=== PATIENT | male | born 1955 | race Caucasian/White ===

== ENCOUNTER 2017-04-20 15:23 | Emergency (ER) | payer MEDICARE, OTHER ==
[2017-04-20] MEDS ORDERED: methylPREDNISolone 125 MG* 2 ML VIAL IM ONE (15:48)
[2017-04-20] MEDS ORDERED: Albuterol 2.5 MG/3 ML NEB.SOL* (0.083%) INH ONE (15:49)
[2017-04-20] MEDS ORDERED: Ipratropium 0.5MG/2.5ML NEB* 0.5 MG/2.5 ML NEB.SOLN INH ONE (15:50)
[2017-04-20] MEDS ORDERED: Azithromycin TAB* 250 MG PO ONE (15:51)
--- NOTE | 2017-04-20 16:29 | RAD ---
INDICATION: Dyspnea. COMPARISON: Comparison is made with prior chest x-ray studies from September 03, 2013 and August 25, 2016. TECHNIQUE: Dual-energy PA and lateral views of the chest were obtained. FINDINGS: The heart is within normal limits in size. The lungs are hyperinflated with flattening of the diaphragms consistent with chronic obstructive pulmonary disease. There is a faint nodular density which projects above the left lung base measuring 5 mm in size which appears to be new from older studies. The lungs are otherwise clear. No pleural effusion is seen. IMPRESSION: 1. POSSIBLE LEFT LUNG PULMONARY NODULE. RECOMMEND A FOLLOW-UP CT OF THE CHEST FOR FURTHER EVALUATION. 2. FINDINGS CONSISTENT WITH COPD, NO EVIDENCE FOR ACUTE FINDING.
[2017-04-20] MEDS ORDERED: Levofloxacin TAB* 500 MG PO ONE (16:31)
--- NOTE | 2017-04-20 16:55 | UC ---
Respiratory Complaint HPI - HPI Summary HPI Summary: Patient presents with a past medical history of copd, and he states he has had increased sob, and sputum production x 2 days. He also noted increased O2 needs from 2-3 liters per nasal cannula. He denies fever,chills, chest pain, associated with his symtpoms. He states that when this happens he gets levaquin , and prednisone and he is o.k. - History of Current Complaint Chief Complaint: UCRespiratory Stated Complaint: SOB Time Seen by Provider: 04/20/17 15:43 Hx Obtained From: Patient Onset/Duration: Gradual Onset, Lasting Days Severity Initially: Mild Severity Currently: Moderate Character: Cough: Productive Aggravating Factors: Exertion Alleviating Factors: Bronchodilator, Upright Position - Risk Factors Pulmonary Embolism Risk Factors: Negative Tuberculosis Risk Factors: Corticosteriod Use - Allergies/Home Medications Allergies/Adverse Reactions: Allergies Allergy/AdvReac Type Severity Reaction Status Date / Time No Known Allergies Allergy Verified 04/20/17 15:37 PMH/Surg Hx/FS Hx/Imm Hx Previously Healthy: No Respiratory History: COPD, Bronchitis Other History Of: Negative For: HIV, Hepatitis B, Hepatitis C, Anticoagulant Therapy - Surgical History Surgical History: Yes Surgery Procedure, Year, and Place: tear ducts 2007. 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 Smoking Status (MU): Former Smoker Type: Cigarettes Amount Used/How Often: very little, a cigarette a day at most, usually less- uses nicotine inhaler Length of Time of Smoking/Using Tobacco: has quit Have You Smoked in the Last Year: Yes Household Exposure Type: Cigarettes - Immunization History Most Recent Influenza Vaccination: unsure Most Recent Tetanus Shot: 2009 Most Recent Pneumonia Vaccination: 2013 Review of Systems Constitutional: Negative Skin: Negative Eyes: Negative ENT: Negative Respiratory: Shortness Of Breath, Cough Cardiovascular: Negative Gastrointestinal: Negative Genitourinary: Negative Motor: Negative Neurovascular: Negative Musculoskeletal: Negative Neurological: Negative All Other Systems Reviewed And Are Negative: Yes Physical Exam Triage Information Reviewed: Yes Appearance: Ill-Appearing Vital Signs: Initial Vital Signs Temp 98 F 04/20/17 15:28 Pulse 114 06/05/17 15:28 Resp 22 04/20/17 15:28 BP 120/68 04/20/17 15:28 Pulse Ox 72 04/20/17 15:28 Vital Signs Reviewed: Yes Eye Exam: Normal ENT Exam: Normal Neck exam: Normal Respiratory: Positive: Decreased breath sounds Cardiovascular Exam: Normal Cardiovascular: Positive: Tachycardia Abdominal Exam: Normal Musculoskeletal Exam: Normal Skin Exam: Normal UC Diagnostic Evaluation - Laboratory O2 Sat by Pulse Oximetry: 79 Respiratory Course/Dx - Course Course Of Treatment: Patient has history of copd, and is o2 dependent continuous at home. He presents today with increased cough, and sputum production x 2 days. Denies chest pain, palpitation, n/v/d or abeominal pain. Chest xray reveals a pulmonary nodule recommended repeat ct in 3 months to ensure stabilty vs resolution. the patient was given a copy and told to follow up in three months as this could be cancer. He was given solu-mderol 125 mg im, and a loading dose of levaquin 500 mg in the department. I recommended that he go to the ER but he declined and I told him I have concerns he is in acute respiratory failure and he could , but he states he knows his own body and wear a pulse oximety at all times at home. He had capacity to makes his own decisions, and understood the cosequences of his decision, his was present. - Differential Dx/Diagnosis Differential Diagnosis/HQI/PQRI: Exacerbation Of COPD Provider Diagnoses: copd Discharge - Discharge Plan Condition: Stable Disposition: HOME Prescriptions: Levofloxacin TAB* [Levaquin TAB*] 500 mg PO DAILY #10 tab predniSONE TAB* [Deltasone TAB*] 20 mg PO BID #10 tab Patient Education Materials: COPD (Chronic Obstructive Pulmonary Disease) (ED) , Pulmonary Nodules (ED) Referrals: Tigre Torres MD [Primary Care Provider] -
[2017-04-20 17:21] VITALS: BP 145/91
== END 2017-04-20 17:12 | disposition home or self-care (01) ==
LOC: UCEAST 15:23
DX: J44.1 Chronic obstructive pulmonary disease with (acute) exacerbation (principal); Z87.891 Personal history of nicotine dependence; Z99.81 Dependence on supplemental oxygen
CPT/HCPCS: 71020; 96372; 99212; A9270-GY; G0463; J2930; J7644

== ENCOUNTER 2017-08-26 11:37 | Inpatient (IN) | payer MEDICARE, OTHER ==
[2017-08-26] MEDS: Albuterol/Ipratropium NEB.SOL* Albuterol 2.5 MG/Ipratropium 0.5 MG 3 ML INH ONE (12:08)
[2017-08-26] MEDS ORDERED: Furosemide IV* 10 MG/ML 10 ML VIAL (100 MG) IV ONE (12:13)
--- NOTE | 2017-08-26 12:27 | RAD ---
Indication: Shortness of breath. Single frontal view of the chest performed at 1200 hours was reviewed. Comparison is made with previous exam dated April 20, 2017. No mediastinal shift is noted. Hyperinflated lung talley are noted. Overall appearance does not appear to be significantly changed since April 20, 2017. IMPRESSION: HYPERINFLATED LUNG TALLEY WITH NO DEFINITE PNEUMONIA.
[2017-08-26 12:45] LABS: Hematocrit 43 % (42-52); Hemoglobin 13.8 g/dl (14.0-18.0); Mean Corpuscular HGB Conc 32 g/dl (31-36); Mean Corpuscular Hemoglobin 28 pg (27-31); Mean Corpuscular Volume 89 fL (80-94); Mean Platelet Volume 7 um3 (7.4-10.4); Red Blood Count 4.89 10^6/ul (4.0-5.4); Red Cell Distribution Width 13 % (10.5-15); White Blood Count 7.1 10^3/ul (3.5-10.8)
[2017-08-26 12:55] LABS: Albumin 3.8 g/dL (3.2-5.2); BUN/Creatinine Ratio 19.6 (8-20); C Reactive Protein 32.22 mg/L (< 5.00); Calcium 8.6 mg/dL (8.6-10.3); EGFR African American 211.1 (>60); EGFR Non-African American 164.1 (>60); Potassium 4.5 mmol/L (3.5-5.0); Total Bilirubin 0.6 mg/dL (0.2-1.0); Total Protein 6.8 g/dL (6.4-8.9)
[2017-08-26 12:57] LABS: Troponin I 0.03 ng/mL (<0.04)
[2017-08-26] MEDS ORDERED: methylPREDNISolone 125 MG* 2 ML VIAL IV ONE (13:30)
[2017-08-26 14:42] LABS: EPAP 6; FIO2 40; IPAP 16; Resp Rate 16
[2017-08-26 14:50] LABS: PCO2 Arterial 116 mmHg (35-45)
[2017-08-26] MEDS ORDERED: Cyclobenzaprine TAB* 10 MG PO PRN (15:00)
[2017-08-26] MEDS ORDERED: LORazepam TAB(*) 0.5 MG PO PRN (15:00)
--- NOTE | 2017-08-26 15:32 | HP ---
H&P (Free Text) History and Physical: H&P - Critical Care Reason for admission: copd exaccerbation Limitations in history/physical: delirium Date of admission: 08/26/2017 History limitation: delirium HPI: 62y M with chronic hypercapnea and chronic hypoxia 2/2 to COPD, on 2L NC, DM; comes to ER for shortness of breath, significant other at bedside. History limited due to mental status, lethargic. Significant other states he has been short of breath for days, unable to sleep for 3 nights, no cough/fever/sputum/cp /n/v/diarrhea/sick contacts. Today more short of breath. Had rash last week, on topical steroid but not much improvement. In ER, given steroids, Lasix, nebs. Placed on NIV. CXR without infiltrate but possible congestion? Currently in bed, opens eyes to stimuli but doesnt answer much and sleeps again. On NIV 29/04 40%, sat 93%, rr 16, BP 120s, HR 80-90s. ROS: limited due to delirium PMHx: COPD, home O2 2L; DM PSHx: biliary duct stent 2013 Family History: HTn, Cardiac disease Social History: Alcohol past, but stopped, Smoking - quit Allergies: NKDA Home Medications: LORazepam TAB(*) [Ativan 0.5 MG TAB (*)] 0.5 mg PO BID PRN MDD 1mg 12/23/14 [ History Confirmed 08/26/17] Albuterol/Ipratropium NEB.JAZZMINE* [Duoneb (Albuterol 2.5 MG/Ipratropium 0.5 MG)] 1 neb INH Q4HR PRN #0 08/26/16 [Rx Confirmed 08/26/17] glipiZIDE TAB.XL* [Glucotrol Xl*] 5 mg PO DAILY #30 tab.xl 08/26/16 [Rx Confirmed 08/26/17] Albuterol HFA INHALER* [Ventolin HFA Inhaler*] 2 puff INH QID PRN 08/26/17 [ History Confirmed 08/26/17] Cyclobenzaprine TAB* [Flexeril 10 MG TAB*] 10 mg PO TID PRN 08/26/17 [History Confirmed 08/26/17] Empagliflozin-Metformin HCl [Synjardy Xr 5-1000 mg] 1 tab PO BID 08/26/17 [ History Confirmed 08/26/17] Fluticasone-Salmeterol 500-50* [Advair Diskus 500-50*] 2 puff INH BID 08/26/17 [ History Confirmed 08/26/17] Pregabalin CAP(*) [Lyrica CAP(*)] 75 mg PO BID 08/26/17 [History Confirmed 08/26] Sertraline* [Zoloft*] 100 mg PO DAILY 08/26/17 [History Confirmed 08/26/17] Triamcinolone 0.1% CREAM (NF) [Kenalog 0.1% Cream (NF)] 1 applic TOPICAL TID PRN 08/26/17 [History Confirmed 08/26/17] Tele: NSR Vitals: Vital Signs Temp 99 F 08/26/17 11:50 Pulse 101 08/26/17 15:00 Resp 16 08/26/17 15:00 BP 135/74 08/26/17 15:00 Pulse Ox 93 08/26/17 15:00 Intake & Output 08/25/17 08/26/17 08/26/17 18:59 06:59 18:59 Weight 217 lb O2/Vent: NIV 14/6, 40%; rr 16, mv 5; sat 93% Infusions: heplock Current Medications: Albuterol/Ipratropium (Duoneb (Albuterol 2.5 Mg/Ipratropium 0.5 Mg)) 1 neb INH Q2H PRN PRN Reason: SOB/WHEEZING Cyclobenzaprine HCl (Flexeril Tab*) 10 mg PO TID PRN PRN Reason: PAIN Glipizide (Glucotrol Xl*) 5 mg PO DAILY ANAT Lorazepam (Ativan Tab(*)) 0.5 mg PO BID PRN PRN Reason: ANXIETY Methylprednisolone Sodium Succinate (Solu-Medrol 125mg *) 60 mg IV Q8H ANAT Pregabalin (Lyrica Cap(*)) 75 mg PO BID ANAT Sertraline HCl (Zoloft*) 100 mg PO DAILY ANAT Physical Exam: General: lethargic, arousable but minimally, doesnt talk back but opens eyes for a short while. not diaphoretic Head: normocephalic, atraumatic HEENT: no pallor, no icterus, moist mucous membranes Neck: soft, supple, no jvd, no stridor CVS: normal rate, normal rhythm, no murmur Resp: dec bs bilaterally, no rhales, no acc muscle use Abdomen: soft, nontender, nondistended, bowel sounds present Ext: pulses+, warm, trace edema Skin: intact, no breakdown; areas of scattered rash flush with skin, areas of excoriation/scabs Neuro: lethargic, opens eyes transiently with stimuli, no distress, moves spontaneously, pupils reactive bilaterally Labs: Laboratory Results - last 24 hr 08/26/17 08/26/17 08/26/17 12:25 12:25 12:25 WBC 7.1 RBC 4.89 Hgb 13.8 L Hct 43 MCV 89 MCH 28 MCHC 32 RDW 13 Plt Count 234 MPV 7 L Neut % (Auto) 77.5 Lymph % (Auto) 11.0 L Luce % (Auto) 9.6 H Eos % (Auto) 1.0 Baso % (Auto) 0.9 Absolute Neuts (auto) 5.5 Absolute Lymphs (auto) 0.8 L Absolute Monos (auto) 0.7 Absolute Eos (auto) 0.1 Absolute Basos (auto) 0.1 Absolute Nucleated RBC 0 Nucleated RBC % 0 Patient Temperature ABG pH ABG pH (Temp Correct) ABG pCO2 ABG pCO2 (Temp Corrct ABG pO2 ABG pO2 (Temp Correct ABG HCO3 ABG O2 Saturation ABG Base Excess Respiration Rate Ventilator Type Vent Mode FiO2 Inspiratory Time PEEP Pressure Support Pressure Control EPAP IPAP BiPAP Sodium 127 L Potassium 4.5 Chloride 84 L Carbon Dioxide 37 H Anion Gap 6 BUN 10 Creatinine 0.51 L Est GFR ( Amer) 211.1 Est GFR (Non-Af Amer) 164.1 BUN/Creatinine Ratio 19.6 Glucose 77 Lactic Acid Calcium 8.6 Total Bilirubin 0.60 AST 20 ALT 13 Alkaline Phosphatase 43 Troponin I 0.03 C-Reactive Protein 32.22 H B-Natriuretic Peptide 428 H Total Protein 6.8 Albumin 3.8 Globulin 3.0 Albumin/Globulin Ratio 1.3 08/26/17 08/26/17 12:25 14:35 WBC RBC Hgb Hct MCV MCH MCHC RDW Plt Count MPV Neut % (Auto) Lymph % (Auto) Luce % (Auto) Eos % (Auto) Baso % (Auto) Absolute Neuts (auto) Absolute Lymphs (auto) Absolute Monos (auto) Absolute Eos (auto) Absolute Basos (auto) Absolute Nucleated RBC Nucleated RBC % Patient Temperature Not Reportable ABG pH 7.20 L ABG pH (Temp Correct) Not Reportable ABG pCO2 116 H* ABG pCO2 (Temp Corrct Not Reportable ABG pO2 56 L* ABG pO2 (Temp Correct Not Reportable ABG HCO3 33.6 H ABG O2 Saturation 91.6 L ABG Base Excess 11.5 H Respiration Rate 16 Ventilator Type Not Reportable Vent Mode Not Reportable FiO2 40 Inspiratory Time Not Reportable PEEP Not Reportable Pressure Support Not Reportable Pressure Control Not Reportable EPAP 6 IPAP 16 BiPAP Not Reportable Sodium Potassium Chloride Carbon Dioxide Anion Gap BUN Creatinine Est GFR ( Amer) Est GFR (Non-Af Amer) BUN/Creatinine Ratio Glucose Lactic Acid 0.3 L Calcium Total Bilirubin AST ALT Alkaline Phosphatase Troponin I C-Reactive Protein B-Natriuretic Peptide Total Protein Albumin Globulin Albumin/Globulin Ratio Imaging: cxr 08/26 - hyperinflated lung davis, no infiltrate; no sig congestion seen, no effusions Assessment: 62y M with chronic hypercapnea and chronic hypoxia 2/2 to COPD, on 2L NC, DM; comes to ER for 3 days of shortness of breath, more lethargic in ED, placed on NIV, found to be hypercapneic/hypoxic. -Acute on chronic hypercapneic and hypoxic respiratory failure -Suspecte Acute COPD exaccerbation -Encephelopathy, metabolic/toxic -hyponatremia Plan: Neuro- encephelopathy, likely from hypercapnea, neurochecks. delirium prec. hold any sedation/sedating agents. CVS- hemodyn stable. BP okay, not tachy. given lasix x1. minimal edema. hold further lasix, cxr not much congestion. noted BNP elevated. Obtain TTE to eval LV function. Resp- acute hypercap and hypoxia on chronic; cont NIV, follow neuro checks. last Mv now 7s, slightly more arousable. keep upright. adjust fio2 to keep sat 92%. repeat abg in 3-4 hours to see trend. any further change in mental status or worsening or shall breathing, and will likley need intubation, discussed with significant other at bedside. cont nebs q2h prn. cont steroids 60mg iv q8h. cxr in am. no abx indicated at thsi time, afebrile/wbc okay/no incr sputum prod. ID- afebrile. wbc okay, no sputum. cxr clear of infiltrate. hold abx for now. GI-NPO while on NIV/encephelopathy. Renal- Cr okay. K okay, chronic alkalosis 2/2 to hypercapnea. s/p lasix. hold further for now. Heme- hg stable, plt okay. Endo- hold PO antidiabetic meds. subq insulin coverage. Musculsk- pressure ulcer proph Wounds- none, skin rash noted. cover with systemic steroids for copd exacc. monitor for now. DVT prophylaxis: lovenox sq GI prophylaxis: pepcid Central Line: no Arterial Line: no Granda Cathetor: no Disposition: ICU for respiratory failure and suspected copd exacc Code Status: full code Total Critical Care time is 50 minutes, excluding procedures/teaching Preet Hampton MD Content Management Consultant (Electronically Signed)
[2017-08-26] MEDS ORDERED: Dextrose 50% Syringe 50 ML* 25 GM/50 ML SYRINGE IV PUSH PRN (15:36)
[2017-08-26] MEDS: Albuterol/Ipratropium NEB.SOL* Albuterol 2.5 MG/Ipratropium 0.5 MG 3 ML INH PRN (15:42)
[2017-08-26] MEDS ORDERED: Perflutren Lipid Microsphere* 3 ML VIAL ONE (16:35)
--- NOTE | 2017-08-26 17:32 | ECHO ---
Patient: JAN GASTELUM [facility] Rec#: [id number] : 1955 Date: 08/26/2017 Age: 62y Height: 177.8 cm / 70.0 in Weight: 95.25 kg / 209.9 lbs Sex: M BSA: 2.13 Room#: [facility] Admit Date#: 08/26/2017 Type: Inpatient Referring: Preet Hampton Reading: Julien West MD Plant Hr Manager: Rena Bee RDCS CC: Tigre Torres MD Transthoracic Echocardiogram Indication: Shortness of breath BP: 119/71 HR: 108 Rhythm: Tachycardia Findings History: COPD, previous ETOH, liver cirrhosis, pancreatitis, DM, former smoker. Technical Comments: The study is technically difficult. The study is technically limited due to the patient's history of COPD. The study is technically limited due to patient being on BIPAP during study. Completed at 1720. Left Ventricle: The left ventricular chamber size is decreased. There is no left ventricular hypertrophy. Global left ventricular wall motion and contractility are within normal limits. There is normal left ventricular systolic function. The estimated ejection fraction is 55-60%. There is septal flattening of the interventricular septum consistent with right ventricular volume or pressure overload. Abnormal left ventricular diastolic function is observed. There is an E to A reversal in the mitral valve flow pattern suggestive of diastolic dysfunction. Left Atrium: The left atrial chamber size is normal. Right Ventricle: Moderator Band present. The right ventricle is moderately dilated. The right ventricular global systolic function is moderately reduced. Right Atrium: The right atrium is mildly dilated. Aortic Valve: The aortic valve is trileaflet. There is no evidence of aortic regurgitation. There is no evidence of aortic stenosis. Mitral Valve: The mitral valve leaflets appear normal. There is a trace of mitral regurgitation. There is no evidence of mitral stenosis. Tricuspid Valve: The tricuspid valve leaflets are mildly thickened. There is trace to mild tricuspid regurgitation. The right ventricular systolic pressure is estimated at 54 mmHg. There is evidence of moderate pulmonary hypertension. There is no tricuspid stenosis. Pulmonic Valve: The pulmonic valve appears normal. There is a trace pulmonic regurgitation. There is no pulmonic stenosis. Pericardium: There is no significant pericardial effusion. Aorta: The ascending aorta is not well visualized. The aortic arch is not well visualized. The aortic root is normal in size. Pulmonary Artery: The main pulmonary artery is not well visualized. Venous: The inferior vena cava appears normal in size. There is less than 50% respiratory change in the inferior vena cava dimension. Contrast: Definity was used to optimize study. Intravenous contrast was used to enhance endocardial border definition. 3 mL of diluted Definity was utilized. Summary: There are changes noted when compared to the previous study done on 12/26/2014, RV was not well visualized then and mildly dilated and no comment on systolic function . Now RV is at least moderately dilated and moderate RV systolic function reduction.PHTN still moderate. Conclusions The study is technically limited due to the patient's history of COPD. The left ventricular chamber size is decreased. The estimated ejection fraction is 55-60%. There is septal flattening of the interventricular septum consistent with right ventricular volume or pressure overload. Abnormal left ventricular diastolic function is observed. The right ventricle is moderately dilated. The right atrium is mildly dilated. There is a trace of mitral regurgitation. There is trace to mild tricuspid regurgitation. There is evidence of moderate pulmonary hypertension. There is a trace pulmonic regurgitation. The right ventricular global systolic function is moderately reduced. There are changes noted when compared to the previous study done on 12/26/2014, RV was not well visualized then and mildly dilated and no comment on systolic function . Now RV is at least moderately dilated and moderate RV systolic function reduction.PHTN still moderate. Measurements Name Value Normal Range RVIDd (AP) 2D 4.6 cm (0.9 - 2.6) RVDdMajor (2D) 5.6 cm (2.2 - 4.4) RAd ISD 4CH 5.1 cm (3.4 - 4.9) RA (A4C)W 4.7 cm (2.9 - 4.6) IVSd (2D) 1 cm (0.6 - 1) LVPWd (2D) 1 cm (0.6 - 1) LVIDd (2D) 3.4 cm (3.6 - 5.4) LVIDs (2D) 2.2 cm - LV FS (2D) 34 % (25 - 45) Aortic Annulus 2 cm (1.4 - 2.6) Ao root diameter (2D) 3 cm (2.1 - 3.5) LA dimension (AP) 2D 3.6 cm (2.3 - 3.8) LAd ISD 4CH 4.5 cm (2.9 - 5.3) LA ISD 4CH W 4 cm (2.5 - 4.5) Name Value Normal Range LA ESV SP 4CH (A/L) 49 ml - LA ESV SP 2CH (A/L) 54 ml - LA ESV BP (A/L) 60 ml - LA ESV BP (A/L) index 28.22 ml/m2 - LA ESV SP 4CH (MOD) 43 ml - LA ESV SP 2CH (MOD) 52 ml - Name Value Normal Range MV E-wave Vmax 0.64 m/sec - MV deceleration time 164 msec - MV A-wave Vmax 0.78 m/sec - MV E:A ratio 0.82 ratio - LV septal e' Vmax 0.07 m/sec - LV lateral e' Vmax 0.15 m/sec - LV E:e' septal ratio 9.14 ratio - LV E:e' lateral ratio 4.27 ratio - Name Value Normal Range AV Vmax 1.5 m/sec - AV VTI 20.21 cm - AV peak gradient 9.37 mmHg - AV mean gradient 3.89 mmHg - LVOT Vmax 1.16 m/sec - LVOT VTI 18.69 cm - LVOT peak gradient 5.39 mmHg - LVOT mean gradient 2.81 mmHg - Name Value Normal Range TR Vmax 3.4 m/sec - TR peak gradient 46 mmHg - RAP 8 mmHg - RVSP 54 mmHg - IVC diameter 1.7 cm - Name Value Normal Range PV Vmax 1.16 m/sec - PV peak gradient 5.35 mmHg -
[2017-08-26] MEDS: Insulin LISPRO* 1 UNITS UNIT SUBCUT SCH ×2 (17:52→23:48)
[2017-08-26] MEDS: Albuterol (2.5 MG) 0.5 % CONC 2.5 MG/0.5 ML NEB.SOLN (ICU and ED only) INH SCH ×2 (20:20→22:05)
[2017-08-26] MEDS: methylPREDNISolone 125 MG* 2 ML VIAL IV SCH (20:20)
[2017-08-26] MEDS: Pregabalin CAP(*) 25 MG PO SCH (20:24)
[2017-08-26 20:28] LABS: PCO2 Arterial 88 mmHg (35-45)
--- NOTE | 2017-08-26 21:25 | ED ---
Jaciel Maynard Thomas, scribed for Curt Sierra MD on 08/26/17 at 1158 . Shortness of Breath - HPI Summary HPI Summary: The pt is a 62 y/o M BIBA c/o SOB at rest that began yesterday. The SOB is constant and is aggravated and alleviated by nothing. The patient had one breathing treatment given prior to arrival by EMS and maybe three at home. He is on 2L of oxygen at home. He takes prednisone. PMHx: COPD, PNA. - History of Current Complaint Chief Complaint: EDRespiratoryDistress Hx Obtained From: Patient Onset/Duration: Lasting Days - onset yesterday, Still Present Timing: Constant Dyspnea At: Rest Aggrevating Factors: Nothing Alleviating Factors: Nothing Associated Signs & Symptoms: Negative - Allergy/Home Medications Allergies/Adverse Reactions: Allergies Allergy/AdvReac Type Severity Reaction Status Date / Time No Known Allergies Allergy Verified 04/20/17 15:37 Home Medications: Home Medications Albuterol HFA INHALER* [Ventolin HFA Inhaler*] 2 puff INH QID PRN 08/26/17 [ History Confirmed 08/26/17] Cyclobenzaprine TAB* [Flexeril 10 MG TAB*] 10 mg PO TID PRN 08/26/17 [History Confirmed 08/26/17] Empagliflozin-Metformin HCl [Synjardy Xr 5-1000 mg] 1 tab PO BID 08/26/17 [ History Confirmed 08/26/17] Fluticasone-Salmeterol 500-50* [Advair Diskus 500-50*] 2 puff INH BID 08/26/17 [ History Confirmed 08/26/17] Pregabalin CAP(*) [Lyrica CAP(*)] 75 mg PO BID 08/26/17 [History Confirmed 08/26] Sertraline* [Zoloft*] 100 mg PO DAILY 08/26/17 [History Confirmed 08/26/17] Triamcinolone 0.1% CREAM (NF) [Kenalog 0.1% Cream (NF)] 1 applic TOPICAL TID PRN 08/26/17 [History Confirmed 08/26/17] PMH/Surg Hx/FS Hx/Imm Hx Previously Healthy: No Endocrine/Hematology History: Reports: Hx Diabetes Denies: Hx Anticoagulant Therapy, Hx Thyroid Disease Cardiovascular History: Denies: Hx Congestive Heart Failure, Hx Deep Vein Thrombosis, Hx Hypertension , Hx Myocardial Infarction, Hx Pacemaker/ICD Respiratory History: Reports: Hx Chronic Obstructive Pulmonary Disease (COPD), Other Respiratory Problems/Disorders - RECENT HX OF PNEUMONIA Denies: Hx Asthma, Hx Lung Cancer, Hx Pneumonia, Hx Pulmonary Embolism GI History: Reports: Hx Gall Bladder Disease - COMMON BILE DUCT STENTED. LATER CHOLANGITIS, Other GI Disorders - COMMON BILE DUCT STENT Denies: Hx Gastroesophageal Reflux Disease, Hx Gastrointestinal Bleed, Hx Hiatal Hernia, Hx Irritable Bowel, Hx Jaundice, Hx Ulcer, Hx Urosepsis History: Denies: Hx Dialysis, Hx Kidney Infection, Hx Kidney Stones, Hx Renal Disease , Other Problems/Disorders Sensory History: Reports: Hx Contacts or Glasses - WITH PT Denies: Hx Cataracts, Hx Hearing Aid, Other Sensory Impairments Opthamlomology History: Reports: Hx Contacts or Glasses - WITH PT Denies: Hx Cataracts, Other Sensory Impairments Neurological History: Denies: Hx Dementia, Hx Migraine, Hx Seizures, Hx Transient Ischemic Attacks (TIA) Psychiatric History: Reports: Hx Anxiety Denies: Hx Depression, Hx Schizophrenia, Hx Bipolar Disorder, Hx Substance Abuse, Other Psychiatric Issues/Disorders - pt denies ETOH abuse at this time - Surgical History Surgery Procedure, Year, and Place: tear ducts 2007. STENT IN BILE DUCT 2014 Hx Anesthesia Reactions: No - Immunization History Date of Tetanus Vaccine: 2010 Date of Influenza Vaccine: 2011 Infectious Disease History: No Infectious Disease History: Denies: Hx Hepatitis, Hx Human Immunodeficiency Virus (HIV), History Other Infectious Disease, Traveled Outside the [place] in Last 30 Days - Family History Known Family History: Positive: Cardiac Disease, Hypertension - Social History Alcohol Use: None Alcohol Amount: HX ETOH BUT DOES NOT DRINK ANYMORE Hx Substance Use: No Substance Use Type: Reports: None Substance Use Comment - Amount & Last Used: hx of etoh, 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 Hx Tobacco Use: Yes Smoking Status (MU): Former Smoker Type: Cigarettes Amount Used/How Often: very little, a cigarette a day at most, usually less- uses nicotine inhaler Length of Time of Smoking/Using Tobacco: has quit Have You Smoked in the Last Year: Yes Review of Systems Negative: Fever Positive: Shortness Of Breath All Other Systems Reviewed And Are Negative: Yes Physical Exam Triage Information Reviewed: Yes Vital Signs On Initial Exam: Initial Vitals Temp Pulse Resp BP Pulse Ox 99 F 114 26 144/73 94 08/26/17 11:50 08/26/17 11:50 08/26/17 11:50 08/26/17 11:50 08/26/17 11:50 Vital Signs Reviewed: Yes Appearance: Positive: Well-Appearing, No Pain Distress, Obese Skin: Positive: Warm, Skin Color Reflects Adequate Perfusion, Dry Head/Face: Positive: Normal Head/Face Inspection Eyes: Positive: Normal ENT: Positive: Normal ENT inspection Neck: Positive: Supple, Nontender Respiratory/Lung Sounds: Positive: Other - There are decreased breath sounds. There is increased AP diameter. There is prolonged expiratory time. He speaks in one- or two-word sentences. Cardiovascular: Positive: RRR Abdomen Description: Positive: Nontender, Soft Bowel Sounds: Positive: Present Musculoskeletal: Positive: Normal Neurological: Positive: Normal Psychiatric: Positive: Normal, Affect/Mood Appropriate Diagnostics - Vital Signs Vital Signs Temp Pulse Resp BP Pulse Ox 08/26/17 11:50 99 F 114 26 144/73 94 - Laboratory Lab Results: Lab Results 08/26/17 08/26/17 08/26/17 Range/Units 12:25 12:25 12:25 WBC 7.1 (3.5-10.8) 10^3/ul RBC 4.89 (4.0-5.4) 10^6/ul Hgb 13.8 L (14.0-18.0) g/dl Hct 43 (42-52) % MCV 89 (80-94) fL MCH 28 (27-31) pg MCHC 32 (31-36) g/dl RDW 13 (10.5-15) % Plt Count 234 (150-450) 10^3/ul MPV 7 L (7.4-10.4) um3 Neut % (Auto) 77.5 (38-83) % Lymph % (Auto) 11.0 L (25-47) % [place] % (Auto) 9.6 H (1-9) % Eos % (Auto) 1.0 (0-6) % Baso % (Auto) 0.9 (0-2) % Absolute Neuts (auto) 5.5 (1.5-7.7) 10^3/ul Absolute Lymphs (auto) 0.8 L (1.0-4.8) 10^3/ul Absolute Monos (auto) 0.7 (0-0.8) 10^3/ul Absolute Eos (auto) 0.1 (0-0.6) 10^3/ul Absolute Basos (auto) 0.1 (0-0.2) 10^3/ul Absolute Nucleated RBC 0 10^3/ul Nucleated RBC % 0 Patient Temperature ABG pH (7.35-7.45) ABG pH (Temp Correct) ABG pCO2 (35-45) mmHg ABG pCO2 (Temp Corrct ABG pO2 (80-100) mmHg ABG pO2 (Temp Correct ABG HCO3 (19-31) mmol/L ABG O2 Saturation (95-98) % ABG Base Excess (-2.0-2.0) Respiration Rate Ventilator Type Vent Mode FiO2 Inspiratory Time PEEP Pressure Support Pressure Control EPAP IPAP BiPAP Sodium 127 L (133-145) mmol/L Potassium 4.5 (3.5-5.0) mmol/L Chloride 84 L (101-111) mmol/L Carbon Dioxide 37 H (22-32) mmol/L Anion Gap 6 (2-11) mmol/L BUN 10 (6-24) mg/dL Creatinine 0.51 L (0.67-1.17) mg/dL Est GFR ( Amer) 211.1 (>60) Est GFR (Non-Af Amer) 164.1 (>60) BUN/Creatinine Ratio 19.6 (8-20) Glucose 77 (70-100) mg/dL Lactic Acid (0.5-2.0) mmol/L Calcium 8.6 (8.6-10.3) mg/dL Total Bilirubin 0.60 (0.2-1.0) mg/dL AST 20 (13-39) U/L ALT 13 (7-52) U/L Alkaline Phosphatase 43 (34-104) U/L Troponin I 0.03 (<0.04) ng/mL C-Reactive Protein 32.22 H (< 5.00) mg/L B-Natriuretic Peptide 428 H ( - 100) pg/mL Total Protein 6.8 (6.4-8.9) g/dL Albumin 3.8 (3.2-5.2) g/dL Globulin 3.0 (2-4) g/dL Albumin/Globulin Ratio 1.3 (1-3) 08/26/17 08/26/17 Range/Units 12:25 14:35 WBC (3.5-10.8) 10^3/ul RBC (4.0-5.4) 10^6/ul Hgb (14.0-18.0) g/dl Hct (42-52) % MCV (80-94) fL MCH (27-31) pg MCHC (31-36) g/dl RDW (10.5-15) % Plt Count (150-450) 10^3/ul MPV (7.4-10.4) um3 Neut % (Auto) (38-83) % Lymph % (Auto) (25-47) % [place] % (Auto) (1-9) % Eos % (Auto) (0-6) % Baso % (Auto) (0-2) % Absolute Neuts (auto) (1.5-7.7) 10^3/ul Absolute Lymphs (auto) (1.0-4.8) 10^3/ul Absolute Monos (auto) (0-0.8) 10^3/ul Absolute Eos (auto) (0-0.6) 10^3/ul Absolute Basos (auto) (0-0.2) 10^3/ul Absolute Nucleated RBC 10^3/ul Nucleated RBC % Patient Temperature Not Reportable ABG pH 7.20 L (7.35-7.45) ABG pH (Temp Correct) Not Reportable ABG pCO2 116 H* (35-45) mmHg ABG pCO2 (Temp Corrct Not Reportable ABG pO2 56 L* (80-100) mmHg ABG pO2 (Temp Correct Not Reportable ABG HCO3 33.6 H (19-31) mmol/L ABG O2 Saturation 91.6 L (95-98) % ABG Base Excess 11.5 H (-2.0-2.0) Respiration Rate 16 Ventilator Type Not Reportable Vent Mode Not Reportable FiO2 40 Inspiratory Time Not Reportable PEEP Not Reportable Pressure Support Not Reportable Pressure Control Not Reportable EPAP 6 IPAP 16 BiPAP Not Reportable Sodium (133-145) mmol/L Potassium (3.5-5.0) mmol/L Chloride (101-111) mmol/L Carbon Dioxide (22-32) mmol/L Anion Gap (2-11) mmol/L BUN (6-24) mg/dL Creatinine (0.67-1.17) mg/dL Est GFR ( Amer) (>60) Est GFR (Non-Af Amer) (>60) BUN/Creatinine Ratio (8-20) Glucose (70-100) mg/dL Lactic Acid 0.3 L (0.5-2.0) mmol/L Calcium (8.6-10.3) mg/dL Total Bilirubin (0.2-1.0) mg/dL AST (13-39) U/L ALT (7-52) U/L Alkaline Phosphatase (34-104) U/L Troponin I (<0.04) ng/mL C-Reactive Protein (< 5.00) mg/L B-Natriuretic Peptide ( - 100) pg/mL Total Protein (6.4-8.9) g/dL Albumin (3.2-5.2) g/dL Globulin (2-4) g/dL Albumin/Globulin Ratio (1-3) Result Diagrams: 08/26/17 12:25 08/26/17 12:25 Lab Statement: Any lab studies that have been ordered have been reviewed, and results considered in the medical decision making process. - Radiology CXR Xray Interpretation: No Acute Changes - Hyperinflated lung davis with no definite PNA. ED physician has reviewed this report and agrees. Radiology Interpretation Completed By: Radiologist - EKG 12:08 Cardiac Rate: Tachycardia - 104 BPM EKG Rhythm: Sinus Tachycardia EKG Interpretation: Nonspecific septal changes. Course/Dx - Course Course Of Treatment: Mr. Cerna presented in obvious respiratory distress. He was immediatley placed on BiPap, given Nebs and given IV solumedrol. He got some rest on BiPap. He had peripheral edema and some signs of increased fluid on his CXR so I gave him some lasix also. He was admitted to the ICU. - Diagnoses Provider Diagnoses: COPD exacerbation, CHF (congestive heart failure), Respiratory insufficiency - Physician Notifications Discussed Care of Patient With: Preet Hampton Time Discussed With Above Provider: 13:36 Instructed by Provider To: Other - I consulted with Dr. Hampton, teachers' aide, regarding patient care. He admits the patient to [facility] [place]. - Critical Care Time Critical Care Time: 30-74 min Discharge - Discharge Plan Condition: Fair Disposition: ADMITTED TO [facility] documentation as recorded by the Jaciel giron Thomas accurately reflects the service I personally performed and the decisions made by me, Curt Sierra MD.
[2017-08-26] MEDS: Enoxaparin(*) 40 MG/0.4 ML SYR SUBCUT SCH (22:04)
[2017-08-27] MEDS: methylPREDNISolone 125 MG* 2 ML VIAL IV SCH ×3 (03:49→21:13)
[2017-08-27] MEDS: Insulin LISPRO* 1 UNITS UNIT SUBCUT SCH ×4 (06:13→21:14)
[2017-08-27 07:06] LABS: Hematocrit 46 % (42-52); Hemoglobin 14.6 g/dl (14.0-18.0); Mean Corpuscular HGB Conc 32 g/dl (31-36); Mean Corpuscular Hemoglobin 28 pg (27-31); Mean Corpuscular Volume 87 fL (80-94); Mean Platelet Volume 8 um3 (7.4-10.4); Red Cell Distribution Width 13 % (10.5-15); White Blood Count 3.1 10^3/ul (3.5-10.8)
[2017-08-27 07:08] LABS: Add Diff/Slide Review? Slide Review Added; Comments Flag Yes
[2017-08-27 07:24] LABS: BUN/Creatinine Ratio 26.8 (8-20); Calcium 8.4 mg/dL (8.6-10.3); EGFR African American 189.5 (>60); EGFR Non-African American 147.4 (>60); Potassium 4.8 mmol/L (3.5-5.0)
--- NOTE | 2017-08-27 08:04 | RAD ---
INDICATION: COPD exacerbation. COMPARISON: Comparison is made with a prior chest x-ray study from August 26, 2017. TECHNIQUE: A portable view of the chest was obtained. FINDINGS: The heart appears to be within normal limits in size. The lungs are hyperinflated and clear. No pleural effusion is seen. IMPRESSION: FINDINGS SUGGESTIVE OF COPD, NO EVIDENCE FOR ACUTE FINDING.
[2017-08-27] MEDS ORDERED: Famotidine IV* 10 MG/ML 2 ML (20 mg) IV SLOW PU SCH (09:00)
[2017-08-27] MEDS ORDERED: Dextrose 50% Syringe 50 ML* 25 GM/50 ML SYRINGE IV PUSH PRN (09:11)
--- NOTE | 2017-08-27 09:18 | PN ---
Progress Note - Progress Note Date of Service: 08/27/17 Note: Progress Note - Critical Care 24 hour events: -on NIV, more awake/alert, follows all commands -feels better, no sob now, hungry, thirsty Tele: NSR Vitals: Vital Signs Temp 99.3 F 08/27/17 07:50 Pulse 110 08/27/17 09:09 Resp 21 08/27/17 09:09 BP 117/68 08/27/17 08:00 Pulse Ox 92 08/27/17 09:09 Intake & Output 08/26/17 08/27/17 08/27/17 18:59 06:59 18:59 Intake Total 100 Output Total 1700 350 Balance -1600 -350 Weight 172 lb 6.424 oz 172 lb 6.424 oz Intake: Oral 100 Output: Urine 900 350 Granda 800 Other: # Voids 3 O2/Vent: NIV 14/6, 40%; rr 20, tv 500+. mv 12-14 Infusions: heplock Current Medications: Albuterol/Ipratropium (Duoneb (Albuterol 2.5 Mg/Ipratropium 0.5 Mg)) 1 neb INH Q2H PRN PRN Reason: SOB/WHEEZING Last Admin: 08/26/17 15:42 Dose: 1 neb Cyclobenzaprine HCl (Flexeril Tab*) 10 mg PO TID PRN PRN Reason: PAIN Dextrose (D50w Syringe 50 Ml*) 12.5 gm IV PUSH .FOR FS < 60 - SS PRN PRN Reason: FS < 60 Dextrose (D50w Syringe 50 Ml*) 12.5 gm IV PUSH .FOR FS < 60 - SS PRN PRN Reason: FS < 60 Enoxaparin Sodium (Lovenox(*)) 40 mg SUBCUT Q24H ANAT Last Admin: 08/26/17 22:04 Dose: 40 mg Famotidine (Pepcid Iv*) 20 mg IV SLOW PU 0900 ANAT Glipizide (Glucotrol Xl*) 5 mg PO DAILY ANAT Insulin Human Lispro (Humalog*) 0 units SUBCUT Q6HR ANAT PRN Reason: Protocol Last Admin: 08/27/17 06:13 Dose: Not Given Insulin Human Lispro (Humalog*) 0 units SUBCUT ACHS ANAT PRN Reason: Protocol Lorazepam (Ativan Tab(*)) 0.5 mg PO BID PRN PRN Reason: ANXIETY Methylprednisolone Sodium Succinate (Solu-Medrol 125mg *) 60 mg IV Q8H [facility], [facility] Last Admin: 08/27/17 03:49 Dose: 60 mg Pregabalin (Lyrica Cap(*)) 75 mg PO BID [facility] Last Admin: 08/26/17 20:24 Dose: 75 mg Sertraline HCl (Zoloft*) 100 mg PO DAILY [facility] Physical Exam: General: awake, alert, oriented, no distress, on NIV Head: normocephalic, atraumatic HEENT: no pallor, no icterus, moist mucous membranes Neck: soft, supple, no jvd, no stridor CVS: normal rate, normal rhythm, no murmur Resp: dec bs bilaterally, no rhales, no acc muscle use Abdomen: soft, nontender, nondistended, bowel sounds present Ext: pulses+, warm, trace edema Skin: intact, no breakdown; areas of scattered rash flush with skin, areas of excoriation/scabs Neuro: awake, alert, moves all ext, no focal deficit Labs: Laboratory Results - last 24 hr 08/26/17 08/26/17 08/26/17 12:25 12:25 12:25 WBC 7.1 RBC 4.89 Hgb 13.8 L Hct 43 MCV 89 MCH 28 MCHC 32 RDW 13 Plt Count 234 MPV 7 L Neut % (Auto) 77.5 Lymph % (Auto) 11.0 L [place] % (Auto) 9.6 H Eos % (Auto) 1.0 Baso % (Auto) 0.9 Absolute Neuts (auto) 5.5 Absolute Lymphs (auto) 0.8 L Absolute Monos (auto) 0.7 Absolute Eos (auto) 0.1 Absolute Basos (auto) 0.1 Absolute Nucleated RBC 0 Nucleated RBC % 0 Patient Temperature ABG pH ABG pH (Temp Correct) ABG pCO2 ABG pCO2 (Temp Corrct ABG pO2 ABG pO2 (Temp Correct ABG HCO3 ABG O2 Saturation ABG Base Excess Respiration Rate Ventilator Type Vent Mode FiO2 Inspiratory Time PEEP Pressure Support Pressure Control EPAP IPAP BiPAP Sodium 127 L Potassium 4.5 Chloride 84 L Carbon Dioxide 37 H Anion Gap 6 BUN 10 Creatinine 0.51 L Est GFR ( Amer) 211.1 Est GFR (Non-Af Amer) 164.1 BUN/Creatinine Ratio 19.6 Glucose 77 POC Glucose (mg/dL) Lactic Acid Calcium 8.6 Total Bilirubin 0.60 AST 20 ALT 13 Alkaline Phosphatase 43 Troponin I 0.03 C-Reactive Protein 32.22 H B-Natriuretic Peptide 428 H Total Protein 6.8 Albumin 3.8 Globulin 3.0 Albumin/Globulin Ratio 1.3 08/26/17 08/26/17 08/26/17 12:25 14:35 17:36 WBC RBC Hgb Hct MCV MCH MCHC RDW Plt Count MPV Neut % (Auto) Lymph % (Auto) [place] % (Auto) Eos % (Auto) Baso % (Auto) Absolute Neuts (auto) Absolute Lymphs (auto) Absolute Monos (auto) Absolute Eos (auto) Absolute Basos (auto) Absolute Nucleated RBC Nucleated RBC % Patient Temperature Not Reportable ABG pH 7.20 L ABG pH (Temp Correct) Not Reportable ABG pCO2 116 H* ABG pCO2 (Temp Corrct Not Reportable ABG pO2 56 L* ABG pO2 (Temp Correct Not Reportable ABG HCO3 33.6 H ABG O2 Saturation 91.6 L ABG Base Excess 11.5 H Respiration Rate 16 Ventilator Type Not Reportable Vent Mode Not Reportable FiO2 40 Inspiratory Time Not Reportable PEEP Not Reportable Pressure Support Not Reportable Pressure Control Not Reportable EPAP 6 IPAP 16 BiPAP Not Reportable Sodium Potassium Chloride Carbon Dioxide Anion Gap BUN Creatinine Est GFR ( Amer) Est GFR (Non-Af Amer) BUN/Creatinine Ratio Glucose POC Glucose (mg/dL) 91 Lactic Acid 0.3 L Calcium Total Bilirubin AST ALT Alkaline Phosphatase Troponin I C-Reactive Protein B-Natriuretic Peptide Total Protein Albumin Globulin Albumin/Globulin Ratio 08/26/17 08/26/17 08/27/17 20:10 23:45 06:08 WBC RBC Hgb Hct MCV MCH MCHC RDW Plt Count MPV Neut % (Auto) Lymph % (Auto) [place] % (Auto) Eos % (Auto) Baso % (Auto) Absolute Neuts (auto) Absolute Lymphs (auto) Absolute Monos (auto) Absolute Eos (auto) Absolute Basos (auto) Absolute Nucleated RBC Nucleated RBC % Patient Temperature ABG pH 7.30 L ABG pH (Temp Correct) ABG pCO2 88 H* ABG pCO2 (Temp Corrct ABG pO2 57 L* ABG pO2 (Temp Correct ABG HCO3 34.4 H ABG O2 Saturation 92.4 L ABG Base Excess 12.5 H Respiration Rate Ventilator Type Vent Mode FiO2 Inspiratory Time PEEP Pressure Support Pressure Control EPAP IPAP BiPAP Sodium Potassium Chloride Carbon Dioxide Anion Gap BUN Creatinine Est GFR ( Amer) Est GFR (Non-Af Amer) BUN/Creatinine Ratio Glucose POC Glucose (mg/dL) 108 H 108 H Lactic Acid Calcium Total Bilirubin AST ALT Alkaline Phosphatase Troponin I C-Reactive Protein B-Natriuretic Peptide Total Protein Albumin Globulin Albumin/Globulin Ratio 08/27/17 08/27/17 06:10 06:10 WBC 3.1 L RBC 5.20 Hgb 14.6 Hct 46 MCV 87 MCH 28 MCHC 32 RDW 13 Plt Count 246 MPV 8 Neut % (Auto) 81.7 Lymph % (Auto) 14.8 L [place] % (Auto) 3.1 Eos % (Auto) 0.2 Baso % (Auto) 0.2 Absolute Neuts (auto) 2.5 Absolute Lymphs (auto) 0.5 L Absolute Monos (auto) 0.1 Absolute Eos (auto) 0 Absolute Basos (auto) 0 Absolute Nucleated RBC 0.01 Nucleated RBC % 0.2 Patient Temperature ABG pH ABG pH (Temp Correct) ABG pCO2 ABG pCO2 (Temp Corrct ABG pO2 ABG pO2 (Temp Correct ABG HCO3 ABG O2 Saturation ABG Base Excess Respiration Rate Ventilator Type Vent Mode FiO2 Inspiratory Time PEEP Pressure Support Pressure Control EPAP IPAP BiPAP Sodium 127 L Potassium 4.8 Chloride 84 L Carbon Dioxide 27 Anion Gap 16 H BUN 15 Creatinine 0.56 L Est GFR ( Amer) 189.5 Est GFR (Non-Af Amer) 147.4 BUN/Creatinine Ratio 26.8 H Glucose 94 POC Glucose (mg/dL) Lactic Acid Calcium 8.4 L Total Bilirubin AST ALT Alkaline Phosphatase Troponin I C-Reactive Protein B-Natriuretic Peptide Total Protein Albumin Globulin Albumin/Globulin Ratio Imaging: cxr 08/26 - hyperinflated lung davis, no infiltrate; no sig congestion seen, no effusions cxr 08/27 - hyperinflated, no focal infitlrate/effusion/congestion Assessment: 62y M with chronic hypercapnea and chronic hypoxia 2/2 to COPD, on 2L NC, DM; comes to ER for 3 days of shortness of breath, more lethargic in ED, placed on NIV, found to be hypercapneic/hypoxic. -Acute on chronic hypercapneic and hypoxic respiratory failure -Suspecte Acute COPD exaccerbation -Encephelopathy, metabolic/toxic -hyponatremia -Cor Pulmonale from pulm htn/copd Plan: Neuro- encephelopathy improved, hold sedatives. delirium prec. CVS- hemodyn stable. BP okay, not tachy. no further lasix given. no edema. cont steroids. ECHO with LV diastolic dysfunction but RV dilated, likely cor pulmonale from pulm hypertension/COPD Resp- resp status improved. last abg with ph 7.3. now more awake, alert, breathing easier. will trial off NIV, as needed during the day. abg as needed. cxr no change. cont steroids and nebs q4h. NIV at night and PRN in daytime. ID- afebrile. wbc 3, no sputum. cxr clear of infiltrate. hold abx GI-start diabetic diet. PPI prophylaxis Renal- Cr okay. K okay, chronic alkalosis 2/2 to hypercapnea. Heme- hg stable, plt okay. Endo- PO antidiabetic meds. subq insulin coverage. Musculsk- pressure ulcer proph Wounds- none, skin rash noted. cover with systemic steroids for copd exacc. monitor for now. DVT prophylaxis: lovenox sq GI prophylaxis: pepcid Central Line: no Arterial Line: no Granda Cathetor: no Disposition: ICU for respiratory failure and suspected copd exacc; improved now. monitor off NIV or as needed today. Code Status: full code Total Critical Care time is 30 minutes, excluding procedures/teaching Prete Hampton MD Full Time Paramedic (Electronically Signed)
[2017-08-27] MEDS: glipiZIDE TAB.XL* 5 MG PO SCH (09:42)
[2017-08-27] MEDS: Sertraline* 100 MG TAB PO SCH (09:42)
[2017-08-27] MEDS: Pregabalin CAP(*) 25 MG PO SCH ×2 (09:42→21:15)
[2017-08-27] MEDS: Enoxaparin(*) 40 MG/0.4 ML SYR SUBCUT SCH (21:13)
[2017-08-27] MEDS: Albuterol/Ipratropium NEB.SOL* Albuterol 2.5 MG/Ipratropium 0.5 MG 3 ML INH PRN (22:12)
[2017-08-28] MEDS: methylPREDNISolone 125 MG* 2 ML VIAL IV SCH ×3 (05:50→22:16)
[2017-08-28 06:14] LABS: Hematocrit 42 % (42-52); Hemoglobin 13.7 g/dl (14.0-18.0); Mean Corpuscular HGB Conc 33 g/dl (31-36); Mean Corpuscular Hemoglobin 28 pg (27-31); Mean Corpuscular Volume 87 fL (80-94); Mean Platelet Volume 8 um3 (7.4-10.4); Red Blood Count 4.87 10^6/ul (4.0-5.4); Red Cell Distribution Width 13 % (10.5-15); White Blood Count 8.1 10^3/ul (3.5-10.8)
[2017-08-28 06:31] LABS: BUN/Creatinine Ratio 38.8 (8-20); Calcium 8.6 mg/dL (8.6-10.3); EGFR African American 221.1 (>60); EGFR Non-African American 171.9 (>60); Potassium 4.4 mmol/L (3.5-5.0)
[2017-08-28] MEDS: Sertraline* 100 MG TAB PO SCH (07:57)
[2017-08-28] MEDS: Famotidine TAB* 20 MG PO SCH (07:58)
[2017-08-28] MEDS: Pregabalin CAP(*) 25 MG PO SCH ×2 (07:58→22:18)
[2017-08-28] MEDS: glipiZIDE TAB.XL* 5 MG PO SCH (07:58)
[2017-08-28] MEDS: Insulin LISPRO* 1 UNITS UNIT SUBCUT SCH ×4 (09:23→22:17)
--- NOTE | 2017-08-28 09:34 | PN ---
Progress Note - Progress Note Date of Service: 08/28/17 Note: Progress Note - Critical Care 24 hour events: -off NIV all day, NIV at night as normal -no resp distress/cp/n/v/headache. no fever/chills/cough/sputum -feels much better, speaks fast and clear -wants to go home soon Tele: NSR Vitals: Vital Signs Temp 99.7 F 08/28/17 07:34 Pulse 93 08/28/17 08:00 Resp 19 08/28/17 08:00 BP 126/77 08/27/17 20:00 Pulse Ox 89 08/28/17 08:00 Intake & Output 08/27/17 08/28/17 08/28/17 18:59 06:59 18:59 Intake Total 900 620 Output Total 350 Balance 550 620 Weight 166 lb 3.2 oz Intake: Oral 900 620 Output: Urine 350 Other: Estimated Void Medium Medium # Voids 1 2 O2/Vent: NC 3L now; night time bipap Infusions: heplock Current Medications: Albuterol/Ipratropium (Duoneb (Albuterol 2.5 Mg/Ipratropium 0.5 Mg)) 1 neb INH Q2H PRN PRN Reason: SOB/WHEEZING Last Admin: 08/27/17 22:12 Dose: 1 neb Cyclobenzaprine HCl (Flexeril Tab*) 10 mg PO TID PRN PRN Reason: PAIN Dextrose (D50w Syringe 50 Ml*) 12.5 gm IV PUSH .FOR FS < 60 - SS PRN PRN Reason: FS < 60 Enoxaparin Sodium (Lovenox(*)) 40 mg SUBCUT Q24H ANAT Last Admin: 08/27/17 21:13 Dose: 40 mg Famotidine (Pepcid Tab*) 20 mg PO DAILY ANAT Last Admin: 08/28/17 07:58 Dose: 20 mg Glipizide (Glucotrol Xl*) 5 mg PO DAILY ANAT Last Admin: 08/28/17 07:58 Dose: 5 mg Insulin Human Lispro (Humalog*) 0 units SUBCUT ACHS ANAT PRN Reason: Protocol Last Admin: 08/28/17 09:23 Dose: 1 units Lorazepam (Ativan Tab(*)) 0.5 mg PO BID PRN PRN Reason: ANXIETY Last Admin: 08/28/17 07:57 Dose: 0.5 mg Methylprednisolone Sodium Succinate (Solu-Medrol 125mg *) 40 mg IV Q12H [facility] Last Admin: 08/28/17 09:24 Dose: 40 mg Pregabalin (Lyrica Cap(*)) 75 mg PO BID [facility] Last Admin: 08/28/17 07:58 Dose: 75 mg Sertraline HCl (Zoloft*) 100 mg PO DAILY [facility] Last Admin: 08/28/17 07:57 Dose: 100 mg Physical Exam: General: awake, alert, oriented, no distress, on NC Head: normocephalic, atraumatic HEENT: no pallor, no icterus, moist mucous membranes Neck: soft, supple, no jvd, no stridor CVS: normal rate, normal rhythm, no murmur Resp: dec bs bilaterally, no rhales, no acc muscle use Abdomen: soft, nontender, nondistended, bowel sounds present Ext: pulses+, warm, trace edema Skin: intact, no breakdown; areas of scattered rash flush with skin, areas of excoriation/scabs Neuro: awake, alert, moves all ext, no focal deficit Labs: Laboratory Results - last 24 hr 08/27/17 08/27/17 08/27/17 12:18 17:12 19:58 WBC RBC Hgb Hct MCV MCH MCHC RDW Plt Count MPV Neut % (Auto) Lymph % (Auto) [place] % (Auto) Eos % (Auto) Baso % (Auto) Absolute Neuts (auto) Absolute Lymphs (auto) Absolute Monos (auto) Absolute Eos (auto) Absolute Basos (auto) Absolute Nucleated RBC Nucleated RBC % Sodium Potassium Chloride Carbon Dioxide Anion Gap BUN Creatinine Est GFR ( Amer) Est GFR (Non-Af Amer) BUN/Creatinine Ratio Glucose POC Glucose (mg/dL) 192 H 148 H 235 H Calcium 08/28/17 08/28/17 08/28/17 05:55 05:55 07:35 WBC 8.1 RBC 4.87 Hgb 13.7 L Hct 42 MCV 87 MCH 28 MCHC 33 RDW 13 Plt Count 253 MPV 8 Neut % (Auto) 86.1 H Lymph % (Auto) 6.9 L [place] % (Auto) 6.7 Eos % (Auto) 0 Baso % (Auto) 0.3 Absolute Neuts (auto) 6.9 Absolute Lymphs (auto) 0.6 L Absolute Monos (auto) 0.5 Absolute Eos (auto) 0 Absolute Basos (auto) 0 Absolute Nucleated RBC 0.01 Nucleated RBC % 0.1 Sodium 131 L Potassium 4.4 Chloride 89 L Carbon Dioxide 39 H Anion Gap 3 BUN 19 Creatinine 0.49 L Est GFR ( Amer) 221.1 Est GFR (Non-Af Amer) 171.9 BUN/Creatinine Ratio 38.8 H Glucose 126 H POC Glucose (mg/dL) 135 H Calcium 8.6 Imaging: cxr 08/26 - hyperinflated lung davis, no infiltrate; no sig congestion seen, no effusions cxr 08/27 - hyperinflated, no focal infitlrate/effusion/congestion Assessment: 62y M with chronic hypercapnea and chronic hypoxia 2/2 to COPD, on 2L NC, DM; comes to ER for 3 days of shortness of breath, more lethargic in ED, placed on NIV, found to be hypercapneic/hypoxic. -Acute on chronic hypercapneic and hypoxic respiratory failure, improved -Suspecte Acute COPD exaccerbation, improved -Encephelopathy, metabolic/toxic, resolved -hyponatremia, improving -Cor Pulmonale from pulm htn/copd Plan: Neuro- encephelopathy resolved. CVS- hemodyn stable. BP okay, not tachy. start low dose lasix q48h po 20mg for right sided heart failure. improved LE edema from admission after initial lasix. cont steroids. ECHO with LV diastolic dysfunction but RV dilated, likely cor pulmonale from pulm hypertension/COPD Resp- resp status improved. NC 3L now, cont to wean to baseline 2L. ambulate today. steroid taper to 40mg bid, plan for home taper. cont nebs prn q4h. awake , alert, breathing comfortably. Bipap at night and PRN daytime, home regimine. ID- afebrile. wbc 8, increased due to steroids likely, no sputum. cxr clear of infiltrate. no abx GI- diabetic diet. pepcid prophylaxis Renal- Cr okay. K okay, chronic alkalosis 2/2 to hypercapnea. Heme- hg stable, plt okay. Endo- PO antidiabetic meds. subq insulin coverage. BS higher 2/2 to steroids. Musculsk- pressure ulcer proph Wounds- none, skin rash noted. cover with systemic steroids for copd exacc. monitor for now. DVT prophylaxis: lovenox sq GI prophylaxis: pepcid Central Line: no Arterial Line: no Granda Cathetor: no Disposition: ICU for respiratory failure and suspected copd exacc; improved now. patietn would like to stay one more to make sure he feels 100% before leaving. agree. can be downgraded to medical floor. steroid taper. likely discharge tomorrow if stable. Code Status: full code Preet Hampton MD Central Station Operator (Electronically Signed)
[2017-08-28] MEDS ORDERED: Mouth Piece, Nicotine* 1 EACH CARTRIDGE ONE (10:37)
[2017-08-28] MEDS: Nicotine Inhaler* 10 MG AMP INH PRN (10:43)
[2017-08-28] MEDS: Enoxaparin(*) 40 MG/0.4 ML SYR SUBCUT SCH (22:18)
[2017-08-29 06:21] LABS: Hematocrit 44 % (42-52); Hemoglobin 14.1 g/dl (14.0-18.0); Mean Corpuscular HGB Conc 32 g/dl (31-36); Mean Corpuscular Hemoglobin 28 pg (27-31); Mean Corpuscular Volume 87 fL (80-94); Mean Platelet Volume 8 um3 (7.4-10.4); Red Blood Count 5.09 10^6/ul (4.0-5.4); Red Cell Distribution Width 13 % (10.5-15); White Blood Count 10.4 10^3/ul (3.5-10.8)
[2017-08-29 06:37] LABS: BUN/Creatinine Ratio 39.6 (8-20); Calcium 8.5 mg/dL (8.6-10.3); EGFR African American 226.4 (>60); Potassium 4.4 mmol/L (3.5-5.0)
[2017-08-29] MEDS: Insulin LISPRO* 1 UNITS UNIT SUBCUT SCH ×2 (07:18→11:12)
[2017-08-29] MEDS: methylPREDNISolone 125 MG* 2 ML VIAL IV SCH (08:38)
[2017-08-29] MEDS: Famotidine TAB* 20 MG PO SCH (08:39)
[2017-08-29] MEDS: Pregabalin CAP(*) 25 MG PO SCH (08:39)
[2017-08-29] MEDS: glipiZIDE TAB.XL* 5 MG PO SCH (08:39)
[2017-08-29] MEDS: Sertraline* 100 MG TAB PO SCH (08:39)
[2017-08-29 09:18] VITALS: BP 112/88
[2017-08-29] MEDS: Nicotine Inhaler* 10 MG AMP INH PRN (09:38)
--- NOTE | 2017-08-29 09:49 | DS ---
Discharge Summary Patient Name: Rubén Cerna Date of Admission: 08/26/2017 Date of Discharge: 08/29/2017 Attending: Dr Preet Hampton (folder machine operator) Consultants: - Admitting Diagnoses: 1) Acute on Chronic Hypercapneic and Hypoxic Respiratory Failure 2) Acute COPD Exaccerbation 3) Metabolic Encephalopathy Discharge Diagnoses: 1) Acute on Chronic Hypercapneic and Hypoxic Respiratory Failure, resolved 2) Acute COPD Exaccerbation, resolved 3) Cor Pulmonale HPI/Hospital Course: 62y M with chronic hypercapnea and chronic hypoxia 2/2 to COPD, on 2L NC with nighttime BiPAP and as needed during the daytime, DM; comes to ER for shortness of breath, significant other at bedside. History limited due to mental status, lethargic. Significant other states he has been short of breath for days, unable to sleep for 3 nights, no cough/fever/sputum/cp/n/v/ diarrhea/sick contacts. He was more short of breath and brought to the ER. Had rash last week, on topical steroid but not much improvement. In ER, given steroids, Lasix, nebs. Placed on Non-invasive ventilation. Chest xray demonstrated no new infiltrate, but some mild congestion. His Arterial blood gas demonstrated acute on chronic hypercapnea and respiratory acidosis. Initially he was lethargic and was at risk of being intubated but with due time improved with mental status and ventilation with acidosis improving. Intravenous steroids and bronchodilators were continued. No antibiotics were indicated. He came off NIV by the next morning and had no complaints. An Echocardiogram was obtained which demonstrated RV dilatation and RV systolic dysfunction with normal LV function. This is suspected to be cause by his severe pulmonary disease and likely Cor Pulmonarl from pulmonary hypertension and COPD. He was started on low dose PO Lasix to help in diuresis at home for his complaints of intermittent lower extremity swellings. He was weaned down on oxygen to baseline 2 L NC, able to ambulate with Physical therapy, did not demonstrate desaturations with ambulation. Hemodynamically he has been stable. Patient feels good to go home, decision to discharge home. No new home PT/ assistance needs required. Procedures/Imaging: Chest Xray, Transthoracic echocardiogram Discharge Medications: Cont home medications as prior; would add prednisone Po taper for 7 days. Continue 2L NC home O2 and NIV as per home settings at night and PRN at daytime. Will add lasix 20mg PO q48 hours for edema. Diet: diabetic diet Activity: as tolerated Condition upon discharge: stable, improved Disposition: home Code Status: full code Follow-up: advised followup with primary care and mechanical maintenance foreman (Dr Joe) as outpatient Total Discharge time >30minutes Preet Hampton MD Theatrical Variety Agent (Electronically Signed)
== END 2017-08-29 11:45 | disposition home or self-care (01) | DRG 189 ==
LOC: ED 11:37 → ICU 14:52 → MED 08-28 10:30
PROVIDERS: ADMIT Internal Medicine Critical Care Medicine; ATTEND Internal Medicine Critical Care Medicine
DX: J96.22 Acute and chronic respiratory failure with hypercapnia (principal); G92 Toxic encephalopathy; E87.3 Alkalosis; E87.2 Acidosis; I27.29 Other secondary pulmonary hypertension; E87.1 Hypo-osmolality and hyponatremia; J44.1 Chronic obstructive pulmonary disease with (acute) exacerbation; F41.9 Anxiety disorder, unspecified; E66.9 Obesity, unspecified; J96.21 Acute and chronic respiratory failure with hypoxia; E11.9 Type 2 diabetes mellitus without complications; Z82.49 Family history of ischemic heart disease and other diseases of the circulatory system; Z99.81 Dependence on supplemental oxygen; Z87.891 Personal history of nicotine dependence; Z68.25 Body mass index [BMI] 25.0-25.9, adult; Z79.84 Long term (current) use of oral hypoglycemic drugs
CPT/HCPCS: 36415; 36600; 71010; 80048; 80053; 82803; 83605; 83880; 84484; 85025; 86140; 87040; 87641; 93005; 93306; 94640; 94660; 94760; A9270-GY; C8929; J1650; J1940; J2930

== ENCOUNTER 2018-01-12 11:28 | Day surgery (SDC) | payer MEDICARE, OTHER ==
[~2018-01-12 11:28] MED LIST: Buffered Lidocaine 0.9% SYRIN* 5 ML/SYR SYRINGE INTRADERM ONE
[2018-01-12] MEDS ORDERED: Cyclopentolate 1% OPTH.SOL* 2 ML BTL ONE (12:54)
[2018-01-12] MEDS ORDERED: Tetracaine 0.5% OPTH.SOL 4 ML* 1 DROP BTL ONE (12:54)
[2018-01-12] MEDS ORDERED: Tropicamide 1% OPTH.SOL* BTL ONE (12:54)
[2018-01-12] MEDS ORDERED: Phenylephrine 2.5% OPTH.SOL* 2 ML BTL ONE (12:54)
[2018-01-12] MEDS ORDERED: Lidocaine 1% MPF* 2 ML VIAL ONE (12:54)
[2018-01-12] MEDS ORDERED: Ketorolac 0.5% OPHTH (NF) 0.5 % 5 ML BTL ONE (12:54)
[2018-01-12] MEDS ORDERED: Neomycin/Polymy/Dex OPHTH.OIN* 3.5 GM ONE (12:54)
[2018-01-12] MEDS ORDERED: Midazolam* 1 MG/ML 2 ML VIAL (2 MG) ONE (13:51)
[2018-01-12] MEDS ORDERED: Propofol* 10 MG/ML 20 ML BTL IV PUSH ONE (13:56)
[2018-01-12] MEDS ORDERED: Lidocaine 2% PF * 5 ML VIAL ONE (13:56)
[2018-01-12] MEDS ORDERED: fentaNYL* 50 MCG/ML 2 ML VIAL (100 MCG VIAL) ONE (13:58)
[2018-01-12] MEDS ORDERED: Phenylephr/Ketorolac 1%/0.3% OPH DROP BTL ONE (14:26)
[2018-01-12 14:36] VITALS: BP 117/75
--- NOTE | 2018-01-12 15:48 | OP ---
DATE OF OPERATION/DATE OF DICTATION: 01/12/2018 - [facility] DATE OF : 1955. SURGEON: Dr. John Rivera. LISW: None. ANESTHESIA: Topical with intravenous sedation. PRE-OP DIAGNOSIS: Cataract, right eye. POST-OP DIAGNOSIS: Cataract, right eye. OPERATIVE PROCEDURE: Phacoemulsification and cataract extraction with posterior chamber intraocular lens implant, right eye. COMPLICATIONS: None. BLOOD LOSS: None. DESCRIPTION OF PROCEDURE: The patient was brought to the operating room and received a small amount of intravenous sedation. A drop of Tetracaine was placed in his right eye. He was prepped and draped in the usual sterile fashion for ophthalmic surgery and attention was directed to the right eye where a speculum was placed. A paracentesis was created at the 11 o'clock position and 0.1 cc of 1 percent preservative-free Lidocaine was injected into the anterior chamber followed by DisCoVisc. The eye was digitally stabilized while a 2.75 mm keratome was used to create a triplanar clear corneal incision at the 9 o'clock position. A continuous curvilinear capsulorrhexis was created with a cystotome and Utrata forceps. BSS on a cannula was used to hydrodissect the lens from the capsule. Phacoemulsification was performed in a divide-and- conquer technique to create four fragments which were removed. Residual cortical material was removed with irrigation and aspiration. DisCoVisc was used to inflate the capsular bag and an AUOOTO 15.5 diopter lens was folded and inserted into the capsular bag. DisCoVisc was removed using irrigation and aspiration. BSS on a cannula was used to hydrate the corneal stroma and seal the wound. At the end of the case the pupil was round and the lens was centered. The eye was of normal pressure and the wound was water tight. The speculum was removed and topical Maxitrol ointment was placed on the surface of the eye. The eye was closed, patched and shielded and the patient was sent to the recovery room in stable condition with post operative instructions and follow-up appointment given. [id number] #: [id number] MTDD
== END 2018-01-12 14:48 | disposition home or self-care (01) ==
LOC: OREAST 11:28
PROVIDERS: ATTEND Ophthalmology
DX: H25.041 Posterior subcapsular polar age-related cataract, right eye (principal); Z79.84 Long term (current) use of oral hypoglycemic drugs; J43.9 Emphysema, unspecified; Z99.81 Dependence on supplemental oxygen; E78.5 Hyperlipidemia, unspecified; K21.9 Gastro-esophageal reflux disease without esophagitis; Z72.0 Tobacco use; E11.21 Type 2 diabetes mellitus with diabetic nephropathy
CPT/HCPCS: A9270-GY; C9447; J2250; J2704; J3010; V2632

== ENCOUNTER 2018-01-19 07:22 | Day surgery (SDC) | payer MEDICARE, OTHER ==
[~2018-01-19 07:22] MED LIST changes: +Acetaminophen TAB* 325 MG PO PRN
[2018-01-19] MEDS ORDERED: Buffered Lidocaine 0.9% SYRIN* 5 ML/SYR SYRINGE ONE (08:08)
[2018-01-19] MEDS ORDERED: Midazolam* 1 MG/ML 2 ML VIAL (2 MG) ONE ×2 (08:09→08:38)
[2018-01-19] MEDS ORDERED: fentaNYL* 50 MCG/ML 2 ML VIAL (100 MCG VIAL) ONE (08:30)
[2018-01-19] MEDS ORDERED: Phenylephr/Ketorolac 1%/0.3% OPH DROP BTL ONE (09:17)
[2018-01-19 09:20] VITALS: BP 121/91
[2018-01-19] MEDS ORDERED: Lidocaine 1% MPF* 2 ML VIAL ONE (10:03)
[2018-01-19] MEDS ORDERED: Phenylephrine 2.5% OPTH.SOL* 2 ML BTL ONE (10:03)
[2018-01-19] MEDS ORDERED: Tetracaine 0.5% OPTH.SOL 4 ML* 1 DROP BTL ONE (10:03)
[2018-01-19] MEDS ORDERED: Ketorolac 0.5% OPHTH (NF) 0.5 % 5 ML BTL ONE (10:03)
[2018-01-19] MEDS ORDERED: Neomycin/Polymy/Dex OPHTH.OIN* 3.5 GM ONE (10:03)
[2018-01-19] MEDS ORDERED: Cyclopentolate 1% OPTH.SOL* 2 ML BTL ONE (10:03)
[2018-01-19] MEDS ORDERED: Tropicamide 1% OPTH.SOL* BTL ONE (10:03)
--- NOTE | 2018-01-19 16:25 | OP ---
DATE OF OPERATION/DATE OF DICTATION: 01/19/2018 - [facility] DATE OF : 1955. SURGEON: Dr. John Rivera. GROCERY DELIVERER: None. ANESTHESIA: Topical with intravenous sedation. PRE-OP DIAGNOSIS: Cataract, left eye. POST-OP DIAGNOSIS: Cataract, left eye. OPERATIVE PROCEDURE: Phacoemulsification and cataract extraction with posterior chamber intraocular lens implant, left eye. COMPLICATIONS: None. BLOOD LOSS: None. DESCRIPTION OF PROCEDURE: The patient was brought to the operating room and received a small amount of intravenous sedation. A drop of Tetracaine was placed in his left eye. He was prepped and draped in the usual sterile fashion for ophthalmic surgery and attention was directed to the left eye where a speculum was placed. A paracentesis was created at the 5 o'clock position and 0.1 cc of 1 percent preservative-free Lidocaine was injected into the anterior chamber followed by DisCoVisc. The eye was digitally stabilized while a 2.75 mm keratome was used to create a triplanar clear corneal incision at the 3 o'clock position. A continuous curvilinear capsulorrhexis was created with a cystotome and Utrata forceps. BSS on a cannula was used to hydrodissect the lens from the capsule. Phacoemulsification was performed in a [id number] technique to create four fragments which were removed. Residual cortical material was removed with irrigation and aspiration. DisCoVisc was used to inflate the capsular bag and an AUOOTO 15.5 diopter lens was folded and inserted into the capsular bag. DisCoVisc was removed using irrigation and aspiration. BSS on a cannula was used to hydrate the corneal stroma and seal the wound. At the end of the case the pupil was round and the lens was centered. The eye was of normal pressure and the wound was water tight. The speculum was removed and topical Maxitrol ointment was placed on the surface of the eye. The eye was closed, patched and shielded and the patient was sent to the recovery room in stable condition with post operative instructions and follow-up appointment given. [id number]/CPS #: [id number] MTDD
== END 2018-01-19 09:23 | disposition home or self-care (01) ==
LOC: OREAST 07:22
PROVIDERS: ATTEND Ophthalmology
DX: H25.12 Age-related nuclear cataract, left eye (principal); E11.40 Type 2 diabetes mellitus with diabetic neuropathy, unspecified; Z79.84 Long term (current) use of oral hypoglycemic drugs; E11.21 Type 2 diabetes mellitus with diabetic nephropathy; Z87.891 Personal history of nicotine dependence; J44.9 Chronic obstructive pulmonary disease, unspecified; F41.8 Other specified anxiety disorders
CPT/HCPCS: A9270-GY; C9447; J2250; J3010; V2632

== ENCOUNTER 2018-08-20 14:29 | Emergency (ER) | payer MEDICARE, OTHER ==
[2018-08-20] MEDS ORDERED: methylPREDNISolone 125 MG* 2 ML VIAL IM ONE (14:59)
[2018-08-20] MEDS ORDERED: Albuterol/Ipratropium NEB.SOL* Albuterol 2.5 MG/Ipratropium 0.5 MG 3 ML INH ONE ×2 (14:59→15:44)
--- NOTE | 2018-08-20 15:16 | UC ---
Respiratory Complaint HPI - HPI Summary HPI Summary: Pt present to reporting 3 days of progressive SOB. Pt states has developed a cough productive of green to brown sputum. No blood. pt states has oxygen and CPAP that he uses when feels he needs it. pt has been on 2 L NC x 2 d days. Patient states last time he was on antibiotics or prednisone was at least 6 months ago. Patient has been hospice and then later in the past that he's here today to try to avoid this. Patient states no other concerns. No fevers no chills no sinus congestion no chest pain no nausea no vomiting. Patient states he just notices auctions little bit low wanted to get checked. Last DuoNeb was approximately one hour prior to arrival was short-term improvement. Patient is a former smoker does not currently use tobacco. Patient's medications reviewed this visit - History of Current Complaint Chief Complaint: UCRespiratory Stated Complaint: SOB Time Seen by Provider: 08/20/18 14:48 Hx Obtained From: Patient, Family/Hydraulic Lift Driver Onset/Duration: Gradual Onset Severity Initially: Moderate Severity Currently: Moderate Pain Intensity: 8 Pain Scale Used: 0-10 Numeric Character: Cough: Productive - Allergies/Home Medications Allergies/Adverse Reactions: Allergies Allergy/AdvReac Type Severity Reaction Status Date / Time No Known Allergies Allergy Verified 08/20/18 14:40 PMH/Surg Hx/FS Hx/Imm Hx Previously Healthy: No Endocrine History: Diabetes Respiratory History: COPD Other History Of: Negative For: HIV, Hepatitis B, Hepatitis C, Anticoagulant Therapy - Surgical History Surgical History: Yes Surgery Procedure, Year, and Place: tear ducts 2007. STENT IN BILE DUCT 2013. 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 Smoking Status (MU): Light Every Day Tobacco Smoker Type: Cigarettes Amount Used/How Often: very little, a cigarette a day at most, usually less- uses nicotine inhaler Length of Time of Smoking/Using Tobacco: has quit Have You Smoked in the Last Year: Yes When Did the Patient Quit Smoking/Using Tobacco: approx 2 years ago Household Exposure Type: Cigarettes - Immunization History Most Recent Influenza Vaccination: Fall 2016 Most Recent Tetanus Shot: 2009 Most Recent Pneumonia Vaccination: 2013 Review of Systems Constitutional: Negative Respiratory: Shortness Of Breath, Cough All Other Systems Reviewed And Are Negative: Yes Physical Exam - Summary Physical Exam Summary: Vital Signs Reviewed: Yes A+Ox3, no distress Eyes: Conjunctiva Clear, STACY. EOM intact and full ENT: Hearing grossly normal TM x 2 clear, mmoist, uvula midline, no exudate, no erythema Neck: Positive: Supple Respiratory: Positive: + increase RR, + tight BS throughout with scattered wheeze, decreased BS bases no accessory muscle use Cardiovascular: RRR - mild tachycardia nl s1, s2 no m/r CBT <2 sec abd soft + BS nt/nd no guarding, no distension Musculoskeletal Exam: JIMÉNEZ x 4 without difficulty Strength Intact, ROM Intact Neurological: Positive: Alert, + sensation throughout Psychological: Positive: Normal Response To Family Skin: Positive: no rash, no ecchymosis Triage Information Reviewed: Yes Vital Signs: Initial Vital Signs Temp 98.7 F 08/20/18 14:34 Pulse 127 08/20/18 14:34 Resp 26 08/20/18 14:34 BP 110/63 08/20/18 14:34 Pulse Ox 85 08/20/18 14:34 UC Diagnostic Evaluation - Laboratory O2 Sat by Pulse Oximetry: 85 - Radiology Radiology Interpretation Completed By: Radiologist - Attending Doctor: Leslie Castro ([id number]) Re-Evaluation - Re-Evaluation First Eval Re-Evaluation Time: 15:45 Change: Improved Comment: Pt states feels better after neb. Pt with improved aeration + wheezingn throughout. Will give second duoneb - await CXR. pt in agreement with plan Second Eval Re-Evaluation Time: 16:35 Change: Improved - Pt lung with very few, scattered wheeze no increased WOB reports feeling markedly improved sats 96% 2L NC Comment: Pt has nebulizer machine at home, has duoneb. abx. pred taper. strict return precautions. secretion precaution. pt comfortable and in agreement with plan Respiratory Course/Dx - Course Course Of Treatment: Patient presents to urgent care with progressive shortness of breath productive cough and wheeze. Patient with a history of COPD. Patient is on 2 L nasal cannula uses when he gets sick. Patient states he came today so he "went end up in the hospital." Patient has used DuoNeb sporadically with mild improvement. Patient without fevers or chills. No sick contacts prepay patient states he did get his flu shot this year. Patient with noted decreased oxygen saturations. Patient with decreased breath sounds throughout. We'll start with Solu-Medrol IM, DuoNeb, chest x-ray. Anticipate will repeat DuoNeb. The patient is not markedly improved with the emergency provider. Patient comfortable in agreement with plan. - Differential Dx/Diagnosis Provider Diagnoses: COPD exacerbation Discharge - Sign-Out/Discharge Documenting (check all that apply): Patient Departure All imaging exams completed and their final reports reviewed: Yes - Discharge Plan Condition: Improved Disposition: HOME Prescriptions: DOXYcycline CAP(*) [DOXYcycline 100MG CAP(*)] 100 mg PO BID #20 cap predniSONE TAB* [Deltasone 20 MG TAB*] 20 mg PO DAILY #17 tab Patient Education Materials: COPD (Chronic Obstructive Pulmonary Disease) (ED) Referrals: Tigre Torres MD [Primary Care Provider] - Additional Instructions: - Take your antibiotics as prescribed until gone -tale prednisone as prescribed until gone starting tomorrow - Use your nebulizer every 4 hours today and tomorrow, then as needed - use your oxygen as previously instructed by your primary -- These infections are spread by secretions - do NOT share eating or drinking utensils - clean items you share with other people such as cell phones, computer mouse, TV remote, computer tablets,etc. After you have been on antibiotics for 2 days, change your toothbrush and your pillowcase. - contact your primary to schedule a follow-up appointment next week - if you have increased shortness of breath, chest pain, lightheadedness or any other concerns it is recommended you go directly to the emergency department for further evaluation - Billing Disposition and Condition Condition: IMPROVED Disposition: Home
--- NOTE | 2018-08-20 15:47 | RAD ---
INDICATION: Cough, brown sputum COPD. COMPARISON: Comparison is made with prior studies from April 20, 2017 and August 27, 2017. TECHNIQUE: Dual-energy PA and lateral views of the chest were obtained. FINDINGS: The heart is within normal limits in size. Mediastinal and hilar contours appear within normal limits. The lungs are underinflated and clear. There is flattening of the diaphragms suggestive of chronic obstructive pulmonary disease. There is blunting of the left costophrenic angle which is unchanged. No pleural effusion is seen. IMPRESSION: FINDINGS SUGGESTIVE OF COPD, NO EVIDENCE FOR ACUTE FINDING.
[2018-08-20 16:28] VITALS: BP 116/65
== END 2018-08-20 16:45 | disposition home or self-care (01) ==
LOC: UCEAST 14:29
DX: J44.1 Chronic obstructive pulmonary disease with (acute) exacerbation (principal); F17.210 Nicotine dependence, cigarettes, uncomplicated
CPT/HCPCS: 71046; 99213; A9270-GY; G0463; J2930

== ENCOUNTER 2018-09-07 12:59 | Emergency (ER) | payer MEDICARE, OTHER ==
[2018-09-07] MEDS ORDERED: methylPREDNISolone 125 MG* 2 ML VIAL IV ONE (13:08)
[2018-09-07] MEDS ORDERED: Albuterol/Ipratropium NEB.SOL* Albuterol 2.5 MG/Ipratropium 0.5 MG 3 ML INH ONE ×2 (13:08→16:30)
[2018-09-07 13:27] LABS: ABS Basophils 0 10^3/ul (0-0.2); ABS Eosinophils 0.1 10^3/ul (0-0.6); ABS Lymphocytes 0.8 10^3/ul (1.0-4.8); ABS Monocytes 0.4 10^3/ul (0-0.8); ABS Nucleated RBC 0 10^3/ul; Eosinophil % 0.5 % (0-6); Hematocrit 47 % (42-52); Hemoglobin 15.2 g/dl (14.0-18.0); Lymphocyte % 7.4 % (25-47); Mean Corpuscular HGB Conc 32 g/dl (31-36); Mean Corpuscular Hemoglobin 28 pg (27-31); Mean Corpuscular Volume 88 fL (80-94); Mean Platelet Volume 7.6 um3 (7.4-10.4); Nucleated Red Blood Cells % 0; Platelet Count 190 10^3/ul (150-450); Red Blood Count 5.38 10^6/ul (4.00-5.40); Red Cell Distribution Width 15 % (10.5-15); White Blood Count 10.2 10^3/ul (3.5-10.8)
[2018-09-07 13:53] LABS: EGFR Non-African American 123.7 (>60)
--- NOTE | 2018-09-07 14:24 | RAD ---
HISTORY: shortness of breath COMPARISONS: August 20, 2018 VIEWS: 4: Frontal dual-energy and lateral views of the chest. FINDINGS: CARDIOMEDIASTINAL SILHOUETTE: The cardiomediastinal silhouette is normal. CHAPO: The chapo are normal. PLEURA: The costophrenic angles are sharp. No pleural abnormalities are noted. LUNG PARENCHYMA: There is hyperinflation with flattening of the diaphragm and expansion of the AP diameter of the chest. ABDOMEN: The upper abdomen is clear. There is no subphrenic gas. BONES AND SOFT TISSUES: Degenerative changes are noted along the spine. OTHER: None. IMPRESSION: HYPERINFLATION, CONSISTENT WITH COPD. NO ACTIVE CARDIOPULMONARY DISEASE.
--- NOTE | 2018-09-07 14:38 | ED ---
Shortness of Breath - HPI Summary HPI Summary: Patient is a 63 y/o M w/ c/o SOB and productive cough. He states that he began to experience these Sx a couple of weeks ago. Patient went to [facility] care and was prescribed antibiotics which he finished five days ago. Patient reports that Sx have persisted, which brought him to ED. PMHx of COPD and emphysema is noted, patient is on 2L NC at home. 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 In triage, o2 sat on 2L NC was 86%. On triage, pain is denied, nothing is noted to aggravate/alleviate Sx. Home medications and allergies are reviewed. - History of Current Complaint Chief Complaint: EDShortnessOfBreath Time Seen by Provider: 09/07/18 13:08 Hx Obtained From: Patient Onset/Duration: Lasting Weeks - onset a couple of weeks ago, Still Present Timing: Constant Current Severity: None - pain is denied Aggrevating Factors: Nothing Alleviating Factors: Nothing Associated Signs & Symptoms: Cough (Productive) - brown phlegm - Allergy/Home Medications Allergies/Adverse Reactions: Allergies Allergy/AdvReac Type Severity Reaction Status Date / Time No Known Allergies Allergy Verified 08/20/18 14:40 PMH/Surg Hx/FS Hx/Imm Hx Endocrine/Hematology History: Reports: Hx Diabetes Denies: Hx Anticoagulant Therapy, Hx Thyroid Disease Cardiovascular History: Denies: Hx Congestive Heart Failure, Hx Deep Vein Thrombosis, Hx Hypertension , Hx Myocardial Infarction, Hx Pacemaker/ICD Respiratory History: Reports: Hx Chronic Obstructive Pulmonary Disease (COPD), Other Respiratory Problems/Disorders - RECENT HX OF PNEUMONIA Denies: Hx Asthma, Hx Lung Cancer, Hx Pneumonia, Hx Pulmonary Embolism GI History: Reports: Hx Gall Bladder Disease - COMMON BILE DUCT STENTED. LATER CHOLANGITIS, Other GI Disorders - COMMON BILE DUCT STENT Denies: Hx Gastroesophageal Reflux Disease, Hx Gastrointestinal Bleed, Hx Hiatal Hernia, Hx Irritable Bowel, Hx Jaundice, Hx Ulcer, Hx Urosepsis History: Denies: Hx Dialysis, Hx Kidney Infection, Hx Kidney Stones, Hx Renal Disease , Other Problems/Disorders Sensory History: Reports: Hx Contacts or Glasses - WITH PT Denies: Hx Cataracts, Hx Hearing Aid, Other Sensory Impairments Opthamlomology History: Reports: Hx Contacts or Glasses - WITH PT Denies: Hx Cataracts, Other Sensory Impairments Neurological History: Denies: Hx Dementia, Hx Migraine, Hx Seizures, Hx Transient Ischemic Attacks (TIA) Psychiatric History: Reports: Hx Anxiety Denies: Hx Depression, Hx Schizophrenia, Hx Bipolar Disorder, Hx Substance Abuse, Other Psychiatric Issues/Disorders - pt denies ETOH abuse at this time - Surgical History Surgery Procedure, Year, and Place: tear ducts 2007. STENT IN BILE DUCT 2014. eye surgery cataracts Hx Anesthesia Reactions: No - Immunization History Date of Tetanus Vaccine: 2010 Date of Influenza Vaccine: 2011 Infectious Disease History: No Infectious Disease History: Denies: Hx Hepatitis, Hx Human Immunodeficiency Virus (HIV), History Other Infectious Disease, Traveled Outside the [place] in Last 30 Days - Family History Known Family History: Positive: Cardiac Disease, Hypertension - Social History Alcohol Use: None Alcohol Amount: HX ETOH BUT DOES NOT DRINK ANYMORE Hx Substance Use: No Substance Use Type: Reports: Prescribed Substance Use Comment - Amount & Last Used: hx of etoh, 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 Hx Tobacco Use: Yes Smoking Status (MU): Current Some Day Smoker Type: Cigarettes Amount Used/How Often: very little, a cigarette a day at most, usually less- uses nicotine inhaler Length of Time of Smoking/Using Tobacco: has quit Have You Smoked in the Last Year: Yes Review of Systems Negative: Fever, Chills Negative: Erythema Negative: Sore Throat Negative: Chest Pain Positive: Shortness Of Breath, Cough - productive Negative: Abdominal Pain, Vomiting, Nausea Negative: dysuria, hematuria Negative: Myalgia, Edema Negative: Rash Neurological: Other - NEGATIVE: dizziness All Other Systems Reviewed And Are Negative: Yes Physical Exam - Summary Physical Exam Summary: Constitutional: Well-developed, Well-nourished, Alert. (-) Distressed Skin: Warm, Dry HENT: Normocephalic; Atraumatic Eyes: Conjunctiva normal Neck: Musculoskeletal ROM normal neck. (-) JVD, (-) Stridor, (-) Tracheal deviation Cardio: Rhythm regular, rate normal, Heart sounds normal; Intact distal pulses; The pedal pulses are 2+ and symmetric. Radial pulses are 2+ and symmetric. (-) Murmur Pulmonary/Chest wall: Effort normal. Tight breath sounds, expiratory wheezes (- ) Rales Abd: Soft, (-) epigastric tenderness, (-) Distension, (-) Guarding, (-) Rebound Musculoskeletal: (-) Edema Lymph: (-) Cervical adenopathy Neuro: Alert, Oriented x3 Psych: Mood and affect Normal Triage Information Reviewed: Yes Vital Signs On Initial Exam: Initial Vitals Temp Pulse Resp BP Pulse Ox 97.7 F 121 22 114/91 86 09/07/18 13:00 09/07/18 13:00 09/07/18 13:00 09/07/18 13:00 09/07/18 13:00 Vital Signs Reviewed: Yes Diagnostics - Vital Signs Vital Signs Temp Pulse Resp BP Pulse Ox 09/07/18 13:19 112 20 100 09/07/18 13:15 112 17 119/90 97 09/07/18 13:13 113 99 09/07/18 13:00 97.7 F 121 22 114/91 86 - Laboratory Lab Results: Lab Results 09/07/18 09/07/18 09/07/18 Range/Units 13:21 13:21 13:21 WBC 10.2 (3.5-10.8) 10^3/ul RBC 5.38 (4.00-5.40) 10^6/ul Hgb 15.2 (14.0-18.0) g/dl Hct 47 (42-52) % MCV 88 (80-94) fL MCH 28 (27-31) pg MCHC 32 (31-36) g/dl RDW 15 (10.5-15) % Plt Count 190 (150-450) 10^3/ul MPV 7.6 (7.4-10.4) um3 Neut % (Auto) 88.2 H (38-83) % Lymph % (Auto) 7.4 L (25-47) % [place]berry % (Auto) 3.7 (0-7) % Eos % (Auto) 0.5 (0-6) % Baso % (Auto) 0.2 (0-2) % Absolute Neuts (auto) 9.0 H (1.5-7.7) 10^3/ul Absolute Lymphs (auto) 0.8 L (1.0-4.8) 10^3/ul Absolute Monos (auto) 0.4 (0-0.8) 10^3/ul Absolute Eos (auto) 0.1 (0-0.6) 10^3/ul Absolute Basos (auto) 0 (0-0.2) 10^3/ul Absolute Nucleated RBC 0 10^3/ul Nucleated RBC % 0 Sodium 133 L (135-145) mmol/L Potassium 4.5 (3.5-5.0) mmol/L Chloride 94 L (101-111) mmol/L Carbon Dioxide 33 H (22-32) mmol/L Anion Gap 6 (2-11) mmol/L BUN 12 (6-24) mg/dL Creatinine 0.65 L (0.67-1.17) mg/dL Est GFR ( Amer) 149.6 (>60) Est GFR (Non-Af Amer) 123.7 (>60) BUN/Creatinine Ratio 18.5 (8-20) Glucose 154 H (70-100) mg/dL Lactic Acid 1.0 (0.5-2.0) mmol/L Calcium 9.4 (8.6-10.3) mg/dL Total Bilirubin 0.40 (0.2-1.0) mg/dL AST 20 (13-39) U/L ALT 21 (7-52) U/L Alkaline Phosphatase 44 (34-104) U/L Troponin I 0.00 (<0.04) ng/mL Total Protein 7.5 (6.4-8.9) g/dL Albumin 4.4 (3.2-5.2) g/dL Globulin 3.1 (2-4) g/dL Albumin/Globulin Ratio 1.4 (1-3) Result Diagrams: 09/07/18 13:21 09/07/18 13:21 Lab Statement: Any lab studies that have been ordered have been reviewed, and results considered in the medical decision making process. - Radiology CXR Radiology Interpretation Completed By: Radiologist Summary of Radiographic Findings: Hyperinflation, consistent with COPD, no active cardiopulmonary disease. This report was reviewed by ED physician. - EKG 1325 Cardiac Rate: Tachycardia - rate of 109 BPM EKG Rhythm: Sinus Tachycardia Summary of EKG Findings: no STEMI Re-Evaluation - Re-Evaluation First Eval Re-Evaluation Time: 16:42 Change: Improved Comment: Patient reports feeling better and is agreeable with discharge. Course/Dx - Course Course Of Treatment: Patient is a 63 y/o M w/ c/o SOB and productive cough. He states that he began to experience these Sx a couple of weeks ago. Patient went to [facility] and was prescribed antibiotics which he finished five days ago. Patient reports that Sx have persisted, which brought him to ED. PMHx of COPD and emphysema is noted, patient is on 2L NC at home. 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 In triage, o2 sat on 2L NC was 86%. Physical exam showed tight breath sounds, expiratory wheezes. During ED course, patient received duoned x 2, solu-medrol 125 mg IV ONCE. CXR showed Hyperinflation, consistent with COPD, no active cardiopulmonary disease. EKG showed sinus tachycardia w/ 109 BPM, no STEMI. Labs showed sodium 133, chloride 94, carbon dioxide 33, WBC 10.2, glucose 154, lactic acid 1.0, creatinine 0.65, trop 0. 1642 - Patient reports feeling better and is agreeable with discharge. Dx of COPD exacerbation. - Diagnoses Provider Diagnoses: COPD exacerbation Discharge - Sign-Out/Discharge Documenting (check all that apply): Patient Departure - discharge - Discharge Plan Condition: Stable Disposition: HOME Prescriptions: Albuterol 2.5MG/3ML (0.083%)* [Ventolin 2.5 MG/3 ML NEB.JAZZMINE*] 2.5 mg INH Q4H # 30 neb.jazzmine methylPREDNISolone [Medrol Dosepak 4 MG*] 4 mg PO .SEE KEO INSTRUCTION #1 packet Moxifloxacin HCl [Avelox] 400 mg PO BID #7 tablet Patient Education Materials: COPD (Chronic Obstructive Pulmonary Disease) (ED) Referrals: Tigre Torres MD [Primary Care Provider] - 3 Days Additional Instructions: FOLLOW UP WITH PRIMARY CARE PHYSICIAN IN 1-3 DAYS. RETURN TO ED FOR ANY CHANGING OR WORSENING SYMPTOMS. - Attestation Statements Document Initiated by Scribe: Yes Documenting Scribe: Oscar Beckwith Provider For Whom Scribe is Documenting (Include Credential): Bertin Luciano MD Scribe Attestation: Oscar Maynard , scribed for Bertin Luciano MD on 09/07/18 at 1957.
[2018-09-07 17:14] VITALS: BP 144/71
== END 2018-09-07 17:13 | disposition home or self-care (01) ==
LOC: ED 12:59
DX: J44.1 Chronic obstructive pulmonary disease with (acute) exacerbation (principal); F17.210 Nicotine dependence, cigarettes, uncomplicated; E11.9 Type 2 diabetes mellitus without complications; Z79.84 Long term (current) use of oral hypoglycemic drugs; R00.0 Tachycardia, unspecified
CPT/HCPCS: 36415; 71046; 80053; 83605; 84484; 85025; 87040; 93005; 96374; 99283; A9270-GY; J2930

== ENCOUNTER 2018-09-24 14:43 | Inpatient (IN) | payer MEDICARE, OTHER ==
[2018-09-24] MEDS ORDERED: Albuterol/Ipratropium NEB.SOL* Albuterol 2.5 MG/Ipratropium 0.5 MG 3 ML ONE ×2 (14:46→16:30)
[2018-09-24] MEDS ORDERED: Albuterol/Ipratropium NEB.SOL* Albuterol 2.5 MG/Ipratropium 0.5 MG 3 ML INH ONE ×2 (14:48→16:31)
[2018-09-24] MEDS ORDERED: Dexamethasone IV* 4 MG/ML 5 ML VIAL (20 MG) IVPB ONE (14:49)
--- NOTE | 2018-09-24 15:20 | ED ---
Shortness of Breath - HPI Summary HPI Summary: Patient is a 63 y/o M arriving via ambulance w/ c/o SOB. Patient's friend who is present provides part of HPI as patient is in respiratory distress. SOB is reported to have onset three days ago. Friend reports an exacerbation today and was found on floor of his home by friend. EMS was subsequently called. EMS reports that patient was 100 o2 sat after being placed on 3 liters o2 and neb. PMHx of COPD, no CHF. In room, patient received 3 duonebs and Bipap. In room, patient reports relief in Sx. Patient notes that he has been intubated for a similar episode years ago. On triage, pain is denied, nothing is noted to aggravate/alleviate Sx. Home medications and allergies are reviewed. - History of Current Complaint Time Seen by Provider: 09/24/18 14:50 Hx Obtained From: Patient, EMS, Other: - friend Hx From Patient Unobtainable Due To: Other - unable to talk, in respiratory distress Onset/Duration: Lasting Hours - SOB exacerbation, Lasting Days - SOB onset three days ago, Still Present Timing: Constant Current Severity: None - pain denied Aggrevating Factors: Nothing Alleviating Factors: Nothing Associated Signs & Symptoms: Negative - Allergy/Home Medications Allergies/Adverse Reactions: Allergies Allergy/AdvReac Type Severity Reaction Status Date / Time No Known Allergies Allergy Verified 08/20/18 14:40 Home Medications: Home Medications LORazepam TAB(*) [Ativan 1 MG TAB (*)] 0.5 mg PO BID PRN 09/24/18 [History Confirmed 09/24/18] PMH/Surg Hx/FS Hx/Imm Hx Endocrine/Hematology History: Reports: Hx Diabetes Denies: Hx Anticoagulant Therapy, Hx Thyroid Disease Cardiovascular History: Denies: Hx Congestive Heart Failure, Hx Deep Vein Thrombosis, Hx Hypertension , Hx Myocardial Infarction, Hx Pacemaker/ICD Respiratory History: Reports: Hx Chronic Obstructive Pulmonary Disease (COPD), Other Respiratory Problems/Disorders - RECENT HX OF PNEUMONIA Denies: Hx Asthma, Hx Lung Cancer, Hx Pneumonia, Hx Pulmonary Embolism GI History: Reports: Hx Gall Bladder Disease - COMMON BILE DUCT STENTED. LATER CHOLANGITIS, Other GI Disorders - COMMON BILE DUCT STENT Denies: Hx Gastroesophageal Reflux Disease, Hx Gastrointestinal Bleed, Hx Hiatal Hernia, Hx Irritable Bowel, Hx Jaundice, Hx Ulcer, Hx Urosepsis History: Denies: Hx Dialysis, Hx Kidney Infection, Hx Kidney Stones, Hx Renal Disease , Other Problems/Disorders Sensory History: Reports: Hx Contacts or Glasses - WITH PT Denies: Hx Cataracts, Hx Hearing Aid, Other Sensory Impairments Opthamlomology History: Reports: Hx Contacts or Glasses - WITH PT Denies: Hx Cataracts, Other Sensory Impairments Neurological History: Denies: Hx Dementia, Hx Migraine, Hx Seizures, Hx Transient Ischemic Attacks (TIA) Psychiatric History: Reports: Hx Anxiety Denies: Hx Depression, Hx Schizophrenia, Hx Bipolar Disorder, Hx Substance Abuse, Other Psychiatric Issues/Disorders - pt denies ETOH abuse at this time - Surgical History Surgery Procedure, Year, and Place: tear ducts 2007. STENT IN BILE DUCT 2013. 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 Patient has Bipap on. HEAD AND FACE: Normocephalic EYES: PERRLA, EOMI x 2. EARS: Hearing grossly intact. MOUTH: Oropharynx within normal limits. NECK: Supple, trachea is midline, no adenopathy, no JVD, no carotid bruit. CHEST: Symmetric, no tenderness at palpation LUNGS: Diminished breath sounds, faint expiratory wheezing, poor air entry CVS: Regular rate and rhythm, S1 and S2 present, no murmurs or gallops appreciated. ABDOMEN: Soft, non-tender. Bowel sounds are normal. No abdominal abnormal pulsations. EXTREMITIES: Full ROM in all major joints, no edema, no cyanosis or clubbing. NEURO: Alert and oriented x 3. No acute neurological deficits. Speech is normal and follows commands. SKIN: Dry and warm Triage Information Reviewed: Yes Vital Signs On Initial Exam: Initial Vitals Pulse Resp Pulse Ox 102 14 99 09/24/18 14:57 09/24/18 14:57 09/24/18 14:57 Vital Signs Reviewed: Yes Diagnostics - Vital Signs Vital Signs Pulse Resp Pulse Ox 09/24/18 14:57 103 18 99 - Laboratory Result Diagrams: 09/24/18 15:13 09/24/18 15:13 Lab Statement: Any lab studies that have been ordered have been reviewed, and results considered in the medical decision making process. - Radiology CXR Radiology Interpretation Completed By: Radiologist Summary of Radiographic Findings: IMPRESSION: NO ACTIVE CARDIOPULMONARY DISEASE IS NOTED. THIS REPORT WAS REVIEWED BY ED PHYSICIAN. - EKG 1459 Cardiac Rate: Tachycardia - rate of 102 bpm EKG Rhythm: Sinus Tachycardia Summary of EKG Findings: right axis deviation, no ischemic changes Re-Evaluation - Re-Evaluation First Eval Re-Evaluation Time: 15:44 Comment: Patient opens his eyes to voice. Patient nodded yes when asked if he felt better. Plaster Whittler will be paged. Second Eval Re-Evaluation Time: 16:01 Comment: informed of admission, patient is agreeable. Course/Dx - Course Course Of Treatment: Patient is a 63 y/o M arriving via ambulance w/ c/o SOB. Patient's friend who is present provides part of HPI as patient is in respiratory distress. SOB is reported to have onset three days ago. Friend reports an exacerbation today and was found on floor of his home by friend. EMS was subsequently called. EMS reports that patient was 100 o2 sat after being placed on 3 liters o2 and neb. PMHx of COPD, no CHF. In room, patient received 3 duonebs and Bipap. In room, patient reports relief in Sx. Patient notes that he has been intubated for a similar episode years ago. On physical exam, patient is noted to have Diminished breath sounds, faint expiratory wheezing, poor air entry. During ED course, patient received Decadron 10 mg IV, duoneb x 3 , fluids, and azithromycin. Blood gas showed ABG pH 7.16, pCO2 136, pO2 146, HCO3 35.4, O2 sat 98.5, base excess 13.6. WBC 8.1, RBC 4.79, Hgb 13.8, sodium 132, chloride 90, carbon dioxide 40, creatinine 0.56, lactic acid 0.3, CRP 4.71 , BNP 75. Flu was negative. EKG showed sinus tachy with rate of 102 BPM, right axis deviation, no ischemic changes. CXR IMPRESSION: NO ACTIVE CARDIOPULMONARY DISEASE IS NOTED. Patient's case was discussed with Dr. Rodrigez, Dr. Rodrigez accepts for admission at [phone] - Dr. Hampton was consulted on patient's case. He came to ED to evaluate patient, accepts for admission to ICU. Dx of COPD and hypercapnic respiratory failure. - Diagnoses Provider Diagnoses: COPD (chronic obstructive pulmonary disease), Hypercapnic respiratory failure - Physician Notifications Discussed Care of Patient With: Rachna Rodrigez Time Discussed With Above Provider: 14:59 Instructed by Provider To: Other - Patient's case was discussed with Dr. Elia Thompson accepts for admission at [phone] - Dr. Hampton was consulted on patient's case. He came to ED to evaluate patient, accepts for admission to ICU. - Critical Care Time Critical Care Time: 30-74 min - 30 minutes CC Discharge - Sign-Out/Discharge Documenting (check all that apply): Patient Departure - admit All imaging exams completed and their final reports reviewed: Yes - Discharge Plan Condition: Good Disposition: ADMITTED TO [facility] - Billing Disposition and Condition Condition: GOOD Disposition: Admitted to [facility] - Attestation Statements Document Initiated by Scribe: Yes Documenting Scribe: Oscar Beckwith Provider For Whom Veena is Documenting (Include Credential): Mio Roman MD Scribe Attestation: Oscar Maynard , scribed for Mio Roman MD on 09/24/18 at 1824. Scribe Documentation Reviewed: Yes Provider Attestation: The documentation as recorded by the nishantibOscar ivy accurately reflects the service I personally performed and the decisions made by me, Mio Roman MD
[2018-09-24] MEDS ORDERED: Azithromycin IV(*) 500 MG in NS 0.9% 250 ML* 250 ML IVPB ONE (15:26)
[2018-09-24 15:29] LABS: ABS Basophils 0 10^3/ul (0-0.2); ABS Eosinophils 0.1 10^3/ul (0-0.6); ABS Lymphocytes 1.1 10^3/ul (1.0-4.8); ABS Monocytes 0.6 10^3/ul (0-0.8); ABS Neutrophils 6.3 10^3/ul (1.5-7.7); ABS Nucleated RBC 0 10^3/ul; Eosinophil % 1.5 % (0-6); Hematocrit 42 % (42-52); Hemoglobin 13.8 g/dl (14.0-18.0); Lymphocyte % 13.1 % (25-47); Mean Corpuscular HGB Conc 33 g/dl (31-36); Mean Corpuscular Hemoglobin 29 pg (27-31); Mean Corpuscular Volume 88 fL (80-94); Mean Platelet Volume 7.2 fL (7.4-10.4); Nucleated Red Blood Cells % 0; Platelet Count 199 10^3/ul (150-450); Red Blood Count 4.79 10^6/ul (4.00-5.40); Red Cell Distribution Width 15 % (10.5-15); White Blood Count 8.1 10^3/ul (3.5-10.8)
[2018-09-24] MEDS ORDERED: NS 0.9% 1000 ML* 1,000 ML IV ONE (15:36)
[2018-09-24 15:45] LABS: EGFR Non-African American 146.9 (>60)
[2018-09-24 15:51] LABS: INR 0.85 (0.77-1.02)
[2018-09-24] MEDS ORDERED: Albuterol/Ipratropium NEB.SOL* Albuterol 2.5 MG/Ipratropium 0.5 MG 3 ML INH SCH ×2 (17:00→19:00)
[2018-09-24] MEDS: Albuterol/Ipratropium NEB.SOL* Albuterol 2.5 MG/Ipratropium 0.5 MG 3 ML INH SCH ×4 (17:18→23:22)
--- NOTE | 2018-09-24 17:57 | HP ---
H&P (Free Text) History and Physical: History and Physical -- Critical Care Limitations in history/physical: respiratory distress; history from chart and significant other at bedside. HPI: 63y M w/pmhx of COPD on 2L home O2, nighttime Bipap, Chronic hypoxia and hypercapnea, DM; comes to ER from home, found by significant other at home in severe resp distress, poor responsiveness. EMS called. In ER, afebrile 98F, tachycardic, RR 14-15, hypertensive 140s. CXR without infiltrate. ABG demonstrated acute on chronic hypercapnea with respiratoyr acidosis, started on NIV immediately. On my arrival, he was more awake, very dyspneic on NIV or off and unable to speak a work without being short of breath. Given steroids/ nebulizers in ER. ROS: limited ROS, unable to obtain secondary to severe resp distress PMHx: COPD on 2L home O2, nighttime Bipap, Chronic hypoxia and hypercapnea, DM PSHx: biliary duct stent 2013, left eye cataract surgery 2017 Family History: HTN, Cardiac disease Social History: Alcohol-stopped in past, Smoking-past use/quit, Drug use Allergies: NKDA Home Medications: Albuterol/Ipratropium NEB.JAZZMINE* [Duoneb (Albuterol 2.5 MG/Ipratropium 0.5 MG)] 1 neb INH Q4HR PRN #0 08/26/16 [Rx Confirmed 09/24/18] Albuterol HFA INHALER* [Ventolin HFA Inhaler*] 2 puff INH QID PRN 08/26/17 [ History Confirmed 09/24/18] Empagliflozin/Metformin HCl [Synjardy Xr 5-1,000 mg Tablet] 1 tab PO QAM [History Confirmed 09/24/18] Fluticasone-Salmeterol 500-50* [Advair Diskus 500-50*] 2 puff INH BID 08/26/17 [ History Confirmed 09/24/18] Pregabalin CAP(*) [Lyrica CAP(*)] 75 mg PO BID PRN 08/26/17 [History Confirmed 09/24/18] Sertraline* [Zoloft*] 100 mg PO QAM 08/26/17 [History Confirmed 09/24/18] glipiZIDE TAB.XL* [Glucotrol Xl*] 5 mg PO QAM 01/06/18 [History Confirmed ] LORazepam TAB(*) [Ativan 1 MG TAB (*)] 0.5 mg PO BID PRN 09/24/18 [History Confirmed 09/24/18] Tele: sinus tachycardia Vitals: Vital Signs Temp 98.3 F 09/24/18 17:08 Pulse 103 09/24/18 17:15 Resp 20 09/24/18 17:15 BP 139/92 09/24/18 17:08 Pulse Ox 100 09/24/18 17:15 Intake & Output 09/23/18 09/24/18 09/24/18 18:59 06:59 18:59 Intake Total 1000 Balance 1000 Weight 77.1 kg Intake: IV Fluids 1000 O2/Vent: NIV 05/07, 40% Infusions: heplock Current Medications: Albuterol/Ipratropium (Duoneb (Albuterol 2.5 Mg/Ipratropium 0.5 Mg)) 1 neb INH Q2H ANAT Last Admin: 09/24/18 17:18 Dose: 1 neb Enoxaparin Sodium (Lovenox(*)) 40 mg SUBCUT Q24H ANAT Famotidine (Pepcid Iv*) 20 mg IV SLOW PU DAILY ANAT Insulin Human Lispro (Humalog*) 0 units SUBCUT Q6H ANAT; Protocol Methylprednisolone Sodium Succinate (Solu-Medrol 40 Mg) 40 mg IV Q12H ANAT Physical Exam: General: awake, more alert, tachypnea++, no acc muscle use Head: normocephalic, atraumatic HEENT: no pallor, no icterus, moist mucous membranes Neck: soft, supple, no jvd, no stridor CVS: tachycardic, regular, no murmur Resp: poor expiratory sounds, long exp phase with minimal wheeze heard, no rhales. Almost absent breath sounds. No acc muscle use on NIV. Abdomen: soft, nontender, nondistended, bowel sounds present Ext: pulses+, warm, no edema Skin: intact Neuro: awake, alert, orientedx3, but limited verbalization due to resp distress , moving all extremities, no gross focal deficit Labs: Laboratory Results - last 24 hr 09/24/18 09/24/18 09/24/18 14:50 15:12 15:13 WBC 8.1 RBC 4.79 Hgb 13.8 L Hct 42 MCV 88 MCH 29 MCHC 33 RDW 15 Plt Count 199 MPV 7.2 L Neut % (Auto) 77.2 Lymph % (Auto) 13.1 L [place] % (Auto) 7.9 H Eos % (Auto) 1.5 Baso % (Auto) 0.3 Absolute Neuts (auto) 6.3 Absolute Lymphs (auto) 1.1 Absolute Monos (auto) 0.6 Absolute Eos (auto) 0.1 Absolute Basos (auto) 0 Absolute Nucleated RBC 0 Nucleated RBC % 0 INR (Anticoag Therapy) APTT Patient Temperature ABG pH 7.16 L* ABG pH (Temp Correct) ABG pCO2 136 H* ABG pCO2 (Temp Corrct ABG pO2 146 H ABG pO2 (Temp Correct ABG HCO3 35.4 H ABG O2 Saturation 98.5 H ABG Base Excess 13.6 H Respiration Rate O2 Delivery Device Ventilator Type Vent Mode FiO2 Inspiratory Time PEEP Pressure Support Pressure Control EPAP IPAP BiPAP Sodium Potassium Chloride Carbon Dioxide Anion Gap BUN Creatinine Est GFR ( Amer) Est GFR (Non-Af Amer) BUN/Creatinine Ratio Glucose Lactic Acid 0.3 L Calcium Total Bilirubin AST ALT Alkaline Phosphatase Troponin I C-Reactive Protein B-Natriuretic Peptide Total Protein Albumin Globulin Albumin/Globulin Ratio Influenza A (Rapid) Influenza B (Rapid) 09/24/18 09/24/18 09/24/18 15:13 15:13 15:13 WBC RBC Hgb Hct MCV MCH MCHC RDW Plt Count MPV Neut % (Auto) Lymph % (Auto) [place] % (Auto) Eos % (Auto) Baso % (Auto) Absolute Neuts (auto) Absolute Lymphs (auto) Absolute Monos (auto) Absolute Eos (auto) Absolute Basos (auto) Absolute Nucleated RBC Nucleated RBC % INR (Anticoag Therapy) 0.85 APTT 34.3 Patient Temperature ABG pH ABG pH (Temp Correct) ABG pCO2 ABG pCO2 (Temp Corrct ABG pO2 ABG pO2 (Temp Correct ABG HCO3 ABG O2 Saturation ABG Base Excess Respiration Rate O2 Delivery Device Ventilator Type Vent Mode FiO2 Inspiratory Time PEEP Pressure Support Pressure Control EPAP IPAP BiPAP Sodium 132 L Potassium 4.6 Chloride 90 L Carbon Dioxide 40 H Anion Gap 2 BUN 9 Creatinine 0.56 L Est GFR ( Amer) 177.7 Est GFR (Non-Af Amer) 146.9 BUN/Creatinine Ratio 16.1 Glucose 95 Lactic Acid Calcium 9.0 Total Bilirubin 0.40 AST 19 ALT 20 Alkaline Phosphatase 46 Troponin I 0.01 C-Reactive Protein 4.71 B-Natriuretic Peptide 75 Total Protein 7.1 Albumin 4.2 Globulin 2.9 Albumin/Globulin Ratio 1.4 Influenza A (Rapid) Influenza B (Rapid) 09/24/18 09/24/18 15:32 16:20 WBC RBC Hgb Hct MCV MCH MCHC RDW Plt Count MPV Neut % (Auto) Lymph % (Auto) [place] % (Auto) Eos % (Auto) Baso % (Auto) Absolute Neuts (auto) Absolute Lymphs (auto) Absolute Monos (auto) Absolute Eos (auto) Absolute Basos (auto) Absolute Nucleated RBC Nucleated RBC % INR (Anticoag Therapy) APTT Patient Temperature Not Reportable ABG pH 7.19 L* ABG pH (Temp Correct) Not Reportable ABG pCO2 115 H* ABG pCO2 (Temp Corrct Not Reportable ABG pO2 89 ABG pO2 (Temp Correct Not Reportable ABG HCO3 33.4 H ABG O2 Saturation 97.5 ABG Base Excess 11.0 H Respiration Rate Not Reportable O2 Delivery Device bipap Ventilator Type Not Reportable Vent Mode Not Reportable FiO2 40 Inspiratory Time Not Reportable PEEP Not Reportable Pressure Support Not Reportable Pressure Control Not Reportable EPAP Not Reportable IPAP Not Reportable BiPAP Not Reportable Sodium Potassium Chloride Carbon Dioxide Anion Gap BUN Creatinine Est GFR ( Amer) Est GFR (Non-Af Amer) BUN/Creatinine Ratio Glucose Lactic Acid Calcium Total Bilirubin AST ALT Alkaline Phosphatase Troponin I C-Reactive Protein B-Natriuretic Peptide Total Protein Albumin Globulin Albumin/Globulin Ratio Influenza A (Rapid) Negative Influenza B (Rapid) Negative Imaging: cxr 09/24 no focal infiltrate, hyperinflated lung davis Assessment: 63y M w/pmhx of COPD on 2L home O2, nighttime Bipap, Chronic hypoxia and hypercapnea, DM; comes to ER from home, found by significant other at home in severe resp distress, poor responsiveness. EMS called. In ER, afebrile 98F, tachycardic, RR 14-15, hypertensive 140s. CXR without infiltrate. ABG demonstrated acute on chronic hypercapnea with respiratoyr acidosis, started on NIV immediately. On my arrival, he was more awake, very dyspneic on NIV or off and unable to speak a work without being short of breath. -Acute COPD exacerbation -Acute on chronic hypercapneic respiratory failure -metabolic encephalopathy 2/2 to CO2 narcosis, improving DM Plan: Neuro- metabolic encephalopathy, seems to be improving. following commands. delirium prec. asp prec on NIV. CVS- BP stable, tachycardia+. no clear infectious source. hold antihypertensive. hg stable, no bleeding. IVF NS 50cc/hr. Resp- acute on chronic hypercap, poor airmovement. Duoneb q2h, IV solumedrol q8h. terbutaline 0.25mg sq x1. Maintain NIV, sats okay. Repeat ABG with minimal improvement but mental status intact without further worsening resp distress. at risk of intubation but seems to be stable. will repeat ABG at 8pm, follow mental status. No stridor. CXR without new infiltrate/ptx/effusion. ID- afebrile. wbc normal. no clear infectious source. s/p azithromycin x1. hold abx. GI- NPO on NIV. asp prec. h2b IV daily for prophylaxis on steroids. Renal- Cr okay. follow urine output. no signs of volume overload. no segura. Heme- hg stable. plt stable. DVT proph with SCD/enoxaparin sq. Endo- fingerstick q6h for now. insulin aspart sq q6h. Musculsk- pressure ulcer prophylaxis. Bedrest. Wounds- none Nutrition- NPO DVT prophylaxis: SCDs, enoxaparin sq GI prophylaxis: h2b Central Line: no Arterial Line: no Segura Cathetor: no Disposition: admit to ICU, expected LOS>2 midnights Code Status: full code Total Critical Care time is 55 minutes, excluding procedures/teaching Preet Hampton MD Product Inspection Supervisor (Electronically Signed)
[2018-09-24] MEDS ORDERED: Terbutaline INJ* 1 MG/ML VIAL SUBCUT ONE (17:59)
[2018-09-24] MEDS: Insulin LISPRO* 1 UNITS UNIT SUBCUT SCH ×2 (17:59→23:38)
[2018-09-24 19:14] LABS: Urine Appearance Cloudy; Urine Blood 1+ (Negative); Urine Color Yellow; Urine Ketones Negative (Negative); Urine Protein Negative (Negative); Urine Red Blood Cell Trace(0-2/hpf) (Absent); Urine Urobilinogen Negative (Negative); Urine White Blood Cell Absent (Absent)
[2018-09-24] MEDS: Enoxaparin(*) 40 MG/0.4 ML SYR SUBCUT SCH (19:22)
[2018-09-24] MEDS ORDERED: methylPREDNISolone SOD 40 MG* 1 ML VIAL IV SCH (20:00)
[2018-09-24] MEDS: methylPREDNISolone SOD 40 MG* 1 ML VIAL IV SCH (23:41)
[2018-09-25] MEDS: Albuterol/Ipratropium NEB.SOL* Albuterol 2.5 MG/Ipratropium 0.5 MG 3 ML INH SCH ×8 (01:11→23:13)
[2018-09-25 06:03] LABS: Hematocrit 40 % (42-52); Mean Corpuscular HGB Conc 33 g/dl (31-36); Mean Corpuscular Hemoglobin 28 pg (27-31); Mean Corpuscular Volume 86 fL (80-94); Mean Platelet Volume 7.4 fL (7.4-10.4); Platelet Count 200 10^3/ul (150-450); Red Blood Count 4.58 10^6/ul (4.00-5.40); Red Cell Distribution Width 14 % (10.5-15); White Blood Count 5.7 10^3/ul (3.5-10.8)
[2018-09-25 06:18] LABS: EGFR Non-African American 143.9 (>60)
[2018-09-25] MEDS: Insulin LISPRO* 1 UNITS UNIT SUBCUT SCH ×3 (06:22→18:27)
[2018-09-25] MEDS ORDERED: Albuterol/Ipratropium NEB.SOL* Albuterol 2.5 MG/Ipratropium 0.5 MG 3 ML INH PRN (07:28)
[2018-09-25] MEDS: methylPREDNISolone SOD 40 MG* 1 ML VIAL IV SCH ×2 (09:06→16:19)
[2018-09-25] MEDS: Famotidine IV* 10 MG/ML 2 ML (20 mg) IV SLOW PU SCH (09:08)
--- NOTE | 2018-09-25 10:30 | PN ---
Progress Note - Progress Note Date of Service: 09/25/18 - Pulmonary note Note: Pt seen and examined at bedside. Pt reports feeling better. Getting SOB with minimal movement. Denies significant cough. Has not been compliant with BiPAP at home, has been smoking intermittently. Was on BiPAP last night, is on nasal cannula this am. ROS: Denies chest pain, dizziness, hemoptysis, headaches, N, V, dysuria. Reports anxiety Active Medications Generic Name Dose Route Start Last Admin Trade Name Freq PRN Reason Stop Dose Admin Albuterol/Ipratropium 1 neb 09/25/18 11:00 Duoneb (Albuterol 2.5 Mg/Ipratropium 0.5 Mg) INH [id number] AWAKE ANAT Albuterol/Ipratropium 1 neb 09/25/18 07:28 Duoneb (Albuterol 2.5 Mg/Ipratropium 0.5 Mg) INH Q2H PRN SOB/WHEEZING Enoxaparin Sodium 40 mg 09/24/18 20:00 09/24/18 19:22 Lovenox(*) SUBCUT 40 mg Q24H ANAT Administration Famotidine 20 mg 09/25/18 09:00 09/25/18 09:08 Pepcid Iv* IV SLOW PU 20 mg DAILY ANAT Administration Azithromycin 500 mg/ Sodium 250 mls @ 250 mls/hr 09/25/18 16:00 Chloride IVPB 09/27/18 15:59 Q24H ANAT Insulin Human Lispro 0 units 09/24/18 18:00 09/25/18 06:22 Humalog* SUBCUT 2 units Q6H ANAT Administration Protocol Lorazepam 1 mg 09/25/18 09:41 Ativan Tab(*) PO Q6H PRN ANXIETY Methylprednisolone Sodium Succinate 40 mg 09/25/18 00:00 09/25/18 09:06 Solu-Medrol 40 Mg IV 40 mg Q8H ANAT Administration Vital Signs Temp Pulse Resp BP Pulse Ox 98.9 F 113 18 112/73 92 09/25/18 07:39 09/25/18 10:00 09/25/18 10:00 09/25/18 09:10 09/25/18 10:00 O/E: Pt in NAD HEENT: PERRLA, No JVD Lungs: Diminished air entry b/l, wheeze on auscultation CVS: S1, S2+, regular Abd: Soft, BS+ Ext: Normal ROM Neuro: Alert, awake, no focal defecits Skin: No rash Laboratory Results - last 24 hr 09/24/18 09/24/18 09/24/18 14:50 15:12 15:13 WBC 8.1 RBC 4.79 Hgb 13.8 L Hct 42 MCV 88 MCH 29 MCHC 33 RDW 15 Plt Count 199 MPV 7.2 L Neut % (Auto) 77.2 Lymph % (Auto) 13.1 L [place] % (Auto) 7.9 H Eos % (Auto) 1.5 Baso % (Auto) 0.3 Absolute Neuts (auto) 6.3 Absolute Lymphs (auto) 1.1 Absolute Monos (auto) 0.6 Absolute Eos (auto) 0.1 Absolute Basos (auto) 0 Absolute Nucleated RBC 0 Nucleated RBC % 0 INR (Anticoag Therapy) APTT Patient Temperature ABG pH 7.16 L* ABG pH (Temp Correct) ABG pCO2 136 H* ABG pCO2 (Temp Corrct ABG pO2 146 H ABG pO2 (Temp Correct ABG HCO3 35.4 H ABG O2 Saturation 98.5 H ABG Base Excess 13.6 H Respiration Rate O2 Delivery Device Ventilator Type Vent Mode FiO2 Inspiratory Time PEEP Pressure Support Pressure Control EPAP IPAP BiPAP Sodium Potassium Chloride Carbon Dioxide Anion Gap BUN Creatinine Est GFR ( Amer) Est GFR (Non-Af Amer) BUN/Creatinine Ratio Glucose POC Glucose (mg/dL) Lactic Acid 0.3 L Calcium Total Bilirubin AST ALT Alkaline Phosphatase Troponin I C-Reactive Protein B-Natriuretic Peptide Total Protein Albumin Globulin Albumin/Globulin Ratio Urine Color Urine Appearance Urine pH Ur Specific [place] Urine Protein Urine Ketones Urine Blood Urine Nitrate Urine Bilirubin Urine Urobilinogen Ur Leukocyte Esterase Urine WBC (Auto) Urine RBC (Auto) Urine Bacteria Hyaline Casts Urine Glucose Influenza A (Rapid) Influenza B (Rapid) 09/24/18 09/24/18 09/24/18 15:13 15:13 15:13 WBC RBC Hgb Hct MCV MCH MCHC RDW Plt Count MPV Neut % (Auto) Lymph % (Auto) [place] % (Auto) Eos % (Auto) Baso % (Auto) Absolute Neuts (auto) Absolute Lymphs (auto) Absolute Monos (auto) Absolute Eos (auto) Absolute Basos (auto) Absolute Nucleated RBC Nucleated RBC % INR (Anticoag Therapy) 0.85 APTT 34.3 Patient Temperature ABG pH ABG pH (Temp Correct) ABG pCO2 ABG pCO2 (Temp Corrct ABG pO2 ABG pO2 (Temp Correct ABG HCO3 ABG O2 Saturation ABG Base Excess Respiration Rate O2 Delivery Device Ventilator Type Vent Mode FiO2 Inspiratory Time PEEP Pressure Support Pressure Control EPAP IPAP BiPAP Sodium 132 L Potassium 4.6 Chloride 90 L Carbon Dioxide 40 H Anion Gap 2 BUN 9 Creatinine 0.56 L Est GFR ( Amer) 177.7 Est GFR (Non-Af Amer) 146.9 BUN/Creatinine Ratio 16.1 Glucose 95 POC Glucose (mg/dL) Lactic Acid Calcium 9.0 Total Bilirubin 0.40 AST 19 ALT 20 Alkaline Phosphatase 46 Troponin I 0.01 C-Reactive Protein 4.71 B-Natriuretic Peptide 75 Total Protein 7.1 Albumin 4.2 Globulin 2.9 Albumin/Globulin Ratio 1.4 Urine Color Urine Appearance Urine pH Ur Specific [place] Urine Protein Urine Ketones Urine Blood Urine Nitrate Urine Bilirubin Urine Urobilinogen Ur Leukocyte Esterase Urine WBC (Auto) Urine RBC (Auto) Urine Bacteria Hyaline Casts Urine Glucose Influenza A (Rapid) Influenza B (Rapid) 09/24/18 09/24/18 09/24/18 15:32 16:20 18:10 WBC RBC Hgb Hct MCV MCH MCHC RDW Plt Count MPV Neut % (Auto) Lymph % (Auto) [place] % (Auto) Eos % (Auto) Baso % (Auto) Absolute Neuts (auto) Absolute Lymphs (auto) Absolute Monos (auto) Absolute Eos (auto) Absolute Basos (auto) Absolute Nucleated RBC Nucleated RBC % INR (Anticoag Therapy) APTT Patient Temperature Not Reportable ABG pH 7.19 L* ABG pH (Temp Correct) Not Reportable ABG pCO2 115 H* ABG pCO2 (Temp Corrct Not Reportable ABG pO2 89 ABG pO2 (Temp Correct Not Reportable ABG HCO3 33.4 H ABG O2 Saturation 97.5 ABG Base Excess 11.0 H Respiration Rate Not Reportable O2 Delivery Device bipap Ventilator Type Not Reportable Vent Mode Not Reportable FiO2 40 Inspiratory Time Not Reportable PEEP Not Reportable Pressure Support Not Reportable Pressure Control Not Reportable EPAP Not Reportable IPAP Not Reportable BiPAP Not Reportable Sodium Potassium Chloride Carbon Dioxide Anion Gap BUN Creatinine Est GFR ( Amer) Est GFR (Non-Af Amer) BUN/Creatinine Ratio Glucose POC Glucose (mg/dL) 70 Lactic Acid Calcium Total Bilirubin AST ALT Alkaline Phosphatase Troponin I C-Reactive Protein B-Natriuretic Peptide Total Protein Albumin Globulin Albumin/Globulin Ratio Urine Color Urine Appearance Urine pH Ur Specific [place] Urine Protein Urine Ketones Urine Blood Urine Nitrate Urine Bilirubin Urine Urobilinogen Ur Leukocyte Esterase Urine WBC (Auto) Urine RBC (Auto) Urine Bacteria Hyaline Casts Urine Glucose Influenza A (Rapid) Negative Influenza B (Rapid) Negative 09/24/18 09/24/18 09/24/18 18:55 21:59 23:35 WBC RBC Hgb Hct MCV MCH MCHC RDW Plt Count MPV Neut % (Auto) Lymph % (Auto) [place] % (Auto) Eos % (Auto) Baso % (Auto) Absolute Neuts (auto) Absolute Lymphs (auto) Absolute Monos (auto) Absolute Eos (auto) Absolute Basos (auto) Absolute Nucleated RBC Nucleated RBC % INR (Anticoag Therapy) APTT Patient Temperature Not Reportable ABG pH 7.34 L ABG pH (Temp Correct) Not Reportable ABG pCO2 82 H* ABG pCO2 (Temp Corrct Not Reportable ABG pO2 70 L ABG pO2 (Temp Correct Not Reportable ABG HCO3 36.1 H ABG O2 Saturation 96.4 ABG Base Excess 14.5 H Respiration Rate Not Reportable O2 Delivery Device Bipap Ventilator Type Not Reportable Vent Mode Pcv FiO2 45 Inspiratory Time Not Reportable PEEP Not Reportable Pressure Support Not Reportable Pressure Control Not Reportable EPAP 8 IPAP 20 BiPAP Not Reportable Sodium Potassium Chloride Carbon Dioxide Anion Gap BUN Creatinine Est GFR ( Amer) Est GFR (Non-Af Amer) BUN/Creatinine Ratio Glucose POC Glucose (mg/dL) 131 H Lactic Acid Calcium Total Bilirubin AST ALT Alkaline Phosphatase Troponin I C-Reactive Protein B-Natriuretic Peptide Total Protein Albumin Globulin Albumin/Globulin Ratio Urine Color Yellow Urine Appearance Cloudy Urine pH 6.0 Ur Specific [place] 1.010 Urine Protein Negative Urine Ketones Negative Urine Blood 1+ A Urine Nitrate Negative Urine Bilirubin Negative Urine Urobilinogen Negative Ur Leukocyte Esterase Negative Urine WBC (Auto) Absent Urine RBC (Auto) Trace(0-2/hpf) Urine Bacteria Absent Hyaline Casts Present A Urine Glucose Negative Influenza A (Rapid) Influenza B (Rapid) 09/25/18 09/25/18 09/25/18 05:45 05:45 05:59 WBC 5.7 RBC 4.58 Hgb 13.0 L Hct 40 L MCV 86 MCH 28 MCHC 33 RDW 14 Plt Count 200 MPV 7.4 Neut % (Auto) Lymph % (Auto) [place] % (Auto) Eos % (Auto) Baso % (Auto) Absolute Neuts (auto) Absolute Lymphs (auto) Absolute Monos (auto) Absolute Eos (auto) Absolute Basos (auto) Absolute Nucleated RBC Nucleated RBC % INR (Anticoag Therapy) APTT Patient Temperature ABG pH 7.42 ABG pH (Temp Correct) ABG pCO2 61 H ABG pCO2 (Temp Corrct ABG pO2 94 ABG pO2 (Temp Correct ABG HCO3 34.6 H ABG O2 Saturation 98.2 H ABG Base Excess 12.5 H Respiration Rate O2 Delivery Device Ventilator Type Vent Mode FiO2 Inspiratory Time PEEP Pressure Support Pressure Control EPAP IPAP BiPAP Sodium 133 L Potassium 4.4 Chloride 91 L Carbon Dioxide 35 H Anion Gap 7 BUN 12 Creatinine 0.57 L Est GFR ( Amer) 174.1 Est GFR (Non-Af Amer) 143.9 BUN/Creatinine Ratio 21.1 H Glucose 177 H POC Glucose (mg/dL) Lactic Acid Calcium 8.7 Total Bilirubin AST ALT Alkaline Phosphatase Troponin I C-Reactive Protein B-Natriuretic Peptide Total Protein Albumin Globulin Albumin/Globulin Ratio Urine Color Urine Appearance Urine pH Ur Specific [place] Urine Protein Urine Ketones Urine Blood Urine Nitrate Urine Bilirubin Urine Urobilinogen Ur Leukocyte Esterase Urine WBC (Auto) Urine RBC (Auto) Urine Bacteria Hyaline Casts Urine Glucose Influenza A (Rapid) Influenza B (Rapid) CXR: Was personally reviewed by me- Chronic interstitial prominence, no acute airspace opacities noted I/R: 63 y o m, with significant smoking history, still smokes intermittently with h/o COPD, chronic resp failure on BiPAP, anxiety, multiple hospitalizations in the past for acute COPD exacerbation a/w worsening SOB and found to be in acute COPD exacerbation Pt was on NIPPV last night, resp status improved this am He is moving air better even though still tight Resp acidosis resolved Requiring higher FiO2, will be able to titrate today C/w solumedrol at current dose of 40 q 8 hrs Will c/w nebs q 4hrs while awake Monitor BS while on steroids c/w BiPAP at night OOB to chair Smoking cessation counseling was reenforced c/w abx for 7 day course Will qualify for low dose CT chest Pt has cancelled appointments for CT chest that was ordered as out pt Pt stable to be transferred to [facility] medical floor Plan d/w RN and RT at bedside D/w Dr Rodrigez
[2018-09-25] MEDS: LORazepam TAB(*) 1 MG PO PRN (10:48)
[2018-09-25] MEDS ORDERED: Nicotine Inhaler* 10 MG AMP INH PRN (15:48)
[2018-09-25] MEDS: Azithromycin IV(*) 500 MG in NS 0.9% 250 ML* 250 ML IVPB SCH (16:19)
[2018-09-25] MEDS: Sertraline* 100 MG TAB PO SCH (16:19)
[2018-09-25] MEDS: Enoxaparin(*) 40 MG/0.4 ML SYR SUBCUT SCH (21:12)
[2018-09-26] MEDS: Insulin LISPRO* 1 UNITS UNIT SUBCUT SCH ×5 (01:09→21:36)
[2018-09-26] MEDS: methylPREDNISolone SOD 40 MG* 1 ML VIAL IV SCH ×3 (01:09→16:01)
[2018-09-26] MEDS: Albuterol/Ipratropium NEB.SOL* Albuterol 2.5 MG/Ipratropium 0.5 MG 3 ML INH SCH ×5 (03:11→19:20)
[2018-09-26 05:41] LABS: Hematocrit 40 % (42-52); Hemoglobin 13.1 g/dl (14.0-18.0); Mean Corpuscular HGB Conc 33 g/dl (31-36); Mean Corpuscular Hemoglobin 28 pg (27-31); Mean Corpuscular Volume 86 fL (80-94); Mean Platelet Volume 7.2 fL (7.4-10.4); Platelet Count 216 10^3/ul (150-450); Red Blood Count 4.61 10^6/ul (4.00-5.40); Red Cell Distribution Width 14 % (10.5-15); White Blood Count 9.8 10^3/ul (3.5-10.8)
[2018-09-26 06:02] LABS: EGFR Non-African American 133.1 (>60)
[2018-09-26] MEDS: Sertraline* 100 MG TAB PO SCH (08:36)
[2018-09-26] MEDS: Famotidine IV* 10 MG/ML 2 ML (20 mg) IV SLOW PU SCH (08:39)
[2018-09-26] MEDS ORDERED: Sertraline* 100 MG TAB PO SCH (09:00)
--- NOTE | 2018-09-26 12:16 | PN ---
Subjective Date of Service: 09/26/18 Interval History: HOSPITALIST PROGRESS NOTE Patient seen and examined at bedside. Care reviewed and d/w Willa Castro RN. He is in good spirits today. Feels much improved, happy he's down to 2 liters of O2 from 15. He tells me he was doing much better using his Trilogy overnight, but as he started to feel better, he used the vent less and less. He states his body was giving him signs "something was wrong": napping in the afternoon, headaches. Family History: Unchanged from Admission Social History: Unchanged from Admission Past Medical History: Unchanged from Admission Objective Active Medications: Albuterol/Ipratropium (Duoneb (Albuterol 2.5 Mg/Ipratropium 0.5 Mg)) 1 neb INH [id number] AWAKE [facility] Last Admin: 09/26/18 11:21 Dose: 1 neb Albuterol/Ipratropium (Duoneb (Albuterol 2.5 Mg/Ipratropium 0.5 Mg)) 1 neb INH Q2H PRN PRN Reason: SOB/WHEEZING Enoxaparin Sodium (Lovenox(*)) 40 mg SUBCUT Q24H [facility] Last Admin: 09/25/18 21:12 Dose: 40 mg Famotidine (Pepcid Iv*) 20 mg IV SLOW PU DAILY [facility] Last Admin: 09/26/18 08:39 Dose: Not Given Azithromycin 500 mg/ Sodium (Chloride) 250 mls @ 250 mls/hr IVPB Q24H ANAT Stop: 09/27/18 15:59 Last Admin: 09/25/18 16:19 Dose: 250 mls/hr Insulin Human Lispro (Humalog*) 0 units SUBCUT ACHS [facility]; Protocol Lorazepam (Ativan Tab(*)) 1 mg PO Q6H PRN PRN Reason: ANXIETY Last Admin: 09/25/18 10:48 Dose: 1 mg Methylprednisolone Sodium Succinate (Solu-Medrol 40 Mg) 40 mg IV Q8H [facility] Last Admin: 09/26/18 08:38 Dose: 40 mg Nicotine (Nicotine Inhaler*) 10 mg INH Q2H PRN PRN Reason: CRAVING Sertraline HCl (Zoloft*) 100 mg PO DAILY [facility] Last Admin: 09/26/18 08:36 Dose: 100 mg Vital Signs - 8 hr 09/26/18 09/26/18 09/26/18 04:30 07:18 07:38 Temperature 97.6 F 97.5 F Pulse Rate 88 89 117 Respiratory 16 17 18 Rate Blood Pressure 136/86 138/90 (mmHg) O2 Sat by Pulse 100 99 100 Oximetry 09/26/18 09/26/18 09/26/18 08:00 10:24 11:11 Temperature 98.2 F Pulse Rate 110 Respiratory 18 18 22 Rate Blood Pressure 140/88 (mmHg) O2 Sat by Pulse 98 100 95 Oximetry 09/26/18 11:19 Temperature Pulse Rate 112 Respiratory 18 Rate Blood Pressure (mmHg) O2 Sat by Pulse 96 Oximetry Oxygen Devices in Use Now: Nasal Cannula - 2 liters Appearance: Plesant gentleman sitting up in chair in NAD Eyes: No Scleral Icterus Ears/Nose/Mouth/Throat: Mucous Membranes Moist Neck: Trachea Midline Respiratory: Symmetrical Chest Expansion and Respiratory Effort, - - BS+ bilaterally with faint wheezes on the right Cardiovascular: RRR - Normal S1 and S2 Neurological: Alert and Oriented x 3, NL Muscle Strength and Tone Result Diagrams: 09/26/18 05:31 09/26/18 05:31 Assess/Plan/Problems-Billing Assessment: Mr Cerna is a 63yo M with PMH of COPD on home O2/Trilogy at night, type 2 DM, CBD stricture s/p stent, liver cirrhosis, who presented to ED with altered MS found to have acute on chronic hypercapnic respiratory failure. - Patient Problems (1) Acute hypercapnic respiratory failure Comment: - Acute on chronic. - Secondary to bronchitis and non compliance with Trilogy. - Patient educated about importance of compliance. (2) COPD (chronic obstructive pulmonary disease) with acute bronchitis Comment: - Improving. - Continue Zithromax, steroids, bronchodilators. (3) Metabolic encephalopathy Comment: - Mental status back to baseline. - Secondary to CO2 retention in the setting of Trilogy non compliance. (4) Type 2 diabetes mellitus Comment: - Continue Lispro SS while in the hospital and resume PO meds on discharge. (5) DVT prophylaxis Comment: - Lovenox. (6) Full code status Status and Disposition: Inpatient for management of COPD.
[2018-09-26] MEDS ORDERED: Mouth Piece, Nicotine* 1 EACH CARTRIDGE ONE (13:56)
[2018-09-26] MEDS: Azithromycin IV(*) 500 MG in NS 0.9% 250 ML* 250 ML IVPB SCH (16:01)
[2018-09-26] MEDS: LORazepam TAB(*) 1 MG PO PRN (16:57)
[2018-09-26] MEDS ORDERED: Cyclobenzaprine TAB* 10 MG PO PRN (17:12)
--- NOTE | 2018-09-26 17:31 | PN ---
Progress Note - Progress Note Date of Service: 09/26/18 - Pulm f/u note Note: Pt seen and examined at bedside. Pt reports doing much better today. BiPAP is helping. Able to ambulate without much dyspnea. Denies signficant cough or sputum production, currently on 3L O2 Active Medications Generic Name Dose Route Start Last Admin Trade Name Freq PRN Reason Stop Dose Admin Albuterol/Ipratropium 1 neb 09/25/18 11:00 09/26/18 15:10 Duoneb (Albuterol 2.5 Mg/Ipratropium 0.5 Mg) INH 1 neb [id number] AWAKE ANAT Administration Albuterol/Ipratropium 1 neb 09/25/18 07:28 Duoneb (Albuterol 2.5 Mg/Ipratropium 0.5 Mg) INH Q2H PRN SOB/WHEEZING Cyclobenzaprine HCl 10 mg 09/26/18 17:12 Flexeril Tab* PO TID PRN Muscle spasms Enoxaparin Sodium 40 mg 09/24/18 20:00 09/25/18 21:12 Lovenox(*) SUBCUT 40 mg Q24H ANAT Administration Famotidine 20 mg 09/25/18 09:00 09/26/18 08:39 Pepcid Iv* IV SLOW PU Not Given DAILY ANAT Azithromycin 500 mg/ Sodium 250 mls @ 250 mls/hr 09/25/18 16:00 09/26/18 16: 01 Chloride IVPB 09/27/18 15:59 250 mls/hr Q24H ANAT Administration Insulin Human Lispro 0 units 09/26/18 16:30 09/26/18 16:57 Humalog* SUBCUT 4 units ACHS ANAT Administration Protocol Lorazepam 1 mg 09/25/18 09:41 09/26/18 16:57 Ativan Tab(*) PO 1 mg Q6H PRN Administration ANXIETY Methylprednisolone Sodium Succinate 40 mg 09/25/18 00:00 09/26/18 16:01 Solu-Medrol 40 Mg IV 40 mg Q8H ANAT Administration Nicotine 10 mg 09/25/18 15:48 09/26/18 14:01 Nicotine Inhaler* INH 10 mg Q2H PRN Administration CRAVING Sertraline HCl 100 mg 09/25/18 16:07 09/26/18 08:36 Zoloft* PO 100 mg DAILY ANAT Administration Vital Signs Temp Pulse Resp BP Pulse Ox 98.1 F 121 18 123/75 99 09/26/18 15:34 09/26/18 15:34 09/26/18 16:57 09/26/18 15:34 09/26/18 15:34 O/E: Pt in NAD HEENT: PERRLA, no JVD Lungs: Scaterred wheeze +, prolonged exp phase CVS: S1, S2+, tachycardic Abd: Soft, BS+ Ext: No edema Skin: No rash Neuro: No focal defecits Laboratory Results - last 24 hr 09/25/18 09/26/18 09/26/18 18:10 00:44 05:31 WBC RBC Hgb Hct MCV MCH MCHC RDW Plt Count MPV Sodium 135 Potassium 4.0 Chloride 97 L Carbon Dioxide 34 H Anion Gap 4 BUN 21 Creatinine 0.61 L Est GFR ( Amer) 161.0 Est GFR (Non-Af Amer) 133.1 BUN/Creatinine Ratio 34.4 H Glucose 153 H POC Glucose (mg/dL) 233 H 282 H Calcium 8.7 09/26/18 09/26/18 09/26/18 05:31 06:09 12:31 WBC 9.8 RBC 4.61 Hgb 13.1 L Hct 40 L MCV 86 MCH 28 MCHC 33 RDW 14 Plt Count 216 MPV 7.2 L Sodium Potassium Chloride Carbon Dioxide Anion Gap BUN Creatinine Est GFR ( Amer) Est GFR (Non-Af Amer) BUN/Creatinine Ratio Glucose POC Glucose (mg/dL) 148 H 153 H Calcium 09/26/18 16:06 WBC RBC Hgb Hct MCV MCH MCHC RDW Plt Count MPV Sodium Potassium Chloride Carbon Dioxide Anion Gap BUN Creatinine Est GFR ( Amer) Est GFR (Non-Af Amer) BUN/Creatinine Ratio Glucose POC Glucose (mg/dL) 238 H Calcium I/R: 63 y o m, with significant smoking history, still smokes intermittently with h/o COPD, chronic resp failure on BiPAP, anxiety, multiple hospitalizations in the past for acute COPD exacerbation a/w worsening SOB and found to be in acute COPD exacerbation Pt improved with NIPPV, didnot require intubation O2 requirements improved On solumedrol 40 q 8 hrs, can taper to 60mg daily in am Will c/w nebs q 4hrs while awake Monitor BS while on steroids c/w BiPAP at night OOB to chair, ambulate as tolerated Smoking cessation counseling was reenforced Will qualify for low dose CT chest, pt was counseled regarding low dose CT Pt has cancelled appointments for CT chest that was ordered as out pt with concern of finding cancer and needing chemo Pt agreeable to doing low dose CT For d/c home in am if stable
[2018-09-26] MEDS: Enoxaparin(*) 40 MG/0.4 ML SYR SUBCUT SCH (21:36)
[2018-09-27] MEDS: Albuterol/Ipratropium NEB.SOL* Albuterol 2.5 MG/Ipratropium 0.5 MG 3 ML INH SCH ×3 (00:15→14:16)
[2018-09-27] MEDS: Famotidine IV* 10 MG/ML 2 ML (20 mg) IV SLOW PU SCH (08:10)
[2018-09-27] MEDS: Sertraline* 100 MG TAB PO SCH (08:10)
[2018-09-27] MEDS: Insulin LISPRO* 1 UNITS UNIT SUBCUT SCH ×2 (08:10→12:21)
[2018-09-27 08:15] LABS: Hematocrit 41 % (42-52); Mean Corpuscular HGB Conc 32 g/dl (31-36); Mean Corpuscular Hemoglobin 28 pg (27-31); Mean Corpuscular Volume 87 fL (80-94); Mean Platelet Volume 7.7 fL (7.4-10.4); Platelet Count 209 10^3/ul (150-450); Red Blood Count 4.67 10^6/ul (4.00-5.40); Red Cell Distribution Width 14 % (10.5-15); White Blood Count 11.3 10^3/ul (3.5-10.8)
[2018-09-27] MEDS ORDERED: Azithromycin TAB* 250 MG PO ONE (08:46)
[2018-09-27] MEDS ORDERED: Pregabalin CAP(*) 25 MG PO PRN (09:56)
[2018-09-27] MEDS: methylPREDNISolone SOD 40 MG* 1 ML VIAL IV SCH ×2 (10:24)
--- NOTE | 2018-09-27 11:00 | PN ---
Progress Note - Progress Note Date of Service: 09/27/18 - Pulm f/u note Note: Pt seen and examined at bedside. Pt reports feeling better. No acute events o/ n. He slept well and used BiPAP. Denies signficant cough Active Medications Generic Name Dose Route Start Last Admin Trade Name Freq PRN Reason Stop Dose Admin Albuterol/Ipratropium 1 neb 09/25/18 07:28 Duoneb (Albuterol 2.5 Mg/Ipratropium 0.5 Mg) INH Q2H PRN SOB/WHEEZING Albuterol/Ipratropium 1 neb 09/27/18 07:00 09/27/18 07:17 Duoneb (Albuterol 2.5 Mg/Ipratropium 0.5 Mg) INH 1 neb [id number] AWAKE ANAT Administration Cyclobenzaprine HCl 10 mg 09/26/18 17:12 09/26/18 17:50 Flexeril Tab* PO 10 mg TID PRN Administration Muscle spasms Enoxaparin Sodium 40 mg 09/24/18 20:00 09/26/18 21:36 Lovenox(*) SUBCUT 40 mg Q24H ANAT Administration Insulin Human Lispro 0 units 09/26/18 16:30 09/27/18 08:10 Humalog* SUBCUT 2 units ACHS ANAT Administration Protocol Lorazepam 1 mg 09/25/18 09:41 09/26/18 16:57 Ativan Tab(*) PO 1 mg Q6H PRN Administration ANXIETY Methylprednisolone Sodium Succinate 40 mg 09/25/18 00:00 09/27/18 10:24 Solu-Medrol 40 Mg IV 40 mg Q8H ANAT Administration Nicotine 10 mg 09/25/18 15:48 09/26/18 14:01 Nicotine Inhaler* INH 10 mg Q2H PRN Administration CRAVING Pregabalin 75 mg 09/27/18 09:56 09/27/18 10:24 Lyrica Cap(*) PO 75 mg BID PRN Administration PAIN Sertraline HCl 100 mg 09/25/18 16:07 09/27/18 08:10 Zoloft* PO 100 mg DAILY ANAT Administration Vital Signs Temp Pulse Resp BP Pulse Ox 96.6 F 102 19 120/78 96 09/27/18 05:58 09/27/18 07:20 09/27/18 10:24 09/27/18 05:58 09/27/18 08:00 O/E: Pt in NAD, sitting up in chair HEENT: PERRLA, no JVD Lungs: Scaterred wheeze +, prolonged exp phase, no significant change CVS: S1, S2+ Abd: Soft, BS+, NT Ext: No edema Skin: No rash Neuro: No focal deficits Laboratory Results - last 24 hr 09/25/18 09/26/18 09/26/18 18:10 00:44 05:31 WBC RBC Hgb Hct MCV MCH MCHC RDW Plt Count MPV Sodium 135 Potassium 4.0 Chloride 97 L Carbon Dioxide 34 H Anion Gap 4 BUN 21 Creatinine 0.61 L Est GFR ( Amer) 161.0 Est GFR (Non-Af Amer) 133.1 BUN/Creatinine Ratio 34.4 H Glucose 153 H POC Glucose (mg/dL) 233 H 282 H Calcium 8.7 09/26/18 09/26/18 09/26/18 05:31 06:09 12:31 WBC 9.8 RBC 4.61 Hgb 13.1 L Hct 40 L MCV 86 MCH 28 MCHC 33 RDW 14 Plt Count 216 MPV 7.2 L Sodium Potassium Chloride Carbon Dioxide Anion Gap BUN Creatinine Est GFR ( Amer) Est GFR (Non-Af Amer) BUN/Creatinine Ratio Glucose POC Glucose (mg/dL) 148 H 153 H Calcium 09/26/18 16:06 WBC RBC Hgb Hct MCV MCH MCHC RDW Plt Count MPV Sodium Potassium Chloride Carbon Dioxide Anion Gap BUN Creatinine Est GFR ( Amer) Est GFR (Non-Af Amer) BUN/Creatinine Ratio Glucose POC Glucose (mg/dL) 238 H Calcium I/R: 63 y o m, with significant smoking history, still smokes intermittently with h/o COPD, chronic resp failure on BiPAP, anxiety, multiple hospitalizations in the past for acute COPD exacerbation a/w worsening SOB and found to be in acute COPD exacerbation Pt doing well with NIPPV O2 requirements improved Still has wheeze on auscultation some of which is chronic for him On solumedrol 40 q 8 hrs, can taper to 60mg daily and plan for taper on d/c Will c/w nebs q 6hrs while awake Monitor BS while on steroids c/w Trilogy at home, pt understands importance and agreed to be more compliant Will qualify for low dose CT chest, pt was counseled regarding low dose CT Pt has cancelled appointments for CT chest that was ordered as out pt with concern of finding cancer and needing chemo Pt agreeable to doing low dose CT Will arrange as out pt For d/c home today, will f/u in pulm clinic in 2-3 weeks
[2018-09-27 13:25] VITALS: BP 128/68
--- NOTE | 2018-09-29 15:24 | DS ---
CC: Dr. Tigre Torres; Dr. Joe. DISCHARGE SUMMARY: DATE OF ADMISSION: 09/24/18 DATE OF TRANSFER: 09/27/18 PRIMARY CARE PROVIDER: Dr. Tigre Torres. COMPENSATION BUSINESS PARTNER: Dr. Joe. DISCHARGE DIAGNOSES: 1. Acute on chronic hypercapnic respiratory failure, secondary to chronic obstructive pulmonary disease exacerbation and noncompliance with trilogy equipment. 2. Chronic obstructive pulmonary disease exacerbation secondary to bronchitis. 3. Metabolic encephalopathy secondary to CO2 retention. SECONDARY DIAGNOSES: Chronic obstructive pulmonary disease, on home O2, 2 to 3 L during the day and nighttime trilogy. PAST MEDICAL HISTORY: 1. COPD. 2. Type 2 diabetes. 3. 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 4. History of alcohol abuse with cirrhosis and recurrent pancreatitis. MEDICATION LIST: 1. Albuterol HFA 2 puffs inhaled q.i.d. p.r.n. shortness of breath. 2. Albuterol/ipratropium nebulized q.4 hours p.r.n. shortness of breath. 3. Flexeril 10 mg p.o. t.i.d. p.r.n. muscle spasms. 4. Synjardy XR 03/1000 mg 1 tablet p.o. daily. 5. Advair 500/50 2 puffs inhaled b.i.d. 6. Glipizide 5 mg p.o. daily. 7. Lorazepam 0.5 mg p.o. b.i.d. as needed for anxiety. 8. Nicotine inhaler 10 mg inhaled q. 2 hours p.r.n. cravings. 9. Lyrica 75 mg p.o. b.i.d. as needed for pain. 10. Sertraline 100 mg p.o. q.a.m. New Medications: 1. Zithromax 250 mg p.o. daily for 2 more days. 2. Prednisone taper as follows; 60 mg p.o. daily for 5 days, 50 mg for 5 days, 40 mg for 5 days, 30 mg 5 days, 20 mg 5 days, 10 mg 5 days, then stop. HOSPITAL COURSE: Mr. Cerna is a 63-year-old male with past medical history as stated above that presented to the emergency room on 09/24/18 with altered mental status in respiratory distress. His workup included an initial ABG that showed a pH of 7.16 with a pCO2 of 136. For more details about his presentation , I refer you to his history and physical. The patient admitted to the intensive care unit, started on BiPAP and he had progressive improvement of his symptoms and was able to be transferred to the medical floor on 09/25/18. As the patient's mental status returned to normal, he was able to provide more information. He states that he was initially on BiPAP with no significant improvement, but then he has tried to use the trilogy and he states that he felt much improved. He states that if he slept the whole night with his trilogy, sometimes he would not even need his oxygen during the day. He states that he started to "slack" and use the trilogy less and less and prior to admission, he states that he had not used it for at least 2 days. He states that he missed the signs of respiratory failure including heavy headaches during the day and nappy in the afternoon, things that he was not doing anymore since starting the trilogy. He was found unresponsive by his friend with hypercapnic respiratory failure. The patient received education regarding importance of compliance with his treatment and he seems to be very close to his baseline at this time. He was also seen in followup by Dr. Joe and she is in agreement with the current management and recommended a low dose CT of the chest as outpatient for screening for lung cancer. The patient is medically stable for discharge at this time to follow up as outpatient. PHYSICAL EXAMINATION: Vital Signs: Temperature 97.4, heart rate 88, oxygen saturation 97% on 2 L, blood pressure 128/68. General: Patient is a pleasant gentleman, sitting up in bed in no acute distress. CVS: Normal S1, S2. Regular rate and rhythm. Chest: Breaths sounds bilaterally with scattered wheezes on the right. Neuro: He is alert and oriented x3, able to move all 4 extremities. DIET: Consistent carb diet. ACTIVITY: As tolerated. DISPOSITION: To home. STATUS WHILE IN THE HOSPITAL: Inpatient. The patient was advised to follow up with Dr. Torres on 10/12/18 and to continue to follow up with Dr. Joe as scheduled. Please note that at the time of discharge the patient's oxygen requirements are as follows; 2 L at rest, 4 L with ambulation and we reinforced the importance of using his trilogy at night. Please keep in mind this is a summarized version of this patient's hospital stay. If you need more information, please feel free to call me at [phone] or please obtain the full medical records. TIME SPENT: Approximately 45 minutes was spent to complete this discharge. [id number]/CPS #: [id number] [place]
== END 2018-09-27 14:55 | disposition home or self-care (01) | DRG 70 ==
LOC: ED 14:43 → ICU 16:19 → MED 09-25 12:59
PROVIDERS: ADMIT Internal Medicine Critical Care Medicine; ATTEND Internal Medicine
PROC: 5A09457 Assistance with Respiratory Ventilation, 24-96 Consecutive Hours, Continuous Positive Airway Pressure (ICD-10-PCS; principal; 2018-09-24)
DX: G93.41 Metabolic encephalopathy (principal); J96.22 Acute and chronic respiratory failure with hypercapnia; J44.1 Chronic obstructive pulmonary disease with (acute) exacerbation; E87.2 Acidosis; J44.0 Chronic obstructive pulmonary disease with (acute) lower respiratory infection; J96.11 Chronic respiratory failure with hypoxia; Z99.81 Dependence on supplemental oxygen; J20.9 Acute bronchitis, unspecified; E11.9 Type 2 diabetes mellitus without complications; F41.9 Anxiety disorder, unspecified; F17.210 Nicotine dependence, cigarettes, uncomplicated; Z82.49 Family history of ischemic heart disease and other diseases of the circulatory system; Z79.4 Long term (current) use of insulin; Z79.51 Long term (current) use of inhaled steroids; Z79.899 Other long term (current) drug therapy
CPT/HCPCS: 36415; 36600; 71045; 80048; 80053; 81003; 81015; 82803; 83605; 83880; 84484; 85025; 85027; 85610; 85730; 86140; 87040; 87641; 93005; 94640; 94660; 99284; A9270-GY; J0456; J1100; J1650; J1815; J2920; J3105

== ENCOUNTER 2019-04-08 20:40 | Inpatient (IN) | payer MEDICARE, OTHER ==
[2019-04-08] MEDS ORDERED: Albuterol/Ipratropium NEB.SOL* Albuterol 2.5 MG/Ipratropium 0.5 MG 3 ML INH ONE (20:44)
[2019-04-08] MEDS ORDERED: Albuterol 0.5% CONC NEB.SOL* 5 MG/ML 20 ml BOT INH ONE (21:08)
[2019-04-08] MEDS ORDERED: methylPREDNISolone 125 MG* 2 ML VIAL IV ONE (21:09)
[2019-04-08 21:35] LABS: ABS Eosinophils 0.1 10^3/ul (0-0.6); ABS Lymphocytes 1.2 10^3/ul (1.0-4.8); ABS Monocytes 0.8 10^3/ul (0-0.8); Eosinophil % 1.7 %; Hematocrit 42 % (42-52); Hemoglobin 13.4 g/dL (14.0-18.0); Lymphocyte % 15.1 %; Mean Corpuscular HGB Conc 32 g/dL (31-36); Mean Corpuscular Hemoglobin 29 pg (27-31); Mean Corpuscular Volume 90 fL (80-94); Mean Platelet Volume 7.6 fL (7.4-10.4); Platelet Count 180 10^3/uL (150-450); Red Blood Count 4.65 10^6 /uL (4.18-5.48); Red Cell Distribution Width 14 % (10.5-15); White Blood Count 8.2 10^3/uL (3.5-10.8)
--- NOTE | 2019-04-08 21:36 | ED ---
Shortness of Breath - HPI Summary HPI Summary: Pt is a 64 y/o M presenting to the ED with a chief complaint of shortness of breath. He recently went to see Dr. Joe about 3 weeks ago who stated if he needed to, he could increase his oxygen from 2L to 3-4L. He states he is a former smoker who quit about one year ago. He denies fever. - History of Current Complaint Chief Complaint: EDShortnessOfBreath Time Seen by Provider: 04/08/19 21:05 Hx Obtained From: Patient Onset/Duration: Sudden Onset, Lasting Hours, Still Present Timing: Constant Current Severity: Severe Dyspnea At: Rest Aggrevating Factors: Nothing Alleviating Factors: Oxygen - Allergy/Home Medications Allergies/Adverse Reactions: Allergies Allergy/AdvReac Type Severity Reaction Status Date / Time No Known Allergies Allergy Verified 04/08/19 20:45 PMH/Surg Hx/FS Hx/Imm Hx Previously Healthy: No Endocrine/Hematology History: Reports: Hx Diabetes Denies: Hx Anticoagulant Therapy, Hx Thyroid Disease Cardiovascular History: Denies: Hx Congestive Heart Failure, Hx Deep Vein Thrombosis, Hx Hypertension , Hx Myocardial Infarction, Hx Pacemaker/ICD Respiratory History: Reports: Hx Chronic Obstructive Pulmonary Disease (COPD), Other Respiratory Problems/Disorders - RECENT HX OF PNEUMONIA Denies: Hx Asthma, Hx Lung Cancer, Hx Pneumonia, Hx Pulmonary Embolism GI History: Reports: Hx Gall Bladder Disease - COMMON BILE DUCT STENTED. LATER CHOLANGITIS, Other GI Disorders - COMMON BILE DUCT STENT Denies: Hx Gastroesophageal Reflux Disease, Hx Gastrointestinal Bleed, Hx Hiatal Hernia, Hx Irritable Bowel, Hx Jaundice, Hx Ulcer, Hx Urosepsis History: Denies: Hx Dialysis, Hx Kidney Infection, Hx Kidney Stones, Hx Renal Disease , Other Problems/Disorders Sensory History: Denies: Hx Cataracts, Hx Contacts or Glasses - unable to determine, Hx Hearing Aid, Other Sensory Impairments Opthamlomology History: Denies: Hx Cataracts, Hx Contacts or Glasses - unable to determine, Other Sensory Impairments Neurological History: Denies: Hx Dementia, Hx Migraine, Hx Seizures, Hx Transient Ischemic Attacks (TIA) Psychiatric History: Reports: Hx Anxiety Denies: Hx Depression, Hx Schizophrenia, Hx Bipolar Disorder, Hx Substance Abuse, Other Psychiatric Issues/Disorders - pt denies ETOH abuse at this time - Surgical History Surgery Procedure, Year, and Place: tear ducts 2007. STENT IN BILE DUCT 2014. eye surgery cataracts Hx Anesthesia Reactions: No - Immunization History Date of Tetanus Vaccine: 2010 Date of Influenza Vaccine: 2011 Infectious Disease History: No Infectious Disease History: Denies: Hx Hepatitis, Hx Human Immunodeficiency Virus (HIV), History Other Infectious Disease, Traveled Outside the [place] in Last 30 Days - Family History Known Family History: Positive: Cardiac Disease, Hypertension - Social History Alcohol Use: per report from ED, pt has quit Alcohol Amount: HX ETOH BUT DOES NOT DRINK ANYMORE Hx Substance Use: No Substance Use Type: Reports: Prescribed Substance Use Comment - Amount & Last Used: hx of etoh, 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 Hx Tobacco Use: Yes Smoking Status (MU): Former Smoker Type: Cigarettes Amount Used/How Often: very little, a cigarette a day at most, usually less- uses nicotine inhaler Length of Time of Smoking/Using Tobacco: has quit Have You Smoked in the Last Year: Yes Review of Systems Negative: Fever Positive: Shortness Of Breath All Other Systems Reviewed And Are Negative: Yes Physical Exam - Summary Physical Exam Summary: Appearance: Elderly man who is generally well-appearing, Well-nourished, lying in bed comfortably Skin: Warm, dry, no obvious rash Eyes: sclera anicteric, no conjunctival pallor ENT: mucous membranes moist, pharynx appears normal Neck: Supple, nontender Respiratory: Pt in mild respiratory distress, he only gets through about half of his sentences. His breath sounds are very diminished and he has bilateral wheezing. Cardiovascular: Normal S1, S2. No murmurs. Normal distal pulses in tibial and radial bilaterally. Abdomen: Soft, nontender, normal active bowel sounds present Musculoskeletal: Normal, Strength/ROM Intact Neurological: A&Ox3, awake and alert, mentation is normal, speech is fluent and appropriate Psychiatric: affect is normal, does not appear anxious or depressed Triage Information Reviewed: Yes Vital Signs On Initial Exam: Initial Vitals Temp Pulse Resp BP Pulse Ox 97.5 F 107 20 126/95 90 04/08/19 20:41 04/08/19 20:41 04/08/19 20:41 04/08/19 20:41 04/08/19 20:41 Vital Signs Reviewed: Yes Diagnostics - Vital Signs Vital Signs Temp Pulse Resp BP Pulse Ox 04/08/19 21:24 101 18 100 04/08/19 21:11 113 23 91 04/08/19 20:55 102 14 95 04/08/19 20:41 97.5 F 107 20 126/95 90 - Laboratory Result Diagrams: 04/09/19 05:28 04/10/19 05:39 Lab Statement: Any lab studies that have been ordered have been reviewed, and results considered in the medical decision making process. - Radiology CXR Radiology Interpretation Completed By: ED Physician Summary of Radiographic Findings: No acute process. Pending official radiology report. - EKG 2125 Cardiac Rate: NL - 92bpm EKG Rhythm: Sinus Rhythm ST Segment: Normal Ectopy: None Summary of EKG Findings: EKG at 2125 shows NSR at 92bpm with no STEMI. Course/Dx - Course Course Of Treatment: Pt is a 64 y/o M presenting to the ED with shortness of breath, worsened since last night. He states he is a former smoker who quit about one year ago, and he denies fever. In the ED course, he received an Albuterol breathing tx as well as Methylprednisolone. EKG at 2125 shows NSR at 92bpm with no STEMI. CXR shows no acute process, pending official radiology report. I spoke with Dr. Rodrigez at 2221 about the pt's condition who will be accepting the pt for admission to [facility] [place] [place] with a dx of COPD. - Diagnoses Provider Diagnoses: COPD (chronic obstructive pulmonary disease) - Critical Care Time Critical Care Time: 30-74 min Discharge - Sign-Out/Discharge Documenting (check all that apply): Patient Departure - Discharge Plan Condition: Stable Disposition: ADMITTED TO [facility] - Billing Disposition and Condition Condition: STABLE Disposition: Admitted to [facility] - Attestation Statements Document Initiated by Veena: Yes Documenting Scribe: Paula Beth Provider For Whom Veena is Documenting (Include Credential): Curt Price MD. Scribe Attestation: Paula Maynard, [email or web address] for Curt Price MD. on 04/12/19 at 1848. Scribe Documentation Reviewed: Yes Provider Attestation: The documentation as recorded by the Paula giron accurately reflects the service I personally performed and the decisions made by me, Curt Price MD. Status of Scribe Document: Viewed Consult Consult: 2221 - I spoke with Dr. Rodrigez about the pt's condition who will be accepting the pt for admission to [facility] [place] [place] with a dx of COPD.
[2019-04-08 21:50] LABS: Albumin 4.3 g/dL (3.2-5.2); Albumin/Globulin Ratio 1.7 (1-3); BUN/Creatinine Ratio 25.4 (8-20); EGFR African American 144.1 (>60); EGFR Non-African American 119.1 (>60); Globulin 2.5 g/dL (2-4); Potassium 4.3 mmol/L (3.5-5.0); Total Bilirubin 0.4 mg/dL (0.2-1.0); Total Protein 6.8 g/dL (6.4-8.9)
[2019-04-08 21:51] LABS: Troponin I 0.01 ng/mL (<0.04)
[2019-04-08] MEDS ORDERED: Ibuprofen TAB* 800 MG PO ONE (22:38)
[2019-04-08] MEDS ORDERED: Azithromycin 500 mg/250 ml NS 500 MG/250 ML BAG IVPB ONE (23:18)
[2019-04-08] MEDS ORDERED: Albuterol/Ipratropium NEB.SOL* Albuterol 2.5 MG/Ipratropium 0.5 MG 3 ML INH PRN (23:37)
[2019-04-08] MEDS ORDERED: Cyclobenzaprine TAB* 10 MG PO PRN (23:37)
[2019-04-08] MEDS ORDERED: LORazepam TAB(*) 1 MG PO PRN (23:37)
[2019-04-08] MEDS ORDERED: Nicotine Lozenge mini 4 MG LOZNG.MINI MT PRN (23:38)
[2019-04-08] MEDS ORDERED: Dextrose 50% Syringe 50 ML* 25 GM/50 ML SYRINGE IV PUSH PRN (23:40)
[2019-04-09] MEDS: Albuterol 2.5 MG/3 ML NEB.SOL* (0.083%) INH SCH ×7 (01:06→23:28)
[2019-04-09] MEDS: Pregabalin CAP(*) 50 MG PO SCH (02:07)
[2019-04-09] MEDS: Mometasone/Formoter 200/5 MDI INH SCH ×3 (02:20→20:57)
[2019-04-09] MEDS: Enoxaparin(*) 40 MG/0.4 ML SYR SUBCUT SCH (02:27)
--- NOTE | 2019-04-09 03:52 | HP ---
HISTORY AND PHYSICAL: DATE OF ADMISSION: 04/08/19 PROVIDER: Cassie Willis NP ATTENDING PHYSICIAN: Dr. Rachna Rodrigez* (dictated by Cassie Willis NP). PRIMARY CARE PROVIDER: Dr. Mahsa Gomez. OUTPATIENT HEALTH ECONOMIST: Dr. Kim Joe. CHIEF COMPLAINT: Worsening shortness of breath. HISTORY OF PRESENT ILLNESS: Mr. Cerna is a 64-year-old gentleman who presented to the ER with concern for progressively worsening shortness of breath. History is hard to obtain, as he is very dyspneic with conversation. He reports progressively worsening dyspnea with exertion and with conversation over the past couple of weeks. He saw Dr. Joe on 03/18/19 and states that at that time he was told that he could increase his oxygen from his baseline 2 L to 3 to 4 L as needed. He finished a prednisone taper a few days ago. The taper was started at the time of his appointment. Over the past few days, he notes that his breathing has worsened to the point that he turned his oxygen up to 3 L. He had difficulty talking and walking from room to room within his house. He denies fever, chest pain, abdominal pain, nausea, vomiting. He does state he has had occasional cough, but denies any cold or flu-like symptoms. He occasionally produces mucus but states that he feels like the secretions are stuck in his chest. He was drinking hot coffee in order to stimulate coughing and to loosen his secretions. He states that on occasion, he can produce a small amount of brown sputum. He denies any sick contacts or other complaints. Here in the ER, the patient had labs drawn and a chest x-ray done. He was severely dyspneic and was given IV methylprednisolone and oxygen support. He was escalated to Vapotherm with more effect. Labs showed some mild hypercapnia on his initial CMP. EKG was negative for acute ischemic changes. PAST MEDICAL HISTORY: 1. COPD. 2. Chronic respiratory failure, on 2 to 3 L O2 at baseline. 3. Use of BiPAP at nighttime, likely for DAYSI. 4. Type 2 diabetes, on oral hypoglycemics. 5. History of alcohol abuse, now in remission. 6. History of pancreatitis. 7. History of ascending cholangitis. 8. History of common bile duct stricture, status post stent placement. HOME MEDICATIONS: 1. Albuterol inhaler 2 puffs inhale 4 times a day p.r.n. 2. Lorazepam 0.5 mg b.i.d. p.r.n. 3. Guaifenesin 1200 mg ER b.i.d. 4. DuoNeb 1 nebulizer treatment q.4 hours p.r.n. 5. Cyclobenzaprine 10 mg t.i.d. p.r.n. 6. Pregabalin 75 mg b.i.d. 7. Sertraline 100 mg q.a.m. 8. Glipizide 5 mg q.a.m. 9. Synjardy 12.03/1000 mg 1 tab daily. 10. Advair 500/50 2 puffs inhale b.i.d. 11. Cialis 10 mg daily p.r.n. ALLERGIES: No known allergies. FAMILY HISTORY: Significant for cardiac disease and hypertension. SOCIAL HISTORY: He has a 40 plus year history of smoking. Reports quitting less than a year ago. He denies alcohol use. He denies any other drug use. He lives by himself. He does have a friend who comes over and helps him out. He denies having any home-health or community services. He is recently . His daughter, Nelida Cerna is his surrogate decision maker and healthcare proxy in the event of emergency. REVIEW OF SYSTEMS: As per HPI. All pertinent positives and negatives are included. A 12-point review of systems was obtained. PHYSICAL EXAMINATION GENERAL: This is an older gentleman, seen lying in the ED stretcher. He is tachypneic and becomes quickly out of breath with conversation. VITAL SIGNS: Most recent vital signs, temperature 97.5, heart rate 105, respiratory rate 20, blood pressure 142/83, and O2 saturation is 98% on Vapotherm 40 L per minute with 45% O2. HEENT: Head is atraumatic, normocephalic. Pupils are equal, round, and reactive to light and accommodation. Sclerae anicteric. Oral mucosa is moist. NECK: Supple with full range of motion. There is no JVD or lymphadenopathy appreciated. LUNGS: He is tachypneic. There are decreased breath sounds throughout with poor aeration. There is inspiratory and expiratory wheezing throughout all lung davis. Lung sounds sound tight. CARDIAC: Normal S1, S2. Heart sounds with regular rate and rhythm. No murmurs appreciated. No peripheral edema noted. Distal pulses are 2+ and symmetric and palpable bilaterally to the upper and lower extremities. ABDOMEN: Soft, nontender, nondistended with normoactive bowel sounds. MUSCULOSKELETAL: The patient moves all 4 extremities and full range of motion is exhibited. There is no clubbing or cyanosis. SKIN: Appears grossly intact and is warm and dry. NEURO: He is alert and oriented x3. Speech is fluent. No focal deficits noted. PSYCH: Affect is appropriate. LABORATORY DATA AND DIAGNOSTIC STUDIES: CBC: WBC 8.2, hemoglobin 13.4, hematocrit 42, platelet count 180. CMP: Sodium 139, potassium 4.3, chloride 101, carbon dioxide 37. BUN 17, creatinine 0.67. Glucose 98. Calcium 9.0. Total bilirubin 0.4. AST 16, ALT 16, alk phos 32. Troponin 0.01. Chest x-ray report pending, but reviewed. XR is similar to previous, no clear evidence of infiltrate. Old medical records were reviewed. ASSESSMENT AND PLAN: This is a 64-year-old male who presents to the emergency room today with concerns for chronic obstructive pulmonary disease with exacerbation and acute on chronic respiratory failure. He will be admitted to the ICU. Plan is as follows: 1. Chronic obstructive pulmonary disease with exacerbation. He is currently receiving Vapotherm support. He will be ordered scheduled nebulizers and continued on IV steroids. He is started on azithromycin. At this point, he appears more comfortable with Vapotherm, which has been initiated here in the ER , we will continue this. For this reason, he will be admitted to ICU for continued therapy. I do not see the need for a CT chest at this time, although should his condition worsen or if he should fail to improve, it would certainly be warranted. Laboratory studies are unremarkable at this point in time. We will repeat tomorrow. Continue with current plan of care. We will continue his home Advair. 2. Acute on chronic respiratory failure. At baseline, he is on 2 L oxygen. He is currently on Vapotherm for additional respiratory support. Continue treatment as per above. 3. Type 2 diabetes. He is usually on oral hypoglycemics, taking glipizide and Synjardy. We will start him on lispro sliding scale insulin while he is here in the hospital. When he returns home, he may resume his usual medications. We will continue his home Lyrica. 4. History of depression. Continue sertraline. 5. FEN. He is ordered a consistent carbohydrate diet. Per his request, he has asked for Glucerna, which has been ordered. 6. DVT prophylaxis. He is ordered subcu Lovenox. 7. Code status. He desires to be a full code. 8. Disposition: He is admitted under inpatient status to the ICU currently. Anticipate discharge to home when medically stable. TIME SPENT: Approximately 60 minutes was spent on this admission, which includes [id number] time including history and physical with physical examination, review of plan of care. Plan of care was also reviewed with my attending, Dr. Rachna Rodrigez, who is in agreement. ADDENDUM TO HISTORY AND PHYSICAL: Please note that Mr. Cerna was initially ordered to be admitted to the ICU. However, prior to leaving the ER, he was able to be weaned off of Vapotherm and has been admitted to [address] [place] [address]. CASSIE WILLIS NP [id number]/CPS #: [id number]/CPS #: [id number] [place]
[2019-04-09 05:49] LABS: ABS Lymphocytes 0.3 10^3/ul (1.0-4.8); ABS Monocytes 0.1 10^3/ul (0-0.8); ABS Neutrophils 7.5 10^3/ul (1.5-7.7); Hematocrit 43 % (42-52); Hemoglobin 13.5 g/dL (14.0-18.0); Lymphocyte % 4.3 %; Mean Corpuscular HGB Conc 31 g/dL (31-36); Mean Corpuscular Hemoglobin 29 pg (27-31); Mean Corpuscular Volume 91 fL (80-94); Platelet Count 180 10^3/uL (150-450); Red Blood Count 4.75 10^6 /uL (4.18-5.48); Red Cell Distribution Width 14 % (10.5-15); White Blood Count 7.9 10^3/uL (3.5-10.8)
[2019-04-09 06:00] LABS: BUN/Creatinine Ratio 24.7 (8-20); Calcium 8.8 mg/dL (8.6-10.3); EGFR African American 115.7 (>60); EGFR Non-African American 95.6 (>60)
[2019-04-09 06:01] LABS: Potassium 5.1 mmol/L (3.5-5.0)
[2019-04-09] MEDS ORDERED: Acetaminophen TAB* 325 MG PO PRN (06:49)
[2019-04-09] MEDS ORDERED: Ondansetron INJ* 2 MG/ML VIAL IV PRN (06:49)
--- NOTE | 2019-04-09 07:15 | HP ---
HISTORY AND PHYSICAL: ADDENDUM: Please note that Mr. Cerna was initially ordered to be admitted to the ICU. However, prior to leaving the ER, he was able to be weaned off of Vapotherm and has been admitted to [address] [place] [address]. CASSIE WILLIS, [employer] [id number]/CPS #: [id number] [facility]
[2019-04-09] MEDS: Pregabalin CAP(*) 25 MG PO SCH ×2 (08:22→20:08)
[2019-04-09] MEDS: guaiFENesin ER TAB 600 MG PO SCH ×2 (08:22→20:05)
[2019-04-09] MEDS: Sertraline* 100 MG TAB PO SCH (08:22)
[2019-04-09] MEDS: Insulin LISPRO* 1 UNITS UNIT SUBCUT SCH ×3 (08:22→16:47)
[2019-04-09] MEDS ORDERED: methylPREDNISolone SOD 40 MG* 1 ML VIAL IV SCH (09:00)
[2019-04-09] MEDS ORDERED: Magnesium Sulfate 2 GM IV* 2 GM/50 ML BAG IVPB ONE (09:33)
[2019-04-09] MEDS: LORazepam TAB(*) 0.5 MG PO SCH ×2 (09:41→20:07)
[2019-04-09] MEDS: cefTRIAXone(*) 1 GM in NS 0.9% 50 ML* 50 ML IVPB SCH (10:10)
[2019-04-09] MEDS: methylPREDNISolone SOD 40 MG* 1 ML VIAL IV SCH ×2 (13:21→20:04)
--- NOTE | 2019-04-09 15:36 | PN ---
Subjective Date of Service: 04/09/19 Interval History: Seen today in [address] [place] [address], awake, feeling minimally better, He is still wheezing and feels not getting enough air moving in. He is anxious. denies chest pain. He recalls me from last admissions and appreciative of his care here. Past Medical History: Unchanged from Admission Objective Active Medications: Acetaminophen (Tylenol Tab*) 650 mg PO Q4H PRN PRN Reason: FEVER/PAIN Albuterol (Ventolin 2.5 Mg/3 Ml Neb.Rosaline*) 2.5 mg INH [id number] AWAKE [facility] Last Admin: 04/09/19 10:58 Dose: 2.5 mg Albuterol/Ipratropium (Duoneb (Albuterol 2.5 Mg/Ipratropium 0.5 Mg)) 1 neb INH Q4HR PRN PRN Reason: SHORTNESS OF BREATH Last Admin: 04/09/19 03:13 Dose: 1 neb Cyclobenzaprine HCl (Flexeril Tab*) 10 mg PO TID PRN PRN Reason: Muscle spasms Dextrose (D50w Syringe 50 Ml*) 12.5 gm IV PUSH .FOR FS < 60 - SS PRN PRN Reason: FS < 60 Enoxaparin Sodium (Lovenox(*)) 40 mg SUBCUT Q24H [facility] Last Admin: 04/09/19 02:27 Dose: 40 mg Guaifenesin (Mucinex*) 1,200 mg PO BID [facility] Last Admin: 04/09/19 08:22 Dose: 1,200 mg Azithromycin 250 mg/ Sodium (Chloride) 250 mls @ 250 mls/hr IVPB Q24H [facility] Ceftriaxone Sodium 1 gm/ (Sodium Chloride) 50 mls @ 200 mls/hr IVPB Q24H [facility] Last Admin: 04/09/19 10:10 Dose: 200 mls/hr Insulin Human Lispro (Humalog*) 0 units SUBCUT AC [facility]; Protocol Last Admin: 04/09/19 12:08 Dose: 2 units Lorazepam (Ativan Tab(*)) 0.5 mg PO BID [facility] Last Admin: 04/09/19 09:41 Dose: 0.5 mg Methylprednisolone Sodium Succinate (Solu-Medrol 40 Mg) 40 mg IV Q6H [facility] Last Admin: 04/09/19 13:21 Dose: 40 mg Mometasone Furoate/Formoterol Fumar (Dulera 200/5 Mdi*) 2 puff INH BID [facility] Last Admin: 04/09/19 08:05 Dose: 2 puff Nicotine Polacrilex (Nicotine Lozenge Mini) 4 mg MT Q2H PRN PRN Reason: CRAVING Ondansetron HCl (Zofran Inj*) 4 mg IV Q6H PRN PRN Reason: NAUSEA Pregabalin (Lyrica Cap(*)) 75 mg PO BID [facility] Last Admin: 04/09/19 08:22 Dose: 75 mg Sertraline HCl (Zoloft*) 100 mg PO QAM [facility] Last Admin: 04/09/19 08:22 Dose: 100 mg Vital Signs - 8 hr 04/09/19 04/09/19 04/09/19 08:00 08:07 08:22 Temperature Pulse Rate 103 Respiratory 20 18 18 Rate Blood Pressure (mmHg) O2 Sat by Pulse 95 Oximetry 04/09/19 04/09/19 04/09/19 08:29 09:41 10:59 Temperature 97.2 F Pulse Rate 110 118 Respiratory 22 20 18 Rate Blood Pressure 151/77 (mmHg) O2 Sat by Pulse 95 96 Oximetry 04/09/19 04/09/19 12:15 15:07 Temperature 98 F 97.3 F Pulse Rate 109 107 Respiratory 20 20 Rate Blood Pressure 155/80 (mmHg) O2 Sat by Pulse 98 93 Oximetry Oxygen Devices in Use Now: Nasal Cannula Appearance: awake, alert. no distress but appears guarded in term of his respiratory status Eyes: No Scleral Icterus, - - EOMI Ears/Nose/Mouth/Throat: NL Teeth, Lips, Gums, Mucous Membranes Moist Neck: NL Appearance and Movements; NL JVP, Trachea Midline Respiratory: Symmetrical Chest Expansion and Respiratory Effort, - - poor airflow, expiratory wheezing Cardiovascular: NL Sounds; No Murmurs; No JVD, No Edema Abdominal: NL Sounds; No Tenderness; No Distention Skin: No Rash or Ulcers Neurological: Alert and Oriented x 3 Result Diagrams: 04/09/19 05:28 04/09/19 05:28 Assess/Plan/Problems-Billing Assessment: 64 y/o male admitted for acute respiratory failure required Vapotherm supplementation secondary to COPD exacerbations weaned off Vapotherm in the ER before getting to ICU. He is being seen on the floor on nasal canula 4 liter 93 %, RR 22-24 - Patient Problems (1) COPD (chronic obstructive pulmonary disease) Current Visit: No Status: Chronic Priority: Medium Onset Date: 06/22/14 Code(s): J44.9 - CHRONIC OBSTRUCTIVE PULMONARY DISEASE, UNSPECIFIED SNOMED Code(s): 44338545 Comment: - In acute exacerbation. - I will increase his solumedrol to 40 mg Q6hr, added ceftriaxone as he is a high risk for colonization and bronchitis with negative pneumoanie - Will order sputum cultures - Continue neb, and mucinex. Will ativan to help with his tacchpnea and anxiety (2) Anxiety Current Visit: Yes Status: Acute Code(s): F41.9 - ANXIETY DISORDER, UNSPECIFIED SNOMED Code(s): 27143881 Comment: - triggered from COPD and hypoxia. - Will place him on very low ativan bid which should help his tacchypnea. tolerated well in the past (3) Type 2 diabetes mellitus Current Visit: No Status: Chronic Priority: Medium Comment: - Continue Lispro SS while in the hospital and resume PO meds on discharge - Given the increase of steroid, I will add lantus as I am expecting to have increase BG read (4) DVT prophylaxis Current Visit: No Status: Acute Priority: Medium Code(s): LDM0290 - SNOMED Code(s): 001724120 Comment: - Lovenox SQ
[2019-04-09] MEDS ORDERED: Insulin GLARGINE(*) 1 UNITS UNIT SUBCUT SCH (16:00)
[2019-04-09] MEDS ORDERED: Azithromycin IV(*) 250 MG in NS 0.9% 250 ML* 250 ML IVPB SCH (23:00)
[2019-04-10] MEDS: Enoxaparin(*) 40 MG/0.4 ML SYR SUBCUT SCH (00:18)
[2019-04-10] MEDS: methylPREDNISolone SOD 40 MG* 1 ML VIAL IV SCH ×2 (01:17→09:30)
[2019-04-10] MEDS: Albuterol 2.5 MG/3 ML NEB.SOL* (0.083%) INH SCH ×3 (03:27→10:51)
[2019-04-10 06:12] LABS: BUN/Creatinine Ratio 32.8 (8-20); Calcium 8.8 mg/dL (8.6-10.3); EGFR African American 151.9 (>60); EGFR Non-African American 125.5 (>60); Magnesium 2.3 mg/dL (1.9-2.7); Phosphorus 2.5 mg/dL (2.5-5.0); Potassium 4.5 mmol/L (3.5-5.0)
[2019-04-10] MEDS: Mometasone/Formoter 200/5 MDI INH SCH (07:00)
[2019-04-10] MEDS: Insulin LISPRO* 1 UNITS UNIT SUBCUT SCH ×2 (09:12→12:24)
[2019-04-10] MEDS: cefTRIAXone(*) 1 GM in NS 0.9% 50 ML* 50 ML IVPB SCH (09:13)
[2019-04-10] MEDS: LORazepam TAB(*) 0.5 MG PO SCH (09:13)
[2019-04-10] MEDS: Pregabalin CAP(*) 25 MG PO SCH (09:14)
[2019-04-10] MEDS: guaiFENesin ER TAB 600 MG PO SCH (09:15)
[2019-04-10] MEDS: Sertraline* 100 MG TAB PO SCH (09:15)
[2019-04-10 12:12] VITALS: BP 133/74
[2019-04-10] MEDS ORDERED: ceFUROXime TAB(*) 250 MG PO SCH (21:00)
[2019-04-11] MEDS ORDERED: Azithromycin TAB* 250 MG PO SCH (09:00)
[2019-04-11] MEDS ORDERED: predniSONE TAB* 50 MG PO SCH (09:00)
--- NOTE | 2019-04-11 10:01 | DS ---
CC: Dr. Mahsa Gomez; Dr. Joe DISCHARGE SUMMARY: DATE OF ADMISSION: 04/08/19 DATE OF DISCHARGE: 04/10/19 PRIMARY DIAGNOSES: 1. Chronic obstructive pulmonary disease exacerbation. 2. Acute on chronic respiratory failure, hypoxic and hypercarbic, dependent on 2 L of oxygen at dayt estella and nighttime, dependent on noninvasive ventilation at home. 3. Type 2 diabetes. 4. History of alcohol abuse. 5. History of tobacco abuse. 6. History of pancreatitis. 7. Anxiety. 8. Chronic back pain. MEDICATIONS ON DISCHARGE: 1. Albuterol MDI, 2 puffs 4 times a day p.r.n. wheezing. 2. Synjardy 12.03/1000 one tab p.o. daily. 3. Advair Diskus 500/50 one inhalation b.i.d. 4. Glipizide ER 5 mg p.o. q.a.m. 5. Guaifenesin 1200 mg p.o. b.i.d. 6. Lorazepam 0.5 mg p.o. b.i.d. p.r.n. anxiety. 7. Lyrica 75 mg p.o. b.i.d. 8. Sertraline 100 mg p.o. q.a.m. 9. Cialis 10 mg p.o. daily. 10. Albuterol/ipratropium nebulizers q.4 hours p.r.n. dyspnea. 11. Azithromycin 250 mg p.o. daily for 3 days. 12. Cefuroxime 500 mg p.o. b.i.d. for 5 days. 13. Cyclobenzaprine 10 mg p.o. t.i.d. p.r.n. spasm. 14. Prednisone 50 mg p.o. daily for 5 days, then tapering by 10 mg every few days until stopped. HOSPITAL COURSE: The patient was admitted to the emergency department with progressive dyspnea and s mall increase in his mucus production. He had recently finished a prednisone taper. He also had alexis e back spams and pain that he was unsure whether it was related to his lungs or his back. The patien t was initially treated for hypoxemia with Vapotherm and ICU admission was planned, but he did improv e quickly in the ER and was admitted to the medical floor. He was treated with intravenous steroids, IV azithromycin and ceftriaxone for pneumonia. He used noninvasive inhalation at night and oxygen d uring the day as at home. His CBCs were normal. His laboratory tests showed normal creatinine, gluc ose in the 128 to 200 range, magnesium 2.3. He had a normal BNP, normal troponin. Chest x-ray taken on admission showed hyperinflation and no infiltrates. EKG on admission showed normal sinus rhythm. On the day of discharge, the patient was ambulatory to the bathroom with some dyspnea, he was eating well and felt near his baseline. The patient was discharged to home where he already has oxygen and home ventilation setup. He should continue his antibiotic course and steroid course as directed in h is medication list. DISPOSITION: To home. FOLLOWUP: With Dr. Gomez within [address] Joe as needed. CONDITION: Stable. DIET: Diabetic. ACTIVITY: As tolerated. STATUS: Inpatient status. TIME SPENT: I spent 35 minutes with the patient on the day of discharge with physical exam, discussi on of discharge plans, and completion of necessary paper work for discharge. [id number]/[facility] #: [id number]
== END 2019-04-10 14:40 | disposition home or self-care (01) | DRG 189 ==
LOC: ED 20:40 → ICU 23:02 → MEDTELE 04-09 01:49
PROVIDERS: ADMIT Hospitalist; ATTEND Internal Medicine
DX: J96.21 Acute and chronic respiratory failure with hypoxia (principal); J44.1 Chronic obstructive pulmonary disease with (acute) exacerbation; J96.22 Acute and chronic respiratory failure with hypercapnia; Z99.81 Dependence on supplemental oxygen; E11.9 Type 2 diabetes mellitus without complications; F41.9 Anxiety disorder, unspecified; M54.89 Other dorsalgia; G47.33 Obstructive sleep apnea (adult) (pediatric); F10.21 Alcohol dependence, in remission; Z99.89 Dependence on other enabling machines and devices; Z79.52 Long term (current) use of systemic steroids; Z79.899 Other long term (current) drug therapy; Z82.49 Family history of ischemic heart disease and other diseases of the circulatory system; Z87.891 Personal history of nicotine dependence; Z79.84 Long term (current) use of oral hypoglycemic drugs
CPT/HCPCS: 36415; 71045; 80048; 80053; 83735; 83880; 84100; 84484; 85025; 93005; 94640; 99284; A9270-GY; J0456; J0696; J1650; J2920; J2930; J3475; J7611

== ENCOUNTER 2019-04-29 11:33 | Emergency (ER) | payer MEDICARE, OTHER ==
[2019-04-29] MEDS ORDERED: methylPREDNISolone 125 MG* 2 ML VIAL IV ONE (12:06)
[2019-04-29] MEDS ORDERED: Albuterol 0.5% CONC NEB.SOL* 5 MG/ML 20 ml BOT INH ONE (12:06)
--- NOTE | 2019-04-29 12:18 | ED ---
Shortness of Breath - HPI Summary HPI Summary: Pt is a 64 y/o M presenting to the ED with a chief complaint of shortness of breath onset last night, 04/28/19. He was recently hospitalized, and he states he felt better after his course of Prednisone, but last night he began wheezing and feeling short of breath again, with some pain on deep breaths. He uses his nebulizer in the morning, usually twice, and it briefly helps. He denies abd pain, and pain or edema in the LE. - History of Current Complaint Chief Complaint: EDShortnessOfBreath Time Seen by Provider: 04/29/19 11:39 Hx Obtained From: Patient Onset/Duration: Sudden Onset, Lasting Hours, Still Present Timing: Constant Current Severity: Moderate Dyspnea At: Rest Aggravating Factors: Deep Breaths Alleviating Factors: Bronchodilators Associated Signs & Symptoms: Wheezing - Allergy/Home Medications Allergies/Adverse Reactions: Allergies Allergy/AdvReac Type Severity Reaction Status Date / Time No Known Allergies Allergy Verified 04/29/19 11:35 PMH/Surg Hx/FS Hx/Imm Hx Previously Healthy: No Endocrine/Hematology History: Reports: Hx Diabetes Denies: Hx Anticoagulant Therapy, Hx Thyroid Disease Cardiovascular History: Denies: Hx Congestive Heart Failure, Hx Deep Vein Thrombosis, Hx Hypertension , Hx Myocardial Infarction, Hx Pacemaker/ICD Respiratory History: Reports: Hx Chronic Obstructive Pulmonary Disease (COPD), Other Respiratory Problems/Disorders - RECENT HX OF PNEUMONIA Denies: Hx Asthma, Hx Lung Cancer, Hx Pneumonia, Hx Pulmonary Embolism GI History: Reports: Hx Gall Bladder Disease - COMMON BILE DUCT STENTED. LATER CHOLANGITIS, Other GI Disorders - COMMON BILE DUCT STENT Denies: Hx Gastroesophageal Reflux Disease, Hx Gastrointestinal Bleed, Hx Hiatal Hernia, Hx Irritable Bowel, Hx Jaundice, Hx Ulcer, Hx Urosepsis History: Denies: Hx Dialysis, Hx Kidney Infection, Hx Kidney Stones, Hx Renal Disease , Other Problems/Disorders Sensory History: Denies: Hx Cataracts, Hx Contacts or Glasses - unable to determine, Hx Hearing Aid, Other Sensory Impairments Opthamlomology History: Denies: Hx Cataracts, Hx Contacts or Glasses - unable to determine, Other Sensory Impairments Neurological History: Denies: Hx Dementia, Hx Migraine, Hx Seizures, Hx Transient Ischemic Attacks (TIA) Psychiatric History: Reports: Hx Anxiety Denies: Hx Depression, Hx Schizophrenia, Hx Bipolar Disorder, Hx Substance Abuse, Other Psychiatric Issues/Disorders - pt denies ETOH abuse at this time - Surgical History Surgery Procedure, Year, and Place: tear ducts 2007. STENT IN BILE DUCT 2014. eye surgery cataracts Hx Anesthesia Reactions: No - Immunization History Date of Tetanus Vaccine: 2010 Date of Influenza Vaccine: 2011 Infectious Disease History: No Infectious Disease History: Denies: Hx Hepatitis, Hx Human Immunodeficiency Virus (HIV), History Other Infectious Disease, Traveled Outside the [place] in Last 30 Days - Family History Known Family History: Positive: Cardiac Disease, Hypertension - Social History Alcohol Use: per report from ED, pt has quit Alcohol Amount: HX ETOH BUT DOES NOT DRINK ANYMORE Hx Substance Use: No Substance Use Type: Reports: Prescribed Substance Use Comment - Amount & Last Used: hx of etoh, 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 Skin: Warm, dry, no obvious rash Eyes: sclera anicteric, no conjunctival pallor ENT: mucous membranes moist, pharynx appears normal Neck: Supple, nontender Respiratory: Appears mildly dyspnic, breath sounds are diminished but without wheezing. Cardiovascular: Normal S1, S2. No murmurs. Normal distal pulses in tibial and radial bilaterally. Abdomen: Soft, nontender, normal active bowel sounds present Musculoskeletal: Normal, Strength/ROM Intact Neurological: A&Ox3, awake and alert, mentation is normal, speech is fluent and appropriate Psychiatric: affect is normal, does not appear anxious or depressed Triage Information Reviewed: Yes Vital Signs On Initial Exam: Initial Vitals Temp Pulse Resp BP Pulse Ox 98.6 F 112 24 118/76 99 04/29/19 11:33 04/29/19 11:33 04/29/19 11:33 04/29/19 11:33 04/29/19 11:33 Vital Signs Reviewed: Yes Diagnostics - Vital Signs Vital Signs Temp Pulse Resp BP Pulse Ox 04/29/19 12:00 117 20 90 04/29/19 11:48 112 17 111/57 96 04/29/19 11:46 115 12 98 04/29/19 11:33 98.6 F 112 24 118/76 99 - Laboratory Result Diagrams: 04/29/19 12:21 04/29/19 12:21 Lab Statement: Any lab studies that have been ordered have been reviewed, and results considered in the medical decision making process. - Radiology CXR Radiology Interpretation Completed By: Radiologist Summary of Radiographic Findings: Findings c/w COPD. No evidence for acute disease. ED physician has reviewed this report. - EKG 1216 Cardiac Rate: Tachycardia - 104bpm EKG Rhythm: Sinus Tachycardia ST Segment: Normal Ectopy: None Summary of EKG Findings: EKG at 1216 shows sinus tachycardia at 104 BPM, P waves , QRS complex, and T waves are within normal limits, T waves and intervals are normal. There is probable L atrial enlargement and borerline R axis deviation. Course/Dx - Course Course Of Treatment: Pt is a 64 y/o M presenting to the ED with a chief complaint of shortness of breath onset last night, 04/28/19. Last night he began wheezing and feeling short of breath again, with some pain on deep breaths. He uses his nebulizer in the morning, usually twice, and it briefly helps. He denies abd pain, and pain or edema in the LE. On exam, pt appears mildly dyspnic, breath sounds are diminished but without wheezing. EKG at 1216 shows sinus tachycardia at 104 BPM, P waves, QRS complex, and T waves are within normal limits, T waves and intervals are normal. There is probable L atrial enlargement and borerline R axis deviation. CXR shows: Findings c/w COPD. No evidence for acute disease. On reevaluation at this time, the patient is observed to be sleeping and does not appear to be in any respiratory distress. His breath sounds are clear though diminished. I think he is well enough to go home and try a pulse of prednisone. I spoke to his girlfriend who will keep an eye on him. His prognosis remains guarded given his history of chronic respiratory failure due to his advanced COPD. - Diagnoses Provider Diagnoses: COPD exacerbation Discharge - Sign-Out/Discharge Documenting (check all that apply): Patient Departure Patient Received Moderate/Deep Sedation with Procedure: No - Discharge Plan Condition: Good Disposition: HOME Prescriptions: predniSONE [Prednisone 20 MG TAB] 40 mg PO DAILY 6 Days #12 tablet Patient Education Materials: COPD (Chronic Obstructive Pulmonary Disease) (ED) Referrals: Tigre Torres MD [Medical Doctor] - Kim Joe MD [Medical Doctor] - - Billing Disposition and Condition Condition: GOOD Disposition: Home - Attestation Statements Document Initiated by Scribe: Yes Documenting Scribe: Paula Beth Provider For Whom Tyleribe is Documenting (Include Credential): Curt Price MD. Scribe Attestation: Paula Maynard, [email or web address] for Curt Price MD. on 04/30/19 at 0950. Scribe Documentation Reviewed: Yes Provider Attestation: The documentation as recorded by the tyleribePaula accurately reflects the service I personally performed and the decisions made by me, Curt Price MD. Status of Scribe Document: Viewed
[2019-04-29 12:32] LABS: ABS Eosinophils 0.1 10^3/ul (0-0.6); ABS Lymphocytes 0.7 10^3/ul (1.0-4.8); ABS Monocytes 0.7 10^3/ul (0-0.8); ABS Neutrophils 6.6 10^3/ul (1.5-7.7); Eosinophil % 1.4 %; Hematocrit 44 % (42-52); Hemoglobin 13.9 g/dL (14.0-18.0); Lymphocyte % 8.1 %; Mean Corpuscular HGB Conc 32 g/dL (31-36); Mean Corpuscular Hemoglobin 29 pg (27-31); Mean Corpuscular Volume 90 fL (80-94); Mean Platelet Volume 7.6 fL (7.4-10.4); Platelet Count 180 10^3/uL (150-450); Red Blood Count 4.86 10^6 /uL (4.18-5.48); Red Cell Distribution Width 14 % (10-15); White Blood Count 8.1 10^3/uL (3.5-10.8)
[2019-04-29 12:51] LABS: Albumin 4.2 g/dL (3.2-5.2); Albumin/Globulin Ratio 1.4 (1-3); Calcium 9.3 mg/dL (8.6-10.3); EGFR African American 160.5 (>60); EGFR Non-African American 132.7 (>60); Potassium 4.4 mmol/L (3.5-5.0); Total Bilirubin 0.5 mg/dL (0.2-1.0); Total Protein 7.2 g/dL (6.4-8.9)
[2019-04-29 15:26] VITALS: BP 125/96
== END 2019-04-29 15:25 | disposition home or self-care (01) ==
LOC: ED 11:33
DX: J44.1 Chronic obstructive pulmonary disease with (acute) exacerbation (principal); E11.9 Type 2 diabetes mellitus without complications; Z87.891 Personal history of nicotine dependence
CPT/HCPCS: 36415; 71046; 80053; 85025; 93005; 96374; 99284; J2930; J7611

== ENCOUNTER 2019-05-06 14:42 | Emergency (ER) | payer MEDICARE, OTHER ==
[2019-05-06 14:59] VITALS: BP 117/77
--- NOTE | 2019-05-06 15:31 | UC ---
Shortness of Breath HPI - HPI Summary HPI Summary: Patient presents to urgent care reporting increased symptoms related to COPD. Patient is on oxygen around the clock. Patient states he is albuterol nebs every 2-3 hours. Patient states intermittently he feels like he needs a "tumor ". Patient states intermittently his secretions have had a little bit of brown and them over the last 2 days. Patient is not coughing. No chest pain. No nausea vomiting. Patient is not anticoagulated. Patient does see Dr. Perdomo for pulmonary care. Patient states her last prednisone was almost a year ago. Patient's medications reviewed this visit. - History of Current Complaint Chief Complaint: UCRespiratory Stated Complaint: SOB Time Seen by Provider: 05/06/19 15:06 Hx Obtained From: Patient - Allergy/Home Medications Allergies/Adverse Reactions: Allergies Allergy/AdvReac Type Severity Reaction Status Date / Time No Known Allergies Allergy Verified 05/06/19 14:59 PMH/Surg Hx/FS Hx/Imm Hx Previously Healthy: Yes Endocrine History: Dyslipidemia Cardiovascular History: Hypertension Respiratory History: COPD Other History Of: Negative For: HIV, Hepatitis B, Hepatitis C, Anticoagulant Therapy - Surgical History Surgical History: Yes Surgery Procedure, Year, and Place: tear ducts 2007. STENT IN BILE DUCT 2013. 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 Smoking Status (MU): Former Smoker Type: Cigarettes Amount Used/How Often: very little, a cigarette a day at most, usually less- uses nicotine inhaler Length of Time of Smoking/Using Tobacco: has quit Have You Smoked in the Last Year: Yes When Did the Patient Quit Smoking/Using Tobacco: approx 2 years ago Household Exposure Type: Cigarettes - Immunization History Most Recent Influenza Vaccination: 2018 Most Recent Tetanus Shot: 2009 Most Recent Pneumonia Vaccination: 2013 Review of Systems All Other Systems Reviewed And Are Negative: Yes Constitutional: Positive: Negative Skin: Positive: Negative Eyes: Positive: Negative ENT: Positive: Negative Respiratory: Positive: Shortness Of Breath, Other - brown tinged sputum Gastrointestinal: Positive: Negative Is Patient Immunocompromised?: No Physical Exam - Summary Physical Exam Summary: Vital Signs Reviewed: Yes A+Ox3, no distress, speaking full sentences Eyes: Conjunctiva Clear, STACY. EOM intact and full ENT: Hearing grossly normal TM x 2 clear, mmoist, uvula midline, no exudate, no erythema Neck: Positive: Supple Respiratory: Positive: No respiratory distress, scattered wheeze, decrease BS bases. no ronchi, no accessory muscle use Cardiovascular: RRR nl s1, s2 no m/r CBT <2 sec abd soft + BS nt/nd no guarding, no distension Musculoskeletal Exam: JIMÉNEZ x 4 without difficulty Strength Intact, ROM Intact Neurological: Positive: Alert, + sensation throughout Psychological: Positive: Normal Response To Family Skin: Positive: no rash, no ecchymosis Triage Information Reviewed: Yes Vital Signs: Initial Vital Signs Temp 98.2 F 05/06/19 14:52 Pulse 111 05/06/19 14:52 Resp 24 05/06/19 14:52 BP 117/77 05/06/19 14:52 Pulse Ox 94 05/06/19 14:52 Diagnostics - Radiology No standard instances Radiology Interpretation Completed By: Radiologist - Patient Name: JAN GASTELUM Medical Record#: [id number] Ordering Physician: Leslie Castro MD Acct.#: [id number] : 1955 Age: 64 Sex: M Location: [facility] Exam Date: 05/06/191536 ADM Status: [facility] Order Information: CHEST PA & LAT 2 VWS Accession Number: [id number] CPT: 62926 INDICATION: Shortness of breath. Productive cough with brown sputum. Emphysema. Tobacco cessation one year ago. COMPARISON : April 29, 2019 TECHNIQUE: Dual energy PA and routine lateral views of the chest were obtained. REPORT: Elevated lung volumes and patchy rarefaction of interstitial markings. No focal pulmonary lesion, compelling alveolar consolidation, pleural effusion, pneumothorax. The heart, pulmonary vasculature , and mediastinal contours are unremarkable. Multilevel segmental ossification of the anterior longitudinal ligament of the thoracic spine consistent with Diffuse Idiopathic Skeletal Hyperostosis (DISH). No suspicious focal osseous lesions evident. IMPRESSION: #. Stigmata of obstructive lung disease. No acute pulmonary or cardiac process evident. <Electronically signed by Lazaro Kwok MD in OV> 05/06/19 1621 Dictated By: Lazaro Kwok MD Dictated Date/Time: 05/06/19 1621 Transcribed Date/Time: 05/06/19 1619 Copy to: CC:Leslie Castro MD; Mahsa Gomez MD Imaging - [facility] Imaging - [facility] Imaging - [facility] [id number] [place] [id number] [place] [id number] ph ([phone]) ph ([phone]) ph ([phone]) This report is only to be considered final once signed by the Provider(s) as displayed in the "<Electronically Signed by >" field (s). Absence of a signature indicates the report is in a draft status and still needs to be finalized. In the event this document was created by someone other than the signing Provider, the individual initiating the document will be listed in the "Entered by:" or "Dictated by:" davis. Re-Evaluation - Re-Evaluation First Eval Change: Improved - Pt markedly improved following nebs states feels better Shortness of Breath Dx - Course Course Of Treatment: Patient presents to urgent care reporting increased feeling of wheezing shortness of breath. Patient is a COPD patient uses oxygen and nebulizers. Patient states adamantly he's been bringing up some brown tinged sputum. No chest pain. No fevers or chills. Patient is not currently and prednisone. Patient is not anticoagulations. At triage patient was on his portable oxygen at 1. Patient states he typically takes 2. Patient's O2 sats were normal mid 80s. Patient was placed on one of our tanks at 2 L/m. Patient then reregistered in the mid 90s. Patient states this is baseline for him. On exam patient with diffuse inspiratory expiratory wheezing as well as decreased the bases. We'll give DuoNeb took a chest x-ray repeat DuoNeb. We'll give IM Solu-Medrol monitor. Patient with doesn't improve may have to emergency department. Patient agreement with plan but states he feels that the prednisone will make a difference for him. - Differential Dx/Diagnosis Provider Diagnosis: COPD (chronic obstructive pulmonary disease), Acute bronchitis Discharge - Sign-Out/Discharge Documenting (check all that apply): Patient Departure All imaging exams completed and their final reports reviewed: Yes - Discharge Plan Condition: Stable Disposition: HOME Prescriptions: DOXYcycline CAP(*) [DOXYcycline 100MG CAP(*)] 100 mg PO BID #20 cap predniSONE TAB* [Deltasone TAB*] 50 mg PO DAILY #4 tab Patient Education Materials: Acute Bronchitis (ED), COPD (Chronic Obstructive Pulmonary Disease) (ED) Referrals: Mahsa Gomez MD [Primary Care Provider] - Additional Instructions: -Take antibiotics and prednisone exactly as prescribed until gone -Use your albuterol puffer or nebulizer every 4 hours for the next 2 days - then as needed -Stay well hydrated - avoid excess caffeine and all alcohol - eat regular, healthy meals -- These infections are spread by secretions - do NOT share eating or drinking utensils - clean items you share with other people such as cell phones, computer mouse, TV remote, computer tablets,etc.. Once you have been antibiotics for 2 days, change your toothbrush and your pillowcase. -Contact your doctor to arrange a follow-up appointment next week. Call your doctor or go directly to the emergency department with any questions or concerns - Billing Disposition and Condition Condition: STABLE Disposition: Home
[2019-05-06] MEDS ORDERED: Albuterol/Ipratropium NEB.SOL* Albuterol 2.5 MG/Ipratropium 0.5 MG 3 ML INH ONE ×2 (15:36)
[2019-05-06] MEDS ORDERED: methylPREDNISolone 125 MG* 2 ML VIAL IM ONE (15:36)
== END 2019-05-06 16:50 | disposition home or self-care (01) ==
LOC: UCEAST 14:42
DX: J44.1 Chronic obstructive pulmonary disease with (acute) exacerbation (principal); E78.5 Hyperlipidemia, unspecified; I10 Essential (primary) hypertension; Z87.891 Personal history of nicotine dependence; Z99.81 Dependence on supplemental oxygen
CPT/HCPCS: 71046; 99213; A9270-GY; G0463; J2930

== ENCOUNTER 2019-05-22 17:06 | Inpatient (IN) | payer MEDICARE, OTHER ==
--- NOTE | 2019-05-22 17:21 | ED ---
Shortness of Breath - HPI Summary HPI Summary: Patient is a 64 y/o M presenting to ED via EMS with complaints of respiratory distress. SOB is reported to have onset a few days ago and has worsened today. He notes that he had a cough that was productive of some scant brown phlegm. Patient states that he has home o2 and proair, douneb. EMS provided duoneb x2, which provided relief in Sx. Patient is 88% o2 on 2 L in room. On triage, pain is denied. PMHx of emphysema, COPD, PNA, diabetes, anxiety, and depression. Home medications and allergies are reviewed. - History of Current Complaint Chief Complaint: EDRespiratoryDistress Hx Obtained From: Patient, EMS Onset/Duration: Lasting Days, Still Present, Worse Since - today Current Severity: None Aggravating Factors: Nothing Alleviating Factors: EMS Tx Associated Signs & Symptoms: Cough (Productive) - Allergy/Home Medications Allergies/Adverse Reactions: Allergies Allergy/AdvReac Type Severity Reaction Status Date / Time No Known Allergies Allergy Verified 05/06/19 14:59 PMH/Surg Hx/FS Hx/Imm Hx Endocrine/Hematology History: Reports: Hx Diabetes Denies: Hx Anticoagulant Therapy, Hx Thyroid Disease Cardiovascular History: Denies: Hx Congestive Heart Failure, Hx Deep Vein Thrombosis, Hx Hypertension , Hx Myocardial Infarction, Hx Pacemaker/ICD Respiratory History: Reports: Hx Chronic Obstructive Pulmonary Disease (COPD), Hx Pneumonia, Other Respiratory Problems/Disorders - emphysema Denies: Hx Asthma, Hx Lung Cancer, Hx Pulmonary Embolism GI History: Reports: Hx Gall Bladder Disease - COMMON BILE DUCT STENTED. LATER CHOLANGITIS, Other GI Disorders - COMMON BILE DUCT STENT Denies: Hx Gastroesophageal Reflux Disease, Hx Gastrointestinal Bleed, Hx Hiatal Hernia, Hx Irritable Bowel, Hx Jaundice, Hx Ulcer, Hx Urosepsis History: Denies: Hx Dialysis, Hx Kidney Infection, Hx Kidney Stones, Hx Renal Disease , Other Problems/Disorders Sensory History: Denies: Hx Cataracts, Hx Contacts or Glasses - unable to determine, Hx Hearing Aid, Other Sensory Impairments Opthamlomology History: Denies: Hx Cataracts, Hx Contacts or Glasses - unable to determine, Other Sensory Impairments Neurological History: Denies: Hx Dementia, Hx Migraine, Hx Seizures, Hx Transient Ischemic Attacks (TIA) Psychiatric History: Reports: Hx Anxiety Denies: Hx Depression, Hx Schizophrenia, Hx Bipolar Disorder, Hx Substance Abuse, Other Psychiatric Issues/Disorders - pt denies ETOH abuse at this time - Surgical History Surgery Procedure, Year, and Place: tear ducts 2007. STENT IN BILE DUCT 2014. eye surgery cataracts Hx Anesthesia Reactions: No - Immunization History Date of Tetanus Vaccine: 2010 Date of Influenza Vaccine: 2011 Infectious Disease History: No Infectious Disease History: Denies: Hx Hepatitis, Hx Human Immunodeficiency Virus (HIV), History Other Infectious Disease, Traveled Outside the [place] in Last 30 Days - Family History Known Family History: Positive: Cardiac Disease, Hypertension - Social History Alcohol Use: None Alcohol Amount: HX ETOH BUT DOES NOT DRINK ANYMORE Hx Substance Use: No Substance Use Type: Reports: Prescribed Substance Use Comment - Amount & Last Used: hx of etoh, 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 Skin: The skin is warm and dry and skin color reflects adequate perfusion. HEENT: The head is normocephalic and atraumatic. The pupils are equal and reactive. The conjunctivae are clear and without drainage. Nares are patent and without drainage. Mouth reveals moist mucous membranes and the throat is without erythema and exudate. The external ears are intact. The ear canals are patent and without drainage. The tympanic membranes are intact. Neck: The neck is supple with full range of motion and non-tender. There are no carotid bruits. There is no neck vein distension. Respiratory: Chest is non-tender. Prolonged expiratory time, breath sounds are very diminished. Tachypnea is noted. Cardiovascular: Tachycardic. There is no murmur or rub auscultated. There is no peripheral edema and pulses are symmetrical and equal. Abdomen: The abdomen is soft and non-tender. There are normal bowel sounds heard in all four quadrants and there is no organomegaly palpated. Musculoskeletal: There is no back tenderness noted. Extremities are non-tender with full range of motion. There is good capillary refill. There is no peripheral edema or calf tenderness elicited. Neurological: Patient is alert and oriented to person, place and time. The patient has symmetrical motor strength in all four extremities. Cranial nerves are grossly intact. Deep tendon reflexes are symmetrical and equal in all four extremities. Psychiatric: The patient has an appropriate affect and does not exhibit any anxiety or depression. Triage Information Reviewed: Yes Vital Signs On Initial Exam: Initial Vitals Temp Pulse Resp BP Pulse Ox 99.2 F 120 36 138/112 89 05/22/19 17:07 05/22/19 17:07 05/22/19 17:07 05/22/19 17:07 05/22/19 17:07 Vital Signs Reviewed: Yes Diagnostics - Vital Signs Vital Signs Temp Pulse Resp BP Pulse Ox 05/22/19 17:07 99.2 F 120 36 138/112 89 - Laboratory Result Diagrams: 05/22/19 17:28 05/22/19 17:28 Lab Statement: Any lab studies that have been ordered have been reviewed, and results considered in the medical decision making process. - Radiology CXR Radiology Interpretation Completed By: Radiologist Summary of Radiographic Findings: CXR IMPRESSION: No radiographic evidence for acute cardiopulmonary abnormality on this. portable chest x-ray. THIS REPORT WAS REVIEWED BY DR. CHANEY. - EKG 1729 Cardiac Rate: Tachycardia - rate of 114 BPM EKG Rhythm: Sinus Tachycardia ST Segment: Normal Ectopy: None Summary of EKG Findings: EKG showed sinus tachycardia with rate of 114 BPM, normal ST, no ectopy, no STEMI. Course/Dx - Course Course Of Treatment: Mr. Cerna presented clearly in respiratory distress. By history this is a COPD exacerbation. Chest x-ray and labs were obtained and I consulted with Dr. Carr who admitted him to the ICU. He was given Solu- Medrol and DuoNeb here in the emergency department and based on Vapotherm. - Diagnoses Provider Diagnoses: COPD exacerbation - Physician Notifications Discussed Care of Patient With: Rober Carr Time Discussed With Above Provider: 17:30 Instructed by Provider To: Other - 1730 - Patient's case was discussed with Dr. Carr, Dr. Carr accepts for admission to ICU. - Critical Care Time Critical Care Time: 30-74 min Discharge - Sign-Out/Discharge Documenting (check all that apply): Patient Departure - ADMIT ICU - Discharge Plan Condition: Fair Disposition: ADMITTED TO [facility] - Billing Disposition and Condition Condition: FAIR Disposition: Admitted to [facility] - Attestation Statements Document Initiated by Nataleee: Yes Documenting Scribe: RODY CASTELLANOS Provider For Whom Veena is Documenting (Include Credential): FELISA CHANEY MD Scribe Attestation: IRODY, scribed for FELISA CHANEY MD on 05/22/19 at 1834. Scribe Documentation Reviewed: Yes Provider Attestation: The documentation as recorded by the RODY giron accurately reflects the service I personally performed and the decisions made by me, FELISA CHANEY MD Status of Scribe Document: Viewed
[2019-05-22] MEDS ORDERED: Albuterol/Ipratropium NEB.SOL* Albuterol 2.5 MG/Ipratropium 0.5 MG 3 ML INH ONE (17:24)
--- NOTE | 2019-05-22 17:48 | HP ---
History of Present Illness - History of Present Illness Reason for Visit: acute respiratory distress requiring vapotherm History of Present Illness: 64 y/o M with hx/o COPD, O2 dependant (2LPM), nightime BIPAP, DM presenting to ED via EMS with complaints of respiratory distress. Sx are reported to have onset a few days ago and have worsened today. He notes that he had a cough that was productive of some scant brown phlegm. Patient notes that he has home o2 and Bronchodilators without improvement. EMS provided duoneb x2, which provided relief in Sx. Patient is 88% o2 on 2 L in room. PMHx of emphysema, COPD, PNA, diabetes, anxiety, and depression. He is now on vapotherm 40L/50% Denies fever, chest pain - Past Medical History Pulmonary: COPD - Past Surgical History Past Surgical History: Other - bilary duct stent 2013, L cataract surgery 2018 Review of Systems - Review of Systems Constitutional: Positive: Weakness, Malaise. Negative: Fever, Chills Eyes: Negative: Pain ENT: Negative: Ear Pain Respiratory: Positive: Cough, Shortness of Breath, SOB with Excertion. Negative : Hemoptysis Cardiovascular: Negative: Chest Pain, Palpitations, Orthopnea Gastrointestinal: Negative: Nausea, Vomiting, Abdominal Pain Musculoskeletal: Negative: Neck Pain, Shoulder Pain, Arm Pain Neurological: Negative: Weakness, Numbness, Incoordination - Medications/Allergies Allergies/Adverse Reactions: Allergies Allergy/AdvReac Type Severity Reaction Status Date / Time No Known Allergies Allergy Verified 05/06/19 14:59 Exam - Exam Vital Signs: Vital Signs (72 hours) 05/22/19 17:07 Temperature 99.2 F Pulse Rate 120 Respiratory 36 Rate Blood Pressure 138/112 (mmHg) O2 Sat by Pulse 89 Oximetry General: Alert, Oriented x3, Cooperative, Mild distress, Other - increased work of breathing, unable to speak full sentences HEENT: Atraumatic, PERRLA, EOMI Lungs: Other - diminished breath sounds, no wheezes Cardiovascular: Other - tachycardia Abdomen: Normal bowel sounds, Soft, No tenderness Extremities: No clubbing, No cyanosis, No edema Skin: No rashes, No breakdown Neurological: Normal gait Psych/Mental Status: Mood NL Assessment/Plan - Assessment/Plan Assessment: 64 M with hx/o COPD presenting with acute respiratory distress Plan: # AECOPD # Acute hypoxemic respiratory failure - Vapotherm vs BIPAP to improve WOB - target SPO2 90-92 - Steroids, abx, bronchodilators - pending CXR - start home meds once verified PPX DVT: SQH CODE: FULL PROGNOSIS: GUARDED CC TIME: 60 MINUTES
[2019-05-22 17:49] LABS: ABS Lymphocytes 0.6 10^3/ul (1.0-4.8); ABS Neutrophils 7.5 10^3/ul (1.5-7.7); Eosinophil % 0.5 %; Hematocrit 39 % (42-52); Hemoglobin 12.9 g/dL (14.0-18.0); Lymphocyte % 6.8 %; Mean Corpuscular HGB Conc 33 g/dL (31-36); Mean Corpuscular Hemoglobin 29 pg (27-31); Mean Corpuscular Volume 89 fL (80-94); Mean Platelet Volume 7.8 fL (7.4-10.4); Platelet Count 222 10^3/uL (150-450); Red Blood Count 4.43 10^6 /uL (4.18-5.48); Red Cell Distribution Width 14 % (10-15); White Blood Count 9.2 10^3/uL (3.5-10.8)
[2019-05-22] MEDS ORDERED: Albuterol 2.5 MG/3 ML NEB.SOL* (0.083%) INH PRN (17:53)
[2019-05-22 17:54] LABS: ALT 15 U/L (7-52); AST 15 U/L (13-39); Albumin/Globulin Ratio 1.3 (1-3); Alkaline Phosphatase 41 U/L (34-104); Anion Gap 4 mmol/L (2-11); BUN/Creatinine Ratio 24.5 (8-20); Blood Urea Nitrogen 13 mg/dL (6-24); C Reactive Protein 190.41 mg/L (<8.01); CO2 Carbon Dioxide 38 mmol/L (22-32); Calcium 9.2 mg/dL (8.6-10.3); Chloride 97 mmol/L (101-111); EGFR African American 188.8 (>60); Globulin 3.1 g/dL (2-4); Glucose 110 mg/dL (70-100); Potassium 4.2 mmol/L (3.5-5.0); Sodium 139 mmol/L (135-145); Total Protein 7.1 g/dL (6.4-8.9)
[2019-05-22 17:56] LABS: Troponin I 0.01 ng/mL (<0.04)
[2019-05-22] MEDS ORDERED: methylPREDNISolone SOD 40 MG* 1 ML VIAL IM SCH (18:00)
[2019-05-22] MEDS ORDERED: Albuterol/Ipratropium NEB.SOL* Albuterol 2.5 MG/Ipratropium 0.5 MG 3 ML INH SCH (18:00)
[2019-05-22 18:43] LABS: Activated Partial Thrombo Time 36.4 seconds (26.0-38.0); INR 0.98 (0.82-1.09)
[2019-05-22] MEDS: cefTRIAXone(*) 1 GM in NS 0.9% 50 ML* 50 ML IVPB SCH (18:58)
[2019-05-22] MEDS ORDERED: methylPREDNISolone SOD 40 MG* 1 ML VIAL IV SCH (19:52)
[2019-05-22] MEDS: Albuterol/Ipratropium NEB.SOL* Albuterol 2.5 MG/Ipratropium 0.5 MG 3 ML INH SCH (19:56)
[2019-05-22] MEDS: Azithromycin 500 mg/250 ml NS 500 MG/250 ML BAG IVPB SCH (20:23)
[2019-05-22 20:25] LABS: ABS Eosinophils 0.1 10^3/ul (0-0.6); ABS Lymphocytes 0.8 10^3/ul (1.0-4.8); ABS Neutrophils 6.3 10^3/ul (1.5-7.7); Eosinophil % 0.7 %; Hematocrit 38 % (42-52); Hemoglobin 12.3 g/dL (14.0-18.0); Lymphocyte % 9.3 %; Mean Corpuscular HGB Conc 33 g/dL (31-36); Mean Corpuscular Hemoglobin 29 pg (27-31); Mean Corpuscular Volume 90 fL (80-94); Mean Platelet Volume 7.8 fL (7.4-10.4); Platelet Count 223 10^3/uL (150-450); Red Blood Count 4.19 10^6 /uL (4.18-5.48); Red Cell Distribution Width 14 % (10-15); White Blood Count 8.1 10^3/uL (3.5-10.8)
[2019-05-22 20:34] LABS: EGFR African American 197.4 (>60); EGFR Non-African American 163.1 (>60)
[2019-05-22] MEDS: Heparin VIAL(*) 5000 UNITS/ML VIAL (FIVE THOUSAND) SUBCUT SCH (22:36)
[2019-05-23] MEDS: Albuterol/Ipratropium NEB.SOL* Albuterol 2.5 MG/Ipratropium 0.5 MG 3 ML INH SCH (01:28)
[2019-05-23] MEDS ORDERED: Albuterol 2.5 MG/3 ML NEB.SOL* (0.083%) INH PRN (02:39)
[2019-05-23] MEDS: methylPREDNISolone SOD 40 MG* 1 ML VIAL IV SCH ×3 (02:44→18:06)
[2019-05-23] MEDS: Heparin VIAL(*) 5000 UNITS/ML VIAL (FIVE THOUSAND) SUBCUT SCH ×3 (06:15→22:47)
[2019-05-23] MEDS: Albuterol 2.5 MG/3 ML NEB.SOL* (0.083%) INH SCH ×3 (07:25→20:12)
[2019-05-23] MEDS: Insulin LISPRO* 1 UNITS UNIT SUBCUT SCH ×4 (07:45→22:46)
[2019-05-23] MEDS ORDERED: Acetaminophen TAB* 325 MG PO PRN (12:44)
--- NOTE | 2019-05-23 13:18 | PN ---
Date of Service: 05/23/19 - HD 2 Critical Care Services: 64 yo M with PMH including COPD, tobacco & alcohol abuse, DM, and anxiety. He presented to the ED On 05/22 with shortness of breath for several days, worsening on day of presentation. Productive cough. Received Duonebs x 2 with relief from EMS. O2 sat 88% on arrival to ED. On evaluation Pt tachycardic to 120, tachypneic to 36 and hypertensive with diastolic 112. On physical exam noted to have prolonged expiratory phase and diminished breath sounds. Labs unremarkable. CXR with no acute process. Started on Solu-Medrol, Duonebs and Vapotherm. Admitted to ICU for further care. 05/23: Required BiPAP overnight, weaned back to Vapotherm this morning. Vital Signs: Temp Pulse Resp BP SpO2 FiO2 98.2 F 123 20 114/89 86 40 05/23/19 03:22 05/23/19 10:01 05/23/19 10:01 05/23/19 10:01 05/23/19 10:01 05/23 07:32 Physical Exam: Gen: HEENT: Lungs: Cardiac: Abdomen: Extremities: Neuro: Fluid Balance (Past 24 Hours): I= O= Net Intake & Output 05/21/19 05/22/19 05/23/19 05/24/19 06:59 06:59 06:59 06:59 Intake Total 1396.2 1200 Output Total 750 800 Balance 646.2 400 Weight 177 lb 14.609 oz Intake: IV Fluids 56.2 NS 56.2 IVPB 320 Azithromycin 270 Ceftriaxone 50 Oral 1020 1200 Output: Urine 750 800 Other: Estimated Stool Amount Medium Labs: Laboratory Results - last 24 hr 05/22/19 05/22/19 05/22/19 17:28 17:28 17:28 WBC 9.2 RBC 4.43 Hgb 12.9 L Hct 39 L MCV 89 MCH 29 MCHC 33 RDW 14 Plt Count 222 MPV 7.8 Neut % (Auto) 81.4 Lymph % (Auto) 6.8 Bollinger % (Auto) 11.0 Eos % (Auto) 0.5 Baso % (Auto) 0.3 Absolute Neuts (auto) 7.5 Absolute Lymphs (auto) 0.6 L Absolute Monos (auto) 1.0 H Absolute Eos (auto) 0.0 Absolute Basos (auto) 0.0 Absolute Nucleated RBC 0.0 Nucleated RBC % 0.0 INR (Anticoag Therapy) APTT Patient Temperature ABG pH ABG pH (Temp Correct) ABG pCO2 ABG pCO2 (Temp Corrct ABG pO2 ABG pO2 (Temp Correct ABG HCO3 ABG O2 Saturation ABG Base Excess Respiration Rate O2 Delivery Device Ventilator Type Vent Mode FiO2 Inspiratory Time PEEP Pressure Support Pressure Control EPAP IPAP BiPAP Sodium 139 Potassium 4.2 Chloride 97 L Carbon Dioxide 38 H Anion Gap 4 BUN 13 Creatinine 0.53 L Est GFR ( Amer) 188.8 Est GFR (Non-Af Amer) 156.0 BUN/Creatinine Ratio 24.5 H Glucose 110 H POC Glucose (mg/dL) Lactic Acid 0.4 L Calcium 9.2 Total Bilirubin 0.40 AST 15 ALT 15 Alkaline Phosphatase 41 Troponin I 0.01 C-Reactive Protein 190.41 H Total Protein 7.1 Albumin 4.0 Globulin 3.1 Albumin/Globulin Ratio 1.3 05/22/19 05/22/19 05/22/19 18:25 19:55 20:00 WBC RBC Hgb Hct MCV MCH MCHC RDW Plt Count MPV Neut % (Auto) Lymph % (Auto) Bollinger % (Auto) Eos % (Auto) Baso % (Auto) Absolute Neuts (auto) Absolute Lymphs (auto) Absolute Monos (auto) Absolute Eos (auto) Absolute Basos (auto) Absolute Nucleated RBC Nucleated RBC % INR (Anticoag Therapy) 0.98 APTT 36.4 Patient Temperature Not Reportable ABG pH 7.34 L ABG pH (Temp Correct) Not Reportable ABG pCO2 88 H* ABG pCO2 (Temp Corrct Not Reportable ABG pO2 54 L* ABG pO2 (Temp Correct Not Reportable ABG HCO3 38.0 H ABG O2 Saturation 89.6 L ABG Base Excess 17.1 H Respiration Rate Not Reportable O2 Delivery Device vapotherm Ventilator Type Not Reportable Vent Mode Not Reportable FiO2 35 Inspiratory Time Not Reportable PEEP Not Reportable Pressure Support Not Reportable Pressure Control Not Reportable EPAP Not Reportable IPAP Not Reportable BiPAP Not Reportable Sodium Potassium Chloride Carbon Dioxide Anion Gap BUN 12 Creatinine 0.51 L Est GFR ( Amer) 197.4 Est GFR (Non-Af Amer) 163.1 BUN/Creatinine Ratio Glucose POC Glucose (mg/dL) Lactic Acid Calcium Total Bilirubin AST ALT Alkaline Phosphatase Troponin I C-Reactive Protein Total Protein Albumin Globulin Albumin/Globulin Ratio 05/22/19 05/22/19 05/22/19 20:00 22:37 22:45 WBC 8.1 RBC 4.19 Hgb 12.3 L Hct 38 L MCV 90 MCH 29 MCHC 33 RDW 14 Plt Count 223 MPV 7.8 Neut % (Auto) 77.7 Lymph % (Auto) 9.3 Bollinger % (Auto) 12.0 Eos % (Auto) 0.7 Baso % (Auto) 0.3 Absolute Neuts (auto) 6.3 Absolute Lymphs (auto) 0.8 L Absolute Monos (auto) 1.0 H Absolute Eos (auto) 0.1 Absolute Basos (auto) 0.0 Absolute Nucleated RBC 0.0 Nucleated RBC % 0.0 INR (Anticoag Therapy) APTT Patient Temperature Not Reportable ABG pH 7.28 L ABG pH (Temp Correct) Not Reportable ABG pCO2 95 H* ABG pCO2 (Temp Corrct Not Reportable ABG pO2 91 ABG pO2 (Temp Correct Not Reportable ABG HCO3 35.3 H ABG O2 Saturation 98.7 H ABG Base Excess 13.4 H Respiration Rate 14 O2 Delivery Device bipap Ventilator Type Not Reportable Vent Mode Not Reportable FiO2 45 Inspiratory Time Not Reportable PEEP Not Reportable Pressure Support Not Reportable Pressure Control Not Reportable EPAP 8 IPAP 18 BiPAP s/t Sodium Potassium Chloride Carbon Dioxide Anion Gap BUN Creatinine Est GFR ( Amer) Est GFR (Non-Af Amer) BUN/Creatinine Ratio Glucose POC Glucose (mg/dL) 62 L Lactic Acid Calcium Total Bilirubin AST ALT Alkaline Phosphatase Troponin I C-Reactive Protein Total Protein Albumin Globulin Albumin/Globulin Ratio 05/22/19 05/23/19 05/23/19 23:50 05:55 07:39 WBC RBC Hgb Hct MCV MCH MCHC RDW Plt Count MPV Neut % (Auto) Lymph % (Auto) Bollinger % (Auto) Eos % (Auto) Baso % (Auto) Absolute Neuts (auto) Absolute Lymphs (auto) Absolute Monos (auto) Absolute Eos (auto) Absolute Basos (auto) Absolute Nucleated RBC Nucleated RBC % INR (Anticoag Therapy) APTT Patient Temperature Not Reportable Not Reportable ABG pH 7.31 L 7.39 ABG pH (Temp Correct) Not Reportable Not Reportable ABG pCO2 89 H* 61 H ABG pCO2 (Temp Corrct Not Reportable Not Reportable ABG pO2 90 124 H ABG pO2 (Temp Correct Not Reportable Not Reportable ABG HCO3 36.0 H 32.4 H ABG O2 Saturation 98.8 H 99.6 H ABG Base Excess 14.2 H 9.6 H Respiration Rate 20 20 O2 Delivery Device bipap bipap Ventilator Type Not Reportable Not Reportable Vent Mode Not Reportable Not Reportable FiO2 45 45 Inspiratory Time Not Reportable Not Reportable PEEP Not Reportable Not Reportable Pressure Support Not Reportable Not Reportable Pressure Control Not Reportable Not Reportable EPAP 8 8 IPAP 24 24 BiPAP Not Reportable s/t Sodium Potassium Chloride Carbon Dioxide Anion Gap BUN Creatinine Est GFR ( Amer) Est GFR (Non-Af Amer) BUN/Creatinine Ratio Glucose POC Glucose (mg/dL) 141 H Lactic Acid Calcium Total Bilirubin AST ALT Alkaline Phosphatase Troponin I C-Reactive Protein Total Protein Albumin Globulin Albumin/Globulin Ratio 05/23/19 12:04 WBC RBC Hgb Hct MCV MCH MCHC RDW Plt Count MPV Neut % (Auto) Lymph % (Auto) Bollinger % (Auto) Eos % (Auto) Baso % (Auto) Absolute Neuts (auto) Absolute Lymphs (auto) Absolute Monos (auto) Absolute Eos (auto) Absolute Basos (auto) Absolute Nucleated RBC Nucleated RBC % INR (Anticoag Therapy) APTT Patient Temperature ABG pH ABG pH (Temp Correct) ABG pCO2 ABG pCO2 (Temp Corrct ABG pO2 ABG pO2 (Temp Correct ABG HCO3 ABG O2 Saturation ABG Base Excess Respiration Rate O2 Delivery Device Ventilator Type Vent Mode FiO2 Inspiratory Time PEEP Pressure Support Pressure Control EPAP IPAP BiPAP Sodium Potassium Chloride Carbon Dioxide Anion Gap BUN Creatinine Est GFR ( Amer) Est GFR (Non-Af Amer) BUN/Creatinine Ratio Glucose POC Glucose (mg/dL) 236 H Lactic Acid Calcium Total Bilirubin AST ALT Alkaline Phosphatase Troponin I C-Reactive Protein Total Protein Albumin Globulin Albumin/Globulin Ratio Studies: 05/22 CXR - NAD Nutrition: regular diet Impression: 64 yo M with PMH of COPD, Tobacco and Alcohol abuse, DM and anxiety admitted on 05/22 with COPD exacerbation Plan: Cardiovascular: (1) Sinus tachycardia; (2) Essential HTN -- HR 93-123 -- SBP 100-150 -- Telemetry -- troponin 0.01 Pulmonary:(1) Acute on chronic hypoxic and hypercapnic respiratory failure; (2 ) COPD exacerbation; (3) prior tobacco abuse -- RR 15-36 -- sats 86-96, goal sat 88-92 -- now on 6L NC, wean as able -- CXR, 05/22: NAD -- ABG: pH 7.39; pCO2 61; pO2 124; HCO3 32.4; BE 9.6; %O2 Sat 99.6. on BiPAP -- PRN Albuterol Gastrointestinal: (1) hx of CBD stricture with ascending cholangitis -- LFTs within normal limits -- diet: general -- bowel regimen: None -- ulcer prophylaxis: Not indicated at this time Endocrine: (1) Diabetes mellitus type 2 -- monitor BGs -- SSI -- Solumedrol for COPD exacerbation Renal: No acute issues -- UOP: 67 ml/hr -- Cr 0.51 -- Lytes Na 139 K 4.2 Ca 9.2 -- IVF: HL Infectious disease: (1) COPD exacerbation -- Tmax 99.2 -- WBC 8.1 from 9.2 -- CRP 190.41, elevated -- Micro 05/22 MRSA screen negative -- ABX Azithromycin Rocephin Neurologic: (1) Chronic anxiety; (2) hx of alcohol and tobacco abuse -- PRN Tylenol Hematological: (1) Anemia -- Hgb 12.3 from 12.9 -- Plt 223 from 222 -- Coags INR 0.98 PTT 36.4 -- DVT prophylaxis: SQ Heparin Metabolic: No acute issues -- lactic acid 0.4 Deep vein thrombosis prophylaxis: SQ Heparin Dietary: Not indicated at this time Condition: serious Prognosis: guarded Code status: full Disposition: transfer to floor Close friend and patient updated at bedside regarding interval events and plan of care Cumulative time spent in the care of this patient (excluding any procedure time) : at least 30 minutes. Patient care included clinical interview (with patient and/or family), bedside exam of the patient, review of labs, x-rays, and other ancillary data, coordination of (respiratory, nursing care, review of patient's records, discussion regarding patients management with involved consultants, primary physician, pharmacists, and other healthcare personnel (dietary, case management , physical/occupational therapy etc.)
[2019-05-23] MEDS: cefTRIAXone(*) 1 GM in NS 0.9% 50 ML* 50 ML IVPB SCH (18:05)
[2019-05-23] MEDS ORDERED: Albuterol/Ipratropium NEB.SOL* Albuterol 2.5 MG/Ipratropium 0.5 MG 3 ML INH PRN (20:10)
[2019-05-23] MEDS: Azithromycin 500 mg/250 ml NS 500 MG/250 ML BAG IVPB SCH (20:14)
[2019-05-24] MEDS: methylPREDNISolone SOD 40 MG* 1 ML VIAL IV SCH ×2 (01:40→11:40)
[2019-05-24] MEDS: Heparin VIAL(*) 5000 UNITS/ML VIAL (FIVE THOUSAND) SUBCUT SCH ×2 (06:06→13:31)
[2019-05-24 06:26] LABS: Hematocrit 41 % (42-52); Hemoglobin 13.7 g/dL (14.0-18.0); Mean Corpuscular HGB Conc 33 g/dL (31-36); Mean Corpuscular Hemoglobin 29 pg (27-31); Mean Corpuscular Volume 88 fL (80-94); Mean Platelet Volume 7.6 fL (7.4-10.4); Platelet Count 255 10^3/uL (150-450); Red Cell Distribution Width 14 % (10-15); White Blood Count 8.2 10^3/uL (3.5-10.8)
[2019-05-24 06:45] LABS: BUN/Creatinine Ratio 55.8 (8-20); Calcium 9.2 mg/dL (8.6-10.3); EGFR African American 240.3 (>60); EGFR Non-African American 198.6 (>60); Potassium 4.5 mmol/L (3.5-5.0)
[2019-05-24] MEDS: Insulin LISPRO* 1 UNITS UNIT SUBCUT SCH ×2 (07:36→13:31)
[2019-05-24] MEDS ORDERED: Nicotine PATCH 14 MG/24 HR* PATCH TRANSDERM SCH (10:00)
[2019-05-24] MEDS ORDERED: Albuterol HFA INHALER* 8 gm MDI INH PRN (10:17)
[2019-05-24] MEDS ORDERED: LORazepam TAB(*) 0.5 MG PO PRN (10:17)
[2019-05-24 10:55] LABS: Alcohol < 10 mg/dL (<10)
[2019-05-24] MEDS ORDERED: methylPREDNISolone SOD 40 MG* 1 ML VIAL IV SCH (11:00)
[2019-05-24 12:18] VITALS: BP 119/44
--- NOTE | 2019-05-24 19:39 | CONS ---
PULMONARY CONSULTATION REPORT: DATE OF CONSULT: 05/24/19 CONSULTATION REQUESTED BY: Jes Boyer NP REASON FOR CONSULT: Evaluation of COPD exacerbation. HISTORY OF PRESENT ILLNESS: The patient is a 64-year-old male with history of severe COPD, history of recurrent exacerbation, known to me from prior inpatient and outpatient evaluations. The patient is seen and examined at bedside. The patient reports worsening shortness of breath prior to the admission for few days. The patient reports that he was in friend's house, reports possibly inhaling carbon monoxide and reports his breathing started getting worse when he returned from his friend's house to his home. He had significant dyspnea, unable to get enough air, which concerned him, called ambulance and was brought him to the ED for further evaluation. The patient also was noted to be little bit lethargic on presentation. The patient was initiated on BiPAP, did not require intubation. He was transitioned to high flow that following morning. The patient's mental status improved. The patient reports significant improvement in his shortness of breath. He was able to talk full sentences without dyspnea at the time of my evaluation. He did not have significant wheeze on auscultation. His air movement, however, is very diminished. Denies significant cough or sputum production, had brown phlegm prior to the presentation. He has Trilogy at home which he claims to be compliant. The patient reports he has not been smoking for many years. The patient reports compliance with oxygen and all his inhalers as prescribed. He is currently back to his home FiO2 requirement. PAST MEDICAL HISTORY: 1. COPD, on home O2 at 2 L. 2. History of diabetes. PAST SURGICAL HISTORY: Biliary duct stent placement in 2014, cataract surgery in 2018. ALLERGIES: No known drug allergies. FAMILY HISTORY: Reviewed and noncontributory to current complaint. REVIEW OF SYSTEMS: All 14 systems reviewed and as per HPI. PHYSICAL EXAM: The patient in chair, in no apparent distress. Vital Signs: Temperature 97.2, pulse 76 beats per minute, respiratory rate 16 per minute, O2 sat 97% on 3 L, blood pressure 119/44. HEENT: Pupils equal and reactive to light. Mucous membranes moist. Lungs: Diminished air entry bilaterally. No wheeze. Cardiovascular: S1, S2 present. Abdomen: Soft. Bowel sounds present. Extremities: Normal range of motion. Neuro: Alert, awake, oriented x3. No focal deficits. DIAGNOSTIC STUDIES/LAB DATA: WBC count 8.8, hemoglobin 13.7, hematocrit 41, platelet count 255. Blood gas analysis on admission showed respiratory acidosis , pH of 7.34, pCO2 of 88, pO2 of 54, bicarb of 38. Repeat blood gas showed resolution of hypercapnia with compensated respiratory acidosis. Sodium 140, potassium 4.5, chloride 99, bicarb 37, BUN 24, creatinine 0.43. Chest x-ray on admission was personally reviewed by me - evidence of hyperinflation without any acute airspace opacities. IMPRESSION AND RECOMMENDATION: 64-year-old male with history of chronic hypercapnic and hypoxemic respiratory failure with severe chronic obstructive pulmonary disease, admitted with worsening shortness of breath, being treated for acute chronic obstructive pulmonary disease exacerbation. The patient has required rescue BiPAP. He seems to be at his baseline currently. Mental status has significantly improved. Unclear why he is going into repeated episodes of acute on chronic hypercapnic respiratory failure. He has Trilogy at home, which he claims to be compliant. He claims to be compliant with all his inhalers. He claims to be not smoking anymore. He does quickly improve with BiPAP that is used up here. Will have home care company check his home settings of Trilogy and see if they need to be readjusted. Discussed lung transplant with the patient. Will send referral for lung transplant evaluation as out pt. The patient had low dose lung cancer screening CT in October of 2018, which revealed no suspicious nodules or masses. He will have repeat CT in October of this year. The patient is stable for discharge home and will followup in pulmonary clinic. Thank you for allowing me to participate in the care of your patient. Will follow up with you. [id number]/[facility] #: [id number] [place]
[2019-05-24] MEDS ORDERED: Pregabalin CAP(*) 25 MG PO SCH (21:00)
[2019-05-24] MEDS ORDERED: Nicotine Patch Removal NOTE FOLLOW UP SCH (21:00)
--- NOTE | 2019-05-24 22:25 | DS ---
CC: Dr. Gomez * DISCHARGE SUMMARY: DATE OF ADMISSION: 05/22/19 DATE OF DISCHARGE: 05/24/19 PRIMARY CARE PROVIDER: Dr. Gomez. ATTENDING PHYSICIAN: Dr. Lepe * (dictated by Jes Fernandez NP). PRIMARY DIAGNOSIS: Chronic obstructive pulmonary disease exacerbation. SECONDARY DIAGNOSES: 1. Emphysema. 2. PNA. 3. Diabetes. 4. Anxiety/depression. CONSULTATIONS WHILE IN THE HOSPITAL: Dr. Scherer, residential plumber. STUDIES WHILE IN THE HOSPITAL: 1. Chest x-ray: Impression: No radiographic evidence of acute cardiopulmonary abnormality on this portable chest x-ray. 2. EKG: Impression: Sinus tachycardia. DISCHARGE HOME MEDICATIONS: Continued home medications: 1. DuoNeb 1 nebulized inhalation q.4 hours p.r.n. 2. Albuterol 2 inhalations 4 times a day p.r.n. 3. Zoloft 100 mg p.o. q.a.m. 4. Lyrica 75 mg p.o. b.i.d. 5. Lorazepam 0.5 mg p.o. b.i.d. p.r.n. 6. Glipizide 5 mg p.o. q.a.m. 7. Advair 2 b.i.d. New home medications: Prednisone taper: 30 mg daily for 7 days, 20 mg daily for 7 days, 10 mg daily for 7 days. Changed home medications: No medications changed. Discontinued home medications: No home medications discontinued. HISTORY OF PRESENT ILLNESS/HOSPITAL COURSE: Mr. Cerna is a 64-year-old male who carries a history of COPD and he is oxygen dependent, on 2 liters, and wears a BiPAP at night. The patient presented to the emergency room on with complaints of respiratory distress. Please see history and physical dictated by Dr. Carr for complete summary of events leading up to this hospitalization. In short, the patient presents to the emergency room with respiratory distress and was requiring Vapotherm to maintain oxygen saturation. Therefore, he was admitted to the ICU. While in the ICU, the patient did require BiPAP overnight and then weaned back to Vapotherm in the morning. He was then slowly titrated back to supplemental oxygen. When he was maintaining the saturation on 6 L of oxygen, he was transferred to the medical floor. While in the medical floor, the patient was successfully weaned to his baseline oxygen supplementation of 2 L. While in the hospital, it should be noted that the patient did receive p.r.n. nebulizers and scheduled IV steroids. The patient was evaluated this morning by this promotion writer and he was reporting that his breathing is back to baseline. He was also adamantly requesting discharge stating he was told by the ICU doctor that he would be discharged today. Given the patient's significant history of COPD, which include intubation, I did place a call to Dr. Joe who knows the patient well and she follows him as an outpatient. Dr. Joe was kind enough to consult and see the patient this afternoon and stated that he is at baseline and she felt safe for him to go home. Given this recommendation and the patient reporting that he is at his baseline, I also believe he is stable for discharge home. Vital Signs: Temp 97.2, HR 76, RR 16, O2 saturation 97% on 2 L, BP 119/54. REVIEW OF SYSTEMS: The patient reports shortness of breath that is at his baseline. The patient denies cough, chest pain, palpitations, fever, chills, nausea, vomiting, abdominal pain, weakness. A 14-point review of systems was completed and all were negative. PHYSICAL EXAMINATION: General: Mr. Cerna is a 64-year-old male who is sitting in the chair, appears to be in no acute distress, appears stated age. HEENT: EOMs intact. PERRLA. Oral mucosa is moist without lesion. Posterior pharynx is clear. Neck: Supple. No lymphadenopathy. Cardiac: S1, S2 present. Regular rate and rhythm. No murmurs, rubs or gallops. Respiratory: Lungs are mildly decreased in aeration, but otherwise clear. No rhonchi, wheezes, or rubs. Abdomen: Soft, nontender. Bowel sounds normoactive. Extremities: No edema. No clubbing or cyanosis. Pedal pulses 2+ bilaterally. Musculoskeletal: No pain or deformities. Skin: Grossly intact. Neuro: Neuro exam is grossly intact. No focal deficits or weakness. DIAGNOSTIC STUDIES/LAB DATA: WBC 8.2, hemoglobin 13.7, hematocrit 41, platelets 255. Sodium 140, potassium 4.5, chloride 99, carbon dioxide 37, BUN 24, creatinine 0.43, glucose is 142. DISCHARGE PLAN/FOLLOWUP: 1. COPD: As mentioned above, I discussed the case with Dr. Joe, who recommended taper of steroids upon the patient's discharge. The patient was discharged home with steroid taper. I also recommended that the patient follow up with Dr. Joe in 1 to 2 weeks. I also recommended that the patient continue his supplemental oxygen 2 L nasal cannula and monitor his pulse oximetry at home. The patient was also educated on smoking and its risks with his respiratory status. 2. Tobacco: As mentioned above, the patient was educated on smoking cessation. 3. Alcohol abuse: The patient did not show any signs of withdrawal while hospitalized. 4. Diabetes: The patient should continue his home medication of glipizide. 5. Anxiety: The patient should continue with his home medication of Zoloft. 6. Followup: The patient was encouraged to follow up with his primary care in 1 to 3 days. The patient was encouraged to follow up with Dr. Joe in 1 to 2 weeks. 7. Education: The patient was educated on signs and symptoms, new and worsening conditions, and when to return to the emergency department. The patient was encouraged to have a low threshold for returning to the emergency department given his history of significant COPD exacerbations. This is a summarized report of a complex medical history and hospital stay. For further details, please see the entire medical record. TIME SPENT: Approximately 40 minutes was spent on this discharge, greater than half the time was spent [id number] with the patient discussing discharge plans and instructions. This plan has been discussed with my attending, Dr. Lepe, who is in agreement with my plan of care. JES FERNANDEZ, YOUSUF [id number]/[facility] #: [id number] [place]
[2019-05-25] MEDS ORDERED: Sertraline* 100 MG TAB PO SCH (09:00)
== END 2019-05-24 15:45 | disposition home or self-care (01) | DRG 190 ==
LOC: ED 17:06 → ICU 17:51 → MED 05-23 19:20
PROVIDERS: ADMIT Internal Medicine Pulmonary Disease; ATTEND Internal Medicine
DX: J44.1 Chronic obstructive pulmonary disease with (acute) exacerbation (principal); J18.9 Pneumonia, unspecified organism; J96.22 Acute and chronic respiratory failure with hypercapnia; J96.21 Acute and chronic respiratory failure with hypoxia; E87.2 Acidosis; J44.0 Chronic obstructive pulmonary disease with (acute) lower respiratory infection; Z99.81 Dependence on supplemental oxygen; E11.9 Type 2 diabetes mellitus without complications; F17.210 Nicotine dependence, cigarettes, uncomplicated; F10.10 Alcohol abuse, uncomplicated; I10 Essential (primary) hypertension; Y90.0 Blood alcohol level of less than 20 mg/100 ml; R00.0 Tachycardia, unspecified; D64.9 Anemia, unspecified; F32.9 Major depressive disorder, single episode, unspecified; F41.9 Anxiety disorder, unspecified
CPT/HCPCS: 36415; 36600; 71045; 80048; 80053; 80320; 82565; 82803; 83605; 84484; 84520; 85025; 85027; 85610; 85730; 86140; 87641; 93005; 94640; 94660; 99285; A9270-GY; G0480; J0456; J0696; J1644; J2920

== ENCOUNTER 2019-08-06 17:28 | Inpatient (IN) | payer MEDICARE, OTHER ==
[2019-08-06] MEDS ORDERED: methylPREDNISolone 125 MG* 2 ML VIAL IV ONE (17:55)
--- OUTSIDE RECORDS SUMMARY | 2019-08-06 17:55 | XMS REPORT | Continuity of Care Document ---
:1955 External Reference #:[id number] Author Name Adriel Melendez M.D. (transmitted by agent of provider Cherelle Guadalupe ) Address [address] [place] [id number] Care Team Providers Name Role Phone John Rivera MD - Care Team Information Goal Umpire [phone] Ophthalmology [facility] - Care Team Information Goal Umpire Matrix Bath Attendant Kim Joe MD - Pulmonary Care Team Information Goal Umpire [phone] Disease Mahsa Gomez M.D. - Family Medicine Care Team Information Goal Umpire Problems Active Problems Provider Date Depressive disorder Myles Luz M.D. Onset: 05/14/2011 Asthma without status asthmaticus Debbie Multani, N.P. Onset: 05/14/2011 Panic disorder without agoraphobia Myles Luz M.D. Onset: 05/14/2011 Pulmonary emphysema Myles Luz M.D. Onset: 08/27/2011 Gastroesophageal reflux disease Myles Luz M.D. Onset: 08/27/2011 Tobacco user Myles Luz M.D. Onset: 11/18/2011 Chronic pancreatitis Myles Luz M.D. Onset: 09/28/2012 Mixed hyperlipidemia Myles Luz M.D. Onset: 05/02/2013 Hypoxemia Kim Joe MD Onset: 05/09/2016 Chronic respiratory failure Kim Joe MD Onset: 09/11/2016 Note: on AVAP Type 2 diabetes mellitus Tigre Torres M.D.,FACP Onset: 07/24/2017 Iron deficiency Tigre Torres M.D.,FACP Onset: 05/14/2018 Note: w/o anemia Chronic obstructive pulmonary disease with Preet Hampton MD Onset: 2017 (acute) exacerbation Metabolic encephalopathy Tatianna Longoria M.D. 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 MD Tatyana 9 Capsules Prednisone 2 tabs daily for 7 21units [facility] 10mg (21) TBPK days, 1 tab daily MD Sal Joe for 2 weeks Sertraline HCL 1-2 daily as 60tabs F33.40 Mahsa Gomez, 25mg Tablets directed for slow MD Huang taper Advair Diskus 1 puff twice a day 60units Mahsamiguelito Gomez, 250-50mcg/Dose Samples Exp MD Huang Aerosol Lorazepam take 1/2 tablet by 30tabs Mahsa Gomez, 1mg Tablets mouth two times a MD 9 day as needed for anxiety maximum daily dose = one tablet Nebusal 1 unit twice daily 240ml J44.1 [facility] 3% Nebulizer for 2 weeks MD Sal Joe Methylprednisolone take as instructed 21units J44.1 Martha Shah, 4mg TBPK on the brian MD Huang Nicotrol 1 cartridges every 168units Mahsa Gomez, 10mg Inhaler 2 hours as needed MD Huang Cialis Take one tablet at 14tabs Z00.00 Tigre Sharp 10mg Tablets least 30 minutes Brian, 9 before needed M.DMaureen,FACP Onetouch Verio test twice daily 100units Tigre Sharp Strips and as needed Brian, 9 M.D.,FACP Onetouch Ultrasoft use to test blood 100units Tigre Sharp Lancets glucose three [place], 9 Misc times a day and as M.D.,FACP needed Synjardy XR 1 by mouth once a 90tabs E11.65 Mahsa Gomez, 12.5-1000mg day MD Myers Tablets ER 24HR Cpap Pls increase epap G47.33 [facility] to 12 cm MD Louis Joe Sertraline HCL take two tablets 60tabs Mahsa Gomez, 50mg Tablets by mouth every day MD Castañeda Triamcinolone Acetonide 02/18/19 reports not 80gm Tigre Sharp 0.1% using apply every [place], 7 Cream day as needed M.Verona.,FACP Oxygen please use o2 at 1units R09.02 [facility] Misc 2l/min at night MD Maddy Joe And 2l with exertion, PLS Provide PT With Portable o2 Concentrator Glipizide ER Take One Tablet By 90tabs Mahsa Gomez, 5mg Tablets ER Mouth Every 7 24HR Morning Ipratropium inhale contents of 180units Brittany [place]/Albuterol one vial via Jorge Santos 7 Sulfate nebulizer every 4 0.5-2.5(3)mg/3ML hours as needed Solution for shortness of breath Cyclobenzaprine HCL take 1 tablet 60tabs M54.42 Mahsa Hamiltone, 10mg three times a day 6 Tablets as needed Lyrica take one capsule 60caps J44.1 Mahsa Gomez, 75mg Capsules by mouth twice a MD 6 day maximum daily dose = 2 capsules Proair HFA inhale two puffs 8.5units Martha Shah, 108(90Base) by mouth four MD 3 mcg/Act Aerosol times a day as needed Benzocaine/Menthl Q4H prn for sore Unknown Lozenge throat/cough 0 Mucinex 2 by mouth twice a Unknown 600mg Tablets ER 12HR day as needed 0 History Medications Ceftin Twice Daily Unknown 04/10/2019 - 250mg Tablets 04/11/2019 Deltasone Every Day 45tabs Unknown 04/10/2019 - 50mg 06/20/2019 Tablets Ceftin Twice Daily 10tabs Unknown 04/10/2019 - 250mg Tablets 06/20/2019 Prednisone 30mg daily for 1 42tabs J44.1 Kim Joe, 03/18/2019 - 10mg week, 20mg daily 06/20/2019 Tablets for 1 week, 10 mg daily for 1 week Prednisone take 6 tablets by 84tabs Mahsa Gomez MD 02/28/2019 - 10mg mouth daily for 4 03/18/2019 Tablets days, reduce by 1 tab every 4 days until finished Medications Administered in Office Medication SIG Qnty Indications Ordering Provider Date Pneumococcal,Unspecified Unknown 06/23/2014 Injection Immunizations CPT Code Status Date Vaccine Reaction Lot # [id number] Given 07/24/2017 Influenza Virus Vaccine, [id number] Quadrivalent, Split, Preservative Free 51205 Given 10/08/2016 Hepatitis B Vaccine Adult Dosage 03846 Given 10/08/2016 Hepatitis B Vaccine Adult no reaction, pt [id number] Dosage tolerated well 93467 Given 10/08/2016 Influ Virus Vaccine, no reaction, pt [id number] Quadrivalent, Split Virus, [place] [address] Given 10/31/2015 Influenza Virus Vaccine, [id number] Quadrivalent, Split, Preservative Free 25622 Given 10/31/2015 Pneumococcal Conjugate [id number] Vaccine 13 Valent For Intramuscular Use 75961 Given 06/23/2014 Pneumonia Vaccine 22638 Given 09/19/2012 Flu Vaccine 05928 Given 12/31/2010 Influenza Virus 3Yrs & Over 86395 Given 12/31/2010 Influenza Virus 3Yrs & Over [id number] Vital Signs Date Vital Result Comment 06/06/2019 3:06pm Height 68 inches 5'8" Weight 175.00 lb Heart Rate 89 /min BP Systolic 120 mmHg BP Diastolic 70 mmHg Body Temperature 98.5 F O2 % BldC Oximetry 91 % BMI (Body Mass Index) 26.6 kg/m2 03/18/2019 11:04am Height 68 inches 5'8" Weight 181.38 lb Heart Rate 120 /min BP Systolic Sitting 116 mmHg Lue regular cuff BP Diastolic Sitting 62 mmHg Lue regular cuff Respiratory Rate 12 /min O2 % BldC Oximetry 79 % BMI (Body Mass Index) 27.6 kg/m2 Results Test Date Facility Test Result H/L Range Note Arterial Blood Gas 07/09/2019 [facility] Fio2 [address] [place] [address] [phone] Resp Rate 18 Ipap 16 Epap 5 PH Arterial 7.10 Critical low 7.35-7.45 1 Pco2 Arterial > 121 mmHg Critical high 35-45 2 Po2 Arterial 254 mmHg High 80-100 O2 Saturation Arterial 99.9 % High 94.0-98.0 Base Excess Arterial TNP mmol/L -2.0-2.0 Hco3 Arterial TNP mmol/L 19-31 3 Laboratory test 07/09/2019 [facility] Potassium 4.7 mmol/L Normal 3.5-5.[address] [place] [address] [phone] Ast Redraw 20 U/L Normal 13-39 Laboratory test 07/09/2019 [facility] Troponin-I 0.00 <0.[address] (TnI) ng/[place] [address] [phone] Comp Metabolic 07/09/2019 [facility] Sodium 139 Normal 135- [address] mmol/[place] [address] [phone] Chloride 97 mmol/L Low 101-111 Co2 Carbon Dioxide 33 mmol/L High 22-32 Calcium 9.0 mg/dL Normal 8.6-10.3 Albumin 3.9 g/dL Normal 3.2-5.2 Total Bilirubin 0.40 mg/dL Normal 0.2-1.0 Glucose 84 mg/dL Normal 70-100 Blood Urea Nitrogen 12 mg/dL Normal 6-24 Creatinine 0.45 mg/dL Low 0.67-1.17 BUN/Creatinine Ratio 26.7 High 8-20 Total Protein 6.7 g/dL Normal 6.4-8.9 Globulin 2.8 g/dL Normal 2-4 Albumin/Globulin Ratio 1.4 Normal 1-3 Alkaline Phosphatase 44 U/L Normal 34-104 Alt 16 U/L Normal 7-52 Egfr Non- 188.5 >60 Egfr 228.0 >60 5 Potassium TNP mmol/L 3.5-5.0 6 Anion Gap 9 mmol/L Normal 2-11 Ast TNP U/L 13-39 7 CBC Auto 07/09/2019 [facility] White Blood 9.6 10^3/uL Normal 3.5-10.[address] [place] [address] [phone] Red Blood Count 4.84 10^6/uL Normal 4.18-5.48 Hemoglobin 13.5 g/dL Low 14.0-18.0 Hematocrit 43 % Normal 42-52 Mean Corpuscular Volume 90 fL Normal 80-94 Mean Corpuscular Hemoglobin 28 pg Normal 27-31 Mean Corpuscular HGB Conc 31 g/dL Normal 31-36 Red Cell Distribution Width 14 % Normal 10-15 Platelet Count 222 10^3/uL Normal 150-450 Mean Platelet Volume 7.8 fL Normal 7.4-10.4 Abs Neutrophils 7.4 10^3/uL Normal 1.5-7.7 Abs Lymphocytes 0.9 10^3/uL Low 1.0-4.8 Abs Monocytes 1.2 10^3/uL High 0-0.8 Abs Eosinophils 0.1 10^3/uL Normal 0-0.6 Abs Basophils 0.0 10^3/uL Normal 0-0.2 Abs Nucleated RBC 0.0 10^3/uL Granulocyte % 77.5 % Lymphocyte % 9.4 % Monocyte % 12.3 % Eosinophil % 0.6 % Basophil % 0.2 % Nucleated Red Blood Cells % 0.0 Laboratory test 07/09/2019 [facility] B-Type 113 pg/mL High <= [address] [place] [address] Peptide BNP [phone] Blood Culture SEE RESULT BELOW 8 Arterial Blood Gas 07/09/2019 [facility] Fio2 [address] [place] [address] [phone] PH Arterial 7.13 Critical low 7.35-7.45 9 Po2 Arterial 75 mmHg Low 80-100 O2 Saturation Arterial 96.0 % Normal 94.0-98.0 Base Excess Arterial 7.3 mmol/L High -2.0-2.0 10 Hco3 Arterial 30.5 mmol/L Normal 19-31 Pco2 Arterial > 121 mmHg Critical high 35-45 11 Laboratory test 06/06/2019 [facility] Hemoglobin A1c 6.8 5-7 finding Comp Metabolic 05/22/2019 [facility] Sodium 139 mmol/L Normal 135-[address] [place] [address] [phone] Potassium 4.2 mmol/L Normal 3.5-5.0 Chloride 97 mmol/L Low 101-111 Co2 Carbon Dioxide 38 mmol/L High 22-32 Anion Gap 4 mmol/L Normal 2-11 Glucose 110 mg/dL High 70-100 Blood Urea Nitrogen 13 mg/dL Normal 6-24 Creatinine 0.53 mg/dL Low 0.67-1.17 BUN/Creatinine Ratio 24.5 High 8-20 Calcium 9.2 mg/dL Normal 8.6-10.3 Total Protein 7.1 g/dL Normal 6.4-8.9 Albumin 4.0 g/dL Normal 3.2-5.2 Globulin 3.1 g/dL Normal 2-4 Albumin/Globulin Ratio 1.3 Normal 1-3 Total Bilirubin 0.40 mg/dL Normal 0.2-1.0 Alkaline Phosphatase 41 U/L Normal 34-104 Alt 15 U/L Normal 7-52 Ast 15 U/L Normal 13-39 Egfr Non- 156.0 >60 Egfr 188.8 >60 12 Laboratory test 05/22/2019 [facility] C Reactive 190.41 mg/L High <8.[address] [place] [address] [phone] Troponin-I (TnI) 0.01 ng/mL <0.04 13 CBC Auto 05/22/2019 [facility] White Blood 9.2 10^3/uL Normal 3.5-10.[address] [place] [address] [phone] Red Blood Count 4.43 10^6/uL Normal 4.18-5.48 Hemoglobin 12.9 g/dL Low 14.0-18.0 Hematocrit 39 % Low 42-52 Mean Corpuscular Volume 89 fL Normal 80-94 Mean Corpuscular Hemoglobin 29 pg Normal 27-31 Mean Corpuscular HGB Conc 33 g/dL Normal 31-36 Red Cell Distribution Width 14 % Normal 10-15 Platelet Count 222 10^3/uL Normal 150-450 Mean Platelet Volume 7.8 fL Normal 7.4-10.4 Abs Neutrophils 7.5 10^3/uL Normal 1.5-7.7 Abs Lymphocytes 0.6 10^3/uL Low 1.0-4.8 Abs Monocytes 1.0 10^3/uL High 0-0.8 Abs Eosinophils 0.0 10^3/uL Normal 0-0.6 Abs Basophils 0.0 10^3/uL Normal 0-0.2 Abs Nucleated RBC 0.0 10^3/uL Granulocyte % 81.4 % Lymphocyte % 6.8 % Monocyte % 11.0 % Eosinophil % 0.5 % Basophil % 0.3 % Nucleated Red Blood Cells % 0.0 Laboratory test 05/22/2019 [facility] Lactic Acid 0.4 mmol/L Low 0.5-2.0 [address] [place] [address] [phone] Alcohol < 10 mg/dL Normal <10 1 Verbal to [id number] by [id number] at 1700 on 07/09/19. Results read back accurately. 2 Verbal to [id number] by [email or web address] at 1700 on 07/09/19. Results read back accurately. 3 Analyzer was unable to calculate results due to insufficant data. 4 Troponin-I testing on Plasma Separator Tubes (PST) has a known false positive rate of 0.20-0.40%. All positive troponins reflex immediately to secondary confirmatory testing. Using the iSpyeI 800 Access Immunoassay systems, the 99th percentile upper reference limit was demonstrated to be < 0.03 ng/mL. 5 Because ethnic data is not always readily available, this report includes an eGFR for both -Americans and non- Americans. The National Kidney Disease Education Program (NKDEP) does not endorse the use of the MDRD equation for patients that are not between the ages of 18 and 70, are , have extremes of body size, muscle mass, or nutritional status, or are non- or non-. According to the National Kidney Foundation, irrespective of diagnosis, the stage of the disease is based on the level of kidney function: Stage Description GFR(mL/min/1.73 m(2)) 1 Kidney damage with normal or decreased GFR 90 2 Kidney damage with mild decrease in GFR 60-89 3 Moderate decrease in GFR 30-59 4 Severe decrease in GFR 15-29 5 Kidney failure <15 (or dialysis) 6 Specimen Hemolyzed. Result may not be valid. Unable to report test result due to hemolysis. 7 Unable to report test result due to hemolysis. 8 SEE RESULT BELOW Name: RUBÉN GASTELUM : [address]: Emigdio [place] MD Acct: [id number] Unit: [id number] AGE: 64 Location: [place] [address] Re07/09/19 SEX: M Status: ADM IN SPEC: [id number] SILVERIO: 07/09/[address]: Stephen Abad MD REQ: [id number] RECD: 07/09/19 STATUS: RES [facility] DR: Mahsa Gomez MD _ SOURCE: BLOOD,VENO SPDES: ORDERED: Blood Cult Procedure Result Reported Site Aerobic Culture Bottle Preliminary 07/10/19- 1644 ML No Growth Day 1 Anaerobic Culture Bottle Preliminary 07/10/19- 1644 ML No Growth Day 1 * ML - Main Lab . END OF REPORT DEPARTMENT OF PATHOLOGY, [address] [place] [address] Angel Gilbert M.D. Director [facility] # [id number] 9 Verbal to [id number] by [email or web address] at 1554 on 07/09/19. Results read back accurately. 10 Reference ranges based on room air. 11 Verbal to [id number] by [id number] at 1554 on 07/09/19. Results read back accurately. 12 Because ethnic data is not always readily available, this report includes an eGFR for both -Americans and non- Americans. The National Kidney Disease Education Program (NKDEP) does not endorse the use of the MDRD equation for patients that are not between the ages of 18 and 70, are , have extremes of body size, muscle mass, or nutritional status, or are non- or non-. According to the National Kidney Foundation, irrespective of diagnosis, the stage of the disease is based on the level of kidney function: Stage Description GFR(mL/min/1.73 m(2)) 1 Kidney damage with normal or decreased GFR 90 2 Kidney damage with mild decrease in GFR 60-89 3 Moderate decrease in GFR 30-59 4 Severe decrease in GFR 15-29 5 Kidney failure <15 (or dialysis) 13 Troponin-I testing on Plasma Separator Tubes (PST) has a known false positive rate of 0.20-0.40%. All positive troponins reflex immediately to secondary confirmatory testing. Using the [employer] DxLoaded Pocket 800 Access Immunoassay systems, the 99th percentile upper reference limit was demonstrated to be < 0.03 ng/mL. 14 [facility] Severe Sepsis and Septic Shock Management Bundle Measure requires all lactic acids initially measuring >2.0 mmol/L be repeated. Procedures Description No Information Available Medical Devices Description No Information Available Encounters Type Date Location Provider Dx Diagnosis Office Visit 06/06/2019 [facility] Mahsamiguelito Gomez MD J96.21 Acute and chronic 3:00p Medicine - Ccmob respiratory failure with hypoxia I10 Essential (primary) hypertension E11.9 Type 2 diabetes mellitus without complications F33.40 Major depressive disorder, recurrent, in remission, unsp Office Visit 05/24/2019 [facility] J44.1 Chronic 9:36a Assoc,pc YOUSUF Boyer obstructive Hospitalists pulmonary disease w (acute) exacerbation J18.9 Pneumonia, unspecified organism E11.9 Type 2 diabetes mellitus without complications F41.9 Anxiety disorder, unspecified Office Visit 05/24/2019 12:00p Pulmonology And Kim J44.1 Chronic [facility] Tatyana obstructive [employer] pulmonary disease w (acute) exacerbation J96.21 Acute and chronic respiratory failure with hypoxia J96.22 Acute and chronic respiratory failure with hypercapnia Office Visit 05/23/2019 9:34a Intensivists Darby R00.0 Tachycardia, MD Gilmer unspecified I10 Essential (primary) hypertension J96.21 Acute and chronic respiratory failure with hypoxia J96.22 Acute and chronic respiratory failure with hypercapnia J44.1 Chronic obstructive pulmonary disease w (acute) exacerbation E11.9 Type 2 diabetes mellitus without complications F41.9 Anxiety disorder, unspecified D64.9 Anemia, unspecified Z72.0 Tobacco use Office Visit 05/22/2019 9:35a Intensivists Rober Carr J44.1 Chronic obstructive MD pulmonary disease w (acute) exacerbation J96.01 Acute respiratory failure with hypoxia Office Visit 04/10/2019 [facility] Tigre Sharp J44.1 Chronic 10:46a Assjanelle hebert M.D.,FACP obstructive Hospitalists pulmonary disease w (acute) exacerbation J96.21 Acute and chronic respiratory failure with hypoxia J96.22 Acute and chronic respiratory failure with hypercapnia Z99.81 Dependence on supplemental oxygen E11.9 Type 2 diabetes mellitus without complications F41.9 Anxiety disorder, unspecified M54.9 Dorsalgia, unspecified Z86.59 Personal history of other mental and behavioral disorders Z87.19 Personal history of other diseases of the digestive system Office Visit 04/09/2019 [facility] J44.1 Chronic 10:45a janelle Polo M.D. obstructive Hospitalists pulmonary disease w (acute) exacerbation F41.9 Anxiety disorder, unspecified E11.9 Type 2 diabetes mellitus without complications Office Visit 04/08/2019 [facility] J44.1 Chronic 10:45a janelle Polo NP obstructive Hospitalists pulmonary disease w (acute) exacerbation J96.20 Acute and chr resp failure, unsp w hypoxia or hypercapnia E11.9 Type 2 diabetes mellitus without complications Z86.59 Personal history of other mental and behavioral disorders Office Visit 03/18/2019 11:00a Pulmonology And Kim J44.1 [facility] Tatyana obstructive [employer] pulmonary disease w (acute) exacerbation J96.10 Chronic respiratory failure, unsp w hypoxia or hypercapnia Z72.0 Tobacco use Office Visit 02/18/2019 [facility] Internal Martha Shah J44.1 Chronic 2:40p Medicine - Michaelob obstructive pulmonary disease w (acute) exacerbation Office Visit 01/16/2019 [facility] J96.02 Acute respiratory 8:56a Assjanelle hebert failure with Hospitalists Jorge hypercapnia J44.0 Chr obstructive pulmon disease with (acute) lower resp infct Office Visit 01/15/2019 [facility] J96.02 Acute 8:55a Assjanelle hebert M.D. respiratory Hospitalists failure with hypercapnia J44.0 Chr obstructive pulmon disease with (acute) lower resp infct Z72.0 Tobacco use E11.9 Type 2 diabetes mellitus without complications Assessments Date Code Description Provider 06/06/2019 J96.21 Acute and chronic respiratory failure Mahsa Gomez MD with hypoxia 06/06/2019 I10 Essential (primary) hypertension Mahsa Gomez MD 06/06/2019 E11.9 Type 2 diabetes mellitus without Mahsa Gomez MD complications 06/06/2019 F33.40 Major depressive disorder, recurrent, Mahsa Gomez MD in remission, unspecif 05/24/2019 J44.1 Chronic obstructive pulmonary disease Jes Boyer NP with (acute) exacerbation 05/24/2019 J44.1 Chronic obstructive pulmonary disease Kim Joe MD w (acute) exacerbation 05/24/2019 J18.9 Pneumonia, unspecified organism Jes Boyer, DOG CONTROL OFFICER 05/24/2019 J96.21 Acute and chronic respiratory failure Kim Joe MD with hypoxia 05/24/2019 E11.9 Type 2 diabetes mellitus without Jes Boyer NP complications 05/24/2019 J96.22 Acute and chronic respiratory failure Kim Joe MD with hypercapnia 05/24/2019 F41.9 Anxiety disorder, unspecified Jes Boyer, DOG CONTROL OFFICER 05/23/2019 R00.0 Tachycardia, unspecified Darby Scherer MD 05/23/2019 I10 Essential (primary) hypertension Darby Scherer MD 05/23/2019 J96.21 Acute and chronic respiratory failure Darby Scherer MD with hypoxia 05/23/2019 J96.22 Acute and chronic respiratory failure Darby Scherer MD with hypercapnia 05/23/2019 J44.1 Chronic obstructive pulmonary disease Darby Scherer MD w (acute) exacerbation 05/23/2019 E11.9 Type 2 diabetes mellitus without Darby Scherer MD complications 05/23/2019 F41.9 Anxiety disorder, unspecified Darby Scherer MD 05/23/2019 D64.9 Anemia, unspecified Darby Scherer MD 05/23/2019 Z72.0 Tobacco use Darby Scherer MD 05/22/2019 J44.1 Chronic obstructive pulmonary disease Rober Carr MD w (acute) exacerbation 05/22/2019 J96.01 Acute respiratory failure with hypoxia Rober Carr MD 04/10/2019 J44.1 Chronic obstructive pulmonary disease Tigre Torres M.D.,FACP w (acute) exacerbation 04/10/2019 J96.21 Acute and chronic respiratory failure Tigre Torres M.D.,FACP with hypoxia 04/10/2019 J96.22 Acute and chronic respiratory failure Tigre Torres M.D.,FACP with hypercapnia 04/10/2019 Z99.81 Dependence on supplemental oxygen Tigre Torres M.D., FACP 04/10/2019 E11.9 Type 2 diabetes mellitus without Tigre Torres M.D., FACP complications 04/10/2019 F41.9 Anxiety disorder, unspecified Tigre Torres M.D.,FACP 04/10/2019 M54.9 Dorsalgia, unspecified Tigre Torres M.D.,FACP 04/10/2019 Z86.59 Personal history of other mental and Tigre Torres M.D.,FACP behavioral disorders 04/10/2019 Z87.19 Personal history of other diseases of Tigre Torres M.D.,FACP the digestive system 04/09/2019 J44.1 Chronic obstructive pulmonary disease Dustin Shook M.D. w (acute) exacerbation 04/09/2019 F41.9 Anxiety disorder, unspecified Dustin Shook M.D. 04/09/2019 E11.9 Type 2 diabetes mellitus without Dustin Shook M.D. complications 04/08/2019 J44.1 Chronic obstructive pulmonary disease Briana Díaz NP w (acute) exacerbation 04/08/2019 J96.20 Acute and chr resp failure, unsp w Briana Díaz NP hypoxia or hypercapnia 04/08/2019 E11.9 Type 2 diabetes mellitus without Briana Díaz NP complications 04/08/2019 Z86.59 Personal history of other mental and Briana Díaz NP behavioral disorders 03/18/2019 J44.1 Chronic obstructive pulmonary disease Kim Joe MD with (acute) exacerbat 03/18/2019 J96.10 Chronic respiratory failure, Kim Joe MD unspecified whether with hypoxi 03/18/2019 Z72.0 Tobacco use Kim Joe MD 02/18/2019 J44.1 Chronic obstructive pulmonary disease Martha Shah MD with (acute) exacerbat 01/16/2019 J96.02 Acute respiratory failure with Dustin Sohok M.D. hypercapnia 01/16/2019 J44.0 Chronic obstructive pulmon disease w Dustin Shook M.D. acute lower resp infct 01/15/2019 J96.02 Acute respiratory failure with Dustin Shook M.D. hypercapnia 01/15/2019 J44.0 Chronic obstructive pulmon disease w Dustin Shook M.D. acute lower resp infct 01/15/2019 Z72.0 Tobacco use Dustin Shook M.D. 01/15/2019 E11.9 Type 2 diabetes mellitus without Dustin Shook M.D. complications Plan of Treatment Future Appointment(s):10/07/2019 2:40 pm - Mahsa Gomez MD at [facility] Internal Medicine - [facility]06/06/2019 - Mahsa Gomez MDJ96.21 Acute and chronic respiratory failure with hypoxiaComments:follow up with Dr. JoeI10 Essential (primary) hypertensionComments:Continue with your current medication.E11.9 Type 2 diabetes mellitus without complicationsComments:Your A1c is 6.8%, which means you are at goal for your diabetes [id number] Major depressive disorder, recurrent, in remission, unspecifNew Medication:Sertraline HCL 25 mg - 1-2 daily as directed for slow taperComments:I recommend a slow taper as follows:75 mg (50 + 25) for 2 [id number] for 2 weeks25 mg for 2 weeks25 mg every other day for one week, then stopYou should schedule a follow up appointment in 3-4 months tomake sure your depression and anxiety have not returned after stopping the medicationFollow up:4 mo Goals 06/06/2019 - Mahsa Gomez MDE11.9 Type 2 diabetes mellitus without complicationsGoal Hemoglobin A1c is less than 7.0% in ages 18-74 Goal Hemoglobin A1c is between 7.0% and 8.0% in age over 75 Goal Blood pressure is less than 130/85. Cholesterol should be lowered by a high or moderate-dose statin. Functional Status Description No Information Available Mental Status Description No Information Available Referrals Description No Information Available
--- OUTSIDE RECORDS SUMMARY | 2019-08-06 17:55 | XMS REPORT | Continuity of Care Document ---
:1955 External Reference #:[id number] Author Name Mahsa Gomez MD (transmitted by agent of provider Chica Senior) Address [address] [facility], [place] [address] Care Team Providers Name Role Phone John Rivera MD - Care Team Information Emotionally Impaired Teacher [phone] Ophthalmology [facility] - Care Team Information Emotionally Impaired Teacher [phone] Food And Nutrition Teacher Kim Joe MD - Pulmonary Care Team Information Emotionally Impaired Teacher Disease Mahsa Gomez M.D. - Family Medicine Care Team Information Emotionally Impaired Teacher Problems Active Problems Provider Date Depressive disorder [...] at present; occasionally "cheats" Smoking Status Reviewed: 07/22/19 States not smoking at present; occasionally "cheats" [...] Medications SIG Qnty Indications Ordering Date Provider Sertraline HCL 1-2 daily as 60tabs F33.40 Mahsa Gomez, 06/06/2019 25mg directed for slow MD Tablets taper Advair Diskus 1 puff twice a day 60units Mahsa Gomez, 06/06/2019 250-50mcg/Dose Aerosol Lorazepam take 1/2 tablet by 30tabs Mahsa Gomez, 05/11/2019 1mg Tablets mouth two times a MD day as needed for anxiety maximum daily dose = one tablet Nebusal 1 unit twice daily 240ml J44.1 Kim 03/18/2019 3% Nebulizer for 2 weeks MD Tatyana Nicotrol 1 cartridges every 168units Mahsa Gomez, 01/21/2019 10mg Inhaler 2 hours as needed MD Gan Take one tablet at 14tabs Z00.00 Tigre Sharp 12/31/2018 10mg Tablets least 30 minutes Brian, before needed JESSI Patel Onetouch Verio test twice daily 100units Tigre Sharp 11/26/2018 Strips and as needed Jorge Torres,FACP Onetouch Ultrasoft use to test blood 100units Tigre Sharp 11/26/2018 Lancets glucose three [place], Misc times a day and as Jorge,FACP needed Synjardy XR 1 by mouth once a 90tabs E11.65 Mahsa Gomez, 05/14/2018 12.5-1000mg day MD Tablets ER 24HR Cpap Pls increase epap G47.33 Kim 05/06/2018 to 12 cm MD Tatyana Triamcinolone 02/18/19 reports not 80gm Tigre Sharp 07/24/2017 Acetonide using apply every [place], 0.1% Cream day as needed Jorge,JOHNYP Oxygen please use o2 at 1units R09.02 [facility] 07/22/2017 Misc 2l/min at night MD Tatyana And 2l with exertion, PLS Provide PT With Portable o2 Concentrator Glipizide ER Take One Tablet By 90tabs Mahsa Gomez, 02/18/2017 5mg Tablets Mouth Every MD ER 24HR Morning Ipratropium inhale contents of 180units Brittany 02/16/2017 [place]/Albuterol one vial via Jorge Santos Sulfate nebulizer every 4 0.5-2.5(3)mg/3ML hours as needed Solution for shortness of breath Cyclobenzaprine HCL take 1 tablet 60tabs M54.42 Mahsamiguelito Gomez, 01/11/2016 10mg three times a day MD Tablets as needed Lyrica take one capsule 60caps J44.1 Mahsamiguelito Gomez, 01/11/2016 75mg Capsules by mouth twice a MD day maximum daily dose = 2 capsules Proair HFA inhale two puffs 8.5units Martha Shah, 02/15/2013 108(90Base) by mouth four MD mcg/Act Aerosol times a day as needed Duoneb 1 vial via 120units Myles 03/10/2011 0.5-2.5(3)mg/3ML inhalation q 6hrs [place], Solution prn Jorge Mucinex 2 by mouth twice a Unknown 600mg Tablets ER day as needed 12HR History Medications Doxycycline Hyclate one tablet twice 14caps Kim 06/22/2019 - 100mg daily for 7 days. MD Tatyana 07/22/2019 Capsules Prednisone 2 tabs daily for 21units Kim 06/22/2019 - 10mg (21) TBPK 7 days, 1 tab MD Tatyana 07/22/2019 daily for 2 weeks Ceftin Twice Daily Unknown 04/10/2019 - 250mg Tablets 04/11/2019 Deltasone Every Day 45tabs Unknown 04/10/2019 - 50mg Tablets 06/20/2019 Ceftin Twice Daily 10tabs Unknown 04/10/2019 - 250mg Tablets 06/20/2019 Prednisone 30mg daily for 1 42tabs J44.1 Kim 03/18/2019 - 10mg Tablets week, 20mg daily MD Tatyana 06/20/2019 for 1 week, 10 mg daily for 1 week Prednisone take 6 tablets by 84tabs Mahsa Gomez 02/28/2019 - 10mg Tablets mouth daily for 4 MD 03/18/2019 days, reduce by 1 tab every 4 days until finished Methylprednisolone take as 21units J44.1 Martha Shah, 02/18/2019 - 4mg TBPK instructed on the 07/22/2019 brian Medications Administered in Office Medication SIG Qnty Indications Ordering Provider Date Pneumococcal,Unspecified Unknown 06/23/2014 Injection Immunizations CPT Code Status Date Vaccine Reaction Lot # [id number] Given 07/24/2017 Influenza Virus Vaccine, [id number] Quadrivalent, Split, Preservative Free 58650 Given 10/08/2016 Hepatitis B Vaccine Adult Dosage 09686 Given 10/08/2016 Hepatitis B Vaccine Adult no reaction, pt [id number] Dosage tolerated well 53118 Given 10/08/2016 Influ Virus Vaccine, no reaction, pt [id number] Quadrivalent, Split Virus, [place] [address] Given 10/31/2015 Influenza Virus Vaccine, [id number] Quadrivalent, Split, Preservative Free 22627 Given 10/31/2015 Pneumococcal Conjugate [id number] Vaccine 13 Valent For Intramuscular Use 80589 Given 06/23/2014 Pneumonia Vaccine 56889 Given 09/19/2012 Flu Vaccine 37435 Given 12/31/2010 Influenza Virus 3Yrs & Over 78122 Given 12/31/2010 Influenza Virus 3Yrs & Over [id number] Vital Signs Date Vital Result Comment 07/22/2019 2:49pm Height 68 inches 5'8" Weight 175.38 lb Heart Rate 123 /min BP Systolic Sitting 139 mmHg Rue reg cuff BP Diastolic Sitting 77 mmHg Rue reg cuff O2 % BldC Oximetry 91 % BMI (Body Mass Index) 26.7 kg/m2 06/06/2019 3:06pm Height 68 inches 5'8" Weight 175.00 lb Heart Rate 89 /min BP Systolic 120 mmHg BP Diastolic 70 mmHg Body Temperature 98.5 F O2 % BldC Oximetry 91 % BMI (Body Mass Index) 26.6 kg/m2 Results Test Date Facility Test Result H/L Range Note Arterial Blood Gas 07/09/2019 [facility] Fio2 [address] [place] [address] [phone] Resp Rate 18 Ipap 16 Epap 5 PH Arterial 7.10 Critical low 7.35-7.45 1 Pco2 Arterial > 121 mmHg Critical high 35-45 2 Po2 Arterial 254 mmHg High 80-100 O2 Saturation Arterial 99.9 % High 94.0-98.0 Base Excess Arterial TNP mmol/L -2.0-2.0 Hco3 Arterial TNP mmol/L 19-31 3 Laboratory test 07/09/2019 [facility] Potassium 4.7 mmol/L Normal 3.5-5.[address] [place] [address] [phone] Ast Redraw 20 U/L Normal 13-39 Laboratory test 07/09/2019 [facility] Troponin-I 0.00 <0.04 4 finding 101 (TnI) ng/[place] [address] [phone] Comp Metabolic 07/09/2019 [facility] Sodium 139 Normal 135- [address] mmol/[place] [address] [phone] Chloride 97 mmol/L Low 101-111 Co2 Carbon [...] TNP U/L 13-39 7 CBC Auto 07/09/2019 [facility] White Blood 9.6 10^3/uL Normal 3.5-10.[address] [place] [address] [phone] Red Blood Count 4.84 10^6/uL Normal 4.18-5.48 [...] Blood Cells % 0.0 Laboratory test 07/09/2019 [facility] B-Type 113 pg/mL High <= [address] [place] [address] Peptide BNP [phone] Blood Culture SEE RESULT BELOW 8 Arterial Blood Gas 07/09/2019 [facility] Fio2 [address] [place] [address] [phone] PH Arterial 7.13 Critical low 7.35-7.45 9 Po2 Arterial 75 mmHg Low 80-100 O2 Saturation Arterial 96.0 % Normal 94.0-98.0 Base Excess Arterial 7.3 mmol/L High -2.0-2.0 10 Hco3 Arterial 30.5 mmol/L Normal 19-31 Pco2 Arterial > 121 mmHg Critical high 35-45 11 Laboratory test 06/06/2019 [facility] House Hemoglobin A1c 6.8 5-7 finding Comp Metabolic 05/22/2019 [facility] Sodium 139 mmol/L Normal 135-[address] [place] [address] [phone] Potassium 4.2 mmol/L Normal 3.5-5.0 Chloride 97 [...] Egfr 188.8 >60 12 Laboratory test 05/22/2019 [facility] C Reactive 190.41 mg/L High <8.[address] [place] [address] [phone] Troponin-I (TnI) 0.01 ng/mL <0.04 13 CBC Auto 05/22/2019 [facility] White Blood 9.2 10^3/uL Normal 3.5-10.[address] [place] [address] [phone] Red Blood Count 4.43 10^6/uL Normal 4.18-5.48 [...] Blood Cells % 0.0 Laboratory test 05/22/2019 [facility] Lactic Acid 0.4 mmol/L Low 0.5-2.0 14 finding [address] [place] [address] [phone] Alcohol < 10 mg/dL Normal <10 1 Verbal to [id number] by [email or web address] at 1700 on 07/09/19. Results read back accurately. 2 Verbal to [id number] by [id number] at 1700 on 07/09/19. Results read back accurately. 3 Analyzer was unable to calculate results due to insufficant data. 4 Troponin-I testing on Plasma Separator Tubes (PST) has a known false positive rate of 0.20-0.40%. All positive troponins reflex immediately to secondary confirmatory testing. Using the [employer] DxI 800 Access Immunoassay systems, the 99th percentile [...] Name: RUBÉN GASTELUM : [address]: Quincy Torres MD Acct: [id number] Unit: [id number] AGE: 64 Location: [place] [address] Re07/09/19 Dis: 07/11/19 SEX: M Status: DIS IN SPEC: [id number] SILVERIO: 07/09/19-[address] [facility] [address]: Stephen Abad MD REQ: [id number] RECD: 07/09/19 STATUS: RES [facility] DR: Mahsa Gomez MD _ SOURCE: BLOOD,VENO SPDES: ORDERED: Blood Cult Procedure Result Reported Site Aerobic Culture Bottle Preliminary 07/13/19- 1620 ML No Growth Day 4 Anaerobic Culture Bottle Final 07/14/19- 1620 ML No Growth Day 5 * ML - Main Lab . END OF REPORT DEPARTMENT OF PATHOLOGY, [address] [place] [address] Angel Gilbert M.D. Director [facility] # [id number] 9 Verbal to [id number] by [email or web address] at 1554 on 07/09/19. Results read back accurately. 10 Reference ranges based on room air. 11 Verbal to [id number] by [email or web address] at 1554 on 07/09/19. Results read back [...] immediately to secondary confirmatory testing. Using the [employer] DxI 800 Access Immunoassay systems, the 99th percentile upper reference limit was demonstrated to be < 0.03 ng/mL. 14 [facility] Severe Sepsis and Septic Shock Management Bundle Measure requires all lactic acids initially measuring >2.0 mmol/L be repeated. Procedures Date Code Description Status 07/11/2019 23163 ECHO Transthorasic Realtime 2D W Doppler & Color Flow Hosp Completed Medical Devices Description No Information Available Encounters Type Date Location Provider Dx Diagnosis Office Visit 07/11/2019 [facility] Radha Carrillo, J96.22 Acute and chronic 9:22a Assoc,pc [employer]OR respiratory Hospitalists failure with hypercapnia J44.1 Chronic obstructive pulmonary disease w (acute) exacerbation E11.9 Type 2 diabetes mellitus without complications F10.10 Alcohol abuse, uncomplicated Office Visit 07/10/2019 [facility] Emigdio [place] J44.1 Chronic 9:21a M.D. obstructive pulmonary disease w (acute) exacerbation Office Visit 07/09/2019 [facility] Claudia Ray44.1 Chronic 9:21a M.D. obstructive pulmonary disease w (acute) exacerbation Office Visit 06/06/2019 [facility] Internal Mahsa Gomez, J96.21 Acute and chronic 3:00p Medicine - C[facility] respiratory failure with hypoxia I10 Essential (primary) hypertension E11.9 Type 2 diabetes mellitus without complications F33.40 Major depressive disorder, recurrent, in remission, unsp Office Visit 05/24/2019 [facility] J44.1 Chronic 9:36a Assoc,pc YOUSUF Boyer obstructive Hospitalists pulmonary disease w (acute) exacerbation J18.9 Pneumonia, unspecified organism E11.9 Type 2 diabetes mellitus without complications F41.9 Anxiety disorder, unspecified Office Visit 05/24/2019 12:00p Pulmonology And Kim J44.1 [facility] MD Tatyana obstructive [facility] Consultant pulmonary disease w (acute) exacerbation J96.21 Acute [...] respiratory failure with hypoxia Office Visit 04/10/2019 [facility] Tigre Sharp J44.1 Chronic 10:46a janelle Polo M.D.,FACP obstructive Hospitalists pulmonary disease w (acute) [...] of the digestive system Office Visit 04/09/2019 [facility] Dustin J44.1 Chronic 10:45a janelle Polo M.D. obstructive Hospitalists pulmonary disease w (acute) exacerbation F41.9 Anxiety disorder, unspecified E11.9 Type 2 diabetes mellitus without complications Office Visit 04/08/2019 [facility] Briana J44.1 Chronic 10:45a janelle Polo NP obstructive Hospitalists pulmonary disease w (acute) exacerbation J96.20 Acute and chr resp failure, unsp w hypoxia or hypercapnia E11.9 Type 2 diabetes mellitus without complications Z86.59 Personal history of other mental and behavioral disorders Office Visit 03/18/2019 11:00a Pulmonology And Kim J44.1 [facility] MD Tatyana obstructive [facility] Consultant pulmonary disease w (acute) exacerbation J96.10 Chronic respiratory failure, unsp w hypoxia or hypercapnia Z72.0 Tobacco use Office Visit 02/18/2019 2:40p [facility] Consultant Internal Martha Pablo, J44.1 Chronic obstructive Medicine - [facility] MD pulmonary disease w (acute) exacerbation Assessments Date Code Description Provider 07/22/2019 J96.22 Acute and chronic respiratory failure Mahsa Gomez MD with hypercapnia 07/22/2019 I10 Essential (primary) hypertension Mahsa Gomez MD 07/22/2019 R00.0 Tachycardia, unspecified Mahsa Gomez MD 07/11/2019 J96.22 Acute and chronic respiratory failure Radha Carrillo DITCH INSPECTOR with hypercapnia 07/11/2019 J44.1 Chronic obstructive pulmonary disease Radha Carrillo, DITCH INSPECTOR with (acute) exacerbation 07/11/2019 E11.9 Type 2 diabetes mellitus without Radha Gerardo, DITCH INSPECTOR complications 07/11/2019 F10.10 Alcohol abuse, uncomplicated Radha Gerardo, DITCH INSPECTOR 07/10/2019 J44.1 Chronic obstructive pulmonary disease Emigdio [place] M.D. with (acute) exacerbation 07/09/2019 J44.1 Chronic obstructive pulmonary disease Emigdio [place] M.D. with (acute) exacerbation 06/06/2019 J96.21 Acute and chronic respiratory failure [...] 05/24/2019 J18.9 Pneumonia, unspecified organism Jes Boyer, DITCH INSPECTOR 05/24/2019 J96.21 Acute and chronic respiratory failure Kim Joe MD with hypoxia 05/24/2019 E11.9 Type 2 diabetes mellitus without Jes Boyer DITCH INSPECTOR complications 05/24/2019 J96.22 Acute and chronic respiratory failure Kim Joe MD with hypercapnia 05/24/2019 F41.9 Anxiety disorder, unspecified Jes Boyer NP 05/23/2019 R00.0 Tachycardia, unspecified Darby Scherer MD [...] disease Martha Shah MD with (acute) exacerbat Plan of Treatment Future Appointment(s):10/07/2019 2:40 pm - Mahsa Gomez [facility] Mahsa Gomez MDJ96.22 Acute and chronic respiratory failure with [id number] Essential (primary) hypertensionFollow up:HTN f/u 6 moR00.0 Tachycardia, unspecifiedNew Labs:TSH (Thyroid Stim Horm), Ordered: 07/22/19Referral:Kristopher Villagran MD, MICHELLE, FASINDRA, Cardiovsclr Disease Functional Status Description No Information Available Mental Status Description No Information Available Referrals Refer to Reason for Referral Status Appt Date Kristopher Villagran MD, FACC, pt with chronic COPD with Created FASINDRA hypercapnia and hypoxia, now with sustained tachycardia and worsening fatigue [address] [place] [id number] [phone]
--- NOTE | 2019-08-06 18:36 | ED ---
Respiratory - HPI Summary HPI Summary: LEVEL 5 CAVEAT DUE TO RESPIRATORY DISTRESS This patient is a 64 year old M brought to [facility] with a chief complaint of trouble breathing and respiratory exacerbation due to COPD since today, 08/06/19 at 0000, per triage. Symptoms aggravated by nothing. Symptoms alleviated by nothing. Nurse reports pt frequents EMS for similar symptoms and received duoneb 3 times from EMS. Pulse ox in 70s on nasal cannula. Nurse reports pt is on 4 L of chronic oxygen at home. Home Medications Medication Instructions Recorded Confirmed Type Albuterol/Ipratropium NEB.JAZZMINE* 1 neb INH Q4HR PRN #0 08/26/16 05/24/19 Rx [Duoneb (Albuterol 2.5 MG/Ipratropium 0.5 MG)] Albuterol HFA INHALER* [Ventolin 2 inh INH QID PRN 08/26/17 05/24/19 History HFA Inhaler*] Pregabalin CAP(*) [Lyrica CAP(*)] 75 mg PO BID 08/26/17 05/24/19 History Sertraline* [Zoloft*] 100 mg PO QAM 08/26/17 05/24/19 History LORazepam TAB(*) [Ativan 1 MG TAB 0.5 mg PO BID PRN 09/24/18 05/24/19 History (*)] glipiZIDE [Glipizide ER] 5 mg PO QAM 04/08/19 05/24/19 History Advair HFA 115/21 (NF) 2 BID 05/24/19 History predniSONE TAB* [Deltasone 10 MG 0 mg PO DAILY 8 Days #20 tab 07/11/19 Rx TAB*] - History of Current Complaint Chief Complaint: EDRespiratoryDistress Stated Complaint: DIFFICULTY BREATHING PER EMS Time Seen by Provider: 08/06/19 17:54 Hx Obtained From: Other: - nurse Hx From Patient Unobtainable Due To: Other - unable to speak due to respiratory failure Onset/Duration: Lasting Hours, Still Present Timing: Constant Pain Intensity: 0 Aggravating Factor(s): Nothing Alleviating Factor(s): Nothing - Allergy/Home Medications Allergies/Adverse Reactions: Allergies Allergy/AdvReac Type Severity Reaction Status Date / Time No Known Allergies Allergy Verified 05/06/19 14:59 PMH/Surg Hx/FS Hx/Imm Hx Endocrine/Hematology History: Reports: Hx Diabetes Denies: Hx Anticoagulant Therapy, Hx Thyroid Disease Cardiovascular History: Denies: Hx Congestive Heart Failure, Hx Deep Vein Thrombosis, Hx Hypertension , Hx Myocardial Infarction, Hx Pacemaker/ICD Respiratory History: Reports: Hx Chronic Obstructive Pulmonary Disease (COPD), Other Respiratory Problems/Disorders - RECENT HX OF PNEUMONIA Denies: Hx Asthma, Hx Lung Cancer, Hx Pneumonia, Hx Pulmonary Embolism GI History: Reports: Hx Gall Bladder Disease - COMMON BILE DUCT STENTED. LATER CHOLANGITIS, Other GI Disorders - COMMON BILE DUCT STENT Denies: Hx Gastroesophageal Reflux Disease, Hx Gastrointestinal Bleed, Hx Hiatal Hernia, Hx Irritable Bowel, Hx Jaundice, Hx Ulcer, Hx Urosepsis History: Denies: Hx Dialysis, Hx Kidney Infection, Hx Kidney Stones, Hx Renal Disease , Other Problems/Disorders Sensory History: Denies: Hx Cataracts, Hx Contacts or Glasses, Hx Hearing Aid, Other Sensory Impairments Opthamlomology History: Denies: Hx Cataracts, Hx Contacts or Glasses, Other Sensory Impairments Neurological History: Denies: Hx Dementia, Hx Migraine, Hx Seizures, Hx Transient Ischemic Attacks (TIA) Psychiatric History: Reports: Hx Anxiety Denies: Hx Depression, Hx Schizophrenia, Hx Bipolar Disorder, Hx Substance Abuse, Other Psychiatric Issues/Disorders - pt denies ETOH abuse at this time - Surgical History Surgery Procedure, Year, and Place: tear ducts 2007. STENT IN BILE DUCT 2014. eye surgery cataracts Hx Anesthesia Reactions: No - Immunization History Date of Tetanus Vaccine: 2010 Date of Influenza Vaccine: 2011 Infectious Disease History: No Infectious Disease History: Denies: Hx Hepatitis, Hx Human Immunodeficiency Virus (HIV), History Other Infectious Disease, Traveled Outside the [place] in Last 30 Days - Family History Known Family History: Positive: Cardiac Disease, Hypertension, Non-Contributory - Social History Alcohol Use: None Alcohol Amount: HX ETOH BUT DOES NOT DRINK ANYMORE Hx Substance Use: Yes Substance Use Type: Reports: Prescribed Substance Use Comment - Amount & Last Used: hx of etoh, 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 Hx Tobacco Use: Yes Smoking Status (MU): Former Smoker Type: Cigarettes Amount Used/How Often: very little, a cigarette a day at most, usually less- uses nicotine inhaler Length of Time of Smoking/Using Tobacco: has quit Have You Smoked in the Last Year: Yes Review of Systems - ROS Summary Review of Systems Summary: LEVEL 5 CAVEAT DUE TO RESPIRATORY DISTRESS Positive: Other - trouble breathing, respiratory exacerbation All Other Systems Reviewed And Are Negative: No Physical Exam - Summary Physical Exam Summary: LEVEL 5 CAVEAT DUE TO RESPIRATORY DISTRESS General: Well-developed, Well-nourished MALE. No acute distress. sleepy, not answering questions. HEENT: Normocephalic, Atraumatic. Eyes: Conjuctiva normal, PERRL. Ears: TMs within normal limits. Nares: (-) discharge, (-) erythema. Oropharynx: Clear, mucous membranes moist, (-) exudates. Neck: Soft, FROM, (-) lymphadenopathy, (-) thyromegaly, (-) JVD. Cardiovascular: Normal sinus rhythm, (-) murmur. Lungs: poor air exchange, tight wheezes throughout Abdomen: Soft, non-tender, non-distended, (-) organomegaly, normal bowel sounds. Back: (-) CVA tenderness Extremities: No edema. Skin: Warm, dry, (-) rash. Neuro: not alert and not able to assess Psychiatric: not able to assess Triage Information Reviewed: Yes Vital Signs On Initial Exam: Initial Vitals Pulse Resp Pulse Ox 131 22 99 08/06/19 17:39 08/06/19 17:39 08/06/19 17:39 Vital Signs Reviewed: Yes Procedures - Intubation Time of Intubation: 21:38 - tube with the lip reading at 20, sedation with propofol, Intubation Method: orotracheal Tube Size (cm): 7.5 Medications: Succinylcholine Breath Sounds after Intubation: equal Intubation Complications: no complications Post Intubation Xray: Yes Progress/Xray Impression: Et2 was too high, advanced 3 cm Diagnostics - Vital Signs Vital Signs Temp Pulse Resp BP Pulse Ox 08/06/19 18:00 129 22 98 08/06/19 17:54 24 08/06/19 17:42 99.4 F 132 22 158/109 99 08/06/19 17:40 131 22 158/109 99 08/06/19 17:39 131 22 99 - Laboratory Lab Results: Lab Results 08/06/19 Range/Units 18:07 Patient Temperature Not Reportable ABG pH 7.17 L* (7.35-7.45) ABG pH (Temp Correct) Not Reportable ABG pCO2 > 121 H* (35-45) mmHg ABG pCO2 (Temp Corrct Not Reportable ABG pO2 179 H (80-100) mmHg ABG pO2 (Temp Correct Not Reportable ABG HCO3 33.9 H (19-31) mmol/L ABG O2 Saturation 99.0 H (94.0-98.0) % ABG Base Excess 11.5 H (-2.0-2.0) mmol/L Respiration Rate Not Reportable O2 Delivery Device 5 lpm oxymask Ventilator Type Not Reportable Vent Mode Not Reportable FiO2 Not Reportable Inspiratory Time Not Reportable PEEP Not Reportable Pressure Support Not Reportable Pressure Control Not Reportable EPAP Not Reportable IPAP Not Reportable BiPAP Not Reportable Result Diagrams: 08/07/19 05:53 08/07/19 05:53 Lab Statement: Any lab studies that have been ordered have been reviewed, and results considered in the medical decision making process. - Radiology Chest X-Ray Radiology Interpretation Completed By: ED Physician, Radiologist Summary of Radiographic Findings: Per ED Physician,. no obvious infiltrate or effusion. Pending official report. - EKG 1818 Cardiac Rate: NL - 123 BPM Summary of EKG Findings: EKG at 1818 reveals sinus tachyardia with rate of 123 BPM, no acute changes, no ischemic changes, non-STEMI. This EKG was reviewed and interpreted by Dr. Restrepo. Disposition - Course Course Of Treatment: This patient is a 64 year old M brought to [facility] with a chief complaint of trouble breathing and respiratory exacerbation due to COPD since today, 08/06/19 at 0000. Symptoms aggravated by nothing. Symptoms alleviated by nothing. Nurse reports pt frequents EMS for similar symptoms and received duoneb 3 times from EMS. Pulse ox in 70s on nasal cannula. Nurse reports pt is on 4 L of chronic oxygen at home. Physical Exam Findings show no abnormalities except for sleepy, not answering questions, lungs were poor air exchange, tight wheezes throughout, not able to assess psych and not alert and not able to assess Neuro. EKG at 1818 reveals sinus tachyardia with rate of 123 BPM, no acute changes, no ischemic changes, non-STEMI. This EKG was reviewed and interpreted by Dr. Restrepo. CXR reveals no obvious infiltrate or effusion. Test results with no significant abnormalities expect for WBC 11.8 H , Hgb 13.5 L, Absolute Neuts 10.7 H, Absolute Lymphs 0.6 L. Blood gas at 1807 reveals ABG pH at 7.17 L, ABG pCO2 >121 H, ABG pO2 179 H, ABG HCO3 33.9 H, ABG O2 Saturation 99.0 H, ABG Base Excess 11.5 H. Blood gas at 1940 reveals ABG pH 7.18 L, ABG pCO2 119 H, ABG pO2 79 L, ABG HCO3 33.4 H, ABG Base Excess 11.0 H. Blood gas at 2115 reveals ABG pH 7.22 L, ABG pCO2 118 H, ABG pO2 68 L, ABG HCO3 36.6 H, ABG Base Excess 15.1 H. Chemistry reveals chloride 93 L, Carbon Dioxide 42 H, Creatinine 0.66 L, BUN/Creatinine Ratio 27.3 H, Glucose 136 H, Lactic Acid 0.3 L. In the ED course the patient was given ceftriaxone Sodium 2 gm in Sodium Chloride 200 mls/hr, Methylprednisolone Sodium Succinate 125 mg, Propofol 10 mg. We discussed patient care with hospitalist who accepts patient for admission. The patient is agreeable with this plan. Assessment/Plan: LEVEL 5 CAVEAT DUE TO RESPIRATORY DISTRESS - Diagnoses Provider Diagnoses: Acute respiratory failure Discharge ED - Sign-Out/Discharge Documenting (check all that apply): Patient Departure - admit All imaging exams completed and their final reports reviewed: Yes Patient Received Moderate/Deep Sedation with Procedure: No - Discharge Plan Condition: Guarded Disposition: ADMITTED TO [facility] - Billing Disposition and Condition Condition: GUARDED Disposition: Admitted to [facility] - Attestation Statements Document Initiated by Veena: Yes Documenting Scribe: Morena Pimentel Provider For Whom Veena is Documenting (Include Credential): Dr. Shiloh Restrepo MD Scribe Attestation: Morena Maynard, scribed for Dr. Shiloh Restrepo MD on 08/07/19 at 1041. Scribe Documentation Reviewed: Yes Provider Attestation: The documentation as recorded by the scribeMorena accurately reflects the service I personally performed and the decisions made by me, Dr. Shiloh Restrepo MD Status of Scribe Document: Viewed
[2019-08-06 19:03] LABS: INR 0.9 (0.82-1.09)
[2019-08-06 19:12] LABS: ABS Lymphocytes 0.6 10^3/ul (1.0-4.8); ABS Monocytes 0.5 10^3/ul (0-0.8); ABS Neutrophils 10.7 10^3/ul (1.5-7.7); Eosinophil % 0.1 %; Hematocrit 43 % (42-52); Hemoglobin 13.5 g/dL (14.0-18.0); Mean Corpuscular HGB Conc 32 g/dL (31-36); Mean Corpuscular Hemoglobin 28 pg (27-31); Mean Corpuscular Volume 89 fL (80-94); Mean Platelet Volume 7.8 fL (7.4-10.4); Platelet Count 234 10^3/uL (150-450); Red Blood Count 4.81 10^6 /uL (4.18-5.48); Red Cell Distribution Width 15 % (10-15); White Blood Count 11.8 10^3/uL (3.5-10.8)
[2019-08-06 19:15] LABS: Albumin 4.4 g/dL (3.2-5.2); Albumin/Globulin Ratio 1.5 (1-3); BUN/Creatinine Ratio 27.3 (8-20); Calcium 9.1 mg/dL (8.6-10.3); EGFR African American 146.6 (>60); EGFR Non-African American 121.1 (>60); Potassium 4.9 mmol/L (3.5-5.0); Total Bilirubin 0.3 mg/dL (0.2-1.0); Total Protein 7.4 g/dL (6.4-8.9)
[2019-08-06 19:17] LABS: Troponin I 0.01 ng/mL (<0.04)
[2019-08-06] MEDS ORDERED: cefTRIAXone(*) 2 GM in NS 0.9% 100 ML* 100 ML IVPB ONE (19:46)
[2019-08-06] MEDS ORDERED: Succinylcholine* 20 MG/ML 10 ML VIAL ONE (21:38)
[2019-08-06] MEDS ORDERED: Etomidate* 2 MG/ML 20 ML VIAL (40 MG) ONE (21:38)
[2019-08-06] MEDS ORDERED: Propofol* 10 MG/ML 20 ML BTL IV PUSH ONE (21:47)
[2019-08-06] MEDS ORDERED: Propofol* 100 ML ONE (21:52)
[2019-08-06] MEDS ORDERED: fentaNYL* 50 MCG/ML 2 ML VIAL (100 MCG VIAL) IV SLOW PU ONE (22:57)
[2019-08-06] MEDS ORDERED: Midazolam* 1 MG/ML 5 ML VIAL (5 MG) IV SLOW PU ONE (23:22)
[2019-08-06] MEDS ORDERED: Albuterol/Ipratropium NEB.SOL* Albuterol 2.5 MG/Ipratropium 0.5 MG 3 ML ONE (23:25)
[2019-08-06] MEDS ORDERED: Midazolam IV for DRIP* 100 MG in NS 0.9% 100 ML* 80 ML IV SCH (23:45)
[2019-08-06] MEDS ORDERED: Albuterol/Ipratropium NEB.SOL* Albuterol 2.5 MG/Ipratropium 0.5 MG 3 ML INH SCH (23:45)
[2019-08-07] MEDS: Lactated Ringers 1000 ML Bag* 1,000 ML IV SCH ×3 (01:30→18:02)
[2019-08-07] MEDS: Pantoprazole IV* 40 MG IV SCH (02:03)
[2019-08-07] MEDS: Enoxaparin(*) 40 MG/0.4 ML SYR SUBCUT SCH ×2 (02:03→20:27)
[2019-08-07] MEDS: Azithromycin 500 mg/250 ml NS 500 MG/250 ML BAG IVPB SCH (02:03)
[2019-08-07] MEDS ORDERED: fentaNYL* 50 MCG/ML 2 ML VIAL (100 MCG VIAL) IV SLOW PU PRN (02:11)
--- NOTE | 2019-08-07 02:43 | HP ---
CC: Dr. Mahsa Gomez ADMISSION HISTORY AND PHYSICAL: DATE OF ADMISSION: 08/06/19 PRIMARY CARE PHYSICIAN: Mahsa Gomez MD. CLAIMS CONFIGURATION ANALYST: Kim Joe MD. CHIEF COMPLAINT: Worsening shortness of breath. HISTORY OF PRESENT ILLNESS: This is a 64-year-old male with past medical history of COPD, previously documented to be on 2 to 3 L nasal cannula at home, history of type 2 diabetes per record, came in w ith respiratory distress and shortness of breath with high CO2. An ABG performed showed elevated CO2 to over 121, so the patient was immediately started on BiPAP therapy. After multiple attempts at ti trating the BiPAP, the patient's PCO2 did not improve, so the ER physician admitted the patient. No further history could be obtained from the patient. Most of the history that I got was by reviewing the chart. I also spoke with the patient's daughter who stated that he was having some shortness of breath and that he has still been smoking even up until recently. PAST MEDICAL HISTORY: As mentioned, previously documented COPD with respiratory failure, on 2 to 3 L nasal cannula at home. Uses BiPAP at home at nighttime for possible obstructive sleep apnea. Type 2 diabetes previously documented, on oral hypoglycemics. History of alcohol abuse and pancreatitis a nd ascending cholangitis. 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 HOME MEDICATIONS: Unconfirmed list includes: 1. Prednisone daily. 2. Glipizide daily. 3. Zoloft daily. 4. Lyrica p.o. b.i.d. 5. Ativan p.o. b.i.d. p.r.n. 6. DuoNeb q.4 hours p.r.n. 7. Advair 2 puffs by inhalation b.i.d. ALLERGIES: No known drug allergies. FAMILY HISTORY: Significant for cardiac disease and hypertension per documentation. SOCIAL HISTORY: Documented to have a 40+ year history of smoking. Per daughter, the patient still s mokes and lives by himself. Daughter denies any alcohol or drug use. The patient is otherwise full code and daughter is the surrogate decision maker, Nelida Cerna. REVIEW OF SYSTEMS: Unable to obtain due to the patient's intubated status. PHYSICAL EXAMINATION GENERAL: The patient is alert, awake, and oriented x3. He did not appear to be in any acute respira tory distress. VITAL SIGNS: In the ER, BP was noted to be 89/55, heart rate 90, respiration rate 22, saturating 100 % on vent, and temperature documented to be 99.4 degrees Fahrenheit. HEAD AND NECK: Atraumatic, normocephalic. Bilateral pupils are reactive. NECK: Supple. No jugular venous distention. LUNGS: The patient had diffuse expiratory wheezing even with the intubated status. HEART: S1 and S2. Systolic murmur was heard. ABDOMEN: Obese, soft, nontender. EXTREMITIES: No cyanosis, clubbing, or edema. LABORATORY DATA: CBC shows minimally elevated white count of 11.28, hemoglobin and hematocrit stab le, platelet count was normal. Coagulation, however, shows INR of 0.9. Comprehensive metabolic pane l was unremarkable except for elevated bicarb at 42. Initial ABG shows pH of 7.17 which improved fur ther to 7.23 after intubation. PCO2 was ranging from greater than 121, improved to 101 after intubati on. X-ray: Portable chest x-ray when compared to his previous portable chest x-ray from June was essen tially unchanged. There are some areas of cavitations consistent with COPD but no obvious infiltrate to my eye. Official read by radiologist is still pending. Repeat x-ray was also performed today wh ich showed ET tube about 3 cm above the patience. Repeat imaging further shows about 2 cm above the ca paul. Again official read by Radiology is still pending. EKG showed sinus tachycardia at 123 beats per minute without any ST elevation. IMPRESSION: This is a 64-year-old male here with chronic obstructive pulmonary disease exacerbation, subsequently intubated. ASSESSMENT: 1. Acute hypoxic hypercapnic respiratory failure secondary to chronic obstructive pulmonary disease exacerbation, status post intubation. We will continue to monitor the patient in the ICU and manage ventilator and get serial blood gas to check for improvement and sedation with Versed and propofol. We will start the patient on steroids, DuoNeb, and azithromycin. 2. History of diabetes. We will hold home diabetic medications, start the patient on q.4 hours fing ersticks as the patient is currently n.p.o. 3. History of smoking. Already spoke with daughter and suggested smoking cessation. 4. DVT prophylaxis with Lovenox 40 mg. 5. Code status: Full code. [id number]/CPS #: [id number]
[2019-08-07] MEDS: Albuterol/Ipratropium NEB.SOL* Albuterol 2.5 MG/Ipratropium 0.5 MG 3 ML INH SCH ×6 (03:14→23:29)
[2019-08-07] MEDS: Chlorhexidine MOUTHWASH 0.12%* 15 ML UDC TOPICAL SCH ×5 (04:24→20:27)
[2019-08-07] MEDS: methylPREDNISolone SOD 40 MG* 1 ML VIAL IV SCH ×2 (05:28→17:29)
[2019-08-07 06:02] LABS: ABS Lymphocytes 0.6 10^3/ul (1.0-4.8); ABS Monocytes 0.5 10^3/ul (0-0.8); ABS Neutrophils 6.4 10^3/ul (1.5-7.7); Hematocrit 38 % (42-52); Hemoglobin 11.8 g/dL (14.0-18.0); Lymphocyte % 8.3 %; Mean Corpuscular HGB Conc 31 g/dL (31-36); Mean Corpuscular Hemoglobin 28 pg (27-31); Mean Corpuscular Volume 89 fL (80-94); Mean Platelet Volume 7.8 fL (7.4-10.4); Platelet Count 200 10^3/uL (150-450); Red Blood Count 4.24 10^6 /uL (4.18-5.48); Red Cell Distribution Width 15 % (10-15); White Blood Count 7.6 10^3/uL (3.5-10.8)
[2019-08-07 06:16] LABS: BUN/Creatinine Ratio 31.9 (8-20); Calcium 8.2 mg/dL (8.6-10.3); EGFR African American 132.6 (>60); EGFR Non-African American 109.6 (>60); Potassium 4.7 mmol/L (3.5-5.0)
[2019-08-07] MEDS ORDERED: fentaNYL* 50 MCG/ML 2 ML VIAL (100 MCG VIAL) IV ONE (08:15)
[2019-08-07] MEDS: Propofol* 100 ML IV SCH ×4 (09:38→20:27)
--- NOTE | 2019-08-07 12:12 | PN ---
Date of Service: 08/07/19 - [facility] note Critical Care Services: Pt seen and examined at bedside, admission records were reviewed Labs, vitals, meds were also reviewed Plan of care discussed with pts RN, RT and pts significant other at bedside Active Medications Generic Name Dose Route Start Last Admin Trade Name Freq PRN Reason Stop Dose Admin Albuterol/Ipratropium 1 neb 08/07/19 03:00 08/07/19 11:34 Duoneb (Albuterol 2.5 Mg/Ipratropium 0.5 Mg) INH 1 neb [id number] AWAKE ANAT Administration Chlorhexidine Gluconate 15 ml 08/07/19 04:00 08/07/19 04:24 Peridex Mouth Wash 0.12%* TOPICAL 15 ml Q4H ANAT Administration Enoxaparin Sodium 40 mg 08/07/19 01:00 08/07/19 02:03 Lovenox(*) SUBCUT 40 mg BEDTIME ANAT Administration Fentanyl Citrate 25 mcg 08/07/19 02:11 08/07/19 02:20 Fentanyl* IV SLOW PU 25 mcg Q4H PRN Administration PAIN - SEVERE Propofol 100 mls @ 0 mls/hr 08/06/19 23:00 08/07/19 09:38 Diprivan* IV 20.8 mls/hr .PER PROTOCOL ANAT Administration Protocol Per Protocol Midazolam HCl 100 mg/ Sodium 100 mls @ 2 mls/hr 08/06/19 23:45 08/06/19 23:53 Chloride IV 2 mls/hr Q48H ANAT Administration Protocol 2 MG/HR Azithromycin 500 mg in 250 mls @ 250 mls/hr 08/07/19 01:00 08/07/19 02:03 Zithromax 500 Mg/250 Ml IVPB 250 mls/hr Q24H ANAT Administration Lactated Ringer's 1,000 mls @ 125 mls/hr 08/07/19 01:00 08/07/19 10:25 Lactated Ringers 1000 Ml Bag* IV 125 mls/hr PER RATE ANAT Administration Methylprednisolone Sodium Succinate 40 mg 08/07/19 06:00 08/07/19 05:28 Solu-Medrol 40 Mg IV 40 mg Q12H ANAT Administration Pantoprazole Sodium 40 mg 08/07/19 02:00 08/07/19 02:03 Protonix Iv* IV 40 mg Q24H ANAT Administration Vital Signs: Temp Pulse Resp BP SpO2 FiO2 97.5 F 76 16 94/49 93 35 08/07/19 11:15 08/07/19 11:37 08/07/19 11:37 08/07/19 11:15 08/07/19 11:37 08/07 11:37 Physical Exam: Gen: Pt is sedated on propofol HEENT: ETT+, PERRLA Lungs:Dimnished a/e, no wheeze Cardiac: S1, S2+, regular Abdomen: Soft, BS+ Extremities: No edema Neuro: sedated, RASS-1, responds appropriately to stimuli Skin: Erythema of upper extremities in flexor aspects. Fluid Balance (Past 24 Hours): I= 704 O= 625 Net 79 Intake & Output 08/05/19 08/06/19 08/07/19 08/08/19 06:59 06:59 06:59 06:59 Intake Total 704 Output Total 625 295 Balance 79 -295 Weight 175 lb 14.862 oz Intake: IV Fluids 625 LR 625 Medicated IV 79 CC - Propofol/Diprivan 79 Output: Granda 625 295 Labs: Laboratory Results - last 24 hr 08/06/19 08/06/19 08/06/19 18:07 18:33 18:33 WBC 11.8 H RBC 4.81 Hgb 13.5 L Hct 43 MCV 89 MCH 28 MCHC 32 RDW 15 Plt Count 234 MPV 7.8 Neut % (Auto) 90.7 Lymph % (Auto) 5.0 [place] % (Auto) 4.1 Eos % (Auto) 0.1 Baso % (Auto) 0.1 Absolute Neuts (auto) 10.7 H Absolute Lymphs (auto) 0.6 L Absolute Monos (auto) 0.5 Absolute Eos (auto) 0.0 Absolute Basos (auto) 0.0 Absolute Nucleated RBC 0.0 Nucleated RBC % 0.0 INR (Anticoag Therapy) 0.90 Patient Temperature Not Reportable ABG pH 7.17 L* ABG pH (Temp Correct) Not Reportable ABG pCO2 > 121 H* ABG pCO2 (Temp Corrct Not Reportable ABG pO2 179 H ABG pO2 (Temp Correct Not Reportable ABG HCO3 33.9 H ABG O2 Saturation 99.0 H ABG Base Excess 11.5 H Respiration Rate Not Reportable O2 Delivery Device 5 lpm oxymask Ventilator Type Not Reportable Vent Mode Not Reportable FiO2 Not Reportable Inspiratory Time Not Reportable PEEP Not Reportable Pressure Support Not Reportable Pressure Control Not Reportable EPAP Not Reportable IPAP Not Reportable BiPAP Not Reportable Sodium Potassium Chloride Carbon Dioxide Anion Gap BUN Creatinine Est GFR ( Amer) Est GFR (Non-Af Amer) BUN/Creatinine Ratio Glucose POC Glucose (mg/dL) Lactic Acid Calcium Total Bilirubin AST ALT Alkaline Phosphatase Troponin I B-Natriuretic Peptide Total Protein Albumin Globulin Albumin/Globulin Ratio 08/06/19 08/06/19 08/06/19 18:33 18:33 18:33 WBC RBC Hgb Hct MCV MCH MCHC RDW Plt Count MPV Neut % (Auto) Lymph % (Auto) [place] % (Auto) Eos % (Auto) Baso % (Auto) Absolute Neuts (auto) Absolute Lymphs (auto) Absolute Monos (auto) Absolute Eos (auto) Absolute Basos (auto) Absolute Nucleated RBC Nucleated RBC % INR (Anticoag Therapy) Patient Temperature ABG pH ABG pH (Temp Correct) ABG pCO2 ABG pCO2 (Temp Corrct ABG pO2 ABG pO2 (Temp Correct ABG HCO3 ABG O2 Saturation ABG Base Excess Respiration Rate O2 Delivery Device Ventilator Type Vent Mode FiO2 Inspiratory Time PEEP Pressure Support Pressure Control EPAP IPAP BiPAP Sodium 138 Potassium 4.9 Chloride 93 L Carbon Dioxide 42 H* Anion Gap 3 BUN 18 Creatinine 0.66 L Est GFR ( Amer) 146.6 Est GFR (Non-Af Amer) 121.1 BUN/Creatinine Ratio 27.3 H Glucose 136 H POC Glucose (mg/dL) Lactic Acid 0.3 L Calcium 9.1 Total Bilirubin 0.30 AST 17 ALT 18 Alkaline Phosphatase 41 Troponin I 0.01 B-Natriuretic Peptide 76 Total Protein 7.4 Albumin 4.4 Globulin 3.0 Albumin/Globulin Ratio 1.5 08/06/19 08/06/19 08/06/19 19:40 21:15 23:10 WBC RBC Hgb Hct MCV MCH MCHC RDW Plt Count MPV Neut % (Auto) Lymph % (Auto) [place] % (Auto) Eos % (Auto) Baso % (Auto) Absolute Neuts (auto) Absolute Lymphs (auto) Absolute Monos (auto) Absolute Eos (auto) Absolute Basos (auto) Absolute Nucleated RBC Nucleated RBC % INR (Anticoag Therapy) Patient Temperature Not Reportable Not Reportable Not Reportable ABG pH 7.18 L* 7.22 L 7.23 L ABG pH (Temp Correct) Not Reportable Not Reportable Not Reportable ABG pCO2 119 H* 118 H* 101 H* ABG pCO2 (Temp Corrct Not Reportable Not Reportable Not Reportable ABG pO2 79 L 68 L 78 L ABG pO2 (Temp Correct Not Reportable Not Reportable Not Reportable ABG HCO3 33.4 H 36.6 H 33.0 H ABG O2 Saturation 96.6 95.3 96.9 ABG Base Excess 11.0 H 15.1 H 10.4 H Respiration Rate 14 18 22 O2 Delivery Device bipap bipap vent Ventilator Type Not Reportable Not Reportable Not Reportable Vent Mode Not Reportable Not Reportable pcv FiO2 45 40 40 Inspiratory Time Not Reportable 1.0 Not Reportable PEEP Not Reportable Not Reportable 5 Pressure Support Not Reportable Not Reportable Not Reportable Pressure Control Not Reportable Not Reportable 35 EPAP 8 10 Not Reportable IPAP 16 22 Not Reportable BiPAP s/t s/t Not Reportable Sodium Potassium Chloride Carbon Dioxide Anion Gap BUN Creatinine Est GFR ( Amer) Est GFR (Non-Af Amer) BUN/Creatinine Ratio Glucose POC Glucose (mg/dL) Lactic Acid Calcium Total Bilirubin AST ALT Alkaline Phosphatase Troponin I B-Natriuretic Peptide Total Protein Albumin Globulin Albumin/Globulin Ratio 08/07/19 08/07/19 08/07/19 00:01 05:53 05:53 WBC 7.6 RBC 4.24 Hgb 11.8 L Hct 38 L MCV 89 MCH 28 MCHC 31 RDW 15 Plt Count 200 MPV 7.8 Neut % (Auto) 84.5 Lymph % (Auto) 8.3 [place] % (Auto) 7.0 Eos % (Auto) 0.0 Baso % (Auto) 0.2 Absolute Neuts (auto) 6.4 Absolute Lymphs (auto) 0.6 L Absolute Monos (auto) 0.5 Absolute Eos (auto) 0.0 Absolute Basos (auto) 0.0 Absolute Nucleated RBC 0.0 Nucleated RBC % 0.0 INR (Anticoag Therapy) Patient Temperature Not Reportable ABG pH 7.23 L ABG pH (Temp Correct) Not Reportable ABG pCO2 93 H* ABG pCO2 (Temp Corrct Not Reportable ABG pO2 103 H ABG pO2 (Temp Correct Not Reportable ABG HCO3 30.9 ABG O2 Saturation 98.9 H ABG Base Excess 7.7 H Respiration Rate 22 O2 Delivery Device vent Ventilator Type 500 Vent Mode cmv FiO2 50 Inspiratory Time Not Reportable PEEP 5 Pressure Support Not Reportable Pressure Control Not Reportable EPAP Not Reportable IPAP Not Reportable BiPAP Not Reportable Sodium 138 Potassium 4.7 Chloride 99 L Carbon Dioxide 32 Anion Gap 7 BUN 23 Creatinine 0.72 Est GFR ( Amer) 132.6 Est GFR (Non-Af Amer) 109.6 BUN/Creatinine Ratio 31.9 H Glucose 134 H POC Glucose (mg/dL) Lactic Acid Calcium 8.2 L Total Bilirubin AST ALT Alkaline Phosphatase Troponin I B-Natriuretic Peptide Total Protein Albumin Globulin Albumin/Globulin Ratio 08/07/19 08:55 WBC RBC Hgb Hct MCV MCH MCHC RDW Plt Count MPV Neut % (Auto) Lymph % (Auto) [place] % (Auto) Eos % (Auto) Baso % (Auto) Absolute Neuts (auto) Absolute Lymphs (auto) Absolute Monos (auto) Absolute Eos (auto) Absolute Basos (auto) Absolute Nucleated RBC Nucleated RBC % INR (Anticoag Therapy) Patient Temperature ABG pH ABG pH (Temp Correct) ABG pCO2 ABG pCO2 (Temp Corrct ABG pO2 ABG pO2 (Temp Correct ABG HCO3 ABG O2 Saturation ABG Base Excess Respiration Rate O2 Delivery Device Ventilator Type Vent Mode FiO2 Inspiratory Time PEEP Pressure Support Pressure Control EPAP IPAP BiPAP Sodium Potassium Chloride Carbon Dioxide Anion Gap BUN Creatinine Est GFR ( Amer) Est GFR (Non-Af Amer) BUN/Creatinine Ratio Glucose POC Glucose (mg/dL) 127 H Lactic Acid Calcium Total Bilirubin AST ALT Alkaline Phosphatase Troponin I B-Natriuretic Peptide Total Protein Albumin Globulin Albumin/Globulin Ratio Nutrition: Will initiate tube feeds Impression: 64 y o m with h/o severe COPD with recurrent exacerbations a/w for evaluation of worsening SOB and cough and was intubated for acute on chronic hypercapnic resp failure 1. Acute on chronic hypercapnic resp failure 2.Severe COPD 3. Acute bronchitis Plan: Neuro: Sedation with propofol and versed while on vent. Keep HOB to 30 degrees. Will maintain RASS score at -1 Resp: Acute on chronic hypercapnic resp failure s/p intubation. Vent settings adjusted to minimize auto PEEP. Pt on volume control with set tidal vol at 480, rate of 14, Peak pressure around 30-31, PEEP of 5., FiO2 35%. Will adjust vent settings to achieve adequate ventilation. Vent bundle ordered. Bronchodilators and steroids ordered. Pt on NIPPV at home and is compliant. He is optimized on COPD management however with recurrent exacerbations. CVS: BP borderline secondary to sedation, positive pressure and intrinsic PEEP, not requiring vasopressors, goal MAP around 60. BNP within normal limits, no component of heart failure. GI: Will restart tube feeds and stop early am for possible extubation. GI ppx while on steroids and on ventilator Renal:UO good, no electrolyte abnormalities. endo: Bl sugars slightly elevated sec to steroids Haem: Normocytic anemia. Musculoskeltal: Frequent turning and positioning. Psychosocial: Signficant other updated at bedside Granda catheter to prevent skin breakdown given bedrest status DVT/GI px IV access: Peripheral Full code Critical Care Time: 30 min
[2019-08-07] MEDS: fentaNYL* 50 MCG/ML 2 ML VIAL (100 MCG VIAL) IV SLOW PU PRN ×4 (16:02→22:45)
[2019-08-08] MEDS: Propofol* 100 ML IV SCH ×3 (00:15→10:37)
[2019-08-08] MEDS: fentaNYL* 50 MCG/ML 2 ML VIAL (100 MCG VIAL) IV SLOW PU PRN ×3 (00:45→06:40)
[2019-08-08] MEDS: Chlorhexidine MOUTHWASH 0.12%* 15 ML UDC TOPICAL SCH ×4 (01:11→11:48)
[2019-08-08] MEDS: Lactated Ringers 1000 ML Bag* 1,000 ML IV SCH ×2 (01:12→10:38)
[2019-08-08] MEDS: Azithromycin 500 mg/250 ml NS 500 MG/250 ML BAG IVPB SCH (01:16)
[2019-08-08] MEDS: Pantoprazole IV* 40 MG IV SCH (02:36)
[2019-08-08] MEDS: Albuterol/Ipratropium NEB.SOL* Albuterol 2.5 MG/Ipratropium 0.5 MG 3 ML INH SCH (03:48)
[2019-08-08 05:35] LABS: ABS Lymphocytes 0.7 10^3/ul (1.0-4.8); ABS Monocytes 0.6 10^3/ul (0-0.8); ABS Neutrophils 6.7 10^3/ul (1.5-7.7); Hematocrit 34 % (42-52); Hemoglobin 10.8 g/dL (14.0-18.0); Lymphocyte % 8.9 %; Mean Corpuscular HGB Conc 32 g/dL (31-36); Mean Corpuscular Hemoglobin 28 pg (27-31); Mean Corpuscular Volume 87 fL (80-94); Mean Platelet Volume 7.6 fL (7.4-10.4); Nucleated Red Blood Cells % 0.1; Platelet Count 182 10^3/uL (150-450); Red Blood Count 3.85 10^6 /uL (4.18-5.48); Red Cell Distribution Width 15 % (10-15); White Blood Count 8.1 10^3/uL (3.5-10.8)
[2019-08-08] MEDS: methylPREDNISolone SOD 40 MG* 1 ML VIAL IV SCH ×2 (05:35→17:05)
[2019-08-08 05:51] LABS: Albumin 2.9 g/dL (3.2-5.2); Albumin/Globulin Ratio 1.5 (1-3); BUN/Creatinine Ratio 52.4 (8-20); Calcium 7.8 mg/dL (8.6-10.3); EGFR African American 246.9 (>60); EGFR Non-African American 204.1 (>60); Phosphorus 3.2 mg/dL (2.5-5.0); Potassium 4.1 mmol/L (3.5-5.0); Total Bilirubin 0.3 mg/dL (0.2-1.0); Total Protein 4.9 g/dL (6.4-8.9)
[2019-08-08] MEDS ORDERED: DEXMEDETOMIDINE IV SCH (09:30)
[2019-08-08] MEDS ORDERED: NS 0.9% IV SCH (09:30)
[2019-08-08] MEDS: Albuterol/Ipratropium NEB.SOL* Albuterol 2.5 MG/Ipratropium 0.5 MG 3 ML INH PRN ×2 (11:59→13:03)
[2019-08-08] MEDS ORDERED: LORazepam INJ* 2 MG/ML 1 ML VIAL ONE (14:55)
[2019-08-08] MEDS ORDERED: Lorazepam PYXIS KEY ONE (14:55)
[2019-08-08] MEDS ORDERED: Lorazepam PYXIS KEY PRN ×2 (15:02→16:18)
[2019-08-08] MEDS ORDERED: LORazepam INJ* 2 MG/ML 1 ML VIAL IV PUSH PRN (15:02)
--- NOTE | 2019-08-08 15:10 | PN ---
Date of Service: 08/08/19 Critical Care Services: Weaned and extubated today. Presently on BIPAP and tolerating it well. Is alert and oriented. Vital Signs: Temp Pulse Resp BP SpO2 FiO2 97.3 F 82 18 139/79 98 50 Physical Exam: Gen:Alert, oriented HEENT: No stridor Lungs:BS very distant Cardiac: Reg rhythm Abdomen: Not distended Extremities: 1+ edema LEs. No cyanosis Fluid Balance (Past 24 Hours): 08/08/19 06:59 Intake Total 3597 Output Total 1640 Balance 195 Weight 184 lb 4.903 oz Intake: IV Fluids 1834 LR 1834 IVPB 1204 LR 1204 Medicated IV 559 CC - Dexmedetomidine/ Precedex CC - Propofol/Diprivan 559 IV Narcotic Infusion Versed Oral Output: Granda 1640 Labs: 08/08/19 08/08/19 08/08/19 05:20 05:20 09:25 WBC 8.1 RBC 3.85 L Hgb 10.8 L Hct 34 L MCV 87 MCH 28 MCHC 32 RDW 15 Plt Count 182 MPV 7.6 Neut % (Auto) 83.3 Lymph % (Auto) 8.9 [place] % (Auto) 7.4 Eos % (Auto) 0.0 Baso % (Auto) 0.4 Absolute Neuts (auto) 6.7 Absolute Lymphs (auto) 0.7 L Absolute Monos (auto) 0.6 Absolute Eos (auto) 0.0 Absolute Basos (auto) 0.0 Absolute Nucleated RBC 0.0 Nucleated RBC % 0.1 Sodium 136 Potassium 4.1 Chloride 99 L Carbon Dioxide 34 H Anion Gap 3 BUN 22 Creatinine 0.42 L Est GFR ( Amer) 246.9 Est GFR (Non-Af Amer) 204.1 BUN/Creatinine Ratio 52.4 H Glucose 117 H POC Glucose (mg/dL) 94 Calcium 7.8 L Phosphorus 3.2 Magnesium 2.0 Total Bilirubin 0.30 AST 10 L ALT 10 Alkaline Phosphatase 25 L Total Protein 4.9 L Albumin 2.9 L Globulin 2.0 Albumin/Globulin Ratio 1.5 Studies: Sputum gram's stain - 1+ gram-negative bacilli. All cultures negative so far. Nutrition: Started oral diet - consistent carbs. Impression: COPD with exacerbation - Improved - no longer needs full ventilatory support. No evidence of infection. Plan: Continue present management plan, but d/c antibiotics. Considering this patients end-stage COPD, I will speak with him about future intubations. Critical Care Time: 55 minutes (including time for extubation).
[2019-08-08] MEDS ORDERED: LORazepam INJ* 2 MG/ML 1 ML VIAL IV PUSH ONE (17:00)
[2019-08-08] MEDS: DEXMEDETOMIDINE IV SCH (20:55)
[2019-08-08] MEDS: NS 0.9% IV SCH (20:55)
[2019-08-08] MEDS: Enoxaparin(*) 40 MG/0.4 ML SYR SUBCUT SCH (20:59)
[2019-08-09] MEDS ORDERED: Benzocaine/Menthol LOZ* 1 LOZENGE MT PRN (04:04)
[2019-08-09] MEDS: LORazepam INJ* 2 MG/ML 1 ML VIAL IV PUSH PRN ×3 (04:14→20:26)
[2019-08-09] MEDS: Albuterol/Ipratropium NEB.SOL* Albuterol 2.5 MG/Ipratropium 0.5 MG 3 ML INH PRN ×3 (04:22→10:33)
[2019-08-09] MEDS: methylPREDNISolone SOD 40 MG* 1 ML VIAL IV SCH (05:43)
[2019-08-09] MEDS: NS 0.9% IV SCH (05:44)
[2019-08-09] MEDS: DEXMEDETOMIDINE IV SCH (05:44)
[2019-08-09 06:15] LABS: BUN/Creatinine Ratio 45.9 (8-20); Blood Urea Nitrogen 17 mg/dL (6-24); CO2 Carbon Dioxide 34 mmol/L (22-32); Calcium 7.2 mg/dL (8.6-10.3); Chloride 105 mmol/L (101-111); EGFR African American 285.8 (>60); EGFR Non-African American 236.2 (>60); Glucose 71 mg/dL (70-100); Sodium 143 mmol/L (135-145)
[2019-08-09 06:20] LABS: ABS Lymphocytes 1.3 10^3/ul (1.0-4.8); ABS Monocytes 0.8 10^3/ul (0-0.8); ABS Neutrophils 7.1 10^3/ul (1.5-7.7); Eosinophil % 0.2 %; Hematocrit 36 % (42-52); Hemoglobin 11.5 g/dL (14.0-18.0); Lymphocyte % 13.9 %; Mean Corpuscular HGB Conc 32 g/dL (31-36); Mean Corpuscular Hemoglobin 28 pg (27-31); Mean Corpuscular Volume 88 fL (80-94); Mean Platelet Volume 8.9 fL (7.4-10.4); Nucleated Red Blood Cells % 0.1; Platelet Count 78 10^3/uL (150-450); Red Blood Count 4.07 10^6 /uL (4.18-5.48); Red Cell Distribution Width 14 % (10-15); White Blood Count 9.3 10^3/uL (3.5-10.8)
[2019-08-09 06:21] LABS: Anion Gap 4 mmol/L (2-11)
[2019-08-09] MEDS ORDERED: Calcium Gluconate INJ* 1 GM in NS 0.9% 50 ML* 50 ML IVPB ONE (07:00)
[2019-08-09 07:01] LABS: Mean Platelet Volume 7.7 fL (7.4-10.4); Platelet Count 177 10^3/uL (150-450)
[2019-08-09] MEDS ORDERED: Morphine 10 MG/ML VIAL (1 ml) ONE (09:26)
[2019-08-09] MEDS ORDERED: Morphine INJ* 2 MG/ML 1 ML SYRINGE (TWO MG - NEW SYRINGE VERSION) IV ONE (10:00)
--- NOTE | 2019-08-09 12:50 | PN ---
Date of Service: 08/09/19 Critical Care Services: Remains on BIPAP and tolerating it. Has agreed to DNI/DNR. Vital Signs: Temp Pulse Resp BP SpO2 FiO2 98.8 F 123 24 138/82 95 50 Physical Exam: Gen:Alert, oriented, tachypneic HEENT:BIPAP mask in place Lungs:BS very distant Cardiac: reg rhythm Abdomen:Not distended Extremities:No cyanosis or edema Fluid Balance (Past 24 Hours): 08/08/19 08/09/19 06:59 06:59 Intake Total 3597 3140 Output Total 1640 3375 Balance 7 - Weight 184 lb 4.903 oz 178 lb 12.718 oz Intake: IV Fluids 1834 1119 LR 1834 1066 ns 53 IVPB 1204 LR 1204 Medicated IV 559 496 CC - Dexmedetomidine/ 357 Precedex CC - Propofol/Diprivan 559 139 IV Narcotic Infusion 85 Versed 85 Oral 1440 Output: Urine 210 Granda [id number] [id number] Labs: 08/08/19 08/09/19 08/09/19 04:20 05:49 05:49 WBC 9.3 RBC 4.07 L Hgb 11.5 L Hct 36 L MCV 88 MCH 28 MCHC 32 RDW 14 Plt Count 78 L D MPV 8.9 Neut % (Auto) 76.9 Lymph % (Auto) 13.9 [place] % (Auto) 8.7 Eos % (Auto) 0.2 Baso % (Auto) 0.3 Absolute Neuts (auto) 7.1 Absolute Lymphs (auto) 1.3 Absolute Monos (auto) 0.8 Absolute Eos (auto) 0.0 Absolute Basos (auto) 0.0 Absolute Nucleated RBC 0.0 Nucleated RBC % 0.1 Hem Pathologist Commnt Sodium 143 Potassium TNP Chloride 105 Carbon Dioxide 34 H Anion Gap 4 BUN 17 Creatinine 0.37 L Glucose 71 POC Glucose (mg/dL) 127 H Calcium 7.2 L 08/09/19 08/09/19 06:50 06:50 WBC RBC Hgb Hct MCV MCH MCHC RDW Plt Count 177 MPV 7.7 Neut % (Auto) Lymph % (Auto) [place] % (Auto) Eos % (Auto) Baso % (Auto) Absolute Neuts (auto) Absolute Lymphs (auto) Absolute Monos (auto) Absolute Eos (auto) Absolute Basos (auto) Absolute Nucleated RBC Nucleated RBC % Hem Pathologist Commnt Sodium Potassium 4.2 Chloride Carbon Dioxide Anion Gap BUN Creatinine Est GFR ( Amer) Est GFR (Non-Af Amer) BUN/Creatinine Ratio Glucose POC Glucose (mg/dL) Calcium Studies: None today Nutrition: Oral diet Impression: Clinically stable. although patient has end-stage lung disease with severe CO2 retention. Long-term prognosis is very poor, although it may be possible to discharge patient from hospital soon. No evidence for a treatable infection. Plan: Continue bronchodilators and steroids. Have asked palliative care service to see this patient. Critical Care Time: 40 minuutes (Including talk about DNR/DNI)
[2019-08-09] MEDS: predniSONE TAB* 20 MG PO SCH (16:42)
--- NOTE | 2019-08-09 18:04 | CONSULT ---
Palliative / Hospice Consult Ordering Provider: Emigdio Kearney - PCP-Jason Refervishal Reason: Goals of care/no bowel regimen/MS & ativan - Subjective Code Status: DNR Advance Directives Location: No Advance Directives MOLST Part A Completed: Yes - on chart MOLST Part E Completed:: Yes - on chart - History or Present Illness History or Present Illness: 64yo male with end stage COPD presents to ER with c/o SOB and slight cough. PMH- end stage COPD on home O2 and must use BiPAP whenever he sleeps/naps, Dm type 2 and h/o of etoh abuse, pancreatitis & ascending cholangitis. PSHX- +tob use, no drug use, ex etoh use, with 2 children lives with roommate. Studies-CXR -neg, ekg-sinus tach, H/H 11.5/36, BUN/Cr 17/.37, egfr 45.9, Ca 7.2 and alb 2.9. Pt has had 4 ER visits for SOB and 5 hospitalizations in the last year for COPD exacerbation. He was admitted to ICU intubated with hypercapnic respiratory failure and COPD exacerbation. After pt was extubated he signed DNR/ DNI. All history is from family and medical records, pt didn't want to discuss health issues. Lab Values: Abnormal Lab Results 08/08/19 08/09/19 08/09/19 04:20 05:49 05:49 WBC 9.3 RBC 4.07 L Hgb 11.5 L Hct 36 L MCV 88 MCH 28 MCHC 32 RDW 14 Plt Count 78 L D MPV 8.9 Neut % (Auto) 76.9 Lymph % (Auto) 13.9 Crisp % (Auto) 8.7 Eos % (Auto) 0.2 Baso % (Auto) 0.3 Absolute Neuts (auto) 7.1 Absolute Lymphs (auto) 1.3 Absolute Monos (auto) 0.8 Absolute Eos (auto) 0.0 Absolute Basos (auto) 0.0 Absolute Nucleated RBC 0.0 Nucleated RBC % 0.1 Hem Pathologist Commnt Sodium 143 Potassium TNP Chloride 105 Carbon Dioxide 34 H Anion Gap 4 BUN 17 Creatinine 0.37 L Est GFR ( Amer) 285.8 Est GFR (Non-Af Amer) 236.2 BUN/Creatinine Ratio 45.9 H Glucose 71 POC Glucose (mg/dL) 127 H Calcium 7.2 L 08/09/19 08/09/19 06:50 06:50 WBC RBC Hgb Hct MCV MCH MCHC RDW Plt Count 177 MPV 7.7 Neut % (Auto) Lymph % (Auto) Crisp % (Auto) Eos % (Auto) Baso % (Auto) Absolute Neuts (auto) Absolute Lymphs (auto) Absolute Monos (auto) Absolute Eos (auto) Absolute Basos (auto) Absolute Nucleated RBC Nucleated RBC % Hem Pathologist Commnt Sodium Potassium 4.2 Chloride Carbon Dioxide Anion Gap BUN Creatinine Est GFR ( Amer) Est GFR (Non-Af Amer) BUN/Creatinine Ratio Glucose POC Glucose (mg/dL) Calcium Laboratory Last Values WBC 9.3 10^3/uL (3.5-10.8) 08/09/19 05:49 RBC 4.07 10^6 /uL (4.18-5.48) L 08/09/19 05:49 Hgb 11.5 g/dL (14.0-18.0) L 08/09/19 05:49 Hct 36 % (42-52) L 08/09/19 05:49 MCV 88 fL (80-94) 08/09/19 05:49 MCH 28 pg (27-31) 08/09/19 05:49 MCHC 32 g/dL (31-36) 08/09/19 05:49 RDW 14 % (10-15) 08/09/19 05:49 Plt Count 177 10^3/uL (150-450) 08/09/19 06:50 MPV 7.7 fL (7.4-10.4) 08/09/19 06:50 Neut % (Auto) 76.9 % 08/09/19 05:49 Lymph % (Auto) 13.9 % 08/09/19 05:49 Crisp % (Auto) 8.7 % 08/09/19 05:49 Eos % (Auto) 0.2 % 08/09/19 05:49 Baso % (Auto) 0.3 % 08/09/19 05:49 Absolute Neuts (auto) 7.1 10^3/ul (1.5-7.7) 08/09/19 05:49 Absolute Lymphs (auto) 1.3 10^3/ul (1.0-4.8) 08/09/19 05:49 Absolute Monos (auto) 0.8 10^3/ul (0-0.8) 08/09/19 05:49 Absolute Eos (auto) 0.0 10^3/ul (0-0.6) 08/09/19 05:49 Absolute Basos (auto) 0.0 10^3/ul (0-0.2) 08/09/19 05:49 Absolute Nucleated RBC 0.0 10^3/ul 08/09/19 05:49 Nucleated RBC % 0.1 08/09/19 05:49 Hem Pathologist Commnt 08/09/19 05:49 INR (Anticoag Therapy) 0.90 (0.82-1.09) 08/06/19 18:33 Patient Temperature Not Reportable 08/07/19 00:01 ABG pH 7.23 (7.35-7.45) L 08/07/19 00:01 ABG pH (Temp Correct) Not Reportable 08/07/19 00:01 ABG pCO2 93 mmHg (35-45) H* 08/07/19 00:01 ABG pCO2 (Temp Corrct Not Reportable 08/07/19 00:01 ABG pO2 103 mmHg (80-100) H 08/07/19 00:01 ABG pO2 (Temp Correct Not Reportable 08/07/19 00:01 ABG HCO3 30.9 mmol/L (19-31) 08/07/19 00:01 ABG O2 Saturation 98.9 % (94.0-98.0) H 08/07/19 00:01 ABG Base Excess 7.7 mmol/L (-2.0-2.0) H 08/07/19 00:01 Respiration Rate 22 08/07/19 00:01 O2 Delivery Device vent 08/07/19 00:01 Ventilator Type 500 08/07/19 00:01 Vent Mode cmv 08/07/19 00:01 FiO2 50 08/07/19 00:01 Inspiratory Time Not Reportable 08/07/19 00:01 PEEP 5 08/07/19 00:01 Pressure Support Not Reportable 08/07/19 00:01 Pressure Control Not Reportable 08/07/19 00:01 EPAP Not Reportable 08/07/19 00:01 IPAP Not Reportable 08/07/19 00:01 BiPAP Not Reportable 08/07/19 00:01 Sodium 143 mmol/L (135-145) 08/09/19 05:49 Potassium 4.2 mmol/L (3.5-5.0) 08/09/19 06:50 Chloride 105 mmol/L (101-111) 08/09/19 05:49 Carbon Dioxide 34 mmol/L (22-32) H 08/09/19 05:49 Anion Gap 4 mmol/L (2-11) 08/09/19 05:49 BUN 17 mg/dL (6-24) 08/09/19 05:49 Creatinine 0.37 mg/dL (0.67-1.17) L 08/09/19 05:49 Est GFR ( Amer) 285.8 (>60) 08/09/19 05:49 Est GFR (Non-Af Amer) 236.2 (>60) 08/09/19 05:49 BUN/Creatinine Ratio 45.9 (8-20) H 08/09/19 05:49 Glucose 71 mg/dL (70-100) 08/09/19 05:49 POC Glucose (mg/dL) 94 mg/dL (70-100) 08/08/19 09:25 Lactic Acid 0.3 mmol/L (0.5-2.0) L 08/06/19 18:33 Calcium 7.2 mg/dL (8.6-10.3) L 08/09/19 05:49 Phosphorus 3.2 mg/dL (2.5-5.0) 08/08/19 05:20 Magnesium 2.0 mg/dL (1.9-2.7) 08/08/19 05:20 Total Bilirubin 0.30 mg/dL (0.2-1.0) 08/08/19 05:20 AST 10 U/L (13-39) L 08/08/19 05:20 ALT 10 U/L (7-52) 08/08/19 05:20 Alkaline Phosphatase 25 U/L (34-104) L 08/08/19 05:20 Troponin I 0.01 ng/mL (<0.04) 08/06/19 18:33 B-Natriuretic Peptide 76 pg/mL (<=100) 08/06/19 18:33 Total Protein 4.9 g/dL (6.4-8.9) L 08/08/19 05:20 Albumin 2.9 g/dL (3.2-5.2) L 08/08/19 05:20 Globulin 2.0 g/dL (2-4) 08/08/19 05:20 Albumin/Globulin Ratio 1.5 (1-3) 08/08/19 05:20 - Objective Active Medications: Albuterol/Ipratropium (Duoneb (Albuterol 2.5 Mg/Ipratropium 0.5 Mg)) 1 neb INH Q4H PRN PRN Reason: SOB/WHEEZING Last Admin: 08/09/19 10:33 Dose: 1 neb Enoxaparin Sodium (Lovenox(*)) 40 mg SUBCUT BEDTIME [facility] Last Admin: 08/08/19 20:59 Dose: 40 mg Fentanyl Citrate (Fentanyl*) 25 mcg IV SLOW PU Q2H PRN PRN Reason: PAIN - SEVERE Last Admin: 08/08/19 06:40 Dose: 25 mcg Lorazepam (Ativan Inj*) 1 mg IV PUSH Q4H PRN PRN Reason: ANXIETY Last Admin: 08/09/19 08:35 Dose: 1 mg Miscellaneous (Ativan Pyxis Stinson) 1 ea N/A .ATIVAN IV STINSON PRN PRN Reason: PYXIS STINSON Prednisone (Deltasone Tab*) 60 mg PO DAILY [facility] Last Admin: 08/09/19 16:42 Dose: 60 mg Throat Lozenges (Chloraseptic Faraz*) 1 faraz MT Q4H PRN PRN Reason: SORE THROAT Vital Signs: Vital Signs: Temp Pulse Resp BP Pulse Ox 97.4 F 113 25 149/75 100 08/09/19 15:57 08/09/19 15:57 08/09/19 15:57 08/09/19 15:57 08/09/19 15:57 Patient Weight: Weight 81.1 kg Intake and Output: Intake & Output 08/07/19 08/08/19 08/09/19 08/10/19 06:59 06:59 06:59 06:59 Intake Total 704 1347 3140 540 Output Total 267 9287 6076 250 Balance 79 1957 -982 290 Weight 79.8 kg 83.6 kg 81.1 kg Intake: IV Fluids 625 1834 1119 LR 625 1834 1066 ns 53 IVPB 1204 60 LR 1204 calcium gluconate 60 Medicated IV 79 559 496 CC - Dexmedetomidine/ 357 Precedex CC - Propofol/Diprivan 79 559 139 IV Narcotic Infusion 85 Versed 85 Oral 1440 480 Output: Urine 210 0 Granda 625 1640 3165 250 Other: Estimated Void Medium # Bowel Movements 1 Estimated Stool Amount Small # Voids 1 ADLs: Meal Record Start: 08/07/19 00: 52 Freq: 09,13,18 Status: Complete Protocol: Created 08/07/19 00:52 System (Rec: 08/07/19 00:52 System [id number]-C03) Document 08/08/19 09:00 [id number] (Rec: 08/08/19 10:06 [id number] ICU-C12) Document 08/08/19 17:37 [id number] (Rec: 08/08/19 17:38 [id number] ICU-C06) Document 08/09/19 09:00 [id number] (Rec: 08/09/19 09:17 [id number] ICU-C12) Document 08/09/19 12:59 [id number] (Rec: 08/09/19 13:00 CSQ0836 ICU-C12) ADLs: Meal Record Start: 08/09/19 17: 46 Freq: Status: Active Protocol: Created 08/09/19 17:46 [id number] (Rec: 08/09/19 17:46 [id number] MED-C09) Intake and Output Start: 08/06/19 17: 46 Freq: Status: Active Protocol: Created 08/06/19 17:46 System (Rec: 08/06/19 17:46 System [id number]) Intake and Output Start: 08/07/19 00: 52 Freq: 06,14,2200 Status: Complete Protocol: Created 08/07/19 00:52 System (Rec: 08/07/19 00:52 System RESP-C03) Document 08/07/19 01:00 [id number] (Rec: 08/07/19 02:56 [id number] ICU-M30) Document 08/07/19 02:00 [id number] (Rec: 08/07/19 02:57 [id number] ICU-M30) Document 08/07/19 03:00 GDI7078 (Rec: 08/07/19 03:33 GNP4592 ICU-M30) Document 08/07/19 04:00 WGZ3872 (Rec: 08/07/19 04:17 PCI2495 ICU-M30) Document 08/07/19 05:00 VBL3996 (Rec: 08/07/19 05:01 EJM6664 ICU-M30) Document 08/07/19 06:00 KFB3708 (Rec: 08/07/19 06:07 KHM5339 ICU-M30) Document 08/07/19 06:55 PSV0124 (Rec: 08/07/19 06:56 VGW1927 ICU-M30) Document 08/07/19 08:00 GJC1974 (Rec: 08/07/19 09:09 YOQ5807 ICU-C12) Document 08/07/19 09:00 SJT5195 (Rec: 08/07/19 09:09 [id number] ICU-C12) Document 08/07/19 10:00 ZPO1961 (Rec: 08/07/19 10:09 [id number] ICU-C12) Document 08/07/19 11:00 IJU8889 (Rec: 08/07/19 11:28 HWV8123 ICU-C12) Document 08/07/19 12:00 YZN0881 (Rec: 08/07/19 13:20 [id number] ICU-C12) Document 08/07/19 13:00 NDJ8029 (Rec: 08/07/19 13:20 GPB3433 ICU-C12) Document 08/07/19 14:00 HSB7472 (Rec: 08/07/19 15:01 ZVD3662 ICU-M30) Document 08/07/19 15:00 OYU4194 (Rec: 08/07/19 15:01 DFI2469 ICU-M30) Document 08/07/19 16:00 XLE3266 (Rec: 08/07/19 16:07 JIV0197 ICU-M30) Document 08/07/19 17:00 SYT0780 (Rec: 08/07/19 17:31 CVT5854 ICU-M30) Document 08/07/19 18:00 RFR4084 (Rec: 08/07/19 18:08 [id number] ICU-M30) Document 08/07/19 19:00 LIC3409 (Rec: 08/07/19 19:16 YMF8501 ICU-C15) Co-Sign 08/07/19 19:00 FFV2459 Document 08/07/19 20:00 WZP5837 (Rec: 08/07/19 21:13 NQN1014 ICU-M30) Document 08/07/19 21:00 OTZ3890 (Rec: 08/07/19 21:16 [id number] ICU-M30) Document 08/07/19 22:00 GUR0900 (Rec: 08/07/19 22:12 PVT3472 ICU-M30) Document 08/07/19 23:00 WVA7683 (Rec: 08/07/19 23:03 TZI0022 ICU-M30) Document 08/08/19 00:00 JVC5482 (Rec: 08/08/19 01:14 [id number] ICU-M30) Document 08/08/19 01:00 SCB1359 (Rec: 08/08/19 01:14 WFH8295 ICU-M30) Document 08/08/19 02:00 HUA3542 (Rec: 08/08/19 02:23 [id number] ICU-M30) Document 08/08/19 03:00 PYW9223 (Rec: 08/08/19 03:17 ROB7725 ICU-M30) Document 08/08/19 04:00 MTX7822 (Rec: 08/08/19 04:28 DKY2485 ICU-M30) Document 08/08/19 05:00 CVQ9021 (Rec: 08/08/19 05:29 ETJ2623 ICU-M30) Document 08/08/19 06:00 JKZ4165 (Rec: 08/08/19 06:13 BIH7394 ICU-M30) Document 08/08/19 07:00 QZH9158 (Rec: 08/08/19 07:09 UEI8621 ICU-M30) Document 08/08/19 08:00 KMZ5441 (Rec: 08/08/19 10:05 AHR9653 ICU-C12) Document 08/08/19 09:00 QQN2043 (Rec: 08/08/19 10:05 UTX9394 ICU-C12) Document 08/08/19 10:00 WYV6566 (Rec: 08/08/19 10:05 APF9068 ICU-C12) Document 08/08/19 11:00 LFZ1318 (Rec: 08/08/19 11:30 MPG4959 ICU-C12) Document 08/08/19 12:00 VDD7096 (Rec: 08/08/19 12:42 ZOT7506 ICU-C12) Document 08/08/19 13:00 AZB5543 (Rec: 08/08/19 13:03 BRJ8876 ICU-C12) Document 08/08/19 14:00 OQH2942 (Rec: 08/08/19 14:26 EWC5893 ICU-C12) Document 08/08/19 15:00 UBA1483 (Rec: 08/08/19 15:03 DQZ7022 ICU-C12) Document 08/08/19 16:00 LQV3149 (Rec: 08/08/19 16:13 VMW1414 ICU-C12) Document 08/08/19 16:30 BKB2043 (Rec: 08/08/19 16:32 SNK0975 ICU-C06) Document 08/08/19 17:37 UIW1201 (Rec: 08/08/19 17:38 [id number] ICU-C06) Document 08/08/19 19:00 LXU6156 (Rec: 08/08/19 20:41 [id number] ICU-C12) Document 08/08/19 20:00 LRW9528 (Rec: 08/08/19 20:41 [id number] ICU-C12) Document 08/08/19 21:00 IPV3185 (Rec: 08/08/19 21:21 MGV0551 ICU-C12) Document 08/08/19 22:00 PCD7952 (Rec: 08/09/19 00:45 RTF9421 ICU-C12) Document 08/08/19 23:00 BIK8149 (Rec: 08/09/19 00:45 [id number] ICU-C12) Document 08/09/19 00:00 ZUJ1819 (Rec: 08/09/19 00:45 [id number] ICU-C12) Document 08/09/19 01:00 UOS3661 (Rec: 08/09/19 01:16 VLF3531 ICU-C12) Document 08/09/19 02:00 NRF2455 (Rec: 08/09/19 02:32 NOC4722 ICU-C12) Document 08/09/19 05:00 UFG8566 (Rec: 08/09/19 05:01 OJO8782 ICU-C12) Document 08/09/19 06:17 MMZ7501 (Rec: 08/09/19 06:17 XGP0918 ICU-C12) Document 08/09/19 07:00 XYN4160 (Rec: 08/09/19 07:38 NPS1800 ICU-C12) Document 08/09/19 08:00 OQF1614 (Rec: 08/09/19 08:43 [id number] ICU-C12) Document 08/09/19 09:00 RGJ3884 (Rec: 08/09/19 09:16 WEL7477 ICU-C12) Document 08/09/19 10:00 DEK9279 (Rec: 08/09/19 10:09 [id number] ICU-C12) Document 08/09/19 14:00 KHS3035 (Rec: 08/09/19 14:44 [id number] ICU-C20) Eyes: No Scleral Icterus Ears/Nose/Mouth/Throat: NL Teeth, Lips, Gums, Clear Oropharnyx Neck: NL Appearance and Movements; NL JVP Cardiovascular: NL Sounds; No Murmurs; No JVD Respiratory: Symmetrical Chest Expansion and Respiratory Effort, Clear to Auscultation Abdominal: NL Sounds; No Tenderness; No Distention Extremities: No Edema Neurological: Alert and Oriented x 3 - Assessment Assessment: 64you male with end stage COPD presents with hypercapnic respiratory failure and COPD exacerbation - Plan Consult Plan (MU): Palliative Plan: Long discussion with ex who is pt's HCP and their 2 daughters. Pt not wanting to talk today. Explained to family that pt has end stage COPD and would qualify for hospice. I did give information on hospice and where is can be received(home, SNF & residence). Family declined hospice at this time but is eager to try outpatient palliative care to cut down on hospital admissions and ER visits. Also to get pt and family ready for hospice since ex is willing to care for pt in her home when he is ready. Pt completed DNR/DNI with glassware maker this morning after being extubated. Hospice eligible with diagnosis of end stage COPD and frequent hospitalizations. KPS 70%, PPS 60% - Time On Unit Date of Evaluation: 08/09/19 Hospice Consult Time in: 13:30 Hospice Consult Time Out: 14:30 Hospice Consult Time Total: 60 > 50% of Time Spend In Counseling or Coordinating Care: Yes
[2019-08-09] MEDS: Enoxaparin(*) 40 MG/0.4 ML SYR SUBCUT SCH (20:27)
[2019-08-10] MEDS: fentaNYL* 50 MCG/ML 2 ML VIAL (100 MCG VIAL) IV SLOW PU PRN (01:48)
[2019-08-10] MEDS: LORazepam INJ* 2 MG/ML 1 ML VIAL IV PUSH PRN ×2 (01:48→11:56)
--- NOTE | 2019-08-10 08:15 | PN ---
Subjective Date of Service: 08/10/19 Interval History: HOSPITALIST PROGRESS NOTE Patient seen and examined at bedside. Care reviewed and d/w Alivia Waldrop RN. He states he's feeling well, and hopeful danish herbs will help his COPD. When I told him he didn't look comfortable, he agreed; when I said his breathing seemed to be really difficulty, he agreed with that statement too. Family History: Unchanged from Admission Social History: Unchanged from Admission Past Medical History: Unchanged from Admission Objective Active Medications: Albuterol/Ipratropium (Duoneb (Albuterol 2.5 Mg/Ipratropium 0.5 Mg)) 1 neb INH Q4H PRN PRN Reason: SOB/WHEEZING Last Admin: 08/09/19 10:33 Dose: 1 neb Enoxaparin Sodium (Lovenox(*)) 40 mg SUBCUT BEDTIME ANAT Last Admin: 08/09/19 20:27 Dose: 40 mg Fentanyl Citrate (Fentanyl*) 25 mcg IV SLOW PU Q2H PRN PRN Reason: PAIN - SEVERE Last Admin: 08/10/19 01:48 Dose: 25 mcg Lorazepam (Ativan Inj*) 1 mg IV PUSH Q4H PRN PRN Reason: ANXIETY Last Admin: 08/10/19 01:48 Dose: 1 mg Miscellaneous (Ativan Pyxis Stinson) 1 ea N/A .ATIVAN IV STINSON PRN PRN Reason: PYXIS STINSON Prednisone (Deltasone Tab*) 60 mg PO DAILY [facility] Last Admin: 08/09/19 16:42 Dose: 60 mg Throat Lozenges (Chloraseptic Faraz*) 1 faraz MT Q4H PRN PRN Reason: SORE THROAT Vital Signs - 8 hr 08/10/19 08/10/19 08/10/19 01:48 02:45 03:32 Temperature 97.8 F Pulse Rate 103 Respiratory 26 20 20 Rate Blood Pressure 117/61 (mmHg) O2 Sat by Pulse 98 Oximetry 08/10/19 04:53 Temperature Pulse Rate Respiratory 20 Rate Blood Pressure (mmHg) O2 Sat by Pulse Oximetry Oxygen Devices in Use Now: Nasal Cannula - 10 liters Appearance: Pleasant gentleman sitting up in a chair in mild respiratory distress. Eyes: No Scleral Icterus Ears/Nose/Mouth/Throat: Mucous Membranes Moist Neck: Trachea Midline Respiratory: Symmetrical Chest Expansion and Respiratory Effort, - - BS+ bilaterally, very diminished Cardiovascular: RRR - Normal S1 and S2 Neurological: Alert and Oriented x 3, NL Muscle Strength and Tone Result Diagrams: 08/09/19 06:50 08/09/19 06:50 Assess/Plan/Problems-Billing Assessment: Mr Cerna is a 64yo M with PMH of end stage COPD, tobacco abuse, type 2 DM, prior h/o ETOH abuse, pancreatitis, ascending cholangitis, who presented to ED with c/o shortness of breath, found to have hypercapnic respiratory failure requiring intubation. Transferred out of ICU on 08/09/19. - Patient Problems (1) Acute hypercapnic respiratory failure Comment: - Acute on chronic. - Secondary end stage COPD and non compliance with Trilogy. (2) End stage COPD Comment: - At this point, I believe his best option is to me discharged home with Hospice. He HCP was present during our conversation and will start arrangements. - Palliative care f/u requested to continue conversations. - Patient states he understands his condition, but thinks he may have 1 year to live. I think he has much less time. - Continue bronchodilators, steroids, O2, BiPAP for naps and at night. - Will add Morphine for comfort. (3) Type 2 diabetes mellitus Comment: - Controlled off meds. (4) DVT prophylaxis Comment: - Lovenox. (5) DNR (do not resuscitate) Status and Disposition: Inpatient. Arrangements being made for d/c home with Hospice.
[2019-08-10] MEDS: predniSONE TAB* 20 MG PO SCH (09:16)
[2019-08-10] MEDS: Morphine INJ* 2 MG/ML 1 ML SYRINGE (TWO MG - NEW SYRINGE VERSION) IV PRN ×3 (10:51→22:35)
[2019-08-10] MEDS: Morphine ORAL CONCENTRATE* 5 MG/0.25 ML ORAL.SYRIN SL PRN ×2 (11:57→18:17)
[2019-08-10] MEDS: Albuterol/Ipratropium NEB.SOL* Albuterol 2.5 MG/Ipratropium 0.5 MG 3 ML INH PRN ×2 (12:26→19:34)
[2019-08-10] MEDS: Enoxaparin(*) 40 MG/0.4 ML SYR SUBCUT SCH (20:13)
[2019-08-11] MEDS: Morphine INJ* 2 MG/ML 1 ML SYRINGE (TWO MG - NEW SYRINGE VERSION) IV PRN ×4 (05:32→23:13)
[2019-08-11] MEDS: Morphine ORAL CONCENTRATE* 5 MG/0.25 ML ORAL.SYRIN SL PRN ×2 (05:40→09:13)
[2019-08-11] MEDS: predniSONE TAB* 20 MG PO SCH (09:13)
[2019-08-11] MEDS: LORazepam INJ* 2 MG/ML 1 ML VIAL IV PUSH PRN ×2 (10:39→19:56)
--- NOTE | 2019-08-11 12:12 | PN ---
Subjective Date of Service: 08/11/19 Interval History: Patient sleeping, arouse to shaking shoulder. When awakened, somnolent, did not remember me. I was PCP for years until recently. States breathing OK Family History: Unchanged from Admission Social History: Unchanged from Admission Past Medical History: Unchanged from Admission Objective Active Medications: Albuterol/Ipratropium (Duoneb (Albuterol 2.5 Mg/Ipratropium 0.5 Mg)) 1 neb INH Q4H PRN PRN Reason: SOB/WHEEZING Last Admin: 08/10/19 19:34 Dose: 1 neb Enoxaparin Sodium (Lovenox(*)) 40 mg SUBCUT BEDTIME ANAT Last Admin: 08/10/19 20:13 Dose: 40 mg Lorazepam (Ativan Inj*) 1 mg IV PUSH Q4H PRN PRN Reason: ANXIETY Last Admin: 08/11/19 10:39 Dose: 1 mg Miscellaneous (Ativan Pyxis Stinson) 1 ea N/A .ATIVAN IV STINSON PRN PRN Reason: PYXIS STINSON Morphine Sulfate (Morphine Inj (Syringe))*) 1 mg IV Q1H PRN PRN Reason: Severe Pain/ Tachypnea RR>24 Last Admin: 08/11/19 10:44 Dose: 1 mg Morphine Sulfate (Morphine Oral Concentrate*) 5 mg SL Q2H PRN PRN Reason: Severe pain/ Tachypnea RR>24 Last Admin: 08/11/19 09:13 Dose: 5 mg Prednisone (Deltasone Tab*) 60 mg PO DAILY [facility] Last Admin: 08/11/19 09:13 Dose: 60 mg Throat Lozenges (Chloraseptic Faraz*) 1 faraz MT Q4H PRN PRN Reason: SORE THROAT Last Admin: 08/11/19 05:40 Dose: 1 faraz Vital Signs - 8 hr 08/11/19 08/11/19 08/11/19 05:32 05:40 07:00 Temperature 36.4 C Pulse Rate 96 Respiratory 24 24 18 Rate Blood Pressure 136/81 (mmHg) O2 Sat by Pulse 100 Oximetry 08/11/19 08/11/19 08/11/19 08:00 09:13 10:30 Temperature Pulse Rate Respiratory 18 18 18 Rate Blood Pressure (mmHg) O2 Sat by Pulse Oximetry 08/11/19 08/11/19 08/11/19 10:39 10:44 11:45 Temperature Pulse Rate Respiratory 18 22 18 Rate Blood Pressure (mmHg) O2 Sat by Pulse Oximetry 08/11/19 08/11/19 12:05 12:06 Temperature Pulse Rate Respiratory 18 18 Rate Blood Pressure (mmHg) O2 Sat by Pulse Oximetry Oxygen Devices in Use Now: Nasal Cannula Appearance: somnolent Ears/Nose/Mouth/Throat: Clear Oropharnyx Neck: No Thyroid Enlargement, Masses Respiratory: Symmetrical Chest Expansion and Respiratory Effort, - - diminished throughout Cardiovascular: NL Sounds; No Murmurs; No JVD Lines/Tubes/Other Access: Clean, Dry and Intact Peripheral IV Nutrition: Taking PO's Result Diagrams: 08/09/19 06:50 08/09/19 06:50 Microbiology and Other Data: Microbiology 08/07/19 08:10 Sputum Gram Stain - Final 08/07/19 08:10 Sputum Sputum Culture - Final Stenotrophomas Maltophilia 08/07/19 01:20 Nasal Nasal Screen MRSA (PCR) - Final Mrsa Not Detected 08/06/19 18:35 Blood Venous Aerobic Blood Culture - Preliminary 08/06/19 18:35 Blood Venous Anaerobic Blood Culture - Preliminary No Growth Day 4 No Growth Day 4 08/06/19 18:33 Blood Venous Aerobic Blood Culture - Preliminary 08/06/19 18:33 Blood Venous Anaerobic Blood Culture - Preliminary No Growth Day 4 No Growth Day 4 Assess/Plan/Problems-Billing Assessment: Mr Cerna is a 64yo M with PMH of end stage COPD, tobacco abuse, type 2 DM, prior h/o ETOH abuse, pancreatitis, ascending cholangitis, who presented to ED with c/o shortness of breath, found to have hypercapnic respiratory failure requiring intubation. Transferred out of ICU on 08/09/19. - Patient Problems (1) Acute hypercapnic respiratory failure Current Visit: Yes Status: Acute Priority: High Code(s): J96.02 - ACUTE RESPIRATORY FAILURE WITH HYPERCAPNIA SNOMED Code(s): 445687436 Comment: - Acute on chronic. This is 3rd admission w/ intubation this year, 5th admission overall. - Secondary end stage COPD and non compliance with Trilogy. (2) Type 2 diabetes mellitus Current Visit: Yes Status: Chronic Priority: Medium Comment: - Controlled off meds. (3) DVT prophylaxis Current Visit: Yes Status: Acute Priority: Medium Code(s): VLC3964 - SNOMED Code(s): 190504970 Comment: - Lovenox. Status and Disposition: Inpatient. Arrangements being made for d/c home with Hospice. Counseling and/or Coordination of Care Minutes: Discussed case with ex- who will take him home and Dr. Thomas
[2019-08-11] MEDS: Enoxaparin(*) 40 MG/0.4 ML SYR SUBCUT SCH (23:13)
[2019-08-12] MEDS: Morphine INJ* 2 MG/ML 1 ML SYRINGE (TWO MG - NEW SYRINGE VERSION) IV PRN ×4 (03:07→12:49)
[2019-08-12] MEDS: LORazepam INJ* 2 MG/ML 1 ML VIAL IV PUSH PRN ×3 (06:40→16:28)
[2019-08-12] MEDS: Morphine ORAL CONCENTRATE* 5 MG/0.25 ML ORAL.SYRIN SL PRN ×3 (07:46→16:29)
[2019-08-12] MEDS: predniSONE TAB* 20 MG PO SCH (07:49)
--- NOTE | 2019-08-12 14:42 | PN ---
Subjective Date of Service: 08/12/19 Interval History: Patient sleeping w/ BiPAP. Spoke with his partner, with whom he lives. She understands plan for hospice, going home with ex-, daughter. Family History: Unchanged from Admission Social History: Unchanged from Admission Past Medical History: Unchanged from Admission Objective Active Medications: Albuterol/Ipratropium (Duoneb (Albuterol 2.5 Mg/Ipratropium 0.5 Mg)) 1 neb INH Q4H PRN PRN Reason: SOB/WHEEZING Last Admin: 08/10/19 19:34 Dose: 1 neb Enoxaparin Sodium (Lovenox(*)) 40 mg SUBCUT BEDTIME ANAT Last Admin: 08/11/19 23:13 Dose: 40 mg Lorazepam (Ativan Inj*) 1 mg IV PUSH Q4H PRN PRN Reason: ANXIETY Last Admin: 08/12/19 12:48 Dose: 1 mg Miscellaneous (Ativan Pyxis Stinson) 1 ea N/A .ATIVAN IV STINSON PRN PRN Reason: PYXIS STINSON Morphine Sulfate (Morphine Inj (Syringe))*) 1 mg IV Q1H PRN PRN Reason: Severe Pain/ Tachypnea RR>24 Last Admin: 08/12/19 12:49 Dose: 1 mg Morphine Sulfate (Morphine Oral Concentrate*) 5 mg SL Q2H PRN PRN Reason: Severe pain/ Tachypnea RR>24 Last Admin: 08/12/19 12:48 Dose: 5 mg Prednisone (Deltasone Tab*) 60 mg PO DAILY [facility] Last Admin: 08/12/19 07:49 Dose: 60 mg Throat Lozenges (Chloraseptic Faraz*) 1 faraz MT Q4H PRN PRN Reason: SORE THROAT Last Admin: 08/11/19 05:40 Dose: 1 faraz Vital Signs - 8 hr 08/12/19 08/12/19 08/12/19 07:00 07:46 08:00 Temperature 36.2 C Pulse Rate 106 Respiratory 22 22 22 Rate Blood Pressure 146/76 (mmHg) O2 Sat by Pulse 94 Oximetry 08/12/19 08/12/19 08/12/19 11:00 12:48 12:49 Temperature 36.3 C Pulse Rate 113 Respiratory 20 22 22 Rate Blood Pressure 143/78 (mmHg) O2 Sat by Pulse 92 Oximetry Oxygen Devices in Use Now: Nasal Cannula, BiPAP Appearance: sleeping Result Diagrams: 08/09/19 06:50 08/09/19 06:50 Assess/Plan/Problems-Billing Assessment: Mr Cerna is a 64yo M with PMH of end stage COPD, tobacco abuse, type 2 DM, prior h/o ETOH abuse, pancreatitis, ascending cholangitis, who presented to ED with c/o shortness of breath, found to have hypercapnic respiratory failure requiring intubation. Transferred out of ICU on 08/09/19. - Patient Problems (1) Acute hypercapnic respiratory failure Current Visit: Yes Status: Acute Priority: High Code(s): J96.02 - ACUTE RESPIRATORY FAILURE WITH HYPERCAPNIA SNOMED Code(s): 154927126 Comment: - Acute on chronic. This is 3rd admission w/ intubation this year, 5th admission overall. - Secondary end stage COPD and non compliance with Trilogy. - Plan is for hospice Thursday, stay in hospital until then (2) Type 2 diabetes mellitus Current Visit: Yes Status: Chronic Priority: Medium Comment: - Controlled off meds. (3) DVT prophylaxis Current Visit: Yes Status: Acute Priority: Medium Code(s): [id number] - SNOMED Code(s): 066349260 Comment: - Lovenox. Status and Disposition: Inpatient. Arrangements being made for d/c home with Hospice.
[2019-08-12] MEDS ORDERED: Acetaminophen TAB* 325 MG PO PRN (20:25)
[2019-08-12] MEDS: Enoxaparin(*) 40 MG/0.4 ML SYR SUBCUT SCH (20:58)
[2019-08-13] MEDS: Albuterol/Ipratropium NEB.SOL* Albuterol 2.5 MG/Ipratropium 0.5 MG 3 ML INH PRN (03:53)
[2019-08-13] MEDS: Morphine ORAL CONCENTRATE* 5 MG/0.25 ML ORAL.SYRIN SL PRN ×5 (09:19→19:47)
[2019-08-13] MEDS: predniSONE TAB* 20 MG PO SCH (09:19)
[2019-08-13] MEDS: Morphine INJ* 2 MG/ML 1 ML SYRINGE (TWO MG - NEW SYRINGE VERSION) IV PRN ×2 (09:19→13:05)
[2019-08-13] MEDS: LORazepam INJ* 2 MG/ML 1 ML VIAL IV PUSH PRN ×2 (13:05→17:28)
--- NOTE | 2019-08-13 16:43 | PN ---
Subjective Date of Service: 08/13/19 Interval History: Patient has been a bit agitated, sitting in chair, moving around more. He seems a bit more alert. Asking about the plan. Family History: Unchanged from Admission Social History: Unchanged from Admission Past Medical History: Unchanged from Admission Objective Active Medications: Acetaminophen (Tylenol Tab*) 650 mg PO Q6H PRN PRN Reason: PAIN - MILD Last Admin: 08/12/19 20:58 Dose: 650 mg Albuterol/Ipratropium (Duoneb (Albuterol 2.5 Mg/Ipratropium 0.5 Mg)) 1 neb INH Q4H PRN PRN Reason: SOB/WHEEZING Last Admin: 08/13/19 03:53 Dose: 1 neb Enoxaparin Sodium (Lovenox(*)) 40 mg SUBCUT BEDTIME [facility] Last Admin: 08/12/19 20:58 Dose: 40 mg Lorazepam (Ativan Inj*) 1 mg IV PUSH Q4H PRN PRN Reason: ANXIETY Last Admin: 08/13/19 13:05 Dose: 1 mg Morphine Sulfate (Morphine Inj (Syringe))*) 1 mg IV Q1H PRN PRN Reason: Severe Pain/ Tachypnea RR>24 Last Admin: 08/13/19 13:05 Dose: 1 mg Morphine Sulfate (Morphine Oral Concentrate*) 5 mg SL Q2H PRN PRN Reason: Severe pain/ Tachypnea RR>24 Last Admin: 08/13/19 14:39 Dose: 5 mg Prednisone (Deltasone Tab*) 60 mg PO DAILY [facility] Last Admin: 08/13/19 09:19 Dose: 60 mg Throat Lozenges (Chloraseptic Faraz*) 1 faraz MT Q4H PRN PRN Reason: SORE THROAT Last Admin: 08/11/19 05:40 Dose: 1 faraz Vital Signs - 8 hr 08/13/19 08/13/19 08/13/19 09:19 10:20 11:15 Respiratory 22 22 22 Rate 08/13/19 08/13/19 08/13/19 11:52 13:05 14:39 Respiratory 18 22 20 Rate Oxygen Devices in Use Now: BiPAP Appearance: alert, wearing BiPAP Respiratory: Symmetrical Chest Expansion and Respiratory Effort, Clear to Auscultation, - - diminished Cardiovascular: NL Sounds; No Murmurs; No JVD Lines/Tubes/Other Access: Clean, Dry and Intact Peripheral IV Nutrition: Taking PO's Result Diagrams: 08/09/19 06:50 08/09/19 06:50 Assess/Plan/Problems-Billing Assessment: Mr Cerna is a 64yo M with PMH of end stage COPD, tobacco abuse, type 2 DM, prior h/o ETOH abuse, pancreatitis, ascending cholangitis, who presented to ED with c/o shortness of breath, found to have hypercapnic respiratory failure requiring intubation. Transferred out of ICU on 08/09/19. - Patient Problems (1) Acute hypercapnic respiratory failure Current Visit: Yes Status: Acute Priority: High Code(s): J96.02 - ACUTE RESPIRATORY FAILURE WITH HYPERCAPNIA SNOMED Code(s): 721214248 Comment: - Acute on chronic. This is 3rd admission w/ intubation this year, 5th admission overall. - Secondary end stage COPD and non compliance with Trilogy. - Plan is for hospice Thursday, stay in hospital until then (2) Type 2 diabetes mellitus Current Visit: Yes Status: Chronic Priority: Low Comment: - Controlled off meds. (3) DVT prophylaxis Current Visit: Yes Status: Acute Priority: Low Code(s): QSE6156 - SNOMED Code(s): 056743061 Comment: - Lovenox. (4) End stage COPD Current Visit: Yes Status: Acute Priority: Medium Code(s): J44.9 - CHRONIC OBSTRUCTIVE PULMONARY DISEASE, UNSPECIFIED SNOMED Code(s): 395730613 Comment: -Tapering prednisone Status and Disposition: Inpatient. Arrangements being made for d/c home with Hospice.
[2019-08-13] MEDS: Enoxaparin(*) 40 MG/0.4 ML SYR SUBCUT SCH (22:24)
[2019-08-14] MEDS: Morphine ORAL CONCENTRATE* 5 MG/0.25 ML ORAL.SYRIN SL PRN ×3 (03:20→20:31)
[2019-08-14] MEDS: LORazepam INJ* 2 MG/ML 1 ML VIAL IV PUSH PRN ×2 (03:43→10:53)
--- NOTE | 2019-08-14 10:29 | PN ---
Subjective Date of Service: 08/14/19 Interval History: Patient was resting quietly on BiPAP when I entered. When awoken, he is gesturing about his BiPAP. I took off BiPAP, but he could not articulate the problem Family History: Unchanged from Admission Social History: Unchanged from Admission Past Medical History: Unchanged from Admission Objective Active Medications: Acetaminophen (Tylenol Tab*) 650 mg PO Q6H PRN PRN Reason: PAIN - MILD Last Admin: 08/12/19 20:58 Dose: 650 mg Albuterol/Ipratropium (Duoneb (Albuterol 2.5 Mg/Ipratropium 0.5 Mg)) 1 neb INH Q4H PRN PRN Reason: SOB/WHEEZING Last Admin: 08/13/19 03:53 Dose: 1 neb Enoxaparin Sodium (Lovenox(*)) 40 mg SUBCUT BEDTIME [facility] Last Admin: 08/13/19 22:24 Dose: 40 mg Lorazepam (Ativan Inj*) 1 mg IV PUSH Q4H PRN PRN Reason: ANXIETY Last Admin: 08/14/19 03:43 Dose: 1 mg Morphine Sulfate (Morphine Inj (Syringe))*) 1 mg IV Q1H PRN PRN Reason: Severe Pain/ Tachypnea RR>24 Last Admin: 08/13/19 13:05 Dose: 1 mg Morphine Sulfate (Morphine Oral Concentrate*) 5 mg SL Q2H PRN PRN Reason: Severe pain/ Tachypnea RR>24 Last Admin: 08/14/19 03:20 Dose: 5 mg Prednisone (Deltasone Tab*) 50 mg PO DAILY [facility] Throat Lozenges (Chloraseptic Faraz*) 1 faraz MT Q4H PRN PRN Reason: SORE THROAT Last Admin: 08/11/19 05:40 Dose: 1 faraz Vital Signs - 8 hr 08/14/19 08/14/19 08/14/19 03:00 03:20 03:43 Temperature 36.3 C Pulse Rate 102 Respiratory 20 24 24 Rate Blood Pressure 133/76 (mmHg) O2 Sat by Pulse 100 Oximetry 08/14/19 06:18 Temperature Pulse Rate Respiratory 20 Rate Blood Pressure (mmHg) O2 Sat by Pulse Oximetry Oxygen Devices in Use Now: BiPAP Appearance: sleeping, aroused to light touch Eyes: No Scleral Icterus Respiratory: Symmetrical Chest Expansion and Respiratory Effort, - - very diminished throughout Cardiovascular: NL Sounds; No Murmurs; No JVD Lines/Tubes/Other Access: Clean, Dry and Intact Peripheral IV Result Diagrams: 08/09/19 06:50 08/09/19 06:50 Assess/Plan/Problems-Billing Assessment: Mr Cerna is a 64yo M with PMH of end stage COPD, tobacco abuse, type 2 DM, prior h/o ETOH abuse, pancreatitis, ascending cholangitis, who presented to ED with c/o shortness of breath, found to have hypercapnic respiratory failure requiring intubation. Transferred out of ICU on 08/09/19. - Patient Problems (1) Acute hypercapnic respiratory failure Current Visit: Yes Status: Acute Priority: High Code(s): J96.02 - ACUTE RESPIRATORY FAILURE WITH HYPERCAPNIA SNOMED Code(s): 764846360 Comment: - Acute on chronic. This is 3rd admission w/ intubation this year, 5th admission overall. - Plan is for hospice Thursday, stay in hospital until then (2) Type 2 diabetes mellitus Current Visit: Yes Status: Chronic Priority: Low Comment: - Controlled off meds. (3) DVT prophylaxis Current Visit: Yes Status: Acute Priority: Low Code(s): WPC8945 - SNOMED Code(s): 847418625 Comment: - Lovenox. (4) End stage COPD Current Visit: Yes Status: Acute Priority: Medium Code(s): J44.9 - CHRONIC OBSTRUCTIVE PULMONARY DISEASE, UNSPECIFIED SNOMED Code(s): 796308364 Comment: -Tapering prednisone, would cut to 40 mg tomorrow. Status and Disposition: Inpatient. Arrangements being made for d/c home with Hospice. Counseling and/or Coordination of Care Minutes: Discussed case with nurse Judith and ex-
[2019-08-14] MEDS: predniSONE TAB* 50 MG PO SCH (10:37)
[2019-08-14] MEDS: LORazepam TAB(*) 1 MG PO PRN ×2 (15:14→20:32)
[2019-08-14] MEDS: Albuterol/Ipratropium NEB.SOL* Albuterol 2.5 MG/Ipratropium 0.5 MG 3 ML INH PRN (18:06)
[2019-08-14] MEDS: Enoxaparin(*) 40 MG/0.4 ML SYR SUBCUT SCH (20:32)
[2019-08-15] MEDS: predniSONE TAB* 50 MG PO SCH (07:34)
--- NOTE | 2019-08-15 08:12 | PN ---
Subjective Date of Service: 08/15/19 Interval History: HOSPITALIST PROGRESS NOTE Patient seen and examined at bedside. Care reviewed and d/w Paula Mascorro RN. He offers no new complaints today; comfortable on BiPAP. Family History: Unchanged from Admission Social History: Unchanged from Admission Past Medical History: Unchanged from Admission Objective Active Medications: Acetaminophen (Tylenol Tab*) 650 mg PO Q6H PRN PRN Reason: PAIN - MILD Last Admin: 08/12/19 20:58 Dose: 650 mg Albuterol/Ipratropium (Duoneb (Albuterol 2.5 Mg/Ipratropium 0.5 Mg)) 1 neb INH Q4H PRN PRN Reason: SOB/WHEEZING Last Admin: 08/14/19 18:06 Dose: 1 neb Enoxaparin Sodium (Lovenox(*)) 40 mg SUBCUT BEDTIME [facility] Last Admin: 08/14/19 20:32 Dose: 40 mg Lorazepam (Ativan Tab(*)) 1 mg PO Q4H PRN PRN Reason: ANXIETY Last Admin: 08/14/19 20:32 Dose: 1 mg Miscellaneous (Ativan Pyxis Loco) 1 ea N/A .ATIVAN IV LOCO PRN PRN Reason: PYXIS LOCO Morphine Sulfate (Morphine Inj (Syringe))*) 1 mg IV Q1H PRN PRN Reason: Severe Pain/ Tachypnea RR>24 Last Admin: 08/13/19 13:05 Dose: 1 mg Morphine Sulfate (Morphine Oral Concentrate*) 5 mg SL Q2H PRN PRN Reason: Severe pain/ Tachypnea RR>24 Last Admin: 08/14/19 20:31 Dose: 5 mg Prednisone (Deltasone Tab*) 50 mg PO DAILY [facility] Last Admin: 08/15/19 07:34 Dose: 50 mg Throat Lozenges (Chloraseptic Faraz*) 1 faraz MT Q4H PRN PRN Reason: SORE THROAT Last Admin: 08/11/19 05:40 Dose: 1 faraz Vital Signs - 8 hr 08/15/19 08/15/19 08/15/19 00:36 00:38 03:45 Temperature 97.4 F Pulse Rate 86 Respiratory 18 18 18 Rate Blood Pressure 113/60 (mmHg) O2 Sat by Pulse 100 Oximetry 09/30/19 09/30/19 07:12 07:13 Temperature 97.9 F Pulse Rate 85 Respiratory 18 18 Rate Blood Pressure 119/65 (mmHg) O2 Sat by Pulse 98 Oximetry Oxygen Devices in Use Now: BiPAP Appearance: Pleasant gentleman sitting up in a chair in NAD Eyes: No Scleral Icterus Ears/Nose/Mouth/Throat: Mucous Membranes Moist Neck: Trachea Midline Respiratory: Symmetrical Chest Expansion and Respiratory Effort, - - BS+ bilaterally diminished with no added sounds Cardiovascular: RRR - Normal S1 and S2 Neurological: - - AAOx2 (self and place), JIMÉNEZ Result Diagrams: 08/09/19 06:50 08/09/19 06:50 Assess/Plan/Problems-Billing Assessment: Mr Cerna is a 64yo M with PMH of end stage COPD, tobacco abuse, type 2 DM, prior h/o ETOH abuse, pancreatitis, ascending cholangitis, who presented to ED with c/o shortness of breath, found to have hypercapnic respiratory failure requiring intubation. Transferred out of ICU on 08/09/19. - Patient Problems (1) Acute hypercapnic respiratory failure Comment: - Acute on chronic. This is 3rd admission w/ intubation this year, 5th admission overall. - Plan is for hospice Thursday, stay in hospital until then (2) End stage COPD Comment: - Continue prednisone taper, bronchodilators, Morphine and Ativan PRN. (3) Type 2 diabetes mellitus Comment: - Controlled off meds. (4) DVT prophylaxis Comment: - Lovenox. (5) DNR (do not resuscitate) Status and Disposition: Inpatient. Anticipate d/c in AM to home with Hospice.
[2019-08-15] MEDS: LORazepam TAB(*) 1 MG PO PRN ×2 (10:51→21:47)
[2019-08-15] MEDS: Albuterol/Ipratropium NEB.SOL* Albuterol 2.5 MG/Ipratropium 0.5 MG 3 ML INH PRN (21:45)
[2019-08-15] MEDS: Enoxaparin(*) 40 MG/0.4 ML SYR SUBCUT SCH (21:48)
[2019-08-16] MEDS: predniSONE TAB* 20 MG PO SCH (09:24)
--- NOTE | 2019-08-16 11:03 | PN ---
Subjective Date of Service: 08/16/19 Interval History: HOSPITALIST PROGRESS NOTE Patient seen and examined at bedside. Care reviewed and d/w Tati Arechiga RN. He offers no new complaints today. Family History: Unchanged from Admission Social History: Unchanged from Admission Past Medical History: Unchanged from Admission Objective Active Medications: Acetaminophen (Tylenol Tab*) 650 mg PO Q6H PRN PRN Reason: PAIN - MILD Last Admin: 08/12/19 20:58 Dose: 650 mg Albuterol/Ipratropium (Duoneb (Albuterol 2.5 Mg/Ipratropium 0.5 Mg)) 1 neb INH Q4H PRN PRN Reason: SOB/WHEEZING Last Admin: 08/15/19 21:45 Dose: 1 neb Enoxaparin Sodium (Lovenox(*)) 40 mg SUBCUT BEDTIME [facility] Last Admin: 08/15/19 21:48 Dose: 40 mg Lorazepam (Ativan Tab(*)) 1 mg PO Q4H PRN PRN Reason: ANXIETY Last Admin: 08/15/19 21:47 Dose: 1 mg Miscellaneous (Ativan Pyxis Loco) 1 ea N/A .ATIVAN IV LOCO PRN PRN Reason: PYXIS LOCO Morphine Sulfate (Morphine Oral Concentrate*) 5 mg SL Q2H PRN PRN Reason: Severe pain/ Tachypnea RR>24 Last Admin: 08/14/19 20:31 Dose: 5 mg Prednisone (Deltasone Tab*) 40 mg PO DAILY [facility] Last Admin: 08/16/19 09:24 Dose: 40 mg Throat Lozenges (Chloraseptic Luz Marina*) 1 luz marina MT Q4H PRN PRN Reason: SORE THROAT Last Admin: 08/11/19 05:40 Dose: 1 luz marina Vital Signs - 8 hr 08/16/19 08/16/19 03:38 07:26 Temperature 97.0 F 97.9 F Pulse Rate 103 86 Respiratory 22 22 Rate Blood Pressure 136/77 129/85 (mmHg) O2 Sat by Pulse 100 99 Oximetry Oxygen Devices in Use Now: Nasal Cannula - 5 liters Appearance: Pleasant gentleman sitting up in a chair in NAD. Eyes: No Scleral Icterus Ears/Nose/Mouth/Throat: Mucous Membranes Moist Neck: Trachea Midline Respiratory: Symmetrical Chest Expansion and Respiratory Effort, - - BS+ bilaterally, diminished Cardiovascular: RRR - Normal S1 and S2 Neurological: Alert and Oriented x 3, NL Muscle Strength and Tone Result Diagrams: 08/09/19 06:50 08/09/19 06:50 Assess/Plan/Problems-Billing Assessment: Mr Cerna is a 64yo M with PMH of end stage COPD, tobacco abuse, type 2 DM, prior h/o ETOH abuse, pancreatitis, ascending cholangitis, who presented to ED with c/o shortness of breath, found to have hypercapnic respiratory failure requiring intubation. Transferred out of ICU on 08/09/19. - Patient Problems (1) Acute hypercapnic respiratory failure Comment: - Acute on chronic. This is 3rd admission w/ intubation this year, 5th admission overall. - Plan is rogers/c home with Hospice tomorrow. (2) End stage COPD Comment: - Continue prednisone taper, bronchodilators, Morphine and Ativan PRN. (3) Type 2 diabetes mellitus Comment: - Controlled off meds. (4) DVT prophylaxis Comment: - Lovenox. (5) DNR (do not resuscitate) Status and Disposition: Inpatient. Anticipate d/c in AM to home with Hospice.
[2019-08-16] MEDS: Morphine ORAL CONCENTRATE* 5 MG/0.25 ML ORAL.SYRIN SL PRN ×2 (11:11→18:20)
[2019-08-16] MEDS: LORazepam TAB(*) 1 MG PO PRN (16:35)
[2019-08-16] MEDS: Enoxaparin(*) 40 MG/0.4 ML SYR SUBCUT SCH (22:01)
--- NOTE | 2019-08-17 00:59 | DS ---
CC: Dr. Mahsa Gomez; Dr. Joe * DISCHARGE SUMMARY: DATE OF ADMISSION: 08/06/19 ANTICIPATED DATE OF DISCHARGE: 08/17/19 PRIMARY CARE PROVIDER: Dr. Mahsa Gomez. SENIOR CUSTOMER SERVICE REPRESENTATIVE: Dr. Joe. DISCHARGE DIAGNOSES: 1. End-stage chronic obstructive pulmonary disease. 2. Acute on chronic hypercapnic respiratory failure requiring intubation. SECONDARY DIAGNOSES: 1. Tobacco abuse. 2. Type 2 diabetes. 3. Prior history of EtOH abuse. 4. Pancreatitis. 5. Ascending cholangitis. HOSPITAL COURSE: Mr. Cerna is a 64-year-old male with a past medical history stated above who presents to the emergency room with complaints of worsening shortness of breath. He had an ABG that showed a pH of 7.17 with a pCO2 greater than 121. The patient was intubated, admitted to the intensive care unit. The patient had been intubated multiple times in the past and the impression was that this was secondary to advanced COPD and BiPAP noncompliance. The patient was extubated and seen in consultation by Palliative Care by Dr. Thomas and her impression is that the patient would qualify for hospice for end- stage COPD. Arrangements were made for the patient to be discharged home with hospice and he will be discharged on 08/17/19. PHYSICAL EXAMINATION: Vital Signs: Temperature 96.8, heart rate is 117, respiratory rate 20, oxygen saturation is 99% on 5 L nasal cannula, blood pressure is 123/70. General: The patient is a pleasant gentleman, sitting up in chair, in no acute distress. CVS: Normal S1 and S2. Regular rate and rhythm. Chest: Breath sounds bilaterally diminished with no added sounds. Neuro: He is alert and oriented x3. Able to move all 4 extremities. DIET: Regular diet for comfort. ACTIVITIES: As tolerated. DISPOSITION: To home with hospice. STATUS WHILE IN THE HOSPITAL: Inpatient. CONDITION AT THE TIME OF DISCHARGE: Guarded. MEDICATION LIST: 1. Albuterol HFA 2 puffs inhaled 4 times a day p.r.n. shortness of breath. 2. Prednisone taper as follows: 40 mg p.o. daily for 5 days, 30 mg for 5 days , 20 mg for 5 days, then continue 10 mg daily. 3. Morphine oral concentrate 5 mg/mL q.2 hours p.r.n. severe pain, tachypnea with respiratory rate greater than 24, dispense 60 mL, MDD 60 mg. 4. Lorazepam 1 mg p.o. q.4 hours p.r.n. anxiety, agitation, MDD 6 mg, dispense 30. 5. Atropine 1% oral solution 2 drops sublingual q.2 hours p.r.n. terminal secretion. 6. DuoNeb nebulization q.4 hours p.r.n. shortness of breath. 7. Advair HFA 115/21 two puffs inhaled b.i.d. 8. Acetaminophen 650 mg p.o. q.6 hours p.r.n. pain or fever. Please keep in mind that this is a summarized version of this patient's hospital stay. If you need more information, please feel free to call me at [phone] or please obtain full medical records. TIME SPENT: Approximately 45 minutes was spent to complete this discharge. [id number]/CPS #: [id number] MTDD
[2019-08-17] MEDS: predniSONE TAB* 20 MG PO SCH (09:07)
[2019-08-17 09:37] VITALS: BP 118/68
[2019-08-17] MEDS: LORazepam TAB(*) 1 MG PO PRN (09:40)
[2019-08-17] MEDS ORDERED: LORazepam INJ* 2 MG/ML 1 ML VIAL IV PUSH ONE (11:31)
[2019-08-17] MEDS ORDERED: Lorazepam PYXIS KEY PRN (11:31)
== END 2019-08-17 13:15 | disposition hospice, home (50) | DRG 208 ==
LOC: ED 17:28 → ICU 23:53 → MED 08-09 16:20
PROVIDERS: ADMIT Internal Medicine; ATTEND Internal Medicine
PROC: 5A1945Z Respiratory Ventilation, 24-96 Consecutive Hours (ICD-10-PCS; principal; 2019-08-06)
PROC: 0BH17EZ Insertion of Endotracheal Airway into Trachea, Via Natural or Artificial Opening (ICD-10-PCS; 2019-08-06)
PROC: 5A09357 Assistance with Respiratory Ventilation, Less than 24 Consecutive Hours, Continuous Positive Airway Pressure (ICD-10-PCS; 2019-08-08)
DX: J96.22 Acute and chronic respiratory failure with hypercapnia (principal); J44.1 Chronic obstructive pulmonary disease with (acute) exacerbation; J44.0 Chronic obstructive pulmonary disease with (acute) lower respiratory infection; J20.9 Acute bronchitis, unspecified; D64.9 Anemia, unspecified; T38.0X5A Adverse effect of glucocorticoids and synthetic analogues, initial encounter; Z66 Do not resuscitate; E11.65 Type 2 diabetes mellitus with hyperglycemia; Z98.41 Cataract extraction status, right eye; Z98.42 Cataract extraction status, left eye; Z82.49 Family history of ischemic heart disease and other diseases of the circulatory system; Y92.9 Unspecified place or not applicable; Z87.891 Personal history of nicotine dependence; Z99.81 Dependence on supplemental oxygen; Z79.52 Long term (current) use of systemic steroids
CPT/HCPCS: 36415; 71045; 80048; 80053; 82803; 83605; 83735; 83880; 84100; 84484; 85025; 85049; 85060; 85610; 87040; 87070; 87077; 87186; 87205; 87641; 93005; 94003; 94640; 94660; 99285; A9270-GY; J0330; J0456; J0610; J0696; J1650; J2060; J2250; J2270; J2704; J2920; J2930; J3010; J7512

== ENCOUNTER 2019-08-27 12:20 | Inpatient (IN) | payer MEDICARE, OTHER ==
[2019-08-27] MEDS ORDERED: methylPREDNISolone 125 MG* 2 ML VIAL IV ONE (12:35)
[2019-08-27] MEDS ORDERED: NS 0.9% 1000 ML** 1,000 ML IV ONE (12:35)
[2019-08-27] MEDS: Albuterol/Ipratropium NEB.SOL* Albuterol 2.5 MG/Ipratropium 0.5 MG 3 ML INH SCH ×5 (12:40→23:04)
[2019-08-27] MEDS ORDERED: Albuterol/Ipratropium NEB.SOL* Albuterol 2.5 MG/Ipratropium 0.5 MG 3 ML ONE (12:42)
--- NOTE | 2019-08-27 12:43 | ED ---
Shortness of Breath - HPI Summary HPI Summary: Patient is a 64 y/o M w/ Hx of COPD who presents to [facility] via EMS with complaints of SOB. He had been admitted to [facility] recently for similar Sx and had been discharged to home several days ago. Over the past few days, patient has been SOB and had an exacerbation of SOB today. EMS administered 1 duoneb. He denies fever and states that he does not smoke. Patient has a bipap at home but is not always compliant with usage. On triage, pain is denied, nothing is noted to aggravate/alleviate Sx. Home medications and allergies are reviewed. - History of Current Complaint Time Seen by Provider: 08/27/19 12:30 Hx Obtained From: Patient Onset/Duration: Lasting Days, Still Present, Worse Since Timing: Constant Current Severity: None - pain denied Aggravating Factors: Nothing Alleviating Factors: Nothing Associated Signs & Symptoms: Negative - Allergy/Home Medications Allergies/Adverse Reactions: Allergies Allergy/AdvReac Type Severity Reaction Status Date / Time roflumilast [From Dalires] Allergy Unknown Unknown Verified 08/27/19 16:00 Reaction Details PMH/Surg Hx/FS Hx/Imm Hx Endocrine/Hematology History: Reports: Hx Diabetes Denies: Hx Anticoagulant Therapy, Hx Thyroid Disease Cardiovascular History: Denies: Hx Congestive Heart Failure, Hx Deep Vein Thrombosis, Hx Hypertension , Hx Myocardial Infarction, Hx Pacemaker/ICD Respiratory History: Reports: Hx Chronic Obstructive Pulmonary Disease (COPD), Other Respiratory Problems/Disorders - RECENT HX OF PNEUMONIA Denies: Hx Asthma, Hx Lung Cancer, Hx Pneumonia, Hx Pulmonary Embolism GI History: Reports: Hx Gall Bladder Disease - COMMON BILE DUCT STENTED. LATER CHOLANGITIS, Other GI Disorders - COMMON BILE DUCT STENT Denies: Hx Gastroesophageal Reflux Disease, Hx Gastrointestinal Bleed, Hx Hiatal Hernia, Hx Irritable Bowel, Hx Jaundice, Hx Ulcer, Hx Urosepsis History: Denies: Hx Dialysis, Hx Kidney Infection, Hx Kidney Stones, Hx Renal Disease , Other Problems/Disorders Sensory History: Denies: Hx Cataracts, Hx Contacts or Glasses, Hx Hearing Aid, Other Sensory Impairments Opthamlomology History: Denies: Hx Cataracts, Hx Contacts or Glasses, Other Sensory Impairments Neurological History: Denies: Hx Dementia, Hx Migraine, Hx Seizures, Hx Transient Ischemic Attacks (TIA) Psychiatric History: Reports: Hx Anxiety Denies: Hx Depression, Hx Schizophrenia, Hx Bipolar Disorder, Hx Substance Abuse, Other Psychiatric Issues/Disorders - pt denies ETOH abuse at this time - Surgical History Surgery Procedure, Year, and Place: tear ducts 2007. STENT IN BILE DUCT 2013. eye surgery cataracts Hx Anesthesia Reactions: No - Immunization History Date of Tetanus Vaccine: 2010 Date of Influenza Vaccine: 2011 Infectious Disease History: Denies: Hx Hepatitis, Hx Human Immunodeficiency Virus (HIV), Hx of Known/ Suspected MRSA, History Other Infectious Disease, Traveled Outside the [place] in Last 30 Days - Family History Known Family History: Positive: Cardiac Disease, Hypertension - Social History Alcohol Use: None Alcohol Amount: HX ETOH BUT DOES NOT DRINK ANYMORE Hx Substance Use: Yes Substance Use Type: Reports: Prescribed Substance Use Comment - Amount & Last Used: hx of etoh, 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 GENERAL: Patient is a well-developed and nourished male who is lying comfortable in the stretcher. Patient is not in any acute respiratory distress. HEAD AND FACE: No signs of trauma. No ecchymosis, hematomas or skull depressions. No sinus tenderness. EYES: PERRLA, EOMI x 2, No injected conjunctiva, no nystagmus. EARS: Hearing grossly intact. Ear canals and tympanic membranes are within normal limits. MOUTH: Oropharynx within normal limits. NECK: Supple, trachea is midline, no adenopathy, no JVD, no carotid bruit, no c- spine tenderness, neck with full ROM. CHEST: Symmetric, no tenderness at palpation. LUNGS: Respiratory distress, able to speak only in a few sentences, he has diminished air movement in both lungs and occasional wheezing. CVS: Regular rate and rhythm, S1 and S2 present, no murmurs or gallops appreciated. ABDOMEN: Soft, non-tender. No signs of distention. No rebound, no guarding, and no masses palpated. Bowel sounds are normal. EXTREMITIES: FROM in all major joints, no edema, no cyanosis or clubbing. NEURO: Alert and oriented x 3. No acute neurological deficits. Speech is normal and follows commands. SKIN: Dry and warm. Triage Information Reviewed: Yes Vital Signs On Initial Exam: Initial Vitals Temp Pulse Resp BP Pulse Ox 99.2 F 113 30 133/92 95 08/27/19 12:33 08/27/19 12:33 08/27/19 12:33 08/27/19 12:33 08/27/19 12:33 Vital Signs Reviewed: Yes Procedures - Sedation Patient Received Moderate/Deep Sedation with Procedure: No Diagnostics - Laboratory Result Diagrams: 08/27/19 13:11 08/27/19 13:11 Lab Statement: Any lab studies that have been ordered have been reviewed, and results considered in the medical decision making process. - Radiology CXR Radiology Interpretation Completed By: Radiologist Summary of Radiographic Findings: IMPRESSION: NO ACTIVE CARDIOPULMONARY DISEASE IS NOTED. HYPERINFLATED LUNG TALLEY ARE. NOTED. THIS REPORT WAS REVIEWED BY DR. GAMEZ. - EKG 1330 Cardiac Rate: Tachycardia - rate of 103 BPM EKG Rhythm: Sinus Tachycardia EKG Comparison: No Significant Change - no changes compared to EKG done 08/06/19 Summary of EKG Findings: EKG showed sinus tachycardia with rate of 103 BPM, no ST elevations, no changes compared to EKG done 08/06/19 Re-Evaluation - Re-Evaluation First Eval Re-Evaluation Time: 12:46 Comment: Nurse Allie reports that the patient had stated to her that he has had increased frequency of urination over the past few days. Course/Dx - Course Assessment/Plan: This patient is a 64-year-old male who presents to the emergency department via ambulance with a chief complaint of having severe shortness of breath. The patient has a past medical history significant for COPD. Initially the patient is unable to speak in full sentences and he has diffuse decreased breath sounds. IV access was obtained, he was placed in a fur drummer. We administered Vapotherm, 2 nebs and Solu-Medrol. ABG shows a pH of 7.37, PCO2 of 99, PO2 70, O2 sat is 96.7 on the Vapotherm. Then he was changed to BiPap. Blood work without a significant abnormality except for hemoglobin of 13, chloride 89, carbon dioxide 48, creatinine 0.54, glucose 296, CRP of 10. Urinalysis is negative for UTI. ABG shows a pH of 7.37, PCO2 of 99, PO2 is 70, HCO3 is 44.8. At this time I discussed my physical exam and findings with Dr. Guaman for the hospitalist services who accepted the patient for admission. - Diagnoses Provider Diagnoses: COPD with acute exacerbation, Hypercapnia - Physician Notifications Discussed Care of Patient With: Tim Guaman Time Discussed With Above Provider: 14:22 Instructed by Provider To: Other - Patient's case was discussed with Dr. Guaman , Dr. Guaman accepts for admission. Discharge ED - Sign-Out/Discharge Documenting (check all that apply): Patient Departure - admit - Discharge Plan Condition: Fair Disposition: ADMITTED TO [facility] - Billing Disposition and Condition Condition: FAIR Disposition: Admitted to [facility] - Attestation Statements Document Initiated by Veena: Yes Documenting Scribe: RODY CASTELLANOS Provider For Whom Scribe is Documenting (Include Credential): ANGÉLICA GAMEZ MD Scribe Attestation: I, RODY CASTELLANOS, scribed for ANGÉLICA GAMEZ MD on 08/27/19 at 2138. Scribe Documentation Reviewed: Yes Provider Attestation: The documentation as recorded by the RODY giron accurately reflects the service I personally performed and the decisions made by me, ANGÉLICA GAMEZ MD Status of Scribe Document: Viewed
[2019-08-27 13:19] LABS: ABS Lymphocytes 0.6 10^3/ul (1.0-4.8); ABS Monocytes 0.3 10^3/ul (0-0.8); ABS Neutrophils 9.5 10^3/ul (1.5-7.7); Eosinophil % 0.4 %; Hematocrit 42 % (42-52); Mean Corpuscular HGB Conc 31 g/dL (31-36); Mean Corpuscular Hemoglobin 28 pg (27-31); Mean Corpuscular Volume 90 fL (80-94); Mean Platelet Volume 7.8 fL (7.4-10.4); Platelet Count 228 10^3/uL (150-450); Red Blood Count 4.64 10^6 /uL (4.18-5.48); Red Cell Distribution Width 15 % (10-15); White Blood Count 10.5 10^3/uL (3.5-10.8)
[2019-08-27 13:25] LABS: Urine Appearance Clear; Urine Bacteria 1+ (Absent); Urine Bilirubin Negative (Negative); Urine Blood 1+ (Negative); Urine Color Straw; Urine Glucose 3+(>=500 mg/dL) (Negative); Urine Ketones Negative (Negative); Urine Nitrite Negative (Negative); Urine Protein Negative (Negative); Urine Red Blood Cell Trace(0-2/hpf) (Absent); Urine Specific Gravity 1.001 (1.010-1.030); Urine Urobilinogen Negative (Negative); Urine White Blood Cell Trace(0-5/hpf) (Absent)
[2019-08-27 13:43] LABS: ALT 19 U/L (7-52); AST 11 U/L (13-39); Albumin 4.1 g/dL (3.2-5.2); Albumin/Globulin Ratio 1.8 (1-3); Alkaline Phosphatase 36 U/L (34-104); BUN/Creatinine Ratio 22.2 (8-20); Blood Urea Nitrogen 12 mg/dL (6-24); Calcium 9.2 mg/dL (8.6-10.3); Chloride 89 mmol/L (101-111); EGFR African American 184.8 (>60); EGFR Non-African American 152.7 (>60); Globulin 2.3 g/dL (2-4); Glucose 296 mg/dL (70-100); Potassium 4.5 mmol/L (3.5-5.0); Sodium 139 mmol/L (135-145); Total Protein 6.4 g/dL (6.4-8.9)
[2019-08-27 13:46] LABS: Troponin I 0.01 ng/mL (<0.04)
[2019-08-27 13:48] LABS: CKMB ng/mL 4.7 ng/mL (0.6-6.3)
[2019-08-27 14:06] LABS: CO2 Carbon Dioxide 48 mmol/L (22-32)
[2019-08-27] MEDS ORDERED: Ondansetron INJ* 2 MG/ML VIAL IV PRN (15:17)
[2019-08-27] MEDS ORDERED: Dextrose 50% VIAL 50 ml IV PUSH PRN (15:18)
[2019-08-27] MEDS ORDERED: Acetaminophen TAB* 325 MG PO PRN (15:19)
[2019-08-27] MEDS ORDERED: Azithromycin TAB* 250 MG PO ONE (15:21)
[2019-08-27] MEDS ORDERED: NS 0.9% 1000 ML** 1,000 ML IV SCH (15:30)
[2019-08-27] MEDS ORDERED: Albuterol/Ipratropium NEB.SOL* Albuterol 2.5 MG/Ipratropium 0.5 MG 3 ML INH SCH (16:00)
[2019-08-27] MEDS: Insulin LISPRO* 1 UNITS UNIT SUBCUT SCH (17:12)
--- NOTE | 2019-08-27 17:12 | HP ---
CC: Dr. Gomez * HISTORY AND PHYSICAL: DATE OF ADMISSION: 08/27/19 PRIMARY CARE PROVIDER: Dr. Gomez. ATTENDING PHYSICIAN: Dr. Tim Guaman * (dictation provided by Shantal Jeffery NP). CHIEF COMPLAINT: Shortness of breath. HISTORY OF PRESENT ILLNESS: Mr. Cerna is a 64-year-old male with a past medical history of end-stage COPD and chronic hypercapnic respiratory failure, who presents to the hospital today with concern for shortness of breath. Note is made that Mr. Cerna was just discharged from our hospital on 08/17/19 after being treated for COPD exacerbation with acute on chronic hypoxic respiratory failure requiring intubation. The patient has had 5 admissions to the hospital this year for similar complaints. Mr. Cerna states that he was initially doing reasonably well at home, but then as of this morning he became suddenly very short of breath and therefore presented to the emergency room. He states that he has been using his BiPAP, but his family contradicted him and state that in fact he has not been using it. They state that he is often very thirsty and is constantly drinking water and therefore this limits his ability to use the BiPAP. He notes no other complaint. He has had no chest pain. He has had no nausea, vomiting, diarrhea, abdominal pain. He has had no fever. In the emergency room, Mr. Cerna was placed on the BiPAP. His labs show that his blood gas has a compensated respiratory acidosis with a pH of 7.37, pCO2 99 , his bicarbonate is 44.8. He is hyperglycemic with a glucose of 296. CRP is only 10. His chest x-ray shows no acute process. EKG shows a sinus tachycardia with a heart rate of 100 and no evidence of ischemia. PAST MEDICAL HISTORY: 1. Chronic hypercapnic and hypoxic respiratory failure on 2 L nasal cannula at home and BiPAP. 2. Type 2 diabetes [id number]. 3. History of pancreatitis. 4. History of ascending cholangitis. 5. 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 MEDICATIONS OUTPATIENT: 1. Atropine drops p.r.n. 2. Advair 115/21 two puffs inhaled b.i.d. 3. Tylenol p.r.n. 4. Prednisone 10 mg tapering down since discharge. 5. Morphine oral concentrate 5 mg sublingual q.2 hours. The patient's family states he has only taken it twice. He did not like the way it makes him feel. 6. Lorazepam 1 mg p.o. q.4 hours p.r.n. 7. DuoNeb nebulizers p.r.n. 8. Albuterol inhaler p.r.n. ALLERGIES: No known drug allergies. FAMILY HISTORY: Reported positive for cardiac disease and hypertension. SOCIAL HISTORY: The patient is a former smoker. Reportedly quit smoking about a year ago. No report of alcohol or drug use. He lives alone, but has support from family and his daughter, Nelida Cerna, is the healthcare proxy. REVIEW OF SYSTEMS: A 14-point review of system was completed with Mr. Cerna and all those not mentioned above were negative. PHYSICAL EXAMINATION GENERAL APPEARANCE: Mr. Cerna is sitting on the bed and he is in no acute distress. VITAL SIGNS: Temperature 99.2, pulse rate 106, respiratory rate 18, O2 saturation 100% on the BiPAP with 50% O2, blood pressure 145/84. HEENT: Extraocular movement is intact. LUNGS: Diminished throughout. No wheezing appreciated. No accessory muscle use. HEART: S1, S2. No murmur, rub or gallop and regular. ABDOMEN: Soft, nontender with bowel sounds present x4. EXTREMITIES: No cyanosis. No edema. NEUROLOGIC: He is alert. He is oriented x3. He moves all extremities equally. There is no facial asymmetry or focal weakness. SKIN: Intact. DIAGNOSTIC STUDIES/LAB DATA: WBC 10.5, hemoglobin 13.0, hematocrit 42, platelet count 228. ABG is as reported above. The original one was at 1238, which is noted above and the repeat done at 1430 notes pH 7.33, pCO2 100, pO2 88 , bicarbonate 41.3. Sodium 139, potassium 4.5, bicarbonate 48, BUN 12, creatinine 0.54, glucose 296. Troponin 0.01. CRP 10. Urine shows no evidence of infection. Again, the chest x-ray shows no acute intrathoracic process and EKGs shows sinus tachycardia with no evidence of ischemia. ASSESSMENT AND PLAN: Mr. Cerna is a 64-year-old male with past medical history of chronic hypoxic and hypercapnic respiratory failure, who presents to the hospital with concern for shortness of breath, thought to have a chronic obstructive pulmonary disease exacerbation with acute on chronic respiratory failure. Our plans are for inpatient admission. The expected length of stay would be greater than 2 days for the followin. Acute on chronic hypoxic and hypercapnic respiratory failure: I suspect this is in part secondary to the patient's noncompliance with BiPAP as he has the difficult time tolerating that. I also suspect that this is simply reflective of his end-stage chronic obstructive pulmonary disease, has no evidence of gross pneumonia, but we will treat with azithromycin for atypical pathogens. He will continue on Solu-Medrol 60 mg IV q.12 hours. He will continue on the BiPAP. He will continue on DuoNeb nebulizers q.4 hours while awake and as needed. He will be monitored in the intensive care unit and will titrate off the BiPAP as tolerated. The patient will have lorazepam available p.r.n., but he does not tolerate morphine well and that will be discontinued. 2. Hyperglycemia. The patient does have a history of type 2 diabetes and has previously been on glipizide. I suspect that his blood glucose is elevated due to his acute decompensated respiratory failure and recent use of prednisone. We will treat with blood glucoses q.a.c. and lispro sliding scale. We can add Lantus as needed. 3. DVT prophylaxis, heparin subcu. 4. Code status is DNR/DNI and MOLST form was completed with the bedside with family today. TIME SPENT: Approximately 60 minutes was spent on the admission of this patient , more than half time was spent with the patient at the bedside reviewing the events leading up to an during this hospitalization, performing the physical examination, and reviewing my plan of care. SHANTAL JEFFERY NP [id number]/CPS #: [id number] [place]
[2019-08-27] MEDS: LORazepam TAB(*) 1 MG PO PRN ×2 (17:13→21:23)
[2019-08-27] MEDS: Heparin VIAL(*) 5000 UNITS/ML VIAL (FIVE THOUSAND) SUBCUT SCH (21:24)
[2019-08-28] MEDS: methylPREDNISolone 125 MG* 2 ML VIAL IV SCH ×2 (00:02→13:16)
[2019-08-28] MEDS: Albuterol/Ipratropium NEB.SOL* Albuterol 2.5 MG/Ipratropium 0.5 MG 3 ML INH SCH ×6 (03:14→23:19)
[2019-08-28] MEDS: Heparin VIAL(*) 5000 UNITS/ML VIAL (FIVE THOUSAND) SUBCUT SCH ×3 (05:35→21:31)
[2019-08-28 06:10] LABS: BUN/Creatinine Ratio 25.6 (8-20); Blood Urea Nitrogen 10 mg/dL (6-24); Calcium 8.5 mg/dL (8.6-10.3); Chloride 93 mmol/L (101-111); EGFR Non-African American 222.3 (>60); Glucose 255 mg/dL (70-100); Potassium 4.4 mmol/L (3.5-5.0); Sodium 136 mmol/L (135-145)
[2019-08-28 06:19] LABS: CO2 Carbon Dioxide 44 mmol/L (22-32)
[2019-08-28] MEDS: Insulin LISPRO* 1 UNITS UNIT SUBCUT SCH ×3 (08:43→16:55)
[2019-08-28] MEDS: Azithromycin TAB* 250 MG PO SCH (08:43)
--- NOTE | 2019-08-28 15:32 | PN ---
Subjective Date of Service: 08/28/19 Interval History: Reports feeling sig better than when he came into the hospital.uses BIPAP at home and on oxygen Family History: Unchanged from Admission Social History: Unchanged from Admission Past Medical History: Unchanged from Admission Objective Active Medications: Acetaminophen (Tylenol Tab*) 650 mg PO Q6H PRN PRN Reason: PAIN - MILD Albuterol/Ipratropium (Duoneb (Albuterol 2.5 Mg/Ipratropium 0.5 Mg)) 1 neb INH [id number] AWAKE [facility] Last Admin: 08/28/19 15:25 Dose: 1 neb Azithromycin (Zithromax Tab*) 250 mg PO DAILY [facility] Stop: 08/31/19 09:01 Last Admin: 08/28/19 08:43 Dose: 250 mg Dextrose (Dextrose 50% Vial 50 Ml*) 25 ml IV PUSH .FOR FS < 60 - SS PRN PRN Reason: FS < 60 Heparin Sodium (Porcine) (Heparin Vial(*)) 5,000 units SUBCUT Q8HR [facility] Last Admin: 08/28/19 13:16 Dose: 5,000 units Insulin Human Lispro (Humalog*) 0 units SUBCUT AC [facility]; Protocol Last Admin: 08/28/19 13:15 Dose: 2 units Lorazepam (Ativan Tab(*)) 1 mg PO Q4H PRN PRN Reason: ANXIETY Last Admin: 08/27/19 21:23 Dose: 1 mg Methylprednisolone Sodium Succinate (Solu-Medrol 125mg *) 60 mg IV Q12H [facility] Last Admin: 08/28/19 13:16 Dose: 60 mg Ondansetron HCl (Zofran Inj*) 4 mg IV Q6H PRN PRN Reason: NAUSEA Vital Signs - 8 hr 08/28/19 08/28/19 08/28/19 08:00 09:00 10:00 Temperature 98.5 F Pulse Rate 99 109 125 Respiratory 19 24 23 Rate Blood Pressure 129/72 124/68 (mmHg) O2 Sat by Pulse 100 100 93 Oximetry 08/28/19 08/28/19 08/28/19 10:48 11:00 11:01 Temperature Pulse Rate 117 112 117 Respiratory 15 19 31 Rate Blood Pressure 108/60 (mmHg) O2 Sat by Pulse 95 100 91 Oximetry 08/28/19 08/28/19 08/28/19 11:59 13:09 13:23 Temperature 98.1 F 99 F Pulse Rate 113 Respiratory 20 Rate Blood Pressure 126/68 (mmHg) O2 Sat by Pulse 100 97 Oximetry Oxygen Devices in Use Now: Nasal Cannula, OxyMask Eyes: No Scleral Icterus Ears/Nose/Mouth/Throat: NL Teeth, Lips, Gums Neck: NL Appearance and Movements; NL JVP Respiratory: - - Dec bilateral air entry, tachypnic, mildly sob between sentences,no acc muscle use,no rhonchi Cardiovascular: NL Sounds; No Murmurs; No JVD Abdominal: NL Sounds; No Tenderness; No Distention Extremities: No Edema Neurological: Alert and Oriented x 3 Result Diagrams: 08/27/19 13:11 08/28/19 05:38 Microbiology and Other Data: Microbiology 08/27/19 13:11 Aerobic Blood Culture - Preliminary Blood Venous No Growth Day 1 Anaerobic Blood Culture - Preliminary No Growth Day 1 Assess/Plan/Problems-Billing Assessment: - Patient Problems (1) Acute respiratory failure with hypoxia and hypercarbia Current Visit: No Status: Acute Priority: High Code(s): J96.01 - ACUTE RESPIRATORY FAILURE WITH HYPOXIA; J96.02 - ACUTE RESPIRATORY FAILURE WITH HYPERCAPNIA SNOMED Code(s): 942300591 Comment: Acute on chronic resp failure H/o multiple intubations Acutely on BIPAP yesterday with improvement Transfer to floor Continue home NIPPV Continue Steroids, Nebs, Azithromycin for copd exacerbation (2) Diabetes Current Visit: Yes Status: Acute Code(s): E11.9 - TYPE 2 DIABETES MELLITUS WITHOUT COMPLICATIONS SNOMED Code(s): 65531829 Comment: On ISS Prev on Glipizide Recent prednisone use Will check HbA1c (3) Altered mental status Current Visit: No Status: Acute Code(s): R41.82 - ALTERED MENTAL STATUS, UNSPECIFIED SNOMED Code(s): 866349434 Comment: confusion? reports that there are some japanese people trying to take over and passing money under the table. But quickly redirects and has a complete conversation and is with it and answering all questions appropriately and recollects will. Will monitor Steroid induced Psychosis? (4) COPD (chronic obstructive pulmonary disease) with acute bronchitis Current Visit: No Status: Acute Priority: High Code(s): J44.0 - CHR OBSTRUCTIVE PULMON DISEASE WITH (ACUTE) LOWER RESP INFCT SNOMED Code(s): 567144788925535 Comment: -Improving -Continue Solumedrol 60 mg iv bid -Azithromycin to cover atypicals -NIPPV and oxygen -Duoneb -ok to transfer to floor from icu
[2019-08-28] MEDS: LORazepam TAB(*) 1 MG PO PRN ×2 (16:55→21:31)
--- NOTE | 2019-08-28 17:50 | CONS ---
PULMONARY CONSULTATION REPORT: DATE OF CONSULT: 08/28/19 CONSULTATION REQUESTED BY: Dr. Gan. REASON FOR CONSULT: Evaluation of recurrent COPD exacerbation. HISTORY OF PRESENT ILLNESS: The patient is a 64-year-old male with significant smoking history, with history of recurrent COPD exacerbation and chronic hypercapnic respiratory failure. The patient with recurrent admissions recently for COPD and hypercapnic respiratory failure. The patient was brought in for evaluation of worsening shortness of breath. The patient was discharged from the hospital on 08/17/19 after being treated for COPD and acute on chronic hypoxemic respiratory failure. He has required intubation during last admission. The patient reports that he recently moved to his renovated house and has been having recurrent issues since that time. He is unsure if there is mold or fungus in the house. He claims to be compliant with his BiPAP as prescribed. As per documentation in the emergency room yesterday, he has apparently told staff there that he has not been using BiPAP. His family also thinks he is not using his BiPAP. As per the patient's family, he constantly feels thirsty and has to drink water, which wakes him up at night and limits his ability to use BiPAP. The patient was found to be in acute hypercapnic respiratory failure, was initiated on rescue BiPAP and was admitted to the ICU. The patient has improved this morning. He was able to communicate appropriately. He was not noted to be in any kind of distress this morning. The patient denied nausea, vomiting, diarrhea, abdominal pain, fevers, recent sick contacts, or recent travel. The patient denies any further smoking. He appears to be noncompliant with his inhalers at home. He is supposed to be on Advair and Spiriva. As per medication list, he has been on Advair and DuoNeb nebulizers. The patient reports that he has high co-pay with these inhalers. He mostly gets samples from the office. Overall reports feeling better this morning. He is hyperglycemic with glucose of 296 on arrival. He also was tachycardic with heart rate of 100 with no EKG changes suggestive of ischemia. He was found to be in acute on chronic hypercapnic respiratory failure with respiratory acidosis and elevated bicarb, pH of 7.37, pCO2 of 99, bicarb of 44.8. I have personally reviewed his chest x-ray, showed evidence of hyperinflation with no acute airspace opacities. He was found to be afebrile. He has required higher FiO2; however, currently is able to be tapered off to 2 to 3 L. His blood sugars remain elevated because of being on steroids. He was started on Solu-Medrol 60 q.12. He was also started on nebulizers q.4 hours scheduled. He was empirically started on Zithromax for possible bronchitis or community-acquired pneumonia coverage. He did not have elevated white count on admission. PAST MEDICAL HISTORY: 1. Chronic hypercapnic and hypoxemic respiratory failure with recurrent hospitalizations recently. 2. Type 2 diabetes. 3. History of pancreatitis. 4. History of ascending cholangitis. 5. History of common bile duct obstruction, status post stent placement. MEDICATIONS AT HOME: 1. Atropine drops p.r.n. 2. Advair. 3. Tylenol. 4. Prednisone 10 mg tapered dose since discharge. 5. Morphine q.4 hours. 6. Ativan 1 mg q.4 hours p.r.n. 7. DuoNeb. 8. Albuterol. ALLERGIES: No known drug allergies. FAMILY HISTORY: Cardiac disease and hypertension. SOCIAL HISTORY: Former smoker, quit smoking about a year ago. Denies alcohol or drug abuse. REVIEW OF SYSTEMS: A 14-point review of systems was performed and as per HPI. PHYSICAL EXAM: The patient is in bed, in no apparent distress. Vital Signs: Temperature 99, pulse 113 beats per minute, respiratory rate 20 per minute, O2 sat 100% on 3 L, blood pressure 126/68. HEENT: Pupils equal, reactive to light. Mucous membranes moist. Lungs: Diminished air entry bilaterally, scattered wheeze. Cardiovascular: S1, S2 present, regular. Abdomen: Soft, nontender, nondistended. Bowel sounds present. Extremities: Normal range of motion. Skin: No rash or bruises. Neuro: Alert, awake, oriented x3. No focal deficits. DIAGNOSTIC STUDIES/LAB DATA: WBC count 10.5, hemoglobin 13, hematocrit 42, platelet count 228. Blood gas analysis did show respiratory acidosis with pCO2 of 100, pH of 7.33, pO2 of 88, bicarb of 41. Sodium 136, potassium 4.4, chloride 93, bicarb 44, BUN 10, creatinine 0.39. Chest x-ray as described above in HPI. IMPRESSION AND RECOMMENDATIONS: 64-year-old male, former smoker, with recurrent chronic obstructive pulmonary disease exacerbations. The patient with severe chronic obstructive pulmonary disease per GOLD classification. Has been having recurrent exacerbations and hospitalizations recently. He was here in the ICU, intubated 2 weeks back. Returns for worsening shortness of breath and has acute on chronic hypercapnic respiratory failure. He claims to be compliant with BiPAP; however, as per family, he has not been compliant with the usage. Also, suspect his BiPAP settings might need some adjustments. He has been having dry mouth as per family, which the patient denied any issues. Might need mask refit. We will contact home care company regarding adjustment of his machine and also to obtain download information from his BiPAP. The patient if continues to have issue might need titration in the sleep lab with end tidal and transcutaneous CO2 monitoring for adjustment of the settings. I educated the patient on importance of compliance with BiPAP. Also seemed to be having noncompliance with inhalers as prescribed due to cost. He will be provided with samples from the office, might need help from Social Work. At this time, the patient also reports that he is having issues since he renovated his home, unclear about asbestos, mold and fungus in the house. He is going to have people inspect his house after his discharge. Would continue with steroid taper.BiPAP at night and as needed during the day. Continue with nebulizers. Thank you for allowing me to participate in the care of your patient. Will follow up with you. [id number]/ROLANDO #: [id number] [place]
[2019-08-29] MEDS: methylPREDNISolone 125 MG* 2 ML VIAL IV SCH ×3 (00:15→23:56)
[2019-08-29] MEDS: Albuterol/Ipratropium NEB.SOL* Albuterol 2.5 MG/Ipratropium 0.5 MG 3 ML INH SCH ×4 (03:16→20:20)
[2019-08-29] MEDS: Heparin VIAL(*) 5000 UNITS/ML VIAL (FIVE THOUSAND) SUBCUT SCH ×3 (05:17→21:24)
[2019-08-29 05:48] LABS: ABS Lymphocytes 0.3 10^3/ul (1.0-4.8); ABS Monocytes 0.2 10^3/ul (0-0.8); ABS Neutrophils 8.2 10^3/ul (1.5-7.7); Hematocrit 36 % (42-52); Hemoglobin 11.5 g/dL (14.0-18.0); Lymphocyte % 3.9 %; Mean Corpuscular HGB Conc 32 g/dL (31-36); Mean Corpuscular Hemoglobin 28 pg (27-31); Mean Corpuscular Volume 88 fL (80-94); Mean Platelet Volume 8.4 fL (7.4-10.4); Platelet Count 230 10^3/uL (150-450); Red Blood Count 4.09 10^6 /uL (4.18-5.48); Red Cell Distribution Width 15 % (10-15); White Blood Count 8.7 10^3/uL (3.5-10.8)
[2019-08-29 05:59] LABS: Calcium 8.7 mg/dL (8.6-10.3); Potassium 4.2 mmol/L (3.5-5.0)
[2019-08-29 06:05] LABS: BUN/Creatinine Ratio 30.2 (8-20); EGFR African American 154.7 (>60); EGFR Non-African American 127.8 (>60)
[2019-08-29] MEDS: Azithromycin TAB* 250 MG PO SCH (08:57)
[2019-08-29] MEDS: Insulin LISPRO* 1 UNITS UNIT SUBCUT SCH ×3 (08:57→17:25)
[2019-08-29] MEDS: LORazepam TAB(*) 1 MG PO PRN ×3 (09:03→21:32)
--- NOTE | 2019-08-29 17:27 | PN ---
Subjective Date of Service: 08/29/19 Interval History: Mr. Cerna is feeling much better today. He wants to go home and does not understand why he would need to stay in the hospital. He reports that he only came to the ED to get IVF. Denies CP, SOB, N/V. No concerns from nursing. Family History: Unchanged from Admission Social History: Unchanged from Admission Past Medical History: Unchanged from Admission Objective Active Medications: Acetaminophen (Tylenol Tab*) 650 mg PO Q6H PRN PAIN - MILD Albuterol/Ipratropium (Duoneb (Albuterol 2.5 Mg/Ipratropium 0.5 Mg)) 1 neb INH [id number] AWAKE [facility] Azithromycin (Zithromax Tab*) 250 mg PO DAILY [facility] Dextrose (Dextrose 50% Vial 50 Ml*) 25 ml IV PUSH .FOR FS < 60 - SS PRN FS < 60 Heparin Sodium (Porcine) (Heparin Vial(*)) 5,000 units SUBCUT Q8HR [facility] Insulin Human Lispro (Humalog*) 0 units SUBCUT AC [facility]; Protocol Lorazepam (Ativan Tab(*)) 1 mg PO Q4H PRN ANXIETY Methylprednisolone Sodium Succinate (Solu-Medrol 125mg *) 60 mg IV Q12H [facility] Ondansetron HCl (Zofran Inj*) 4 mg IV Q6H PRN NAUSEA Vital Signs - 8 hr 08/29/19 08/29/19 08/29/19 15:21 17:25 17:26 Temperature 97.7 F Pulse Rate 102 Respiratory 17 18 18 Rate Blood Pressure 152/80 (mmHg) O2 Sat by Pulse 94 Oximetry Oxygen Devices in Use Now: Nasal Cannula - 2L Appearance: Middle-aged male sitting in chair, dyspneic, but in NAD Ears/Nose/Mouth/Throat: Mucous Membranes Moist Neck: NL Appearance and Movements; NL JVP, Trachea Midline Respiratory: Symmetrical Chest Expansion and Respiratory Effort, - - Diminished throughout Cardiovascular: NL Sounds; No Murmurs; No JVD, RRR Abdominal: NL Sounds; No Tenderness; No Distention Extremities: - - Mild nonpitting BLE Neurological: Alert and Oriented x 3 Lines/Tubes/Other Access: Clean, Dry and Intact Peripheral IV Nutrition: Taking PO's Result Diagrams: 08/29/19 04:40 08/29/19 04:40 Assess/Plan/Problems-Billing Assessment: Mr. Cerna is a 64 yo M with PMH of COPD, chronic respiratory failure on 2L and BiPAP at HS, DM2; who presented to the ED with c/o SOB and was admitted for COPD exacerbation. - Patient Problems (1) Acute on chronic respiratory failure with hypoxia and hypercapnia Code(s): J96.21 - ACUTE AND CHRONIC RESPIRATORY FAILURE WITH HYPOXIA; J96.22 - ACUTE AND CHRONIC RESPIRATORY FAILURE WITH HYPERCAPNIA Comment: - Baseline 2L during the day and BiPAP at night - Requiring BiPAP on admission, now back to baseline oxygen requirements - Continue Solu-Medrol, Duonebs (2) COPD exacerbation Code(s): J44.1 - CHRONIC OBSTRUCTIVE PULMONARY DISEASE W (ACUTE) EXACERBATION Comment: - Likely secondary to not using BiPAP while sleeping - Continue azithromycin (3) Diabetes Code(s): E11.9 - TYPE 2 DIABETES MELLITUS WITHOUT COMPLICATIONS Comment: - Poor glucose control - Continue Lispro SS (4) DVT prophylaxis Comment: - Heparin SQ (5) Full code status Code(s): Z78.9 - OTHER SPECIFIED HEALTH STATUS Comment: Status and Disposition: Inpatient. Discharge plan unclear at this time. Plan for family meeting tomorrow to determine goals of care. Attending: Tigre Torres
[2019-08-30] MEDS: Albuterol/Ipratropium NEB.SOL* Albuterol 2.5 MG/Ipratropium 0.5 MG 3 ML INH SCH ×2 (02:12→08:00)
[2019-08-30] MEDS: Heparin VIAL(*) 5000 UNITS/ML VIAL (FIVE THOUSAND) SUBCUT SCH ×2 (05:22→12:31)
[2019-08-30] MEDS: LORazepam TAB(*) 1 MG PO PRN ×2 (07:15→14:02)
[2019-08-30] MEDS: Azithromycin TAB* 250 MG PO SCH (09:03)
[2019-08-30] MEDS: Insulin LISPRO* 1 UNITS UNIT SUBCUT SCH ×2 (09:03→12:32)
[2019-08-30] MEDS ORDERED: Albuterol/Ipratropium NEB.SOL* Albuterol 2.5 MG/Ipratropium 0.5 MG 3 ML INH PRN (09:55)
[2019-08-30 12:13] VITALS: BP 143/70
[2019-08-30] MEDS: methylPREDNISolone 125 MG* 2 ML VIAL IV SCH (12:32)
--- NOTE | 2019-08-30 13:43 | PN ---
Progress Note - Progress Note Date of Service: 08/30/19 - Pulm f/u Note: Pt seen and examined at bedside. Pt reports feeling better, anxious to be d/mason Denies significant cough or sputum. Active Medications Generic Name Dose Route Start Last Admin Trade Name Freq PRN Reason Stop Dose Admin Acetaminophen 650 mg 08/27/19 15:19 Tylenol Tab* PO Q6H PRN PAIN - MILD Albuterol/Ipratropium 1 neb 08/30/19 09:55 Duoneb (Albuterol 2.5 Mg/Ipratropium 0.5 Mg) INH Q4H PRN SOB/WHEEZING Azithromycin 250 mg 08/28/19 09:00 08/30/19 09:03 Zithromax Tab* PO 08/31/19 09:01 250 mg DAILY [facility] Administration Dextrose 25 ml 08/27/19 15:18 Dextrose 50% Vial 50 Ml* IV PUSH .FOR FS < 60 - SS PRN FS < 60 Heparin Sodium (Porcine) 5,000 units 08/27/19 22:00 08/30/19 12:31 Heparin Vial(*) SUBCUT 5,000 units Q8HR [facility] Administration Insulin Human Lispro 0 units 08/27/19 16:30 08/30/19 12:32 Humalog* SUBCUT 4 units AC [facility]AT Administration Protocol Lorazepam 1 mg 08/27/19 15:30 08/30/19 07:15 Ativan Tab(*) PO 1 mg Q4H PRN Administration ANXIETY Methylprednisolone Sodium Succinate 60 mg 08/28/19 00:00 08/30/19 12:32 Solu-Medrol 125mg * IV 60 mg Q12H [facility]AT Administration Ondansetron HCl 4 mg 08/27/19 15:17 Zofran Inj* IV Q6H PRN NAUSEA Vital Signs Temp Pulse Resp BP Pulse Ox 98.6 F 104 20 143/70 98 08/30/19 11:15 08/30/19 11:15 08/30/19 11:15 08/30/19 11:15 08/30/19 11:15 O/E: Pt in NAD, sitting up in chair, family at bedside HEENT: PERRLA, No JVD Lungs: Diminished air entry b/l, no significant wheeze CVS: S1, S2+, regular Abd: Soft, BS+ Ext: Normal ROM Neuro: NO focal deficits Skin: No rash Laboratory Results - last 24 hr 08/29/19 08/30/19 08/30/19 16:54 07:32 11:56 POC Glucose (mg/dL) 270 H 284 H 241 H I/R: 64 y o m former smoker with h/o severe COPD, chronic hypercapnic resp failure on NIPPV, h/o recurrent exacerbations. Pt presents for AMS, worsening SOB found to have acute on chronic hypercapnic resp failure Pt responded to BiPAP Mental status improved Pt claims to be complaint with NIPPV use, family reports that he might be using less than 6 hrs. He doesnot use during daytime or when he naps. He is not sure if he is being bothered by anything at his current place, he moved to recently renovated home, reprots frequent issues since then. Overall improved Has not been very compliant with BIPAP here as per nursing note c/w steroid taper c/w bronchdialtors will have [employer] check his NIPPV at home Encouraged compliance with inhalers
--- NOTE | 2019-08-30 14:27 | CONSULT ---
Consult Consult: Consult Reason: For Medical Decision Making Capacity S: Psychiatry is asked to evaluate this 64 year old single male for medical decision making capacity. He lives with a friend at home who was seen with him at his bedside before the encounter. She stated that he sometimes forgets to wear his breathing machine, but overall is able to care for himself. She also helps him at home sometimes. The patient acknowledged that if doesnt continue to adhere to treatment recommendations that he would become more ill and sick and could lead to . The patient reported that he is able to shower on his own, go to the store and dress himself. He is admitted to the Hospitalist service following Hypoxia related to COPD and poor compliance with treatment. The patient mentioned that he doesnt wish to be placed to an assisted home facility because he can take care of himself at home. Past Psychiatric history: None O: 64 year old male appears older than stated age , wearing oxygen tube, calm, cooperative. Euthymic affect. Linear and goal directed thoughts. No delusions or preoccupations. He denied suicidal ideation, intent or plan. He denied homicidal ideation intent or plan. No perceptual disturbances. Insight and judgment fair. He is aware of the name of his current location, month, day and year. He knows the name of the current president. A/P: Capacity: Evaluation of capacity to make medical decisions DX: COPD At this time this patient has the capacity to rationally make his own medical decisions given the following reasons: 1) The patient was able to communicate a choice. 2) The patient is able to understand the meaning of the information communicated to him about his illness and to appreciate his medical condition as well as the outcome and the consequences of accepting or refusing various treatment options. 3) The patient was able to engage in a rational process of considering alternative treatment options. The consulting provider was contacted and informed of the following recommendations, and is in agreement with the plan. Thank you for the consult. Please call if you have any questions. Gregory Farr M.D.
--- NOTE | 2019-08-30 23:58 | DS ---
CC: Dr. Mahsa Gomez; Dr. Kim Joe * DISCHARGE SUMMARY: DATE OF ADMISSION: 08/27/19 DATE OF DISCHARGE: 08/30/19 PRIMARY CARE PROVIDER: Dr. Mahsa Gomez. SAUSAGE MAKER: Dr. Kim Joe. ATTENDING PHYSICIAN: Dr. Tigre Torres.* (DICTATED BY KARLA CALABRESE NP) PRIMARY DIAGNOSES: 1. Natfd-xd-nierrum respiratory failure with hypoxia and hypercapnia. 2. Chronic obstructive pulmonary disease exacerbation. SECONDARY DIAGNOSIS: 1. Diabetes mellitus type 2. STUDIES WHILE IN THE HOSPITAL: 1. EKG on 08/27/19 shows sinus tachycardia with a rate of 103, QTc 453. No ST changes. 2. Chest x-ray on 08/27/19 reads as no active cardiopulmonary disease is noted. Hyperinflated lung davis are noted. HISTORY OF PRESENT ILLNESS AND HOSPITAL COURSE: Mr. Cerna is a 54-year-old male with past medical history of chronic hypercapnic and hypoxic respiratory failure; on 2 L at baseline with BiPAP while sleeping, COPD, and type 2 diabetes who presented to the emergency room on 08/27/19 with complaints of shortness of breath. Please see the history and physical by Shantal Jeffery NP, for complete summary of the events leading up to his hospitalization. In short, the patient has had 6 admissions this year between January and August all for respiratory failure. The patient had just been recently discharged on 08/17/19 with plans to sign on with hospice at home. On the morning of presentation, he became very short of breath and so called EMS. In the emergency room, he was placed on BiPAP. He had an ABG which showed pH of 7.37 and CO2 of 99. He was subsequently admitted to the intensive care unit by the hospitalist service. The patient was started on Solu-Medrol and nebulizers. He remained on BiPAP overnight and then came off BiPAP. The next day, he was transferred out of the ICU on 08/28/19 and has been up on the telemetry floor, saturating well at his baseline oxygen requirement, and wearing his BiPAP while sleeping. Reportedly, the patient did not sign on with hospice after his last discharge as hospice told him that he would need to stop calling 911 and he was not willing to do that. He was then supposed to sign [facility] with [facility], though was not returning their phone calls. He was still on a prednisone taper that had been prescribed to him on discharge, though it is very obvious that if the patient does not wear his BiPAP when sleeping that he very quickly decompensates and goes into hypercapnic respiratory failure. He was seen by Dr. Joe during this admission, who does see him as an outpatient and is quite familiar with his case. She recommended continuing steroids and bronchodilators and advised that Monae will need to check his BiPAP at home to ensure he is on the correct setting. He was seen by psychiatry today to evaluate capacity as the patient is noted to be intermittently confused. Psychiatry determined that the patient does have the capacity to make his own medical decisions. There was a family meeting today with the patient, his daughters, social work, and case management to try to determine a plan going forward as it is very likely that the patient will continue to be noncompliant and therefore continue to present to the emergency room in respiratory failure requiring ICU admission with BiPAP. The patient has indicated that he is a do not intubate at this point. The decision was made that the patient would return back home with plans to sign on with the [facility]. He offers no complaints today and is anxious to return home. On exam, he is alert and oriented. He has no focal neurological deficits. His heart has a regular rate and rhythm without murmurs, rubs, or gallops. His lungs are very diminished to auscultation, although there are no rhonchi, wheezes, or rubs. Mr. Cerna is stable for discharge today. Vital signs are as follows: Temp 98.6, heart rate 104, respiratory rate 20, oxygen saturation 90% on 3 L, blood pressure 143/70. DISCHARGE MEDICATIONS: New Medications: 1. Azithromycin 250 mg p.o. daily x2 days. 2. Prednisone taper (60 mg for 5 days, then 50 mg for 3 days, then 40 mg for 3 days, then 10 mg daily indefinitely). Continued Medications: 1. Acetaminophen 650 mg p.o. q.6 hours p.r.n. for pain. 2. Advair 115/21 two puffs b.i.d. 3. Albuterol MDI, 2 puffs 4 times daily p.r.n. for shortness of breath. 4. DuoNeb 1 neb q.4 hours p.r.n. for shortness of breath. 5. Atropine 1% two drops sublingual q.2 hours p.r.n. for secretions. 6. Lorazepam 1 mg p.o. q.4 hours p.r.n. for anxiety. 7. Morphine oral concentrate 5 mg sublingual q.2 hours p.r.n. for pain or air hunger. Discontinued Medications: 1. Previous prednisone taper. DISCHARGE PLAN: Mr. Cerna will be discharged home. Activity will be as tolerated. He should continue to wear his oxygen as previously instructed. Diet will be regular as tolerated. Medications are noted above. The patient will be on an extended prednisone taper and will need to complete another 2 days of azithromycin to complete a total of 5 days. He can continue his other usual medications as noted above. I have been extremely clear with the patient that it is imperative that he wear his BiPAP whenever he is sleeping or napping , and I have advised him that if he does not wear his BiPAP, he will continue to go into respiratory failure, which will cause continued readmissions to the hospital as he is not willing to sign on with hospice. The patient is able to verbalize understanding of this information, though at this point, I have little to no confidence that he will actually be compliant with these instructions. I think ultimately the patient would benefit from admission to a hospice facility where he has 24x7 nursing care, although he is not willing to consider this option at this point. As indicated above, Monae will need to reassess his BiPAP setting, and he should follow up with Dr. Joe as previously instructed and will need to follow up with his PCP in the next 4 to 7 days. The patient has been advised to return to the emergency room or nearest hospital for any worsening of symptom, shortness of breath, lightheadedness, dizziness, chest discomfort, high fevers, chills, night sweats , loss of consciousness, or any other worrisome signs or symptoms. DISCHARGE CONDITION: Improved. DISCHARGE DISPOSITION: Home. This is a summarized report of a complex medical history and hospital stay. For further details, please see the entire medical record. TIME SPENT: Approximately 50 minutes were spent on this discharge. KARLA CALABRESE, TECHNICAL SPECIALIST [employer] [id number]/[facility] #: [id number] [place]
== END 2019-08-30 16:47 | disposition home or self-care (01) | DRG 189 ==
LOC: ED 12:20 → ICU 15:14 → MEDTELE 08-28 10:28
PROVIDERS: ADMIT Internal Medicine; ATTEND Internal Medicine
PROC: 5A09357 Assistance with Respiratory Ventilation, Less than 24 Consecutive Hours, Continuous Positive Airway Pressure (ICD-10-PCS; principal; 2019-08-27)
DX: J96.21 Acute and chronic respiratory failure with hypoxia (principal); J44.1 Chronic obstructive pulmonary disease with (acute) exacerbation; J44.0 Chronic obstructive pulmonary disease with (acute) lower respiratory infection; J96.22 Acute and chronic respiratory failure with hypercapnia; E11.65 Type 2 diabetes mellitus with hyperglycemia; R41.82 Altered mental status, unspecified; J20.9 Acute bronchitis, unspecified; F41.9 Anxiety disorder, unspecified; Z66 Do not resuscitate; Z91.19 Patient's noncompliance with other medical treatment and regimen; Z87.891 Personal history of nicotine dependence; Z88.8 Allergy status to other drugs, medicaments and biological substances; Z82.49 Family history of ischemic heart disease and other diseases of the circulatory system
CPT/HCPCS: 36415; 71045; 80048; 80053; 81003; 81015; 82553; 82803; 83605; 83880; 84484; 85025; 86140; 87040; 87086; 93005; 94640; 94660; 96361; 96374; 96376; 99285; A9270-GY; G8978-GP-CH; G8979-GP-CH; G8980-GP-CH; J1644; J2930

== ENCOUNTER 2019-09-03 10:30 | Inpatient (IN) | payer MEDICARE, OTHER ==
--- NOTE | 2019-09-03 10:43 | ED ---
Shortness of Breath - HPI Summary HPI Summary: This patient is a 64 year old M with a hx of COPD BIBA via EMS to ED with a chief complaint of shortness of breath since three days ago. [place] [facility] [place] and was discharged on 08/29/19. Patient did not want to come to the ED when the shortness of breath started again, but his document management specialist this morning called EMS as she noted that his chest was barely moving. EMS gave two Duonebs. Patient is taking Prednisone. The patient rates the pain 0/10 in severity. Symptoms aggravated by nothing. Symptoms alleviated by EMS treatment. Patient denies fever. - History of Current Complaint Time Seen by Provider: 09/03/19 10:35 Hx Obtained From: Patient, EMS Onset/Duration: Gradual Onset, Lasting Days - 3 days ago, Still Present, Worse Since Timing: Constant Current Severity: Severe Dyspnea At: Rest Aggravating Factors: Nothing Alleviating Factors: EMS Tx Associated Signs & Symptoms: Negative - Fever - Allergy/Home Medications Allergies/Adverse Reactions: Allergies Allergy/AdvReac Type Severity Reaction Status Date / Time roflumilast [From Dalires] Allergy Unknown Unknown Verified 09/03/19 11:06 Reaction Details PMH/Surg Hx/FS Hx/Imm Hx Endocrine/Hematology History: Reports: Hx Diabetes Denies: Hx Anticoagulant Therapy, Hx Thyroid Disease Cardiovascular History: Denies: Hx Congestive Heart Failure, Hx Deep Vein Thrombosis, Hx Hypertension , Hx Myocardial Infarction, Hx Pacemaker/ICD Respiratory History: Reports: Hx Chronic Obstructive Pulmonary Disease (COPD), Other Respiratory Problems/Disorders - RECENT HX OF PNEUMONIA Denies: Hx Asthma, Hx Lung Cancer, Hx Pneumonia, Hx Pulmonary Embolism GI History: Reports: Hx Gall Bladder Disease - COMMON BILE DUCT STENTED. LATER CHOLANGITIS, Other GI Disorders - COMMON BILE DUCT STENT Denies: Hx Gastroesophageal Reflux Disease, Hx Gastrointestinal Bleed, Hx Hiatal Hernia, Hx Irritable Bowel, Hx Jaundice, Hx Ulcer, Hx Urosepsis History: Denies: Hx Dialysis, Hx Kidney Infection, Hx Kidney Stones, Hx Renal Disease , Other Problems/Disorders Sensory History: Denies: Hx Cataracts, Hx Contacts or Glasses, Hx Hearing Aid, Other Sensory Impairments Opthamlomology History: Denies: Hx Cataracts, Hx Contacts or Glasses, Other Sensory Impairments Neurological History: Denies: Hx Dementia, Hx Migraine, Hx Seizures, Hx Transient Ischemic Attacks (TIA) Psychiatric History: Reports: Hx Anxiety Denies: Hx Depression, Hx Schizophrenia, Hx Bipolar Disorder, Hx Substance Abuse, Other Psychiatric Issues/Disorders - pt denies ETOH abuse at this time - Surgical History Surgery Procedure, Year, and Place: tear ducts 2007. STENT IN BILE DUCT 2014. 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 Skin: The skin is warm and dry, and skin color reflects adequate perfusion. HEENT: The head is normocephalic and atraumatic. The pupils are equal and reactive. The conjunctivae are clear and without drainage. Nares are patent and without drainage. Mouth reveals moist mucous membranes, and the throat is without erythema and exudate. The external ears are intact. The ear canals are patent and without drainage. The tympanic membranes are intact. Neck: The neck is supple with full range of motion and non-tender. There are no carotid bruits. There is no neck vein distension. Respiratory: Decreased breath sounds, tachypneic on CPAP, unable to answer questions with more than one or two words. Cardiovascular: Heart is regular rate and rhythm. There is no murmur or rub auscultated. There is no peripheral edema and pulses are symmetrical and equal. Abdomen: The abdomen is soft and non-tender. There are normal bowel sounds heard in all four quadrants and there is no organomegaly palpated. Musculoskeletal: There is no back tenderness noted. Extremities are non-tender with full range of motion. There is good capillary refill. There is no peripheral edema or calf tenderness elicited. Neurological: Patient is alert and oriented to person, place and time. The patient has symmetrical motor strength in all four extremities. Cranial nerves are grossly intact. Deep tendon reflexes are symmetrical and equal in all four extremities. Psychiatric: The patient has an appropriate affect and does not exhibit any anxiety or depression. Triage Information Reviewed: Yes Vital Signs On Initial Exam: Initial Vitals Temp Pulse Resp BP Pulse Ox 98 F 118 22 160/87 100 09/03/19 10:34 09/03/19 10:34 09/03/19 10:34 09/03/19 10:34 09/03/19 10:34 Vital Signs Reviewed: Yes Procedures - Sedation Patient Received Moderate/Deep Sedation with Procedure: No Diagnostics - Laboratory Result Diagrams: 09/03/19 10:53 09/03/19 10:53 Lab Statement: Any lab studies that have been ordered have been reviewed, and results considered in the medical decision making process. - Radiology CXR Radiology Interpretation Completed By: Radiologist Summary of Radiographic Findings: SMALL RIGHT BASILAR INFILTRATE. Dr. Sierra has reviewed this radiology report. - EKG 1056 Cardiac Rate: Tachycardia - 107 BPM EKG Rhythm: Sinus Tachycardia ST Segment: Normal Ectopy: None Summary of EKG Findings: Sinus tachycardia at 107 BPM, normal ST, no ectopy, no STEMI. Dr. Sierra has reviewed and interpreted this EKG. Course/Dx - Course Course Of Treatment: Mr. Cerna apparently went to sleep without his CPAP which only sleeps to problems. His girlfriend found him unresponsive and placed him on the CPAP. It's possible she forgot with the oxygen on. EMS found him with a pulse ox in the 70s and quite confused. They placed him on CPAP and on arrival here his pulse ox is in the 90s, he is tachypneic and confused. He is placed on BiPAP where he is able to get some rest. It's reported in the records that he is a DO NOT INTUBATE however we do not have a MOLST form. I spoke with Dr. Alcantara the remote ruby on rails developer about admission to the ICU. - Diagnoses Provider Diagnoses: Acute exacerbation of chronic obstructive pulmonary disease (COPD) - Physician Notifications Discussed Care of Patient With: Graham Castellanos Time Discussed With Above Provider: 11:21 Instructed by Provider To: Admit As Inpatient - Discussed patient case with Dr. Castellanos, remote ruby on rails developer, who will come see the patient in the ED and admitted the patient to the ICU. - Critical Care Time Critical Care Time: 30-74 min Discharge ED - Sign-Out/Discharge Documenting (check all that apply): Patient Departure - Admit - Discharge Plan Condition: Fair Disposition: ADMITTED TO [facility] - Billing Disposition and Condition Condition: FAIR Disposition: Admitted to [facility] - Attestation Statements Document Initiated by Tyleribe: Yes Documenting Scribe: Raf Choi Provider For Whom Veena is Documenting (Include Credential): Curt Sierra MD Scribe Attestation: Raf Maynard, scribed for Curt Sierra MD on 09/03/19 at 1327. Scribe Documentation Reviewed: Yes Provider Attestation: The documentation as recorded by the Raf giron accurately reflects the service I personally performed and the decisions made by me, Curt Sierra MD Status of Scribe Document: Viewed
[2019-09-03] MEDS ORDERED: methylPREDNISolone 125 MG* 2 ML VIAL IV ONE (11:19)
[2019-09-03 11:21] LABS: ABS Eosinophils 0.1 10^3/ul (0-0.6); ABS Lymphocytes 1.3 10^3/ul (1.0-4.8); ABS Monocytes 0.8 10^3/ul (0-0.8); ABS Neutrophils 8.9 10^3/ul (1.5-7.7); Hematocrit 41 % (42-52); Hemoglobin 12.2 g/dL (14.0-18.0); Lymphocyte % 11.6 %; Mean Corpuscular HGB Conc 30 g/dL (31-36); Mean Corpuscular Hemoglobin 28 pg (27-31); Mean Corpuscular Volume 92 fL (80-94); Mean Platelet Volume 8.4 fL (7.4-10.4); Platelet Count 191 10^3/uL (150-450); Red Blood Count 4.45 10^6 /uL (4.18-5.48); Red Cell Distribution Width 15 % (10-15); White Blood Count 11.1 10^3/uL (3.5-10.8)
[2019-09-03 11:27] LABS: Albumin/Globulin Ratio 1.5 (1-3); BUN/Creatinine Ratio 31.6 (8-20); Calcium 9.1 mg/dL (8.6-10.3); EGFR African American 173.6 (>60); EGFR Non-African American 143.5 (>60); Globulin 2.7 g/dL (2-4); Potassium 4.3 mmol/L (3.5-5.0); Total Bilirubin 0.4 mg/dL (0.2-1.0); Total Protein 6.7 g/dL (6.4-8.9)
[2019-09-03 11:29] LABS: Troponin I 0.01 ng/mL (<0.04)
--- NOTE | 2019-09-03 12:22 | HP ---
History of Present Illness - History of Present Illness Reason for Visit: SOB History of Present Illness: 54 M with ESLD on several liters of home o2 and per roommate "CPAP all the time " p/w increased SOB. Patient recently d/c'd from hospital for SOB and has numerous hospitalizations for the same. After being discharged home last admission, was supposed to go to to Hospice services but failed to reply to their phone calls, as per daughter and proxy, Nelida. Patient brought to the ED. pC02 >124 despite Bi-Pap therapy. Patient made DNR/ DNI by daughter over the phone. MOLST had been signed at home by patient, as per roommate. - Past Medical History Pulmonary: COPD, Previously intubated Hepatobiliary: Other Endocrine: Diabetes - Past Social History Smoke: # pack years - many pack years. roommates states he smoked yesterday Occupation: unable to attain Alcohol: None Lives: Roommate Review of Systems - Review of Systems Other: unable to attain as patient non-responsive - Medications/Allergies Allergies/Adverse Reactions: Allergies Allergy/AdvReac Type Severity Reaction Status Date / Time roflumilast [From Dalires] Allergy Unknown Unknown Verified 09/03/19 11:06 Reaction Details Exam - Exam Vital Signs: Vital Signs (72 hours) 09/03/19 09/03/19 09/03/19 10:34 10:45 10:46 Temperature 98 F Pulse Rate 118 Respiratory 22 Rate Blood Pressure 160/87 135/90 (mmHg) O2 Sat by Pulse 100 100 Oximetry 09/03/19 09/03/19 09/03/19 10:47 11:01 11:10 Temperature Pulse Rate 109 117 Respiratory 22 20 Rate Blood Pressure (mmHg) O2 Sat by Pulse 100 98 Oximetry 09/03/19 11:44 Temperature Pulse Rate 97 Respiratory 18 Rate Blood Pressure (mmHg) O2 Sat by Pulse 99 Oximetry General: Other - on bi-pap. non-responsive HEENT: Atraumatic Lungs: Other - decreased BS's Cardiovascular: Regular rate, Normal S1, Normal S2 Abdomen: Normal bowel sounds, No tenderness Extremities: No clubbing, No cyanosis Skin: No rashes Neurological: Other - lethargic and not following Assessment/Plan - Assessment/Plan Assessment: ARF with hypercapnea on Bi-Pap with underlying COPD with multiple admissions for COPD exacerbations and previous intubations Plan: Had long d/w daughter, Nelida, who reaffirmed patient is DNR/DNI. She also stated she wanted him set-up with Hospice services. Patient well known to Dr. Arriaga. Continue Bi-Pap therapy Add steroids Hold ABX DNR/DNI CCM time 65 minutes
[2019-09-03] MEDS ORDERED: Acetaminophen TAB* 325 MG PO PRN (12:31)
[2019-09-03] MEDS: methylPREDNISolone SOD 40 MG* 1 ML VIAL IV SCH ×2 (14:26→20:13)
[2019-09-03] MEDS: Albuterol/Ipratropium NEB.SOL* Albuterol 2.5 MG/Ipratropium 0.5 MG 3 ML INH SCH ×3 (15:17→22:29)
[2019-09-03] MEDS: Dexmedetomidine* 1,000 MCG in NS 0.9% 250 ML* 240 ML IV SCH (20:13)
[2019-09-04 06:27] LABS: ABS Lymphocytes 0.3 10^3/ul (1.0-4.8); ABS Monocytes 0.3 10^3/ul (0-0.8); ABS Neutrophils 6.7 10^3/ul (1.5-7.7); Hematocrit 34 % (42-52); Lymphocyte % 3.7 %; Mean Corpuscular HGB Conc 32 g/dL (31-36); Mean Corpuscular Hemoglobin 28 pg (27-31); Mean Corpuscular Volume 89 fL (80-94); Mean Platelet Volume 8.5 fL (7.4-10.4); Platelet Count 166 10^3/uL (150-450); Red Blood Count 3.86 10^6 /uL (4.18-5.48); Red Cell Distribution Width 15 % (10-15); White Blood Count 7.3 10^3/uL (3.5-10.8)
[2019-09-04 06:41] LABS: BUN/Creatinine Ratio 54.2 (8-20); Calcium 8.7 mg/dL (8.6-10.3); EGFR African American 211.7 (>60); EGFR Non-African American 174.9 (>60); Magnesium 1.8 mg/dL (1.9-2.7); Potassium 4.7 mmol/L (3.5-5.0)
[2019-09-04] MEDS: Albuterol/Ipratropium NEB.SOL* Albuterol 2.5 MG/Ipratropium 0.5 MG 3 ML INH SCH ×4 (07:01→20:07)
[2019-09-04] MEDS: methylPREDNISolone SOD 40 MG* 1 ML VIAL IV SCH ×3 (07:55→21:07)
[2019-09-04] MEDS ORDERED: Magnesium Sulfate 2 GM IV* 2 GM/50 ML BAG IVPB ONE (09:37)
[2019-09-04] MEDS ORDERED: LORazepam TAB(*) 1 MG PO ONE (09:39)
--- NOTE | 2019-09-04 09:46 | PN ---
Date of Service: 09/04/19 Critical Care Services: off bi-pap and on NC. Awake. AO times 3. Asking to eat Breakfast with some Ativan no respiratory distress Vital Signs: Temp Pulse Resp BP SpO2 FiO2 97.8 F 63 18 88/52 99 50 09/04/19 07:28 09/04/19 07:40 09/04/19 07:40 09/04/19 07:15 09/04/19 07:40 09/04 07:40 Physical Exam: Gen: NAD. AO times 3, Heart: RRR, Lungs: Decreased Breath sounds, GI: +BSs, soft, NTP. No rebound or guarding. Neuro: No focal deficits. Extremities: No edema Fluid Balance (Past 24 Hours): I= O= Net Intake & Output 09/02/19 09/03/19 09/04/19 09/05/19 06:59 06:59 06:59 06:59 Intake Total 1156 Output Total 1900 Balance -744 Weight 82 lb 1.6 oz Intake: IV Fluids 238 NS (0.9%) 238 Medicated IV 58 CC - Dexmedetomidine/ 58 Precedex Oral 860 Output: Urine 1900 Other: Estimated Void Medium # Voids 1 Labs: Laboratory Results - last 24 hr 09/03/19 09/03/19 09/03/19 10:53 10:53 10:53 WBC 11.1 H RBC 4.45 Hgb 12.2 L Hct 41 L MCV 92 MCH 28 MCHC 30 L RDW 15 Plt Count 191 MPV 8.4 Neut % (Auto) 79.5 Lymph % (Auto) 11.6 Pershing % (Auto) 7.6 Eos % (Auto) 1.0 Baso % (Auto) 0.3 Absolute Neuts (auto) 8.9 H Absolute Lymphs (auto) 1.3 Absolute Monos (auto) 0.8 Absolute Eos (auto) 0.1 Absolute Basos (auto) 0.0 Absolute Nucleated RBC 0.0 Nucleated RBC % 0.0 ABG pH ABG pCO2 ABG pO2 ABG HCO3 ABG O2 Saturation ABG Base Excess Sodium 141 Potassium 4.3 Chloride 94 L Carbon Dioxide 45 H* Anion Gap 2 BUN 18 Creatinine 0.57 L Est GFR ( Amer) 173.6 Est GFR (Non-Af Amer) 143.5 BUN/Creatinine Ratio 31.6 H Glucose 252 H Lactic Acid < 0.3 L Calcium 9.1 Magnesium Total Bilirubin 0.40 AST 10 L ALT 24 Alkaline Phosphatase 37 Troponin I 0.01 Total Protein 6.7 Albumin 4.0 Globulin 2.7 Albumin/Globulin Ratio 1.5 09/03/19 09/04/19 09/04/19 11:41 05:56 05:56 WBC 7.3 RBC 3.86 L Hgb 11.0 L Hct 34 L MCV 89 MCH 28 MCHC 32 RDW 15 Plt Count 166 MPV 8.5 Neut % (Auto) 92.1 Lymph % (Auto) 3.7 Pershing % (Auto) 4.1 Eos % (Auto) 0.0 Baso % (Auto) 0.1 Absolute Neuts (auto) 6.7 Absolute Lymphs (auto) 0.3 L Absolute Monos (auto) 0.3 Absolute Eos (auto) 0.0 Absolute Basos (auto) 0.0 Absolute Nucleated RBC 0.0 Nucleated RBC % 0.0 ABG pH 7.13 L* ABG pCO2 > 125 H* ABG pO2 99 ABG HCO3 TNP ABG O2 Saturation 98.3 H ABG Base Excess TNP Sodium 135 Potassium 4.7 Chloride 90 L Carbon Dioxide 44 H* Anion Gap 1 L BUN 26 H Creatinine 0.48 L Est GFR ( Amer) 211.7 Est GFR (Non-Af Amer) 174.9 BUN/Creatinine Ratio 54.2 H Glucose 415 H Lactic Acid Calcium 8.7 Magnesium 1.8 L Total Bilirubin AST ALT Alkaline Phosphatase Troponin I Total Protein Albumin Globulin Albumin/Globulin Ratio Impression: ARF on CRF End stage COPD with numerous hospital admissions CPAP non-compliance Plan: Continue Bi-Pap therapy. While in bed patient should remain on Bi-Pap.Patient agrees to the same. continue steroids and Duonebs continue to monitor in ICU Palliative Care consult in the AM. Critical Care Time: 45
[2019-09-04] MEDS: LORazepam TAB(*) 1 MG PO PRN ×2 (15:27→22:19)
[2019-09-04] MEDS ORDERED: Insulin REGULAR(*) 1 UNITS UNIT SUBCUT ONE (16:00)
[2019-09-04] MEDS: Insulin LISPRO* 1 UNITS UNIT SUBCUT SCH ×2 (18:14→21:07)
[2019-09-05] MEDS: Dexmedetomidine* 1,000 MCG in NS 0.9% 250 ML* 240 ML IV SCH (01:09)
[2019-09-05] MEDS: Albuterol/Ipratropium NEB.SOL* Albuterol 2.5 MG/Ipratropium 0.5 MG 3 ML INH SCH ×4 (01:42→19:19)
[2019-09-05 06:36] LABS: ABS Lymphocytes 0.4 10^3/ul (1.0-4.8); ABS Monocytes 0.5 10^3/ul (0-0.8); ABS Neutrophils 10.4 10^3/ul (1.5-7.7); Hematocrit 34 % (42-52); Lymphocyte % 3.3 %; Mean Corpuscular HGB Conc 33 g/dL (31-36); Mean Corpuscular Hemoglobin 29 pg (27-31); Mean Corpuscular Volume 88 fL (80-94); Mean Platelet Volume 8.3 fL (7.4-10.4); Platelet Count 179 10^3/uL (150-450); Red Blood Count 3.85 10^6 /uL (4.18-5.48); Red Cell Distribution Width 14 % (10-15); White Blood Count 11.3 10^3/uL (3.5-10.8)
[2019-09-05 06:50] LABS: BUN/Creatinine Ratio 46.4 (8-20); Calcium 8.5 mg/dL (8.6-10.3); EGFR African American 177.2 (>60); EGFR Non-African American 146.4 (>60); Magnesium 1.9 mg/dL (1.9-2.7); Potassium 4.4 mmol/L (3.5-5.0)
[2019-09-05] MEDS: Insulin LISPRO* 1 UNITS UNIT SUBCUT SCH ×4 (07:57→20:23)
[2019-09-05] MEDS: methylPREDNISolone SOD 40 MG* 1 ML VIAL IV SCH (07:58)
[2019-09-05] MEDS: LORazepam TAB(*) 1 MG PO PRN ×2 (08:08→20:12)
--- NOTE | 2019-09-05 11:06 | PN ---
Date of Service: 09/05/19 Critical Care Services: Patient well-known to this service, with end-stage COPD and multiple admissions past 3 months for acute exacerbations. PCO2 has been in the 120s on admission. On home BIPAP. He is doing well today from a pulmonary standpoint (is out of bed and walking the halls with assistance), but O2 requirement (4 L/min) is still higher than home O2 requirement (2 L/min). Vital Signs: Temp Pulse Resp BP SpO2 FiO2 98.3 F 104 20 141/84 89 50 Physical Exam: Gen:Alert, oriented HEENT:Oropharynx clear. No JVD Lungs: BS very distant. No wheezes or crackles Cardiac: No murmurs Abdomen: Not dietnded Extremities: Warm. No cyanosis or edema Fluid Balance (Past 24 Hours): 09/04/19 09/05/19 06:59 06:59 Intake Total 1156 2705 Output Total 1900 1850 Balance -744 855 Weight 174 lb 13.225 oz Intake: IV Fluids 238 NS (0.9%) 238 IVPB 66 NS (0.9%) 66 Medicated IV 58 9 CC - Dexmedetomidine/ 58 9 Precedex Oral 860 2630 Output: Urine 1900 1850 Other: Estimated Void Medium Large # Bowel Movements 1 Estimated Stool Amount Large # Voids 1 1 Labs: 09/04/19 09/05/19 09/05/19 13:43 06:20 06:20 WBC 11.3 H RBC 3.85 L Hgb 11.0 L Hct 34 L MCV 88 MCH 29 MCHC 33 RDW 14 Plt Count 179 MPV 8.3 Neut % (Auto) 91.7 Lymph % (Auto) 3.3 [place] % (Auto) 4.8 Eos % (Auto) 0.0 Baso % (Auto) 0.2 Absolute Neuts (auto) 10.4 H Absolute Lymphs (auto) 0.4 L Absolute Monos (auto) 0.5 Absolute Eos (auto) 0.0 Absolute Basos (auto) 0.0 Absolute Nucleated RBC 0.0 Nucleated RBC % 0.0 Patient Temperature Not Reportable ABG pH 7.36 ABG pH (Temp Correct) Not Reportable ABG pCO2 79 H* ABG pCO2 (Temp Corrct Not Reportable ABG pO2 95 ABG pO2 (Temp Correct Not Reportable ABG HCO3 36.8 H ABG O2 Saturation 99.0 H ABG Base Excess 15.2 H Respiration Rate Not Reportable O2 Delivery Device 10 lpm nasal cannula Ventilator Type Not Reportable Vent Mode Not Reportable FiO2 Not Reportable Inspiratory Time Not Reportable PEEP Not Reportable Pressure Support Not Reportable Pressure Control Not Reportable EPAP Not Reportable IPAP Not Reportable BiPAP Not Reportable Sodium 137 Potassium 4.4 Chloride 92 L Carbon Dioxide 42 H* Anion Gap 3 BUN 26 H Creatinine 0.56 L Est GFR ( Amer) 177.2 Est GFR (Non-Af Amer) 146.4 BUN/Creatinine Ratio 46.4 H Glucose 303 H POC Glucose (mg/dL) Calcium 8.5 L Magnesium 1.9 09/05/19 07:40 WBC RBC Hgb Hct MCV MCH MCHC RDW Plt Count MPV Neut % (Auto) Lymph % (Auto) [place] % (Auto) Eos % (Auto) Baso % (Auto) Absolute Neuts (auto) Absolute Lymphs (auto) Absolute Monos (auto) Absolute Eos (auto) Absolute Basos (auto) Absolute Nucleated RBC Nucleated RBC % Patient Temperature ABG pH ABG pH (Temp Correct) ABG pCO2 ABG pCO2 (Temp Corrct ABG pO2 ABG pO2 (Temp Correct ABG HCO3 ABG O2 Saturation ABG Base Excess Respiration Rate O2 Delivery Device Ventilator Type Vent Mode FiO2 Inspiratory Time PEEP Pressure Support Pressure Control EPAP IPAP BiPAP Sodium Potassium Chloride Carbon Dioxide Anion Gap BUN Creatinine Est GFR ( Amer) Est GFR (Non-Af Amer) BUN/Creatinine Ratio Glucose POC Glucose (mg/dL) 292 H Calcium Magnesium Studies: None today Nutrition: Regular diet Impression: 1. Doing well from a respiratory standpoint. Major problems now are hyperglycemia and a adclhy-gikd-gjwpi O2 requirement. Plan: 1. Change diet to consistent carbs 2. Decrease steroid dose (to improve hyperglycemia) 3. Change BD treatments from PRN to scheduled. 4. Will transfer to floor service. Critical Care Time: 30 minutes
--- NOTE | 2019-09-05 14:37 | CONSULT ---
Palliative / Hospice Consult Ordering Provider: Graham Castellanos - PCP-Jason Referal Reason: goals of care questions about hospice/no meds/MS - Subjective Code Status: DNR Advance Directives Location: In Chart MOLST Part A Completed: Yes - on chart MOLST Part E Completed:: Yes - on chart - History or Present Illness History or Present Illness: 64yo male with end stage COPD presents to ER with SOB. PMH COPD on home O2 and uses BiPAP when sleeping/naps, DM type 2, h/o pancreatitis and ascending cholangitis. PSHx- tob use, ex etoh use, no drug use, with 2 daughters lives with roommate Leslie , HCP are his daughters although paperwork on chart has not been updated. Studies ekg-sinus tach, CXR R basilar infiltrate, H/H 11/34, BUN/Cr 26/.56, egfr 146, Ca 8.5 and alb 4. Pt admitted to ICU on continuous BiPAP for COPD exacerbation, hypercapnia and pneumonia. He has had 4 ER vsits and 7 hospitalizations in the past year. He was just hospitalized 08/27-2018. All history is from pt, family and medical record. Lab Values: Abnormal Lab Results 09/05/19 09/05/19 09/05/19 06:20 06:20 07:40 WBC 11.3 H RBC 3.85 L Hgb 11.0 L Hct 34 L MCV 88 MCH 29 MCHC 33 RDW 14 Plt Count 179 MPV 8.3 Neut % (Auto) 91.7 Lymph % (Auto) 3.3 [place] % (Auto) 4.8 Eos % (Auto) 0.0 Baso % (Auto) 0.2 Absolute Neuts (auto) 10.4 H Absolute Lymphs (auto) 0.4 L Absolute Monos (auto) 0.5 Absolute Eos (auto) 0.0 Absolute Basos (auto) 0.0 Absolute Nucleated RBC 0.0 Nucleated RBC % 0.0 Sodium 137 Potassium 4.4 Chloride 92 L Carbon Dioxide 42 H* Anion Gap 3 BUN 26 H Creatinine 0.56 L Est GFR ( Amer) 177.2 Est GFR (Non-Af Amer) 146.4 BUN/Creatinine Ratio 46.4 H Glucose 303 H POC Glucose (mg/dL) 292 H Calcium 8.5 L Magnesium 1.9 09/05/19 12:03 WBC RBC Hgb Hct MCV MCH MCHC RDW Plt Count MPV Neut % (Auto) Lymph % (Auto) [place] % (Auto) Eos % (Auto) Baso % (Auto) Absolute Neuts (auto) Absolute Lymphs (auto) Absolute Monos (auto) Absolute Eos (auto) Absolute Basos (auto) Absolute Nucleated RBC Nucleated RBC % Sodium Potassium Chloride Carbon Dioxide Anion Gap BUN Creatinine Est GFR ( Amer) Est GFR (Non-Af Amer) BUN/Creatinine Ratio Glucose POC Glucose (mg/dL) 234 H Calcium Magnesium Laboratory Last Values WBC 11.3 10^3/uL (3.5-10.8) H 09/05/19 06:20 RBC 3.85 10^6 /uL (4.18-5.48) L 09/05/19 06:20 Hgb 11.0 g/dL (14.0-18.0) L 09/05/19 06:20 Hct 34 % (42-52) L 09/05/19 06:20 MCV 88 fL (80-94) 09/05/19 06:20 MCH 29 pg (27-31) 09/05/19 06:20 MCHC 33 g/dL (31-36) 09/05/19 06:20 RDW 14 % (10-15) 09/05/19 06:20 Plt Count 179 10^3/uL (150-450) 09/05/19 06:20 MPV 8.3 fL (7.4-10.4) 09/05/19 06:20 Neut % (Auto) 91.7 % 09/05/19 06:20 Lymph % (Auto) 3.3 % 09/05/19 06:20 [place] % (Auto) 4.8 % 09/05/19 06:20 Eos % (Auto) 0.0 % 09/05/19 06:20 Baso % (Auto) 0.2 % 09/05/19 06:20 Absolute Neuts (auto) 10.4 10^3/ul (1.5-7.7) H 09/05/19 06:20 Absolute Lymphs (auto) 0.4 10^3/ul (1.0-4.8) L 09/05/19 06:20 Absolute Monos (auto) 0.5 10^3/ul (0-0.8) 09/05/19 06:20 Absolute Eos (auto) 0.0 10^3/ul (0-0.6) 09/05/19 06:20 Absolute Basos (auto) 0.0 10^3/ul (0-0.2) 09/05/19 06:20 Absolute Nucleated RBC 0.0 10^3/ul 09/05/19 06:20 Nucleated RBC % 0.0 09/05/19 06:20 Patient Temperature Not Reportable 09/04/19 13:43 ABG pH 7.36 (7.35-7.45) 09/04/19 13:43 ABG pH (Temp Correct) Not Reportable 09/04/19 13:43 ABG pCO2 79 mmHg (35-45) H* 09/04/19 13:43 ABG pCO2 (Temp Corrct Not Reportable 09/04/19 13:43 ABG pO2 95 mmHg (80-100) 09/04/19 13:43 ABG pO2 (Temp Correct Not Reportable 09/04/19 13:43 ABG HCO3 36.8 mmol/L (19-31) H 09/04/19 13:43 ABG O2 Saturation 99.0 % (94.0-98.0) H 09/04/19 13:43 ABG Base Excess 15.2 mmol/L (-2.0-2.0) H 09/04/19 13:43 Respiration Rate Not Reportable 09/04/19 13:43 O2 Delivery Device 10 lpm nasal cannula 09/04/19 13:43 Ventilator Type Not Reportable 09/04/19 13:43 Vent Mode Not Reportable 09/04/19 13:43 FiO2 Not Reportable 09/04/19 13:43 Inspiratory Time Not Reportable 09/04/19 13:43 PEEP Not Reportable 09/04/19 13:43 Pressure Support Not Reportable 09/04/19 13:43 Pressure Control Not Reportable 09/04/19 13:43 EPAP Not Reportable 09/04/19 13:43 IPAP Not Reportable 09/04/19 13:43 BiPAP Not Reportable 09/04/19 13:43 Sodium 137 mmol/L (135-145) 09/05/19 06:20 Potassium 4.4 mmol/L (3.5-5.0) 09/05/19 06:20 Chloride 92 mmol/L (101-111) L 09/05/19 06:20 Carbon Dioxide 42 mmol/L (22-32) H* 09/05/19 06:20 Anion Gap 3 mmol/L (2-11) 09/05/19 06:20 BUN 26 mg/dL (6-24) H 09/05/19 06:20 Creatinine 0.56 mg/dL (0.67-1.17) L 09/05/19 06:20 Est GFR ( Amer) 177.2 (>60) 09/05/19 06:20 Est GFR (Non-Af Amer) 146.4 (>60) 09/05/19 06:20 BUN/Creatinine Ratio 46.4 (8-20) H 09/05/19 06:20 Glucose 303 mg/dL (70-100) H 09/05/19 06:20 POC Glucose (mg/dL) 234 mg/dL (70-100) H 09/05/19 12:03 Lactic Acid < 0.3 mmol/L (0.5-2.0) L 09/03/19 10:53 Calcium 8.5 mg/dL (8.6-10.3) L 09/05/19 06:20 Magnesium 1.9 mg/dL (1.9-2.7) 09/05/19 06:20 Total Bilirubin 0.40 mg/dL (0.2-1.0) 09/03/19 10:53 AST 10 U/L (13-39) L 09/03/19 10:53 ALT 24 U/L (7-52) 09/03/19 10:53 Alkaline Phosphatase 37 U/L (34-104) 09/03/19 10:53 Troponin I 0.01 ng/mL (<0.04) 09/03/19 10:53 Total Protein 6.7 g/dL (6.4-8.9) 09/03/19 10:53 Albumin 4.0 g/dL (3.2-5.2) 09/03/19 10:53 Globulin 2.7 g/dL (2-4) 09/03/19 10:53 Albumin/Globulin Ratio 1.5 (1-3) 09/03/19 10:53 - Objective Active Medications: Albuterol/Ipratropium (Duoneb (Albuterol 2.5 Mg/Ipratropium 0.5 Mg)) 1 neb INH RT.[id number]-[id number] AWAKE [facility] Last Admin: 09/05/19 13:07 Dose: 1 neb Insulin Human Lispro (Humalog*) 0 units SUBCUT ACHS ANAT; Protocol Last Admin: 09/05/19 12:51 Dose: 4 units Lorazepam (Ativan Tab(*)) 1 mg PO Q8H PRN PRN Reason: ANXIETY - MODERATE Last Admin: 09/05/19 08:08 Dose: 1 mg Prednisone (Deltasone Tab*) 60 mg PO DAILY [facility] Vital Signs: Vital Signs: Temp Pulse Resp BP Pulse Ox 98.2 F 96 16 141/84 98 09/05/19 11:00 09/05/19 13:07 09/05/19 13:07 09/05/19 11:00 09/05/19 13:07 Patient Weight: Weight 79.3 kg Intake and Output: Intake & Output 09/03/19 09/04/19 09/05/19 09/06/19 06:59 06:59 06:59 06:59 Intake Total 1156 2705 1400 Output Total 1900 1850 400 Balance -563 349 1837 Weight 37.24 kg 79.3 kg Intake: IV Fluids 238 NS (0.9%) 238 IVPB 66 NS (0.9%) 66 Medicated IV 58 9 CC - Dexmedetomidine/ 58 9 Precedex Oral 860 2630 1400 Output: Urine 1900 1850 400 Other: Estimated Void Medium Large Date of Last Bowel [id number] Movement # Bowel Movements 1 Estimated Stool Amount Large # Voids 1 1 0 ADLs: Meal Record Start: 09/03/19 13: 17 Freq: ,,18 Status: Active Protocol: Created 09/03/19 13:17 System (Rec: 09/03/19 13:17 System ICU-M23) Document 09/03/19 20:30 [id number] (Rec: 09/03/19 23:23 [id number] ICU-C06) Document 09/04/19 09:00 [id number] (Rec: 09/04/19 11:31 [id number] ICU-C12) Document 09/04/19 13:00 [id number] (Rec: 09/04/19 15:44 HYV4951 ICU-C12) Document 09/04/19 18:00 [id number] (Rec: 09/04/19 18:43 [id number] ICU-C10) Document 09/05/19 09:00 LDQ0368 (Rec: 09/05/19 09:50 [id number] ICU-C06) Document 09/05/19 13:00 RAH8905 (Rec: 09/05/19 13:49 [id number] MED-C09) Intake and Output Start: 09/03/19 10: 45 Freq: Status: Active Protocol: Created 09/03/19 10:45 System (Rec: 09/03/19 10:45 System [id number]) Intake and Output Start: 09/03/19 13: 17 Freq: Q1HR Status: Active Protocol: Created 09/03/19 13:17 System (Rec: 09/03/19 13:17 System ICU-M23) Document 09/03/19 14:00 [id number] (Rec: 09/03/19 15:14 [id number] ICU-C06) Document 09/03/19 17:00 [id number] (Rec: 09/03/19 17:44 NEJ1257 ICU-C06) Document 09/03/19 19:35 WNX4280 (Rec: 09/03/19 19:36 LTH0755 ICU-M28) Document 09/03/19 20:00 HKQ6539 (Rec: 09/03/19 23:34 UCJ6567 ICU-C06) Document 09/03/19 21:00 XOL7300 (Rec: 09/03/19 23:35 FIM9070 ICU-C06) Document 09/03/19 22:00 NQM1011 (Rec: 09/03/19 23:37 RZK3473 ICU-C06) Document 09/03/19 23:00 GOI6896 (Rec: 09/03/19 23:38 UZZ2268 ICU-C06) Document 09/04/19 00:00 [id number] (Rec: 09/04/19 01:06 KVQ6711 ICU-C06) Document 09/04/19 01:00 NRY1207 (Rec: 09/04/19 01:07 IPP0171 ICU-C06) Document 09/04/19 01:30 NEZ5430 (Rec: 09/04/19 02:29 JUA2239 ICU-M28) Document 09/04/19 02:00 CBZ6108 (Rec: 09/04/19 02:22 JFG7215 ICU-C06) Document 09/04/19 05:00 FHR5540 (Rec: 09/04/19 05:07 ISZ0920 ICU-C06) Document 09/04/19 06:00 UDI9859 (Rec: 09/04/19 06:20 WHK7751 ICU-C06) Document 09/04/19 09:00 LNE0945 (Rec: 09/04/19 10:20 ECD7053 ICU-C12) Document 09/04/19 10:00 MUU9159 (Rec: 09/04/19 10:20 MXL4705 ICU-C12) Document 09/04/19 11:00 VCL9798 (Rec: 09/04/19 11:31 ABU6036 ICU-C12) Document 09/04/19 13:00 IBK5900 (Rec: 09/04/19 13:34 QTF2781 ICU-C12) Document 09/04/19 15:00 HMB4326 (Rec: 09/04/19 15:43 HIT3684 ICU-C12) Document 09/04/19 17:00 JVW9992 (Rec: 09/04/19 17:19 [id number] ICU-C12) Document 09/04/19 19:00 GJP7361 (Rec: 09/04/19 21:29 KCD0630 ICU-C06) Document 09/04/19 20:00 ORZ4014 (Rec: 09/04/19 21:42 HZL9102 ICU-C06) Document 09/04/19 21:00 FKP5126 (Rec: 09/04/19 21:44 [id number] ICU-C06) Document 09/04/19 23:00 NMO2535 (Rec: 09/05/19 00:14 FZO2105 ICU-C06) Document 09/05/19 00:00 KQP9406 (Rec: 09/05/19 00:27 OZG3283 ICU-C06) Document 09/05/19 01:00 BIV1199 (Rec: 09/05/19 01:08 BOK0597 ICU-C06) Document 09/05/19 01:52 EJK7117 (Rec: 09/05/19 01:52 REB4959 ICU-C06) Document 09/05/19 03:00 NPC6377 (Rec: 09/05/19 03:05 LTT1671 ICU-C06) Document 09/05/19 04:00 HYT2816 (Rec: 09/05/19 04:11 [id number] ICU-C06) Document 09/05/19 05:00 EZT8038 (Rec: 09/05/19 05:23 QYQ1082 ICU-C06) Document 09/05/19 06:00 FCZ2335 (Rec: 09/05/19 06:31 BPC1166 ICU-C06) Document 09/05/19 07:00 ETL7108 (Rec: 09/05/19 07:32 OLM3414 ICU-C11) Document 09/05/19 08:00 XFD4791 (Rec: 09/05/19 08:36 JWX9068 ICU-C06) Document 09/05/19 09:00 BGU3308 (Rec: 09/05/19 09:50 ZSB9822 ICU-C06) Document 09/05/19 10:00 LUH7531 (Rec: 09/05/19 11:13 [id number] ICU-M28) Document 09/05/19 12:00 CKR1003 (Rec: 09/05/19 12:53 TVA6032 MED-C09) Document 09/05/19 13:00 ZQB5721 (Rec: 09/05/19 13:50 KDQ3076 MED-C09) Document 09/05/19 14:00 JBS6689 (Rec: 09/05/19 14:01 GWS2571 MED-C09) Eyes: No Scleral Icterus Ears/Nose/Mouth/Throat: NL Teeth, Lips, Gums Neck: NL Appearance and Movements; NL JVP Cardiovascular: NL Sounds; No Murmurs; No JVD Respiratory: Symmetrical Chest Expansion and Respiratory Effort - poor air movement Abdominal: NL Sounds; No Tenderness; No Distention Extremities: No Edema Neurological: Alert and Oriented x 3 - Assessment Assessment: 64yo male with end stage COPD interested in palliative care but eligible for hospice - Plan Consult Plan (MU): Palliative Plan: Spoke with pt, his ex- Cee and his 2 daughters. Pt doesn't want to be on hospice but family and pt are interested in pursuing [facility] to help limit the frequent hospitalizations and ER visits. Contacted Samia from [facility] and let telephonic nurse case manager know to send referral. Family reports the pt is non compliant at home with his BiPAP once he is feeling better. During his Jul hospitalization pt signed MOLST for DNR/DNI and pt was evaluated for hospice but both [facility] and pt felt he is not ready to stop calling 911 and be treated at home. Pt was referred at that time to [facility] but he didn't return their calls to set up a time for evaluation. Family is trying to be more proactive in setting up meeting with [facility] and try to treat symptoms at home earlier and avoid hospitalizations. Pt is eligible for hospice with diagnosis of end stage COPD with frequent hospitalizations and hypercapnia. KPS 60%, PPS 50%
[2019-09-06] MEDS: Albuterol/Ipratropium NEB.SOL* Albuterol 2.5 MG/Ipratropium 0.5 MG 3 ML INH SCH ×3 (01:34→13:00)
[2019-09-06] MEDS: LORazepam TAB(*) 1 MG PO PRN (07:41)
[2019-09-06] MEDS: Insulin LISPRO* 1 UNITS UNIT SUBCUT SCH ×2 (08:32→13:25)
[2019-09-06] MEDS ORDERED: predniSONE TAB* 20 MG PO SCH (09:00)
[2019-09-06 15:51] VITALS: BP 124/75
--- NOTE | 2019-09-06 22:09 | DS ---
DISCHARGE SUMMARY: DATE OF ADMISSION: 09/03/19 DATE OF DISCHARGE: 09/06/19 PRIMARY CARE PHYSICIAN: Mahsa Gomez MD. ATTENDING PHYSICIAN: Dr. Dustin Shook * (dictated by TERESITA Carbajal). PRIMARY DIAGNOSES: 1. Chronic obstructive pulmonary disease exacerbation. 2. Acute on chronic respiratory failure. 3. End-stage chronic obstructive pulmonary disease. SECONDARY DIAGNOSES: 1. Chronic respiratory failure, requiring oxygen. 2. End-stage chronic obstructive pulmonary disease. 3. Diabetes mellitus type 2. 4. History of pancreatitis. CONSULTATIONS WHILE IN THE HOSPITAL: Palliative Care/Hospice Plan: I spoke with the patient, ex- Cee, 2 daughters. The patient does not want to be on hospice, but family and patient are interested in pursuing [facility] to help limit frequent hospitalization and ER visits. Contacted Samia from [facility] and let know to send referral. The patient is noncompliant at home with BiPAP once he is feeling better, family reports. During July hospitalization the patient signed MOLST for DNR/DNI and was evaluated for hospice, but both [facility] and the patient felt not ready to stop calling 911 and be treated at home. The patient referred to [facility] at that time, but did not return calls to set up time for eval. Family is trying to be more proactive in setting up meeting with [facility] and try to treat symptoms at home earlier and avoid hospitalization. The patient is eligible for hospice with diagnosis of end- stage COPD, with frequent hospitalizations and hypercapnia. Samia from [facility] not able to meet patient at hospital; so, Nelida, daughter, will set up appointment with Samia at [facility]'s home for [facility]. STUDIES WHILE IN THE HOSPITAL: Chest x-ray: Impression: Small right basilar infiltrate. DISCHARGE MEDICATIONS: Home medications: 1. Acetaminophen 650 mg p.o. q.6 hours p.r.n. pain. 2. Advair HFA 2 puff inhalation b.i.d. 3. Albuterol HFA 2 puff inhalation 4 times a day p.r.n. 4. DuoNeb 1 neb inhalation q.4 hours p.r.n. 5. Lorazepam 1 mg p.o. q.4 hours p.r.n. anxiety. 6. Morphine 5 mg sublingual q.2 hours p.r.n., MDD 60. New home medications: Prednisone 60 mg x2 days, 50 mg x3 days, 40 mg x3 days, 30 mg x3 days, 20 mg x3 days, 10 mg x3 days, then discontinue. HISTORY OF PRESENT ILLNESS/HOSPITAL COURSE: Mr. Cerna is a 64-year-old male with a past medical history of COPD and chronic hypoxic respiratory failure, who presented to the ER on 09/03/19 with complaints of increased shortness of breath. For full and complete details, please see the history and physical created by Dr. Graham Castellanos, but in short, the patient presented with these complaints and was admitted to the ICU and started on BiPAP. Oral prednisone was started. DuoNeb was ordered. He was eventually weaned to oxygen and transferred to the medical floor. His oral steroids were decreased to 60 p.o. daily and he has instructions to taper off of prednisone. The patient was amenable to possibly joining [facility] program at his last hospitalization. He did not return phone calls left with him for follow up. Another discussion was had regarding palliative care/hospice for endstage COPD with frequent hospitalization and hypercapnia. The patient is agreeable to discussing options with Samia from [facility]. She has agreed to call Rubén or his daughter, Nelida, at home to set up an appointment. Mr. Cerna was recommended to spend another night in the hospital for continued observation and assurance that he has stabilized. He is disagreeable to this and would like to be discharged home. He is very eager to leave the hospital. He denies shortness of breath, although it is noted that he is on 4 L of oxygen and his baseline requirements are 2 to 3 L at home. He does report shortness of breath with activity, but feels that his breathing is back to baseline. He denies dizziness, lightheadedness, vision changes, headache, cough, fever, chills, abdominal pain, nausea, vomiting, diarrhea, constipation, myalgias, or arthralgias. REVIEW OF SYSTEMS: A 14-point review of systems has been performed and all the pertinent positives and negatives are as in the HPI. All other systems are negative. PHYSICAL EXAMINATION: Vital signs: Temperature 97.9, oral; heart rate 109, respiratory rate 22, oxygen saturation 99% on 4 L, blood pressure 124/75. General: Mr. Cerna is a well-developed, well-nourished, middle-aged male, who is standing in his room. He appears somewhat anxious and is expressing eagerness to be discharged. HEENT: PERRL, EOMI. Nonicteric sclerae. Hearing is grossly intact. Oral mucous membranes are moist. There are no lesions. The pharynx is clear. Cardiovascular: Regular rate and rhythm, with S1 and S2 present, without murmurs, rubs, clicks or gallops. There is no JVD. There is no peripheral edema. Abdomen: Flat, bowel sounds in all quadrants, soft, nontender to palpation. Musculoskeletal: Full range of motion, without pain or deformities. Neuro: The patient is awake. He is alert and oriented x3 with cranial nerves grossly intact. The patient is with 5/5 muscle strength in bilateral upper and lower extremities. Steady gait without impairment. DISCHARGE PLAN: Mr. Cerna will be discharged to home. CONDITION: Fair. DIET: Heart healthy. ACTIVITY: As tolerated. MEDICATIONS: Continue prednisone 60 mg p.o. daily x2 days, then taper by 10 mg daily q.3 days until discontinued. EDUCATION: 1. Follow up with the primary care provider in 4 to 7 days. 2. Follow up with the stull installer, Dr. Joe, within 1 to 2 weeks. 3. Follow up with [facility]. Office will call to discuss appointment date and time. 4. Return to the ER or nearest hospital if you experience any worsening of symptoms, chest pain or discomfort, shortness of breath, dizziness, lightheadedness, loss of consciousness, high fevers, chills, night sweats or any other worrisome signs or symptoms. This is a summarized report of a complex medical history and hospital stay. For further details, please see the entire medical record. TIME SPENT: Approximately 35 minutes were spent on this discharge, greater than half of that time was spent [id number] with the patient discussing discharge plans and instructions. TERESITA LITTLE [id number]/[facility] #: [id number] MTDD
== END 2019-09-06 16:40 | disposition hospice, home (50) | DRG 190 ==
LOC: ED 10:30 → ICU 12:31 → MED 09-05 11:11
PROVIDERS: ADMIT Internal Medicine; ATTEND Internal Medicine
DX: J44.1 Chronic obstructive pulmonary disease with (acute) exacerbation (principal); J96.21 Acute and chronic respiratory failure with hypoxia; J96.02 Acute respiratory failure with hypercapnia; Z99.81 Dependence on supplemental oxygen; E11.9 Type 2 diabetes mellitus without complications; Z66 Do not resuscitate; F17.210 Nicotine dependence, cigarettes, uncomplicated; Z88.8 Allergy status to other drugs, medicaments and biological substances; Z91.19 Patient's noncompliance with other medical treatment and regimen
CPT/HCPCS: 36415; 36600; 71045; 80048; 80053; 82803; 83605; 83735; 84484; 85025; 93005; 94640; 94660; 96374; 96375; 99285; A9270-GY; J2920; J2930; J3475; J7512

== ENCOUNTER 2019-09-28 02:44 | Inpatient (IN) | payer MEDICARE, OTHER ==
[2019-09-28] MEDS ORDERED: Albuterol/Ipratropium NEB.SOL* Albuterol 2.5 MG/Ipratropium 0.5 MG 3 ML INH ONE (02:54)
[2019-09-28 03:41] LABS: ABS Lymphocytes 0.4 10^3/ul (1.0-4.8); ABS Monocytes 0.8 10^3/ul (0-0.8); ABS Neutrophils 12.2 10^3/ul (1.5-7.7); Eosinophil % 0.1 %; Hematocrit 40 % (42-52); Hemoglobin 12.6 g/dL (14.0-18.0); Lymphocyte % 3.2 %; Mean Corpuscular HGB Conc 31 g/dL (31-36); Mean Corpuscular Hemoglobin 28 pg (27-31); Mean Corpuscular Volume 89 fL (80-94); Mean Platelet Volume 8.3 fL (7.4-10.4); Platelet Count 232 10^3/uL (150-450); Red Blood Count 4.52 10^6 /uL (4.18-5.48); Red Cell Distribution Width 14 % (10-15); White Blood Count 13.5 10^3/uL (3.5-10.8)
--- NOTE | 2019-09-28 03:42 | ED ---
Shortness of Breath - HPI Summary HPI Summary: Patient is a 64 y/o M presenting to the ED via EMS for a chief complaint of shortness of breath that began on 09/27/19. Per EMS, patient had an initial pulse ox of 96%, did not appear cyanotic, and improved with a breathing treatment. Patient denies fever, myalgia, or headache. Patient uses 2L of oxygen at home. Patient has a PMHx of COPD and has been seen at [facility] several times in the last 3-4 months for similar symptoms. Allergies noted. - History of Current Complaint Chief Complaint: EDShortnessOfBreath Time Seen by Provider: 09/28/19 02:45 Hx Obtained From: Patient, EMS Onset/Duration: Sudden Onset, Still Present Current Severity: Moderate Dyspnea At: Rest Aggravating Factors: Nothing Alleviating Factors: Oxygen Associated Signs & Symptoms: Negative - Allergy/Home Medications Allergies/Adverse Reactions: Allergies Allergy/AdvReac Type Severity Reaction Status Date / Time roflumilast [From Dalires] Allergy Unknown Unknown Verified 09/03/19 11:06 Reaction Details PMH/Surg Hx/FS Hx/Imm Hx Previously Healthy: Yes Endocrine/Hematology History: Reports: Hx Diabetes Denies: Hx Anticoagulant Therapy, Hx Thyroid Disease Cardiovascular History: Denies: Hx Congestive Heart Failure, Hx Deep Vein Thrombosis, Hx Hypertension , Hx Myocardial Infarction, Hx Pacemaker/ICD Respiratory History: Reports: Hx Chronic Obstructive Pulmonary Disease (COPD), Other Respiratory Problems/Disorders - RECENT HX OF PNEUMONIA Denies: Hx Asthma, Hx Lung Cancer, Hx Pneumonia, Hx Pulmonary Embolism GI History: Reports: Hx Gall Bladder Disease - COMMON BILE DUCT STENTED. LATER CHOLANGITIS, Other GI Disorders - COMMON BILE DUCT STENT Denies: Hx Gastroesophageal Reflux Disease, Hx Gastrointestinal Bleed, Hx Hiatal Hernia, Hx Irritable Bowel, Hx Jaundice, Hx Ulcer, Hx Urosepsis History: Denies: Hx Dialysis, Hx Kidney Infection, Hx Kidney Stones, Hx Renal Disease , Other Problems/Disorders Sensory History: Reports: Hx Contacts or Glasses Denies: Hx Cataracts, Hx Hearing Aid, Other Sensory Impairments Opthamlomology History: Reports: Hx Contacts or Glasses Denies: Hx Cataracts, Other Sensory Impairments Neurological History: Denies: Hx Dementia, Hx Migraine, Hx Seizures, Hx Transient Ischemic Attacks (TIA) Psychiatric History: Reports: Hx Anxiety Denies: Hx Depression, Hx Schizophrenia, Hx Bipolar Disorder, Hx Substance Abuse, Other Psychiatric Issues/Disorders - pt denies ETOH abuse at this time - Surgical History Surgical History: Yes Surgery Procedure, Year, and Place: tear ducts 2007. STENT IN BILE DUCT 2013. eye surgery cataracts Hx Anesthesia Reactions: No - Immunization History Date of Tetanus Vaccine: 2010 Date of Influenza Vaccine: 2011 Infectious Disease History: Unable to Obtain/Confirm Infectious Disease History: Denies: Hx Hepatitis, Hx Human Immunodeficiency Virus (HIV), Hx of Known/ Suspected MRSA, History Other Infectious Disease, Traveled Outside the [place] in Last 30 Days - Family History Known Family History: Positive: Cardiac Disease, Hypertension - Social History Occupation: Disabled Lives: With Family Alcohol Use: None Alcohol Amount: ETOH use in past Hx Substance Use: Yes Substance Use Type: Reports: None Substance Use Comment - Amount & Last Used: hx of etoh, 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 Hx Tobacco Use: Yes Smoking Status (MU): Former Smoker Type: Cigarettes Amount Used/How Often: very little, a cigarette a day at most, usually less- uses nicotine inhaler Length of Time of Smoking/Using Tobacco: has quit Have You Smoked in the Last Year: Yes Review of Systems - ROS Summary Review of Systems Summary: Albuterol HFA INHALER* [Ventolin HFA Inhaler*] 2 inh INH QID PRN 08/26/17 [ History Confirmed 09/03/19] Acetaminophen TAB* [Tylenol TAB*] 650 mg PO Q6H PRN tab 08/16/19 [Rx Confirmed 09/03/19] Advair HFA 115/21 (NF) 2 puff INH BID #0 08/16/19 [Rx Confirmed 09/03/19] Albuterol/Ipratropium NEB.JAZZMINE* [Duoneb (Albuterol 2.5 MG/Ipratropium 0.5 MG)] 1 neb INH Q4HR PRN #100 neb.soln 08/16/19 [Rx Confirmed 09/03/19] Atropine 1% (ORAL/SL)* 2 drop SL Q2H PRN #1 btl 08/16/19 [Rx Confirmed 09/03/19] LORazepam TAB(*) [Ativan 1 MG TAB (*)] 1 mg PO Q4H PRN #60 tab MDD 6mg 08/16/19 [Rx Confirmed 09/03/19] Morphine ORAL CONCENTRATE* 5 mg SL Q2H PRN #60 ml MDD 60mg 08/16/19 [Rx Confirmed 09/03/19] predniSONE TAB* [Deltasone 10 MG TAB*] 10 mg PO DAILY #57 tab 09/06/19 [Rx] Negative: Fever Positive: Shortness Of Breath Negative: Myalgia Negative: Headache All Other Systems Reviewed And Are Negative: Yes Physical Exam - Summary Physical Exam Summary: General: Well-developed, Well-nourished MALE. No acute distress. Pursed lips. HEENT: Normocephalic, Atraumatic. Eyes: Conjuctiva normal, PERRL. Ears: TMs within normal limits. Nares: (-) discharge, (-) erythema. Oropharynx: Clear, mucous membranes moist, (-) exudates. Neck: Soft, FROM, (-) lymphadenopathy, (-) thyromegaly, (-) JVD. Cardiovascular: Normal sinus rhythm, (-) murmur. Lungs: (-) rales, (-) rhonchi. Moderate repiratory distress. Tripoding, tight wheezes throughout, fair air exchange. Abdomen: Soft, non-tender, non-distended, (-) organomegaly, normal bowel sounds. Back: (-) CVA tenderness Extremities: No edema. Skin: Warm, dry, (-) rash. Neuro: Alert and oriented x3, no focal deficits. Psychiatric: Mood normal, affect normal. Triage Information Reviewed: Yes Vital Signs On Initial Exam: Initial Vitals Temp Pulse Resp BP Pulse Ox 99.7 F 150 26 136/93 100 09/28/19 02:44 09/28/19 02:44 09/28/19 02:44 09/28/19 02:44 09/28/19 02:44 Vital Signs Reviewed: Yes Procedures - Sedation Patient Received Moderate/Deep Sedation with Procedure: No Diagnostics - Vital Signs Vital Signs Temp Pulse Resp BP Pulse Ox 09/28/19 03:08 151 29 100 09/28/19 02:56 25 143/115 09/28/19 02:55 29 09/28/19 02:44 99.7 F 150 26 136/93 100 - Laboratory Lab Results: Lab Results 09/28/19 Range/Units 02:58 WBC 13.5 H (3.5-10.8) 10^3/uL RBC 4.52 (4.18-5.48) 10^6 /uL Hgb 12.6 L (14.0-18.0) g/dL Hct 40 L (42-52) % MCV 89 (80-94) fL MCH 28 (27-31) pg MCHC 31 (31-36) g/dL RDW 14 (10-15) % Plt Count 232 (150-450) 10^3/uL MPV 8.3 (7.4-10.4) fL Neut % (Auto) 90.6 % Lymph % (Auto) 3.2 % [place] % (Auto) 5.9 % Eos % (Auto) 0.1 % Baso % (Auto) 0.2 % Absolute Neuts (auto) 12.2 H (1.5-7.7) 10^3/ul Absolute Lymphs (auto) 0.4 L (1.0-4.8) 10^3/ul Absolute Monos (auto) 0.8 (0-0.8) 10^3/ul Absolute Eos (auto) 0.0 (0-0.6) 10^3/ul Absolute Basos (auto) 0.0 (0-0.2) 10^3/ul Absolute Nucleated RBC 0.0 10^3/ul Nucleated RBC % 0.0 Result Diagrams: 19 05:40 09/28/19 03:29 Lab Statement: Any lab studies that have been ordered have been reviewed, and results considered in the medical decision making process. - Radiology Chest X-ray Radiology Interpretation Completed By: ED Physician Summary of Radiographic Findings: Chest X-ray IMPRESSION: No obvious infiltrate or pleural effusion. Reviewed and interpreted by Dr. Restrepo; pending official radiology report. - EKG 02:49 Cardiac Rate: Tachycardia - 152 BPM EKG Rhythm: Sinus Tachycardia ST Segment: Normal Ectopy: None Summary of EKG Findings: EKG at 02:49 reveals sinus tachycardia with rate of 152 BPM, no acute changes, no ischemic changes, no STEMI. This EKG was reviewed and interpreted by Dr. Restrepo. Re-Evaluation - Re-Evaluation First Re-Evaluation Time: 05:40 Change: Unchanged Comment: At 05:40, patient is DNR and therefore was not intubated. Course/Dx - Course Course Of Treatment: 64-year-old male presents by ambulance from home with acute respiratory failure. Patient appears in significant respiratory distress upon arrival. Immediately placed on BiPAP. ABG one hour later demonstrates CO2 of 93. Intubation was contemplated that time. Patient however was somnolent and unable to make medical decisions. His power of disability attorney was called but no answer was obtained. Review of the chart demonstrates a DNR/DNI order. BiPAP was adjusted and patient was referred to hospitalist for admission. - Diagnoses Provider Diagnoses: Respiratory failure, Hypercarbia - Physician Notifications Discussed Care of Patient With: Aury Luque - At 05:31, Dr. Aury Luque agrees to admit the patient to [facility] with a diagnosis of respiratory failure and hypercarbia. Time Discussed With Above Provider: 05:31 Instructed by Provider To: Admit As Inpatient Discharge ED - Sign-Out/Discharge Documenting (check all that apply): Patient Departure - Admit - Discharge Plan Condition: Stable Disposition: ADMITTED TO [facility] Referrals: Mahsa Gomez MD [Primary Care Provider] - - Billing Disposition and Condition Condition: STABLE Disposition: Admitted to [facility] - Attestation Statements Document Initiated by Scribe: Yes Documenting Scribe: Fela Barcenas Provider For Whom Scribe is Documenting (Include Credential): Shiloh Restrepo MD Scribe Attestation: Fela Maynard scribed for Shiloh Restrepo MD on 09/28/19 at 0612. Scribe Documentation Reviewed: Yes Provider Attestation: The documentation as recorded by the Fela giron accurately reflects the service I personally performed and the decisions made by , Shiloh Restrepo MD Status of Scribe Document: Viewed
[2019-09-28 03:44] LABS: INR 0.91 (0.82-1.09)
[2019-09-28 03:57] LABS: Albumin 4.2 g/dL (3.2-5.2); Albumin/Globulin Ratio 1.6 (1-3); BUN/Creatinine Ratio 27.1 (8-20); Calcium 9.1 mg/dL (8.6-10.3); EGFR African American 136.9 (>60); EGFR Non-African American 113.2 (>60); Globulin 2.7 g/dL (2-4); Potassium 4.3 mmol/L (3.5-5.0); Total Bilirubin 0.5 mg/dL (0.2-1.0); Total Protein 6.9 g/dL (6.4-8.9)
[2019-09-28 03:59] LABS: Troponin I 0.01 ng/mL (<0.04)
[2019-09-28] MEDS ORDERED: Diphth/Teta/Acell Pertusis* 0.5 ML SYR ** FOR 6 WKS TO 7 YRS OLD IM ONE (04:28)
[2019-09-28] MEDS ORDERED: Propofol* 100 ML IV ONE (04:31)
[2019-09-28] MEDS ORDERED: Propofol* 100 ML ONE (04:33)
[2019-09-28] MEDS ORDERED: methylPREDNISolone 125 MG* 2 ML VIAL IV ONE (04:46)
[2019-09-28] MEDS ORDERED: cefTRIAXone(*) 2 GM in NS 0.9% 100 ML* 100 ML IVPB ONE (04:46)
--- NOTE | 2019-09-28 05:43 | HP ---
History of Present Illness - History of Present Illness Reason for Visit: shortness of breath History of Present Illness: 64 year old male with end stage COPD, chronic hypercapnea and hypoxemia, and multiple hospitalizations for respiratory failure with most recent admission 3 weeks ago. He was brought in today by EMT with respiratory distress. ABG in the ED showed pH 7.27 with pCO2 93. He was put on bipap. Pt too dyspnic to offer a detailed history. He apparently completed his steroids taper from his most recent admission and had started feeling short of breath only a few days ago. Of note, he was recently made DNR/DNI by family with trial of BIpap. Initial lab values notable for slight increase in WBC. CXR with no obvious consolidation. - Past Medical History Cardiac: HTN, Hyperlipidemia Pulmonary: COPD Review of Systems - Review of Systems Dermatology: Positive: Normal HEENT: Positive: Normal Thyroid: Positive: Normal Pulmonary: Positive: Respiratory Distress, Shortness of Breath, COPD Cardiology: Positive: Normal Gastroenterology: Positive: Normal Endocrinology: Positive: Normal Objective Active Medications: Propofol (Diprivan*) 100 mls @ 0 mls/hr IV .PER PROTOCOL ONE; Protocol Stop: 09/28/19 04:32 Vital Signs - 8 hr 09/28/19 09/28/19 09/28/19 02:44 02:55 02:56 Temperature 99.7 F Pulse Rate 150 Respiratory 26 29 25 Rate Blood Pressure 136/93 143/115 (mmHg) O2 Sat by Pulse 100 Oximetry 09/28/19 09/28/19 09/28/19 03:00 03:08 03:38 Temperature Pulse Rate 151 139 Respiratory 34 29 26 Rate Blood Pressure 121/75 (mmHg) O2 Sat by Pulse 100 94 Oximetry 09/28/19 09/28/19 09/28/19 03:56 03:59 04:01 Temperature Pulse Rate 133 134 134 Respiratory 26 25 26 Rate Blood Pressure 97/67 (mmHg) O2 Sat by Pulse 96 96 96 Oximetry 09/28/19 09/28/19 09/28/19 04:25 04:55 05:00 Temperature Pulse Rate 132 128 131 Respiratory 25 26 28 Rate Blood Pressure 103/75 121/75 (mmHg) O2 Sat by Pulse 94 95 94 Oximetry 09/28/19 05:25 Temperature Pulse Rate 128 Respiratory 23 Rate Blood Pressure 103/74 (mmHg) O2 Sat by Pulse 95 Oximetry Oxygen Devices in Use Now: BiPAP Eyes: No Scleral Icterus, PERRLA Respiratory: - - wheezing, poor air entry Abdominal: NL Sounds; No Tenderness; No Distention Lymphatic: No Cervical Adenopathy Skin: No Rash or Ulcers Neurological: - - exam limited with his severe respiratory distress. Result Diagrams: 09/28/19 02:58 09/28/19 03:29 Additional Lab and Data: Lab Results 09/28/19 Range/Units 02:58 WBC 13.5 H (3.5-10.8) 10^3/uL RBC 4.52 (4.18-5.48) 10^6 /uL Hgb 12.6 L (14.0-18.0) g/dL Hct 40 L (42-52) % MCV 89 (80-94) fL MCH 28 (27-31) pg MCHC 31 (31-36) g/dL RDW 14 (10-15) % Plt Count 232 (150-450) 10^3/uL MPV 8.3 (7.4-10.4) fL Neut % (Auto) 90.6 % Lymph % (Auto) 3.2 % [place] % (Auto) 5.9 % Eos % (Auto) 0.1 % Baso % (Auto) 0.2 % Absolute Neuts (auto) 12.2 H (1.5-7.7) 10^3/ul Absolute Lymphs (auto) 0.4 L (1.0-4.8) 10^3/ul Absolute Monos (auto) 0.8 (0-0.8) 10^3/ul Absolute Eos (auto) 0.0 (0-0.6) 10^3/ul Absolute Basos (auto) 0.0 (0-0.2) 10^3/ul Absolute Nucleated RBC 0.0 10^3/ul Nucleated RBC % 0.0 Assess/Plan/Problems-Billing Assessment: - Patient Problems (1) Acute on chronic respiratory failure with hypoxia and hypercapnia Current Visit: No Status: Acute Code(s): J96.21 - ACUTE AND CHRONIC RESPIRATORY FAILURE WITH HYPOXIA; J96.22 - ACUTE AND CHRONIC RESPIRATORY FAILURE WITH HYPERCAPNIA SNOMED Code(s): 58644030021710 Comment: - Baseline 2L during the day and BiPAP at night -was just discharged on 09/06 on a prednisone taper. Now back with pH of 7.27, pCO2 93 in respiratory distress -received multiple breathing treatment so far and IV steroids -Placed on bipap, still with poor tidal volume despite good driving pressure. He does not have good air entry right now, will Cont Duoneb Q6H and steroids Q8H. -DNR/DNI (2) Altered mental status Current Visit: No Status: Acute Code(s): R41.82 - ALTERED MENTAL STATUS, UNSPECIFIED SNOMED Code(s): 541509054 Comment: From acidosis, respiratory failure. He is a big sluggish and looks exhausted (3) Anxiety Current Visit: No Status: Acute Code(s): F41.9 - ANXIETY DISORDER, UNSPECIFIED SNOMED Code(s): 11482065 Comment: - triggered from COPD and hypoxia. - once his breathing improve, he might benefit from a very low dose of ativan which he apparently tolerated well in the past (4) COPD exacerbation Current Visit: No Status: Acute Code(s): J44.1 - CHRONIC OBSTRUCTIVE PULMONARY DISEASE W (ACUTE) EXACERBATION SNOMED Code(s): 028651040 Comment: likely from noncompliance, has had worsening dyspnea for a couple days. azithromycin, ceftriaxone, steroids XR not officially read yet (5) DNR (do not resuscitate) Current Visit: No Status: Acute (6) End stage COPD Current Visit: No Status: Acute Priority: Medium Code(s): J44.9 - CHRONIC OBSTRUCTIVE PULMONARY DISEASE, UNSPECIFIED SNOMED Code(s): 462165089 Comment: steroids, bronchodilators (7) Type 2 diabetes mellitus Current Visit: No Status: Chronic Priority: Low Comment: - Controlled off meds. (8) DVT prophylaxis Current Visit: No Status: Acute Priority: Low Code(s): ENY8494 - SNOMED Code(s): 108822882 Comment: - Heparin SQ
[2019-09-28 06:12] LABS: ABS Lymphocytes 0.2 10^3/ul (1.0-4.8); ABS Monocytes 0.6 10^3/ul (0-0.8); ABS Neutrophils 13.9 10^3/ul (1.5-7.7); Hematocrit 39 % (42-52); Hemoglobin 12.5 g/dL (14.0-18.0); Lymphocyte % 1.5 %; Mean Corpuscular HGB Conc 33 g/dL (31-36); Mean Corpuscular Hemoglobin 29 pg (27-31); Mean Corpuscular Volume 88 fL (80-94); Mean Platelet Volume 8.2 fL (7.4-10.4); Platelet Count 215 10^3/uL (150-450); Red Blood Count 4.36 10^6 /uL (4.18-5.48); Red Cell Distribution Width 14 % (10-15); White Blood Count 14.7 10^3/uL (3.5-10.8)
[2019-09-28] MEDS ORDERED: Insulin LISPRO* 1 UNITS UNIT SUBCUT SCH (07:30)
[2019-09-28] MEDS: Insulin GLARGINE(*) 1 UNITS UNIT SUBCUT SCH (08:10)
[2019-09-28] MEDS: Azithromycin 500 mg/250 ml NS 500 MG/250 ML BAG IVPB SCH (08:11)
[2019-09-28] MEDS: methylPREDNISolone 125 MG* 2 ML VIAL IV SCH ×2 (08:18→19:29)
[2019-09-28] MEDS ORDERED: Albuterol 2.5 MG/3 ML NEB.SOL* (0.083%) INH SCH (09:00)
[2019-09-28] MEDS ORDERED: Heparin VIAL(*) 5000 UNITS/ML VIAL (FIVE THOUSAND) SUBCUT SCH (09:00)
[2019-09-28] MEDS ORDERED: Morphine ORAL CONCENTRATE* 5 MG/0.25 ML ORAL.SYRIN SL PRN (09:01)
[2019-09-28] MEDS ORDERED: Acetaminophen TAB* 325 MG PO PRN (09:01)
--- NOTE | 2019-09-28 09:06 | PN ---
Progress Note - Progress Note Date of Service: 09/28/19 Note: Pt seen shortly after admission. He would not open his eyes or talk to me but nursing states he was completely awake and mad that he was on an NPO diet. Heart sound were not able to be heard. BS are markedly diminished throughout. Abd is soft, NT, ND. There is no LE edema. Continue solumedrol, ceftriaxone, azithromycin and start standing nebs. Take pt off BiPAP but maintain pt in ICU until this afternoon and then if stable will transfer to the floor.
[2019-09-28] MEDS: cefTRIAXone(*) 1 GM in NS 0.9% 50 ML* 50 ML IVPB SCH (09:36)
[2019-09-28] MEDS: Albuterol 2.5 MG/3 ML NEB.SOL* (0.083%) INH SCH ×3 (10:35→19:27)
[2019-09-28] MEDS: Insulin LISPRO* 1 UNITS UNIT SUBCUT SCH ×4 (11:33→22:59)
[2019-09-28] MEDS: LORazepam TAB(*) 1 MG PO PRN (17:01)
[2019-09-28] MEDS ORDERED: Diltiazem IV push/loading dose 5 MG/ML 5 ML vial (25 mg) IV SLOW PU ONE ×2 (17:32→19:18)
[2019-09-28] MEDS ORDERED: Diltiazem IV push/loading dose 5 MG/ML 5 ML vial (25 mg) ONE (17:34)
[2019-09-28] MEDS: Enoxaparin(*) 80 MG/0.8 ML SYR SUBCUT SCH (17:55)
[2019-09-28] MEDS ORDERED: Digoxin IV* 0.5 MG/2 ML AMP (0.25 MG/ML) IV SLOW PU ONE (18:14)
[2019-09-28] MEDS ORDERED: NS 0.9% IV SCH ×2 (20:00)
[2019-09-28] MEDS ORDERED: DILTIAZEM IV SCH ×2 (20:00)
[2019-09-28] MEDS ORDERED: Diltiazem IV VIAL* 125 MG in NS 0.9% 100 ML* 100 ML IV SCH (20:00)
[2019-09-28] MEDS ORDERED: Metoprolol Tartrate IV* 1 MG/ML 5 ML VIAL ONE (20:59)
[2019-09-28] MEDS ORDERED: Metoprolol Tartrate IV* 1 MG/ML 5 ML VIAL IV ONE (21:00)
[2019-09-28] MEDS ORDERED: NS 0.9% 500 ML* 500 ML IV ONE (21:55)
[2019-09-29] MEDS ORDERED: Insulin REGULAR(*) 1 UNITS UNIT IV ONE (00:37)
[2019-09-29] MEDS: Mometasone/Formoter 200/5 MDI INH SCH ×2 (01:13→07:40)
[2019-09-29] MEDS: Insulin LISPRO* 1 UNITS UNIT SUBCUT SCH ×6 (02:49→22:14)
[2019-09-29] MEDS: Albuterol 2.5 MG/3 ML NEB.SOL* (0.083%) INH SCH ×2 (03:18→03:31)
[2019-09-29] MEDS ORDERED: NS 0.9% 500 ML* 500 ML IV ONE (04:46)
[2019-09-29 05:00] LABS: Hematocrit 34 % (42-52); Hemoglobin 11.3 g/dL (14.0-18.0); Mean Corpuscular HGB Conc 33 g/dL (31-36); Mean Corpuscular Hemoglobin 29 pg (27-31); Mean Corpuscular Volume 87 fL (80-94); Mean Platelet Volume 8.2 fL (7.4-10.4); Platelet Count 194 10^3/uL (150-450); Red Blood Count 3.95 10^6 /uL (4.18-5.48); Red Cell Distribution Width 14 % (10-15)
[2019-09-29] MEDS ORDERED: Amiodarone 150 MG IVPREMIX* 150 MG/100 ML BAG IV ONE ×2 (05:00→10:17)
[2019-09-29 05:19] LABS: BUN/Creatinine Ratio 46.6 (8-20); Calcium 8.5 mg/dL (8.6-10.3); EGFR African American 130.5 (>60); EGFR Non-African American 107.8 (>60); Potassium 4.2 mmol/L (3.5-5.0)
[2019-09-29] MEDS: Insulin GLARGINE(*) 1 UNITS UNIT SUBCUT SCH (05:26)
[2019-09-29] MEDS: Enoxaparin(*) 80 MG/0.8 ML SYR SUBCUT SCH ×2 (05:27→17:36)
[2019-09-29] MEDS ORDERED: Amiodarone 360 MG IVPREMIX* 360 MG/200 ML BAG IV ONE ×2 (05:30→11:18)
[2019-09-29] MEDS ORDERED: Albuterol 2.5 MG/3 ML NEB.SOL* (0.083%) INH SCH (07:00)
[2019-09-29] MEDS: methylPREDNISolone 125 MG* 2 ML VIAL IV SCH ×2 (08:35→19:36)
[2019-09-29] MEDS: Azithromycin 500 mg/250 ml NS 500 MG/250 ML BAG IVPB SCH (08:35)
[2019-09-29] MEDS ORDERED: Digoxin IV* 0.5 MG/2 ML AMP (0.25 MG/ML) IV SLOW PU ONE ×2 (08:37→15:00)
[2019-09-29 08:38] LABS: Magnesium 2.1 mg/dL (1.9-2.7)
--- NOTE | 2019-09-29 08:41 | PN ---
Subjective Date of Service: 09/29/19 Interval History: Pt is feeling ok. He really only tells me that he has to pee. He has been impulsive especially when he wants to get out of bed. Objective Active Medications: Acetaminophen (Tylenol Tab*) 650 mg PO Q6H PRN PRN Reason: PAIN - MILD Albuterol (Ventolin 2.5 Mg/3 Ml Neb.Rosaline*) 2.5 mg INH [id number] [facility]WAKE [facility] Last Admin: 09/29/19 07:37 Dose: 2.5 mg Albuterol/Ipratropium (Duoneb (Albuterol 2.5 Mg/Ipratropium 0.5 Mg)) 1 neb INH Q4HR PRN PRN Reason: SHORTNESS OF BREATH Enoxaparin Sodium (Lovenox(*)) [address] [facility] Last Admin: 09/29/19 05:27 Dose: 80 mg Azithromycin (Zithromax 500 Mg/250 Ml) 500 mg in 250 mls @ 250 mls/hr IVPB Q24H [facility] Last Admin: 09/28/19 08:11 Dose: 250 mls/hr Ceftriaxone Sodium 1 gm/ (Sodium Chloride) 50 mls @ 100 mls/hr IVPB Q24H ANAT Last Admin: 09/28/19 09:36 Dose: 100 mls/hr Diltiazem HCl 125 mg/ Sodium (Chloride) 125 mls @ 5 mls/hr IV Q24H [facility]; Protocol Last Admin: 09/28/19 19:57 Dose: 5 mls/hr Amiodarone HCl (Nexterone 360 Mg/200 Ml Ivpremix*) 360 mg in 200 mls @ 33.333 mls/hr IV ONCE ONE Stop: 09/29/19 11:29 Last Admin: 09/29/19 05:35 Dose: 33.333 mls/hr Insulin Glargine (Lantus(*)) 16 units SUBCUT Q24H ANAT Last Admin: 09/29/19 05:26 Dose: 16 units Insulin Human Lispro (Humalog*) [address] [facility]; Protocol Last Admin: 09/29/19 05:27 Dose: 2 units Lorazepam (Ativan Tab(*)) 1 mg PO Q6H PRN PRN Reason: ANXIETY Last Admin: 09/28/19 17:01 Dose: 1 mg Methylprednisolone Sodium Succinate (Solu-Medrol 125mg *) [address] [facility] Last Admin: 09/28/19 19:29 Dose: 60 mg Mometasone Furoate/Formoterol Fumar (Dulera 200/5 Mdi*) [address] [facility] Last Admin: 09/29/19 07:40 Dose: Not Given Morphine Sulfate (Morphine Oral Concentrate*) 5 mg SL Q2H PRN PRN Reason: Severe pain/ Tachypnea RR>24 Vital Signs - 8 hr 09/29/19 09/29/19 09/29/19 00:45 01:00 01:31 Temperature Pulse Rate 87 112 111 Respiratory 19 20 17 Rate Blood Pressure 87/66 78/61 102/65 (mmHg) O2 Sat by Pulse 97 98 99 Oximetry 09/29/19 09/29/19 09/29/19 01:46 02:00 02:15 Temperature Pulse Rate 110 122 99 Respiratory 19 19 19 Rate Blood Pressure 91/61 95/55 93/68 (mmHg) O2 Sat by Pulse 99 99 98 Oximetry 09/29/19 09/29/19 09/29/19 02:31 02:45 03:00 Temperature Pulse Rate 87 104 124 Respiratory 19 18 17 Rate Blood Pressure 102/65 113/59 72/67 (mmHg) O2 Sat by Pulse 98 99 99 Oximetry 09/29/19 09/29/19 09/29/19 03:02 03:16 03:30 Temperature Pulse Rate 105 77 126 Respiratory 18 17 19 Rate Blood Pressure 107/45 95/59 88/60 (mmHg) O2 Sat by Pulse 99 98 99 Oximetry 09/29/19 09/29/19 09/29/19 03:33 03:44 03:45 Temperature 97.3 F Pulse Rate 143 100 Respiratory 19 23 Rate Blood Pressure 89/64 (mmHg) O2 Sat by Pulse 98 97 Oximetry 09/29/19 09/29/19 09/29/19 04:00 04:01 04:15 Temperature Pulse Rate 87 89 102 Respiratory 20 21 16 Rate Blood Pressure 88/65 107/88 (mmHg) O2 Sat by Pulse 96 97 98 Oximetry 09/29/19 09/29/19 09/29/19 04:31 04:46 05:00 Temperature Pulse Rate 111 91 81 Respiratory 12 17 17 Rate Blood Pressure 91/76 106/64 (mmHg) O2 Sat by Pulse 97 99 95 Oximetry 09/29/19 09/29/19 09/29/19 05:01 05:12 05:16 Temperature Pulse Rate 86 109 128 Respiratory 18 18 26 Rate Blood Pressure 93/65 92/67 118/89 (mmHg) O2 Sat by Pulse 95 97 97 Oximetry 09/29/19 09/29/19 09/29/19 05:31 05:32 05:45 Temperature Pulse Rate 116 87 87 Respiratory 16 19 19 Rate Blood Pressure 74/63 95/59 100/70 (mmHg) O2 Sat by Pulse 96 97 98 Oximetry 09/29/19 09/29/19 09/29/19 06:00 06:01 06:15 Temperature Pulse Rate 109 79 107 Respiratory 16 19 18 Rate Blood Pressure 96/73 107/76 (mmHg) O2 Sat by Pulse 99 98 100 Oximetry 09/29/19 09/29/19 09/29/19 06:30 06:45 07:00 Temperature Pulse Rate 75 89 81 Respiratory 23 18 18 Rate Blood Pressure 96/67 87/73 85/65 (mmHg) O2 Sat by Pulse 97 98 99 Oximetry 09/29/19 09/29/19 09/29/19 07:08 07:38 08:00 Temperature 97.1 F Pulse Rate 110 Respiratory 18 18 Rate Blood Pressure (mmHg) O2 Sat by Pulse 98 Oximetry Oxygen Devices in Use Now: BiPAP Appearance: Middle aged male sitting up on the edge of the bed, NAD Eyes: No Scleral Icterus Ears/Nose/Mouth/Throat: Mucous Membranes Moist Respiratory: Symmetrical Chest Expansion and Respiratory Effort, - - markedly diminished breath sounds throughout, otherwise clear Cardiovascular: No Edema, - - HR irregularly irregular, rapid Abdominal: NL Sounds; No Tenderness; No Distention Extremities: No Clubbing, Cyanosis Skin: No Nodules or Sclerosis Neurological: - Result Diagrams: 09/29/19 04:48 09/29/19 04:48 Additional Lab and Data: Lab Results 09/28/19 Range/Units 02:58 WBC 13.5 H (3.5-10.8) 10^3/uL RBC 4.52 (4.18-5.48) 10^6 /uL Hgb 12.6 L (14.0-18.0) g/dL Hct 40 L (42-52) % MCV 89 (80-94) fL MCH 28 (27-31) pg MCHC 31 (31-36) g/dL RDW 14 (10-15) % Plt Count 232 (150-450) 10^3/uL MPV 8.3 (7.4-10.4) fL Neut % (Auto) 90.6 % Lymph % (Auto) 3.2 % [place] % (Auto) 5.9 % Eos % (Auto) 0.1 % Baso % (Auto) 0.2 % Absolute Neuts (auto) 12.2 H (1.5-7.7) 10^3/ul Absolute Lymphs (auto) 0.4 L (1.0-4.8) 10^3/ul Absolute Monos (auto) 0.8 (0-0.8) 10^3/ul Absolute Eos (auto) 0.0 (0-0.6) 10^3/ul Absolute Basos (auto) 0.0 (0-0.2) 10^3/ul Absolute Nucleated RBC 0.0 10^3/ul Nucleated RBC % 0.0 Microbiology and Other Data: Microbiology 09/28/19 03:30 Aerobic Blood Culture - Preliminary Blood Venous Anaerobic Blood Culture - Preliminary No Growth Day 1 09/28/19 04:10 Aerobic Blood Culture - Preliminary Blood Venous No Growth Day 1 Anaerobic Blood Culture - Preliminary No Growth Day 1 09/28/19 03:26 Aerobic Blood Culture - Preliminary Blood Venous No Growth Day 1 Anaerobic Blood Culture - Preliminary No Growth Day 1 09/28/19 09:35 Gram Stain - Final Sputum Assess/Plan/Problems-Billing Mr Cerna is a 64 yo M well known to the hospitalist service who has had multiple recurrent hospitalizations for COPD exacerbation who presented to the ER with respiratory distress and was admitted for a COPD exacerbation. His course has now been complicated by going into rapid afib. - Patient Problems (1) Rapid atrial fibrillation Current Visit: Yes Status: Acute Code(s): I48.91 - UNSPECIFIED ATRIAL FIBRILLATION SNOMED Code(s): 935591154 Comment: Yesterday the patient went into rapid afib. He does not have a history of afib in the past. He was trialed on a diltiazem drip however his HR did not improve and in addition, his blood pressure is soft. Overnight he was switched to amiodarone which has not helped his HR. I have asked for a cardiology consultation due to the fact that I believe his afib is going to be very difficult to control because of his end stage COPD. I have also started lovenox for stroke prevention. (2) Acute on chronic respiratory failure with hypoxia and hypercapnia Current Visit: Yes Status: Acute Code(s): J96.21 - ACUTE AND CHRONIC RESPIRATORY FAILURE WITH HYPOXIA; J96.22 - ACUTE AND CHRONIC RESPIRATORY FAILURE WITH HYPERCAPNIA SNOMED Code(s): 79362722085797 Comment: Pt continues to use BiPAP frequently here. He reportedly is non- compliant with BiPAP at home. Continue albuterol and duonebs prn. He is currently receing high dose solumedrol. Will reduce solumedrol to 40mg q12 and try to taper to prednisone relatively quickly. (3) COPD exacerbation Current Visit: Yes Status: Acute Code(s): J44.1 - CHRONIC OBSTRUCTIVE PULMONARY DISEASE W (ACUTE) EXACERBATION SNOMED Code(s): 842618417 Comment: Likely from non-compliance as he does not use his BiPAP at home. Continue steroids, azithromycin and ceftriaxone. (4) Diabetes Current Visit: Yes Status: Acute Code(s): E11.9 - TYPE 2 DIABETES MELLITUS WITHOUT COMPLICATIONS SNOMED Code(s): 50079239 Comment: Blood sugars are markedly elevated. It appears his glipizide was dropped from his home med sometime over the summer. Will continue lantus 16units SQ daily with sliding scale. His HbA1c is elevated at 9.8%. Will restart glipizide XL 5mg BID. (5) Anxiety Current Visit: Yes Status: Acute Code(s): F41.9 - ANXIETY DISORDER, UNSPECIFIED SNOMED Code(s): 70789576 Comment: prn morphine and ativan at home doses ordered yesteday to help with anxiety and air hunger. (6) DVT prophylaxis Current Visit: Yes Status: Acute Code(s): IHK9641 - SNOMED Code(s): 062832675 Comment: lovenox (7) DNR (do not resuscitate) Current Visit: Yes Status: Acute
[2019-09-29] MEDS ORDERED: Albuterol 2.5 MG/3 ML NEB.SOL* (0.083%) INH PRN (08:47)
[2019-09-29] MEDS: LORazepam TAB(*) 1 MG PO PRN ×2 (09:02→19:37)
[2019-09-29] MEDS: cefTRIAXone(*) 1 GM in NS 0.9% 50 ML* 50 ML IVPB SCH (10:01)
--- NOTE | 2019-09-29 11:21 | CONS ---
CC: Hospitalist Service; Dr. Gomez; Dr. West CARDIOLOGY CONSULTATION REPORT: DATE OF CONSULT: 09/29/19 HISTORY OF PRESENT ILLNESS: I was asked by the hospitalist service, Dr. Rodrigez, to see this 64-year- old male patient, who was admitted with end-stage COPD exacerbation, and after hospitalization, he wa s found to be in rapid AFib. The patient is DNR and DNI status. He does have known history of COPD and hypoxemia; multiple hospit alizations for respiratory failure, the most recent one about 3 weeks ago. He had respiratory distre ss at home and he was brought by the EMS Services. He had rapid AFib. He had no history of atrial f ibrillation. Cardizem was attempted, apparently had some soft blood pressure, then 1 dose of digoxin was given, then started on amiodarone IV drip, but apparently his DICTATION ENDS HERE [id number]/[facility] #: [id number]
--- NOTE | 2019-09-29 11:29 | CONS ---
CONSULTATION REPORT: ADDENDUM: More than half of at least 65 plus minute was [id number] in the educational counseling m ode and answering all the patient's concerns and the questions. [id number]/[facility] #: [id number]
[2019-09-29] MEDS: Amiodarone 360 MG IVPREMIX* 360 MG/200 ML BAG IV SCH (11:46)
--- NOTE | 2019-09-29 12:11 | CONS ---
CC: Dr. Gomez; Hospitalist Service; Dr. West CARDIOLOGY CONSULTATION NOTE: DATE OF CONSULT: 09/29/19 PRIMARY CARE PHYSICIAN: Dr. Gomez. REASON FOR CONSULT: I was asked by hospitalist service, Dr. Rodrigez, to see this 64- year-old male patient for rapid atrial fibrillation. HISTORY OF PRESENT ILLNESS: The patient is 64-year-old male with known history of severe COPD, end-stage. He is DNR/DNI. He does have known multiple hospitalizations because of respiratory failure. He was found after that to be in atrial fibrillation, rapid. Cardizem was tried, but he did have soft blood pressure. One dose of digoxin was given and then was started on amiodarone IV therapy. Still, his heart rate above 130, in AFib. He does not feel it. He gets no chest pain. He does have known history of shortness of breath. He is on a trial of BiPAP, and chest x-ray showed no obvious consolidation. He does have history of hypertension, hyperlipidemia, known history of COPD. He gives no history of myocardial infarction. No history of congestive heart failure. He gives no history of diabetes mellitus. He used to smoke and he quit many, many years ago. He gives no chest pain, no syncope, no fever, no chills, no nausea, no vomiting, no hematochezia, no skin rash, no abdominal pain, no swelling in the lower extremities. No hematochezia is appreciated. His review of all other systems essentially is negative. PAST MEDICAL HISTORY: Includes history of COPD, hypertension, and hyperlipidemia. MEDICATIONS: His medications as an inpatient include: 1. Tylenol 650 mg p.o. q.6 hours p.r.n. 2. albuterol. 3. Amiodarone as per IV loading. 4. Azithromycin 500 mg IV daily. 5. Rocephin 1 g daily. 6. Digoxin 1 dose was given, 0.25 mg. 7. Diltiazem that was discontinued. 8. Lovenox 80 mg subcu q.12 hours. 9. Glipizide 5 mg daily. 10. Insulin as per protocol. 11. Solu-Medrol 60 mg IV q.12 hours. ALLERGIES: He has no known drug allergies. CODE STATUS: He is DNR/DNI. FAMILY HISTORY: No family history of premature coronary artery disease. SOCIAL HISTORY: He used to smoke, he quit but that was many years ago. No history of smoking at the present time. No history of drinking. No illicit drug use. He lives by himself. PHYSICAL EXAM: On exam, he is awake, alert, and oriented. He is not in acute distress. He is on BiPAP. He is out of bed. His vitals, blood pressure 100/68 , heart rate 138, respiratory rate 25, temperature is 97.1. Head and Neck Exam : Normocephalic, atraumatic. Head, ears, nose, and throat essentially benign. Neck is supple. JVD is not elevated. No carotid bruit. No masses in the neck is appreciated. Chest examination: diminished breath sounds bases. No rales or wheeze. Heart: Tachycardic. Regularly irregular. S1, S2. No added sounds. No gallops, no rubs. Abdomen: Benign, positive bowel sounds. Extremities: No edema, no cyanosis, no clubbing. Skin exam is normal. Psych: Normal affect and mood. 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 DIAGNOSTIC STUDIES/LAB DATA: Sodium 138, potassium 4.2, chloride 99, total CO2 of 36, BUN 34, creatinine 0.73. White blood cells 13, hemoglobin 11.3, hematocrit 34, and platelets 194. EKG from yesterday was sinus tachycardia. I do not have an EKG from today. His last echo was done on 07/11/19. His EF at that time was 50% to 55%. Right ventricle moderately dilated, trace mitral insufficiency, mild tricuspid insufficiency. IMPRESSION: The patient is a 64-year-old male patient with: 1. Hospitalization with end-stage chronic obstructive pulmonary disease with exacerbation. The patient does have known multiple hospitalizations with respiratory failure. 2. The patient with rapid atrial fibrillation, newly diagnosed, although unknown from before is the patient has known history of atrial fibrillation. 3. Systemic arterial hypertension. 4. Diabetes mellitus. 5. Hyperlipidemia. 6. History of tobacco consumption, although he quit. 7. Abnormal EKG as described. 8. An echo done in June 2019 with low normal left ventricular systolic function 50% to 55%. 9. No significant valvular disease. 10. The patient is DNR and DNI. PLAN: The patient is currently in the intensive care unit. I have discussed further with Dr. Rodrigez today. His management is challenging because of his end - stage COPD and also borderline soft blood pressure. I agree with digoxin for loading and daily dose as discussed. Amiodarone can be continued as an IV loading. I understand beta-blockers careful to use given his end-stage COPD, on BiPAP. Cardizem is another alternative; however, keep a close eye on his blood pressure. Electrolytes, keeping his potassium more than 4, magnesium more than 2. I have discussed with the patient alternatively a transesophageal echocardiogram-guided cardioversion. He declined and he clearly expressed his wishes for only medical treatment at the present time and acknowledges that he is DNR and DNI status. I answered all his concerns and questions up to the patient's satisfaction. We will be following him with you very closely. [id number]/[facility] #: [id number] [place]
[2019-09-29 15:17] LABS: Urine Appearance Clear; Urine Bilirubin Negative (Negative); Urine Blood Negative (Negative); Urine Color Yellow; Urine Glucose 3+(>=500 mg/dL) (Negative); Urine Ketones Negative (Negative); Urine Nitrite Negative (Negative); Urine Protein Negative (Negative); Urine Specific Gravity 1.027 (1.010-1.030); Urine Urobilinogen Negative (Negative)
--- NOTE | 2019-09-29 15:52 | CONSULT ---
Palliative / Hospice Consult Ordering Provider: Rachna Gomez Referal Reason: Goals of care/no bowel meds/MS prn SOB - Subjective Code Status: DNR Advance Directives Location: [facility] [place] EMR - History or Present Illness History or Present Illness: 64yo male with end stage COPD presents to ER with SOB and not feeling well because his BiPAP mask didn't fit properly. PMH is significant for chronic hypercapnia and hypoxia, HTN and hyperlipidemia. PSHx with 2 daughters who are his HCP, retired form [employer], +tob, ex ETOH use, no drugs , currently lives with a roommate Leslie. Studies EKG-sinus tach, CXR COPD no acute findings, H/H 12.5/39, BUN/Cr 19/.7, egfr 113.2, HA1c 9.8, BNP 110, alb 4.2, INR .91 and BC- K. pneumonia. Pt is admitted to ICU with acute on chronic respiratory failure with hypoxia and hypercapnia, and now has rapid afib and has 1of 3 positive blood culture for K. pneumonia. In the past year pt has been admitted 01/10-01/16 for COPD, 04/08- for COPD, 05/22-05/24 for resp failure, 07/09- for acute on chronic resp failure, 08/06-08/17 acute on chronic resp failure and 09/03- for resp failure and has had 2 ER visits. All history is from the pt, Leslie and medical record. Lab Values: Abnormal Lab Results 09/28/19 09/28/19 09/28/19 02:58 03:28 03:29 WBC 13.5 H RBC 4.52 Hgb 12.6 L Hct 40 L MCV 89 MCH 28 MCHC 31 RDW 14 Plt Count 232 MPV 8.3 Neut % (Auto) 90.6 Lymph % (Auto) 3.2 [place] % (Auto) 5.9 Eos % (Auto) 0.1 Baso % (Auto) 0.2 Absolute Neuts (auto) 12.2 H Absolute Lymphs (auto) 0.4 L Absolute Monos (auto) 0.8 Absolute Eos (auto) 0.0 Absolute Basos (auto) 0.0 Absolute Nucleated RBC 0.0 Nucleated RBC % 0.0 Sodium 137 Potassium 4.3 Chloride 91 L Carbon Dioxide 44 H* Anion Gap 2 BUN 19 Creatinine 0.70 Est GFR ( Amer) 136.9 Est GFR (Non-Af Amer) 113.2 BUN/Creatinine Ratio 27.1 H Glucose 325 H POC Glucose (mg/dL) Glucose Meter Confirm Lactic Acid 0.7 Calcium 9.1 Magnesium Total Bilirubin 0.50 AST 28 ALT 29 Alkaline Phosphatase 52 Troponin I 0.01 Total Protein 6.9 Albumin 4.2 Globulin 2.7 Albumin/Globulin Ratio 1.6 Urine Color Urine Appearance Urine pH Ur Specific [place] Urine Protein Urine Ketones Urine Blood Urine Nitrate Urine Bilirubin Urine Urobilinogen Ur Leukocyte Esterase Urine Glucose 09/28/19 09/28/19 09/28/19 18:00 18:04 22:25 WBC RBC Hgb Hct MCV MCH MCHC RDW Plt Count MPV Neut % (Auto) Lymph % (Auto) [place] % (Auto) Eos % (Auto) Baso % (Auto) Absolute Neuts (auto) Absolute Lymphs (auto) Absolute Monos (auto) Absolute Eos (auto) Absolute Basos (auto) Absolute Nucleated RBC Nucleated RBC % Sodium Potassium Chloride Carbon Dioxide Anion Gap BUN Creatinine Est GFR ( Amer) Est GFR (Non-Af Amer) BUN/Creatinine Ratio Glucose POC Glucose (mg/dL) 60 L 130 H > 444 H* Glucose Meter Confirm Lactic Acid Calcium Magnesium Total Bilirubin AST ALT Alkaline Phosphatase Troponin I Total Protein Albumin Globulin Albumin/Globulin Ratio Urine Color Urine Appearance Urine pH Ur Specific [place] Urine Protein Urine Ketones Urine Blood Urine Nitrate Urine Bilirubin Urine Urobilinogen Ur Leukocyte Esterase Urine Glucose 09/28/19 09/28/19 09/28/19 22:25 22:29 23:54 WBC RBC Hgb Hct MCV MCH MCHC RDW Plt Count MPV Neut % (Auto) Lymph % (Auto) [place] % (Auto) Eos % (Auto) Baso % (Auto) Absolute Neuts (auto) Absolute Lymphs (auto) Absolute Monos (auto) Absolute Eos (auto) Absolute Basos (auto) Absolute Nucleated RBC Nucleated RBC % Sodium Potassium Chloride Carbon Dioxide Anion Gap BUN Creatinine Est GFR ( Amer) Est GFR (Non-Af Amer) BUN/Creatinine Ratio Glucose POC Glucose (mg/dL) > 444 H* > 444 H* Glucose Meter Confirm 532 H* Lactic Acid Calcium Magnesium Total Bilirubin AST ALT Alkaline Phosphatase Troponin I Total Protein Albumin Globulin Albumin/Globulin Ratio Urine Color Urine Appearance Urine pH Ur Specific [place] Urine Protein Urine Ketones Urine Blood Urine Nitrate Urine Bilirubin Urine Urobilinogen Ur Leukocyte Esterase Urine Glucose 09/28/19 09/29/19 09/29/19 23:55 02:41 04:48 WBC 13.0 H RBC 3.95 L Hgb 11.3 L Hct 34 L MCV 87 MCH 29 MCHC 33 RDW 14 Plt Count 194 MPV 8.2 Neut % (Auto) Lymph % (Auto) [place] % (Auto) Eos % (Auto) Baso % (Auto) Absolute Neuts (auto) Absolute Lymphs (auto) Absolute Monos (auto) Absolute Eos (auto) Absolute Basos (auto) Absolute Nucleated RBC Nucleated RBC % Sodium Potassium Chloride Carbon Dioxide Anion Gap BUN Creatinine Est GFR ( Amer) Est GFR (Non-Af Amer) BUN/Creatinine Ratio Glucose POC Glucose (mg/dL) 311 H Glucose Meter Confirm 510 H* Lactic Acid Calcium Magnesium Total Bilirubin AST ALT Alkaline Phosphatase Troponin I Total Protein Albumin Globulin Albumin/Globulin Ratio Urine Color Urine Appearance Urine pH Ur Specific [place] Urine Protein Urine Ketones Urine Blood Urine Nitrate Urine Bilirubin Urine Urobilinogen Ur Leukocyte Esterase Urine Glucose 09/29/19 09/29/19 09/29/19 04:48 10:53 15:04 WBC RBC Hgb Hct MCV MCH MCHC RDW Plt Count MPV Neut % (Auto) Lymph % (Auto) [place] % (Auto) Eos % (Auto) Baso % (Auto) Absolute Neuts (auto) Absolute Lymphs (auto) Absolute Monos (auto) Absolute Eos (auto) Absolute Basos (auto) Absolute Nucleated RBC Nucleated RBC % Sodium 138 Potassium 4.2 Chloride 99 L Carbon Dioxide 36 H Anion Gap 3 BUN 34 H Creatinine 0.73 Est GFR ( Amer) 130.5 Est GFR (Non-Af Amer) 107.8 BUN/Creatinine Ratio 46.6 H Glucose 177 H POC Glucose (mg/dL) 283 H Glucose Meter Confirm Lactic Acid Calcium 8.5 L Magnesium 2.1 Total Bilirubin AST ALT Alkaline Phosphatase Troponin I Total Protein Albumin Globulin Albumin/Globulin Ratio Urine Color Yellow Urine Appearance Clear Urine pH 5.0 Ur Specific [place] 1.027 Urine Protein Negative Urine Ketones Negative Urine Blood Negative Urine Nitrate Negative Urine Bilirubin Negative Urine Urobilinogen Negative Ur Leukocyte Esterase Negative Urine Glucose 3+(>=500 mg/dl) A Laboratory Last Values WBC 13.0 10^3/uL (3.5-10.8) H 09/29/19 04:48 RBC 3.95 10^6 /uL (4.18-5.48) L 09/29/19 04:48 Hgb 11.3 g/dL (14.0-18.0) L 09/29/19 04:48 Hct 34 % (42-52) L 09/29/19 04:48 MCV 87 fL (80-94) 09/29/19 04:48 MCH 29 pg (27-31) 09/29/19 04:48 MCHC 33 g/dL (31-36) 09/29/19 04:48 RDW 14 % (10-15) 09/29/19 04:48 Plt Count 194 10^3/uL (150-450) 09/29/19 04:48 MPV 8.2 fL (7.4-10.4) 09/29/19 04:48 Neut % (Auto) 94.4 % 09/28/19 05:40 Lymph % (Auto) 1.5 % 09/28/19 05:40 [place] % (Auto) 4.1 % 09/28/19 05:40 Eos % (Auto) 0.0 % 09/28/19 05:40 Baso % (Auto) 0.0 % 09/28/19 05:40 Absolute Neuts (auto) 13.9 10^3/ul (1.5-7.7) H 09/28/19 05:40 Absolute Lymphs (auto) 0.2 10^3/ul (1.0-4.8) L 09/28/19 05:40 Absolute Monos (auto) 0.6 10^3/ul (0-0.8) 09/28/19 05:40 Absolute Eos (auto) 0.0 10^3/ul (0-0.6) 09/28/19 05:40 Absolute Basos (auto) 0.0 10^3/ul (0-0.2) 09/28/19 05:40 Absolute Nucleated RBC 0.0 10^3/ul 09/28/19 05:40 Nucleated RBC % 0.0 09/28/19 05:40 INR (Anticoag Therapy) 0.91 (0.82-1.09) 09/28/19 03:28 Patient Temperature Not Reportable 09/28/19 03:59 ABG pH 7.27 (7.35-7.45) L 09/28/19 03:59 ABG pH (Temp Correct) Not Reportable 09/28/19 03:59 ABG pCO2 93 mmHg (35-45) H* 09/28/19 03:59 ABG pCO2 (Temp Corrct Not Reportable 09/28/19 03:59 ABG pO2 91 mmHg (80-100) 09/28/19 03:59 ABG pO2 (Temp Correct Not Reportable 09/28/19 03:59 ABG HCO3 33.9 mmol/L (19-31) H 09/28/19 03:59 ABG O2 Saturation 98.5 % (94.0-98.0) H 09/28/19 03:59 ABG Base Excess 11.6 mmol/L (-2.0-2.0) H 09/28/19 03:59 Respiration Rate Not Reportable 09/28/19 03:59 O2 Delivery Device Bipap 09/28/19 03:59 Ventilator Type Not Reportable 09/28/19 03:59 Vent Mode Not Reportable 09/28/19 03:59 FiO2 45 09/28/19 03:59 Inspiratory Time Not Reportable 09/28/19 03:59 PEEP Not Reportable 09/28/19 03:59 Pressure Support Not Reportable 09/28/19 03:59 Pressure Control Not Reportable 09/28/19 03:59 EPAP 10 09/28/19 03:59 IPAP 20 09/28/19 03:59 BiPAP Not Reportable 09/28/19 03:59 Sodium 138 mmol/L (135-145) 09/29/19 04:48 Potassium 4.2 mmol/L (3.5-5.0) 09/29/19 04:48 Chloride 99 mmol/L (101-111) L 09/29/19 04:48 Carbon Dioxide 36 mmol/L (22-32) H 09/29/19 04:48 Anion Gap 3 mmol/L (2-11) 09/29/19 04:48 BUN 34 mg/dL (6-24) H 09/29/19 04:48 Creatinine 0.73 mg/dL (0.67-1.17) 09/29/19 04:48 Est GFR ( Amer) 130.5 (>60) 09/29/19 04:48 Est GFR (Non-Af Amer) 107.8 (>60) 09/29/19 04:48 BUN/Creatinine Ratio 46.6 (8-20) H 09/29/19 04:48 Glucose 177 mg/dL (70-100) H 09/29/19 04:48 POC Glucose (mg/dL) 283 mg/dL (70-100) H 09/29/19 10:53 Glucose Meter Confirm 510 mg/dL (70-100) H* 09/28/19 23:55 Hemoglobin A1c 9.8 % (4.0-5.6) H 09/28/19 05:40 Lactic Acid 0.7 mmol/L (0.5-2.0) 09/28/19 03:28 Calcium 8.5 mg/dL (8.6-10.3) L 09/29/19 04:48 Magnesium 2.1 mg/dL (1.9-2.7) 09/29/19 04:48 Total Bilirubin 0.50 mg/dL (0.2-1.0) 09/28/19 03:29 AST 28 U/L (13-39) 09/28/19 03:29 ALT 29 U/L (7-52) 09/28/19 03:29 Alkaline Phosphatase 52 U/L (34-104) 09/28/19 03:29 Troponin I 0.01 ng/mL (<0.04) 09/28/19 03:29 B-Natriuretic Peptide 110 pg/mL (<=100) H 09/28/19 03:28 Total Protein 6.9 g/dL (6.4-8.9) 09/28/19 03:29 Albumin 4.2 g/dL (3.2-5.2) 09/28/19 03:29 Globulin 2.7 g/dL (2-4) 09/28/19 03:29 Albumin/Globulin Ratio 1.6 (1-3) 09/28/19 03:29 Urine Color Yellow 09/29/19 15:04 Urine Appearance Clear 09/29/19 15:04 Urine pH 5.0 (5-9) 09/29/19 15:04 Ur Specific [place] 1.027 (1.010-1.030) 09/29/19 15:04 Urine Protein Negative (Negative) 09/29/19 15:04 Urine Ketones Negative (Negative) 09/29/19 15:04 Urine Blood Negative (Negative) 09/29/19 15:04 Urine Nitrate Negative (Negative) 09/29/19 15:04 Urine Bilirubin Negative (Negative) 09/29/19 15:04 Urine Urobilinogen Negative (Negative) 09/29/19 15:04 Ur Leukocyte Esterase Negative (Negative) 09/29/19 15:04 Urine Glucose 3+(>=500 mg/dl) (Negative) A 09/29/19 15:04 - Objective Active Medications: Acetaminophen (Tylenol Tab*) 650 mg PO Q6H PRN PRN Reason: PAIN - MILD Albuterol (Ventolin 2.5 Mg/3 Ml Neb.Rosaline*) 2.5 mg INH Q4H PRN PRN Reason: SOB/WHEEZING Albuterol/Ipratropium (Duoneb (Albuterol 2.5 Mg/Ipratropium 0.5 Mg)) 1 neb INH Q4HR PRN PRN Reason: SHORTNESS OF BREATH Enoxaparin Sodium (Lovenox(*)) 80 mg SUBCUT Q12H [facility] Last Admin: 09/29/19 05:27 Dose: 80 mg Glipizide (Glucotrol Xl*) 5 mg PO 0800,1700 [facility] Azithromycin (Zithromax 500 Mg/250 Ml) 500 mg in 250 mls @ 250 mls/hr IVPB Q24H [facility] Last Admin: 09/29/19 08:35 Dose: 250 mls/hr Ceftriaxone Sodium 1 gm/ (Sodium Chloride) 50 mls @ 100 mls/hr IVPB Q24H [facility] Last Admin: 09/29/19 10:01 Dose: 100 mls/hr Amiodarone HCl (Nexterone 360 Mg/200 Ml Ivpremix*) 360 mg in 200 mls @ 16.667 mls/hr IV .SEE PROTOCOL ANAT; Protocol Last Admin: 09/29/19 11:46 Dose: 16.667 mls/hr Insulin Glargine (Lantus(*)) 16 units SUBCUT Q24H [facility] Last Admin: 09/29/19 05:26 Dose: 16 units Insulin Human Lispro (Humalog*) 0 units SUBCUT Q4H [facility]; Protocol Last Admin: 09/29/19 14:23 Dose: 10 units Lorazepam (Ativan Tab(*)) 1 mg PO Q6H PRN PRN Reason: ANXIETY Last Admin: 09/29/19 09:02 Dose: 1 mg Methylprednisolone Sodium Succinate (Solu-Medrol 125mg *) 60 mg IV Q12H [facility] Last Admin: 09/29/19 08:35 Dose: 60 mg Mometasone Furoate/Formoterol Fumar (Dulera 200/5 Mdi*) 2 puff INH BID [facility] Last Admin: 09/29/19 07:40 Dose: Not Given Morphine Sulfate (Morphine Oral Concentrate*) 5 mg SL Q2H PRN PRN Reason: Severe pain/ Tachypnea RR>24 Vital Signs: Vital Signs: Temp Pulse Resp BP Pulse Ox 98.9 F 104 24 145/107 98 09/29/19 12:00 09/29/19 15:02 09/29/19 15:02 09/29/19 15:02 09/29/19 15:02 Patient Weight: Weight 77.281 kg Intake and Output: Intake & Output 09/27/19 09/28/19 09/29/19 09/30/19 06:59 06:59 06:59 06:59 Intake Total 100 2495.4 1418.3 Output Total 1025 275 Balance 100 1470.4 1143.3 Weight 77.281 kg Intake: IV Fluids 100 1000.5 3.3 NS (0.9%) 1000.5 3.3 Medicated IV 364.9 555 CC - Amiodarone 23.2 220 GEN - Diltiazem/Cardizem 11.7 antibiotic 330 335 Oral 1130 860 Output: Urine 1025 275 Other: Estimated Void Medium Medium Date of Last Bowel 09/28/2019 Movement Estimated Stool Amount Medium ADLs: Meal Record Start: 09/28/19 07: 54 Freq: ,, Status: Active Protocol: Created 09/28/19 07:54 System (Rec: 09/28/19 07:54 System ICU-C12) Document 09/28/19 10:37 [id number] (Rec: 09/28/19 10:37 [id number] ICU-C12) Document 09/28/19 13:00 [id number] (Rec: 09/28/19 14:27 [id number] ICU-C12) Document 09/28/19 18:00 [id number] (Rec: 09/28/19 18:48 [id number] ICU-C14) Document 09/29/19 10:21 [id number] (Rec: 09/29/19 10:22 [id number] ICU-C12) Document 09/29/19 14:46 [id number] (Rec: 09/29/19 14:46 [id number] ICU-C12) Intake and Output Start: 09/28/19 02: 51 Freq: Status: Active Protocol: Created 09/28/19 02:51 System (Rec: 09/28/19 02:51 System [id number]) Intake and Output Start: 09/28/19 07: 54 Freq: Q1HR Status: Active Protocol: Created 09/28/19 07:54 System (Rec: 09/28/19 07:54 System ICU-C12) Document 09/28/19 10:15 [id number] (Rec: 09/28/19 10:15 [id number] ICU-C12) Document 09/28/19 11:00 [id number] (Rec: 09/28/19 11:19 [id number] ICU-C12) Document 09/28/19 11:56 [id number] (Rec: 09/28/19 12:04 [id number] ICU-C12) Document 09/28/19 13:00 [id number] (Rec: 09/28/19 13:07 [id number] ICU-C12) Document 09/28/19 14:00 [id number] (Rec: 09/28/19 14:28 [id number] ICU-C12) Document 09/28/19 17:15 [id number] (Rec: 09/28/19 17:15 [id number] ICU-C12) Document 09/28/19 18:00 [id number] (Rec: 09/28/19 18:12 [id number] ICU-C12) Document 09/28/19 21:00 [id number] (Rec: 09/28/19 21:31 [id number] ICU-C12) Document 09/28/19 23:23 [id number] (Rec: 09/28/19 23:23 [id number] ICU-C12) Document 09/29/19 01:00 [id number] (Rec: 09/29/19 01:29 [id number] ICU-C12) Document 09/29/19 03:00 [id number] (Rec: 09/29/19 03:16 [id number] ICU-C12) Document 09/29/19 04:00 [id number] (Rec: 09/29/19 04:26 [id number] ICU-C12) Document 09/29/19 05:00 [id number] (Rec: 09/29/19 05:37 [id number] ICU-C12) Document 09/29/19 06:00 [id number] (Rec: 09/29/19 06:21 [id number] ICU-C12) Document 09/29/19 07:08 [id number] (Rec: 09/29/19 07:09 [id number] ICU-C12) Document 09/29/19 08:35 [id number] (Rec: 09/29/19 09:43 [id number] ICU-C12) Document 09/29/19 09:00 [id number] (Rec: 09/29/19 09:48 [id number] ICU-C12) Document 09/29/19 11:00 [id number] (Rec: 09/29/19 11:04 [id number] ICU-C12) Document 09/29/19 12:36 [id number] (Rec: 09/29/19 12:36 [id number] ICU-C12) Document 09/29/19 14:47 [id number] (Rec: 09/29/19 14:47 [id number] ICU-C12) Document 09/29/19 15:00 [id number] (Rec: 09/29/19 15:03 [id number] ICU-C12) Eyes: No Scleral Icterus Ears/Nose/Mouth/Throat: Mucous Membranes Moist Neck: NL Appearance and Movements; NL JVP Cardiovascular: NL Sounds; No Murmurs; No JVD, No Edema, - - HR irregularly irregular, rapid Respiratory: Symmetrical Chest Expansion and Respiratory Effort Abdominal: NL Sounds; No Tenderness; No Distention Extremities: No Edema, No Clubbing, Cyanosis Neurological: Alert and Oriented x 3, - - Assessment Assessment: 64 yo male with end stage COPD admitted for acute on chronic resp failure with hypoxia and hypercapnia not interested inn hospice - Plan Consult Plan (MU): Palliative Plan: Spoke with pt and roommate Leslie. He did have [facility] visit with Samia but still deciding if he will continue with [facility]. He wants to live and doesn't want to discuss hospice. He is planning to buy tamazight herbs which have medicinal properties to help with his breathing. He feels more comfortable being seen/ treated in the hospital. He acknowledges his breathing is getting worse since he is in the hospital every month but doesn't feel he is dying. Still DNR/DNI. Support offered. KPS 60%, PPS 60%. - Time On Unit Date of Evaluation: 09/29/19 Hospice Consult Time in: 16:00 Hospice Consult Time Out: 17:00 Hospice Consult Time Total: 60 > 50% of Time Spend In Counseling or Coordinating Care: Yes
[2019-09-29] MEDS: glipiZIDE TAB.XL* 5 MG PO SCH (16:15)
[2019-09-29] MEDS: Albuterol/Ipratropium NEB.SOL* Albuterol 2.5 MG/Ipratropium 0.5 MG 3 ML INH PRN (22:36)
[2019-09-30] MEDS: Amiodarone 360 MG IVPREMIX* 360 MG/200 ML BAG IV SCH (00:04)
[2019-09-30] MEDS: Insulin LISPRO* 1 UNITS UNIT SUBCUT SCH ×6 (02:26→21:48)
[2019-09-30] MEDS: Mometasone/Formoter 200/5 MDI INH SCH ×2 (04:47→10:49)
[2019-09-30] MEDS: Insulin GLARGINE(*) 1 UNITS UNIT SUBCUT SCH (05:29)
[2019-09-30] MEDS: Enoxaparin(*) 80 MG/0.8 ML SYR SUBCUT SCH ×2 (05:29→18:06)
[2019-09-30] MEDS ORDERED: Insulin GLARGINE(*) 1 UNITS UNIT SUBCUT ONE (09:00)
[2019-09-30] MEDS ORDERED: Insulin GLARGINE(*) 1 UNITS UNIT SUBCUT SCH (09:00)
--- NOTE | 2019-09-30 09:14 | PN ---
Subjective Date of Service: 09/30/19 Interval History: Little cough, slept well. Anxious to go home. Objective Active Medications: Acetaminophen (Tylenol Tab*) 650 mg PO Q6H PRN PRN Reason: PAIN - MILD Albuterol (Ventolin 2.5 Mg/3 Ml Neb.Rosaline*) 2.5 mg INH Q4H PRN PRN Reason: SOB/WHEEZING Albuterol/Ipratropium (Duoneb (Albuterol 2.5 Mg/Ipratropium 0.5 Mg)) 1 neb INH Q4HR PRN PRN Reason: SHORTNESS OF BREATH Last Admin: 09/29/19 22:36 Dose: 1 neb Digoxin (Lanoxin Tab*) 0.125 mg PO 1700 ANAT Enoxaparin Sodium (Lovenox(*)) 80 mg SUBCUT Q12H [facility] Last Admin: 09/30/19 05:29 Dose: 80 mg Glipizide (Glucotrol Xl*) 5 mg PO 0800,1700 [facility] Last Admin: 09/29/19 16:15 Dose: 5 mg Azithromycin (Zithromax 500 Mg/250 Ml) 500 mg in 250 mls @ 250 mls/hr IVPB Q24H ANAT Last Admin: 09/29/19 08:35 Dose: 250 mls/hr Ceftriaxone Sodium 1 gm/ (Sodium Chloride) 50 mls @ 100 mls/hr IVPB Q24H [facility] Last Admin: 09/29/19 10:01 Dose: 100 mls/hr Insulin Glargine (Lantus(*)) 16 units SUBCUT Q24H [facility] Last Admin: 09/30/19 05:29 Dose: 16 units Insulin Glargine (Lantus(*)) 20 units SUBCUT Q24H ANAT Insulin Human Lispro (Humalog*) 0 units SUBCUT Q4H ANAT; Protocol Last Admin: 09/30/19 05:29 Dose: 4 units Lorazepam (Ativan Tab(*)) 1 mg PO Q6H PRN PRN Reason: ANXIETY Last Admin: 09/29/19 19:37 Dose: 1 mg Mometasone Furoate/Formoterol Fumar (Dulera 200/5 Mdi*) 2 puff INH BID ANAT Last Admin: 09/30/19 04:47 Dose: Not Given Morphine Sulfate (Morphine Oral Concentrate*) 5 mg SL Q2H PRN PRN Reason: Severe pain/ Tachypnea RR>24 Prednisone (Deltasone Tab*) 60 mg PO DAILY ANAT Vital Signs - 8 hr 09/30/19 09/30/19 09/30/19 02:00 03:00 03:25 Temperature 97.1 F Pulse Rate 73 80 Respiratory 19 19 Rate Blood Pressure 113/69 126/78 (mmHg) O2 Sat by Pulse 97 99 Oximetry 09/30/19 09/30/19 09/30/19 04:00 05:00 06:00 Temperature Pulse Rate 51 70 65 Respiratory 19 15 18 Rate Blood Pressure 110/70 127/73 113/72 (mmHg) O2 Sat by Pulse 99 99 99 Oximetry 09/30/19 07:00 Temperature Pulse Rate Respiratory 19 Rate Blood Pressure (mmHg) O2 Sat by Pulse Oximetry Oxygen Devices in Use Now: BiPAP Appearance: Alert, in a chair in ICU. In good spirits. Looks comfortable. Eyes: No Scleral Icterus Neck: NL Appearance and Movements; NL JVP, No Thyroid Enlargement, Masses Respiratory: Symmetrical Chest Expansion and Respiratory Effort, Clear to Percussion, - - Diminished BS BL. Cardiovascular: NL Sounds; No Murmurs; No JVD, RRR, No Edema, - Extremities: No Edema, No Clubbing, Cyanosis, - Skin: No Rash or Ulcers, No Nodules or Sclerosis, - Neurological: Alert and Oriented x 3, NL Sensation Result Diagrams: 09/29/19 04:48 09/29/19 04:48 Additional Lab and Data: Lab Results 09/28/19 Range/Units 02:58 WBC 13.5 H (3.5-10.8) 10^3/uL RBC 4.52 (4.18-5.48) 10^6 /uL Hgb 12.6 L (14.0-18.0) g/dL Hct 40 L (42-52) % MCV 89 (80-94) fL MCH 28 (27-31) pg MCHC 31 (31-36) g/dL RDW 14 (10-15) % Plt Count 232 (150-450) 10^3/uL MPV 8.3 (7.4-10.4) fL Neut % (Auto) 90.6 % Lymph % (Auto) 3.2 % Tucker % (Auto) 5.9 % Eos % (Auto) 0.1 % Baso % (Auto) 0.2 % Absolute Neuts (auto) 12.2 H (1.5-7.7) 10^3/ul Absolute Lymphs (auto) 0.4 L (1.0-4.8) 10^3/ul Absolute Monos (auto) 0.8 (0-0.8) 10^3/ul Absolute Eos (auto) 0.0 (0-0.6) 10^3/ul Absolute Basos (auto) 0.0 (0-0.2) 10^3/ul Absolute Nucleated RBC 0.0 10^3/ul Nucleated RBC % 0.0 Microbiology and Other Data: Microbiology 09/28/19 03:30 Aerobic Blood Culture - Preliminary Blood Venous Anaerobic Blood Culture - Preliminary No Growth Day 1 09/28/19 04:10 Aerobic Blood Culture - Preliminary Blood Venous No Growth Day 1 Anaerobic Blood Culture - Preliminary No Growth Day 1 09/28/19 03:26 Aerobic Blood Culture - Preliminary Blood Venous No Growth Day 1 Anaerobic Blood Culture - Preliminary No Growth Day 1 09/28/19 09:35 Gram Stain - Final Sputum Assess/Plan/Problems-Billing Mr Cerna is a 64 yo M well known to the hospitalist service who has had multiple recurrent hospitalizations for COPD exacerbation who presented to the ER with respiratory distress and was admitted for a COPD exacerbation. His course has now been complicated by going into rapid afib. - Patient Problems (1) Acute on chronic respiratory failure with hypoxia and hypercapnia Current Visit: Yes Status: Acute Code(s): J96.21 - ACUTE AND CHRONIC RESPIRATORY FAILURE WITH HYPOXIA; J96.22 - ACUTE AND CHRONIC RESPIRATORY FAILURE WITH HYPERCAPNIA SNOMED Code(s): 11054923007852 Comment: Pt continues to use BiPAP frequently here. He reportedly is non- compliant with BiPAP at home. Continue albuterol and duonebs prn. He was receivng high dose solumedrol. Change to prednisone 1115 AM. (2) Bacteremia Current Visit: Yes Status: Acute Code(s): R78.81 - BACTEREMIA SNOMED Code( s): 6491260 Comment: K. pneumonia I to quinolones, res to ampi. Continue ceftr, azith . Will discuss with ID. (3) Diabetes Current Visit: Yes Status: Acute Code(s): E11.9 - TYPE 2 DIABETES MELLITUS WITHOUT COMPLICATIONS SNOMED Code(s): 08713441 Comment: Blood sugars are markedly elevated. It appears his glipizide was dropped from his home med sometime over the summer. Will continue lantus 16units SQ daily with sliding scale. His HbA1c is elevated at 9.8%. Continue glipizide XL 5mg BID. Note received 32 U converage 09/29, will start Lantus 20 U daily 09/30 AM. Pt has used insulin at home before. Glycemic control should improve with prednisone taper. (4) Rapid atrial fibrillation Current Visit: Yes Status: Acute Code(s): I48.91 - UNSPECIFIED ATRIAL FIBRILLATION SNOMED Code(s): 222257509 Comment: Cardiology consultation has been requested. I have also started lovenox for stroke prevention. Not clear that home use of AC would be of net benefit for him. Start digoxin 0.125 mg po q 1700 hrs on 09/30, level in AM. Note received 0.75 mg total IV so far.
[2019-09-30] MEDS: glipiZIDE TAB.XL* 5 MG PO SCH ×2 (09:15→18:07)
[2019-09-30] MEDS: cefTRIAXone(*) 1 GM in NS 0.9% 50 ML* 50 ML IVPB SCH (09:16)
[2019-09-30] MEDS: predniSONE TAB* 20 MG PO SCH (09:34)
[2019-09-30] MEDS: Azithromycin 500 mg/250 ml NS 500 MG/250 ML BAG IVPB SCH (10:30)
[2019-09-30] MEDS: methylPREDNISolone 125 MG* 2 ML VIAL IV SCH (10:59)
[2019-09-30] MEDS: Albuterol/Ipratropium NEB.SOL* Albuterol 2.5 MG/Ipratropium 0.5 MG 3 ML INH PRN (14:33)
[2019-09-30] MEDS ORDERED: Digoxin TAB* 0.125 MG PO SCH (17:00)
[2019-10-01] MEDS: Insulin LISPRO* 1 UNITS UNIT SUBCUT SCH ×4 (02:48→14:17)
[2019-10-01] MEDS: Enoxaparin(*) 80 MG/0.8 ML SYR SUBCUT SCH (05:27)
[2019-10-01] MEDS: predniSONE TAB* 20 MG PO SCH (08:13)
[2019-10-01] MEDS: glipiZIDE TAB.XL* 5 MG PO SCH (08:13)
[2019-10-01] MEDS: cefTRIAXone(*) 1 GM in NS 0.9% 50 ML* 50 ML IVPB SCH (08:14)
[2019-10-01] MEDS ORDERED: Insulin GLARGINE(*) 1 UNITS UNIT SUBCUT SCH (09:00)
[2019-10-01] MEDS: Mometasone/Formoter 200/5 MDI INH SCH (09:43)
[2019-10-01 11:54] VITALS: BP 157/81
--- NOTE | 2019-10-01 22:25 | DS ---
DISCHARGE SUMMARY: DATE OF ADMISSION: 09/28/19 DATE OF DISCHARGE: 10/01/19 PRIMARY DIAGNOSES: 1. Acute on chronic respiratory failure with hypoxia and hypercapnia. 2. Sepsis secondary to Klebsiella pneumoniae. 3. Diabetes. 4. Rapid atrial fibrillation, new onset. SECONDARY DIAGNOSES: 1. Significant chronic obstructive pulmonary disease. 2. Hypertension. 3. Hyperlipidemia. 4. Chronic hypercapnia and hypoxemia, on home BiPAP and oxygen. 5. Anxiety. HOSPITAL COURSE: 1. A 64-year-old male with end-stage COPD with multiple hospitalizations for COPD exacerbations and multiple ICU admissions needing BiPAP here who presented to the hospital short of breath. There is s ome question if he is noncompliance with his BiPAP at home. The patient always insists that he wants to go home even when not clinically stable completely and today requesting that he wants to go home and he feels significantly better. Also reports that he has everything set up for him at home. When the patient came to the hospital on 09/28/19, patient's pH was noted to be 7.27, PCO2 was noted to b e 93. He was placed on BiPAP, was initially in the ICU and transferred to the floor. The patient wei d recently completed his steroid taper from his recent admission, was placed again on IV steroids. T he patient also had a palliative ER consult by Dr. Thomas as he has had numerous hospitalizations for COPD exacerbation and respiratory failure. Please refer to her consult for full details. The patie nt did not want to pursue hospice and wanted to continue his current arrangement. The patient is a D NR/DNI. The patient reports that his breathing is significantly better at the time of discharge from the COPD standpoint. The patient will be discharged on prednisone to take 50 mg of prednisone for 3 days and then go down to 40 mg for 5 to 7 days and then be on 20 mg and the patient to discuss with his PCP based on his condition on his further dosing as the patient has had so many episodes of exace rbations. The patient is also on chronic prednisone at home. 2. The patient's blood glucose was noted to be significantly elevated in the hospital and the patien t was on lispro and Lantus. On discussion with the patient, the patient reports that he has never be en on insulin at home and does not want to be on insulin. The patient's hemoglobin A1c was noted to be 9.8, reported that he manages his diabetes and hyperglycemia by just watching his diet. The patie nt's renal function within normal limits and at this time, we will discharge the patient on p.o. metf ormin and p.o. glipizide as he does not want to be on insulin yet and the patient's hyperglycemia cou ld be secondary to the high-dose prednisone that he has been on for the last few months. The patient is to continue this and to discuss further diabetes and hyperglycemia management with his PCP. 3. Through his hospital stay, the patient also developed AFib RVR, which is newly diagnosed for the patient. The patient may have a history of it, but the patient was not noted to be in AFib during hi s prior hospitalization. The patient was seen by Dr. West, Cardiology. Please refer to his not e for full details. The patient was started on p.o. digoxin, was initially on amiodarone and the pat ient has been doing well on p.o. digoxin and the patient is being discharged on p.o. digoxin for rate control. The patient is currently sinus on the monitor. The patient was on subcu Lovenox therapeut ic dose during hospital stay and on discussion with the patient on anticoagulation, he is not opposed to being on anticoagulation and the patient was discharged on p.o. Eliquis for anticoagulation. Agnes baltazar, the patient to discuss further anticoagulation needs based on his rhythm and clinical progress w [facility] as an outpatient and his PCP. The patient is to follow up with Dr. Bruno next we ek. 4. The patient was also noted to have blood cultures that were positive for Klebsiella pneumoniae in 1 out of 2 vials, which was sensitive to ceftriaxone, which he was on through in the hospital and al so to cefazolin. This was 1 out of 2 vials and in light of all the above issues, discussed with the patient and tried to persuade him to stay longer in the hospital to repeat his blood cultures and sta bilize the above condition. However, the patient insists that he absolutely has to go home today. I n light of this, the patient will also be discharged on p.o. Ceftin for 10 more days. The patient is to follow up with labs and further evaluation with his PCP next week. The patient agrees to do this and the patient to follow up with his PCP in a week for repeat blood cultures and blood work. The p atient in the meantime to continue his p.o. Ceftin. 5. Vitals and labs are noted to be stable and the patient reports and discussed with Case Management and it appears that the patient does have oxygen, BiPAP, and everything he needs at home. Labs at t he time of discharge: WBC 13, hemoglobin 11.3, hematocrit 34, platelets noted to be 194. Imaging: Chest x-ray on 09/28/19 shows obstructive lung disease, no acute pulmonary or cardiac process. Vital s at time of discharge: Temperature 97.2, pulse 86, respiratory rate 20, oxygen saturation 99% on 3 L, blood pressure 127/71. PHYSICAL EXAMINATION: HEENT: NCAT. Heart: S1, S2 present, tachycardic and regular at the time of exam. Lungs: Decreased breath sounds bilaterally. No wheezes auscultated. Abdomen: Distended. N o rebound, no guarding. Extremities: Noted to have no edema. Neuro: Alert, oriented x3. MEDICATION LIST: 1. Prednisone per taper. 2. Glipizide 5 mg p.o. b.i.d. 3. Ceftin 500 mg p.o. b.i.d. for 10 days. 4. Morphine oral concentrate 5 mg sublingual q.2 p.r.n. 5. Metformin 1000 mg p.o. b.i.d. 6. Ativan 1 mg p.o. q.4 hours p.r.n. 7. Digoxin 0.125 mg p.o. every day. 8. Atropine solution as needed. 9. Eliquis 5 mg p.o. b.i.d. 10. DuoNeb as needed p.r.n. 11. Advair 2 puffs inhalation b.i.d. 12. Tylenol as needed. INSTRUCTIONS: The patient is to follow up with his PCP in a week, plan as above. TIME SPENT: Total time spent on discharge equal to 60 minutes. [id number]/[facility] #: [id number]
== END 2019-10-01 15:25 | disposition home or self-care (01) | DRG 871 ==
LOC: ED 02:44 → ICU 05:22 → MEDTELE 09-30 08:58
PROVIDERS: ADMIT Student in an Organized Health Care Education/Training Program; ATTEND Internal Medicine
DX: A41.52 Sepsis due to Pseudomonas (principal); J96.21 Acute and chronic respiratory failure with hypoxia; J96.22 Acute and chronic respiratory failure with hypercapnia; J44.1 Chronic obstructive pulmonary disease with (acute) exacerbation; E87.2 Acidosis; Z66 Do not resuscitate; I10 Essential (primary) hypertension; E78.5 Hyperlipidemia, unspecified; F41.9 Anxiety disorder, unspecified; I48.91 Unspecified atrial fibrillation; E11.65 Type 2 diabetes mellitus with hyperglycemia; F10.21 Alcohol dependence, in remission; Z99.89 Dependence on other enabling machines and devices; Z79.84 Long term (current) use of oral hypoglycemic drugs; Z79.4 Long term (current) use of insulin; Z79.899 Other long term (current) drug therapy; Z82.49 Family history of ischemic heart disease and other diseases of the circulatory system; Z87.891 Personal history of nicotine dependence; Z79.1 Long term (current) use of non-steroidal anti-inflammatories (NSAID)
CPT/HCPCS: 36415; 71045; 80048; 80053; 81003; 82803; 82947; 83036; 83605; 83735; 83880; 84443; 84484; 85025; 85027; 85610; 87040; 87077; 87186; 87205; 93005; 94640; 94660; 96365; 99285; A9270-GY; J0282; J0456; J0696; J1160; J1644; J1650; J2704; J2930; J3490; J7512

== ENCOUNTER 2020-04-04 17:58 | Inpatient (IN) ==
[2020-04-04] MEDS ORDERED: methylPREDNISolone 125 mg 2 ML VIAL IV ONE (18:04)
[2020-04-04] MEDS ORDERED: Albuterol 0.5% CONC NEB.SOL 5 mg/ml 20 ml BOT INH ONE (18:04)
[2020-04-04 18:41] LABS: ABS Eosinophils 0.1 10^3/ul (0-0.6); ABS Lymphocytes 0.8 10^3/ul (1.0-4.8); ABS Monocytes 0.3 10^3/ul (0-0.8); Eosinophil % 1.2 %; Hematocrit 38 % (42-52); Hemoglobin 12.4 g/dL (14.0-18.0); Lymphocyte % 8.9 %; Mean Corpuscular HGB Conc 32 g/dL (31-36); Mean Corpuscular Hemoglobin 29 pg (27-31); Mean Corpuscular Volume 88 fL (80-94); Platelet Count 233 10^3/uL (150-450); Red Blood Count 4.34 10^6 /uL (4.18-5.48); Red Cell Distribution Width 13 % (10-15); White Blood Count 8.7 10^3/uL (3.5-10.8)
[2020-04-04 19:00] LABS: ALT 20 U/L (7-52); Albumin 4.3 g/dL (3.2-5.2); Albumin/Globulin Ratio 1.4 (1-3); Alkaline Phosphatase 38 U/L (34-104); BUN/Creatinine Ratio 15.9 (8-20); Blood Urea Nitrogen 10 mg/dL (6-24); Calcium 9.3 mg/dL (8.6-10.3); Chloride 91 mmol/L (101-111); EGFR African American 154.2 (>60); EGFR Non-African American 127.4 (>60); Glucose 215 mg/dL (70-100); Sodium 134 mmol/L (135-145); Total Protein 7.3 g/dL (6.4-8.9)
[2020-04-04 19:04] LABS: CO2 Carbon Dioxide 43 mmol/L (22-32)
[2020-04-04] MEDS ORDERED: Ondansetron 4 mg VIAL 2 MG/ML 2 ml VIAL IV PRN (20:05)
[2020-04-04] MEDS ORDERED: Albuterol 2.5mg/3 ml (0.083%) NEB.SOLN INH PRN (20:05)
[2020-04-04] MEDS ORDERED: Dextrose 50% Syringe 50 ml 25 GM/50 ML SYRINGE IV PUSH PRN (20:05)
[2020-04-04] MEDS ORDERED: cefTRIAXone ADVAN VIAL 1 GM in NS 0.9% 50 ML 50 ML IVPB SCH (20:06)
[2020-04-04] MEDS ORDERED: NS 0.9% 1000 ml BAG 1,000 ML IV SCH (20:15)
[2020-04-04 20:56] LABS: Activated Partial Thrombo Time 31.7 seconds (26.0-38.0); INR 0.92 (0.82-1.09)
[2020-04-04] MEDS ORDERED: Albuterol/Ipratropium NEB.SOL (2.5/0.5 MG) 3 ML NEB.SOLN INH SCH (21:00)
[2020-04-04 21:05] LABS: Influenza A Molecular Negative (Negative); Influenza B Molecular Negative (Negative)
[2020-04-04 21:27] LABS: Potassium Redraw 5.2 mmol/L (3.5-5.0)
[2020-04-04] MEDS: methylPREDNISolone 125 mg 2 ML VIAL IV SCH (22:46)
[2020-04-04] MEDS: Heparin 5000 UNITS/ML 1 mL VIAL SUBCUT SCH (22:46)
[2020-04-04] MEDS: Azithromycin 500 mg/250 ml NS 500 MG/250 ML BAG IVPB SCH (23:01)
[2020-04-04] MEDS: Mometasone/Formoter 200/5 MDI INH SCH (23:06)
[2020-04-05] MEDS: Albuterol HFA INHALER 8 gm MDI INH SCH ×2 (03:14→07:50)
[2020-04-05 04:18] LABS: ABS Lymphocytes 0.4 10^3/ul (1.0-4.8); ABS Monocytes 0.1 10^3/ul (0-0.8); Hematocrit 37 % (42-52); Hemoglobin 11.9 g/dL (14.0-18.0); Lymphocyte % 5.4 %; Mean Corpuscular HGB Conc 33 g/dL (31-36); Mean Corpuscular Hemoglobin 29 pg (27-31); Mean Corpuscular Volume 87 fL (80-94); Mean Platelet Volume 7.9 fL (7.4-10.4); Platelet Count 216 10^3/uL (150-450); Red Blood Count 4.19 10^6 /uL (4.18-5.48); Red Cell Distribution Width 14 % (10-15); White Blood Count 6.6 10^3/uL (3.5-10.8)
[2020-04-05 04:22] LABS: INR 0.98 (0.82-1.09)
[2020-04-05 04:35] LABS: BUN/Creatinine Ratio 17.2 (8-20); Calcium 8.8 mg/dL (8.6-10.3); EGFR African American 169.6 (>60); EGFR Non-African American 140.2 (>60); Potassium 4.7 mmol/L (3.5-5.0)
[2020-04-05] MEDS: methylPREDNISolone 125 mg 2 ML VIAL IV SCH (05:21)
[2020-04-05] MEDS: Heparin 5000 UNITS/ML 1 mL VIAL SUBCUT SCH ×3 (05:22→21:40)
[2020-04-05] MEDS: Mometasone/Formoter 200/5 MDI INH SCH ×2 (07:50→19:22)
[2020-04-05] MEDS ORDERED: Albuterol (2.5 MG) 0.5 % CONC 0.5 ML NEB.SOLN INH PRN (08:41)
[2020-04-05] MEDS ORDERED: Albuterol 2.5mg/3 ml (0.083%) NEB.SOLN INH ONE (09:01)
[2020-04-05] MEDS: Albuterol 2.5mg/3 ml (0.083%) NEB.SOLN INH SCH ×4 (09:03→19:22)
[2020-04-05] MEDS ORDERED: Albuterol/Ipratropium NEB.SOL (2.5/0.5 MG) 3 ML NEB.SOLN INH PRN (15:38)
[2020-04-05] MEDS: Azithromycin 500 mg/250 ml NS 500 MG/250 ML BAG IVPB SCH (21:09)
[2020-04-05] MEDS: Albuterol/Ipratropium NEB.SOL (2.5/0.5 MG) 3 ML NEB.SOLN INH SCH (23:12)
[2020-04-06] MEDS: Albuterol/Ipratropium NEB.SOL (2.5/0.5 MG) 3 ML NEB.SOLN INH SCH ×9 (03:29→23:14)
[2020-04-06] MEDS: Heparin 5000 UNITS/ML 1 mL VIAL SUBCUT SCH ×3 (06:06→21:19)
[2020-04-06] MEDS: Mometasone/Formoter 200/5 MDI INH SCH ×2 (07:33→19:19)
[2020-04-06] MEDS ORDERED: Albuterol (2.5 MG) 0.5 % CONC 0.5 ML NEB.SOLN INH PRN (09:14)
[2020-04-06] MEDS ORDERED: Dextrose 50% Syringe 50 ml 25 GM/50 ML SYRINGE IV PUSH PRN ×2 (09:15)
[2020-04-06] MEDS ORDERED: Albuterol 2.5mg/3 ml (0.083%) NEB.SOLN INH PRN (11:00)
[2020-04-06] MEDS: Albuterol HFA INHALER 8 gm MDI INH PRN ×2 (12:51→18:18)
[2020-04-06] MEDS: Morphine ORAL CONCENTRATE 5 MG/0.25 ML ORAL.SYRIN SL PRN ×2 (14:55→18:21)
[2020-04-06] MEDS: Azithromycin 500 mg/250 ml NS 500 MG/250 ML BAG IVPB SCH (21:17)
[2020-04-07] MEDS: Albuterol/Ipratropium NEB.SOL (2.5/0.5 MG) 3 ML NEB.SOLN INH SCH ×7 (01:31→12:29)
[2020-04-07] MEDS: Heparin 5000 UNITS/ML 1 mL VIAL SUBCUT SCH (06:06)
[2020-04-07 06:07] LABS: ABS Lymphocytes 1.5 10^3/ul (1.0-4.8); ABS Monocytes 1.1 10^3/ul (0-0.8); Eosinophil % 0.4 %; Hematocrit 36 % (42-52); Hemoglobin 11.8 g/dL (14.0-18.0); Lymphocyte % 15.8 %; Mean Corpuscular HGB Conc 33 g/dL (31-36); Mean Corpuscular Hemoglobin 29 pg (27-31); Mean Corpuscular Volume 88 fL (80-94); Mean Platelet Volume 7.9 fL (7.4-10.4); Platelet Count 212 10^3/uL (150-450); Red Blood Count 4.12 10^6 /uL (4.18-5.48); Red Cell Distribution Width 14 % (10-15); White Blood Count 9.2 10^3/uL (3.5-10.8)
[2020-04-07] MEDS: Mometasone/Formoter 200/5 MDI INH SCH ×2 (06:10→07:29)
[2020-04-07] MEDS: Albuterol HFA INHALER 8 gm MDI INH PRN (10:21)
[2020-04-07] MEDS: Morphine ORAL CONCENTRATE 5 MG/0.25 ML ORAL.SYRIN SL PRN (11:20)
[2020-04-07 11:30] VITALS: BP 138/74
== END 2020-04-07 14:00 | disposition home or self-care (01) | DRG 189 ==
LOC: ED 17:58 → ICU 19:53 → MED 04-05 12:56
PROVIDERS: ADMIT Internal Medicine; ATTEND Pediatrics

== ENCOUNTER 2020-05-05 07:07 | Inpatient (IN) ==
[2020-05-05] MEDS ORDERED: Albuterol/Ipratropium NEB.SOL (2.5/0.5 MG) 3 ML NEB.SOLN INH ONE ×2 (07:13→07:52)
[2020-05-05 07:36] LABS: ABS Eosinophils 0.3 10^3/ul (0-0.6); ABS Lymphocytes 1.3 10^3/ul (1.0-4.8); ABS Monocytes 1.2 10^3/ul (0-0.8); Eosinophil % 2.3 %; Hematocrit 38 % (42-52); Hemoglobin 12.1 g/dL (14.0-18.0); Lymphocyte % 10.4 %; Mean Corpuscular HGB Conc 32 g/dL (31-36); Mean Corpuscular Hemoglobin 29 pg (27-31); Mean Corpuscular Volume 90 fL (80-94); Mean Platelet Volume 7.7 fL (7.4-10.4); Platelet Count 214 10^3/uL (150-450); Red Cell Distribution Width 14 % (10-15); White Blood Count 12.3 10^3/uL (3.5-10.8)
[2020-05-05 07:52] LABS: Activated Partial Thrombo Time 30.8 seconds (26.0-38.0); INR 0.92 (0.82-1.09)
[2020-05-05] MEDS ORDERED: Azithromycin 500 mg/250 ml NS 500 MG/250 ML BAG IVPB ONE (07:55)
[2020-05-05] MEDS ORDERED: cefTRIAXone 1 gm/50 mL NS BAG 1 GM/50 ML BAG IV ONE (07:55)
[2020-05-05] MEDS ORDERED: NS 0.9% 1000 ml BAG 1,000 ML IV ONE (07:55)
[2020-05-05 08:04] LABS: ALT 18 U/L (7-52); AST 13 U/L (13-39); Albumin 4.4 g/dL (3.2-5.2); Albumin/Globulin Ratio 1.8 (1-3); Alkaline Phosphatase 39 U/L (34-104); BUN/Creatinine Ratio 19.1 (8-20); Blood Urea Nitrogen 13 mg/dL (6-24); Calcium 9.2 mg/dL (8.6-10.3); Chloride 92 mmol/L (101-111); EGFR African American 141.2 (>60); EGFR Non-African American 116.7 (>60); Globulin 2.5 g/dL (2-4); Glucose 159 mg/dL (70-100); Potassium 4.6 mmol/L (3.5-5.0); Sodium 137 mmol/L (135-145); Total Protein 6.9 g/dL (6.4-8.9)
[2020-05-05 08:06] LABS: Troponin I 0.01 ng/mL (<0.03)
[2020-05-05 08:07] LABS: Anion Gap 2 mmol/L (2-11); CO2 Carbon Dioxide 43 mmol/L (22-32)
[2020-05-05 08:28] LABS: Alcohol, S < 10 mg/dL (<10)
[2020-05-05] MEDS: Enoxaparin 40 MG/0.4 ML SYR(*) SUBCUT SCH (09:00)
[2020-05-05] MEDS: methylPREDNISolone SOD 40 mg/ml 1 ml VIAL IV SCH ×2 (09:00→17:41)
[2020-05-05] MEDS ORDERED: Azithromycin IV(*) 250 MG in NS 0.9% 250 ml 250 ML IVPB SCH (11:00)
[2020-05-05] MEDS: Albuterol/Ipratropium NEB.SOL (2.5/0.5 MG) 3 ML NEB.SOLN INH PRN ×2 (16:28→20:05)
[2020-05-05] MEDS: Insulin LISPRO 100 units/ml(*) SUBCUT SCH (20:56)
[2020-05-06] MEDS: methylPREDNISolone SOD 40 mg/ml 1 ml VIAL IV SCH ×2 (00:16→08:03)
[2020-05-06 06:50] LABS: Albumin 3.9 g/dL (3.2-5.2); Albumin/Globulin Ratio 1.6 (1-3); BUN/Creatinine Ratio 32.7 (8-20); Calcium 8.9 mg/dL (8.6-10.3); EGFR African American 192.4 (>60); Globulin 2.5 g/dL (2-4); Magnesium 1.9 mg/dL (1.9-2.7); Phosphorus 2.2 mg/dL (2.5-5.0); Potassium 4.4 mmol/L (3.5-5.0); Total Bilirubin 0.3 mg/dL (0.2-1.0); Total Protein 6.4 g/dL (6.4-8.9)
[2020-05-06] MEDS ORDERED: LORazepam 0.5 mg TAB (*) PO PRN (07:36)
[2020-05-06 07:42] LABS: Hematocrit 37 % (42-52); Hemoglobin 12.2 g/dL (14.0-18.0); Mean Corpuscular HGB Conc 33 g/dL (31-36); Mean Corpuscular Hemoglobin 29 pg (27-31); Mean Corpuscular Volume 88 fL (80-94); Mean Platelet Volume 7.8 fL (7.4-10.4); Platelet Count 224 10^3/uL (150-450); Red Blood Count 4.19 10^6 /uL (4.18-5.48); Red Cell Distribution Width 14 % (10-15); White Blood Count 8.7 10^3/uL (3.5-10.8)
[2020-05-06] MEDS: Insulin LISPRO 100 units/ml(*) SUBCUT SCH ×2 (08:02→11:56)
[2020-05-06] MEDS: Enoxaparin 40 MG/0.4 ML SYR(*) SUBCUT SCH (08:03)
[2020-05-06] MEDS: Albuterol/Ipratropium NEB.SOL (2.5/0.5 MG) 3 ML NEB.SOLN INH PRN ×2 (08:08→12:02)
[2020-05-06] MEDS ORDERED: Azithromycin IV(*) 250 MG in NS 0.9% 250 ml 250 ML IVPB SCH (09:00)
[2020-05-06] MEDS ORDERED: Mometasone/Formoter 200/5 MDI INH SCH (09:00)
[2020-05-06] MEDS ORDERED: cefTRIAXone 1 gm/50 mL NS BAG 1 GM/50 ML BAG IVPB SCH (10:00)
[2020-05-06 15:08] VITALS: BP 124/67
== END 2020-05-06 16:30 | disposition home or self-care (01) | DRG 189 ==
LOC: ED 07:07 → ICU 08:51
PROVIDERS: ADMIT Internal Medicine Critical Care Medicine; ATTEND Internal Medicine Critical Care Medicine

== ENCOUNTER 2020-06-04 18:41 | Inpatient (IN) ==
[2020-06-04] MEDS ORDERED: methylPREDNISolone 125 mg 2 ML VIAL IV ONE (18:46)
[2020-06-04] MEDS ORDERED: NS 0.9% 1000 ml BAG 1,000 ML IV ONE (18:48)
[2020-06-04] MEDS ORDERED: Albuterol/Ipratropium NEB.SOL (2.5/0.5 MG) 3 ML NEB.SOLN INH ONE (19:10)
[2020-06-04] MEDS ORDERED: Albuterol/Ipratropium NEB.SOL (2.5/0.5 MG) 3 ML NEB.SOLN ONE (19:10)
[2020-06-04 19:26] LABS: ABS Eosinophils 0.2 10^3/ul (0-0.6); ABS Lymphocytes 1.3 10^3/ul (1.0-4.8); ABS Monocytes 0.9 10^3/ul (0-0.8); ABS Neutrophils 6.9 10^3/ul (1.5-7.7); Eosinophil % 2.3 %; Hematocrit 37 % (42-52); Hemoglobin 11.9 g/dL (14.0-18.0); Lymphocyte % 13.5 %; Mean Corpuscular HGB Conc 32 g/dL (31-36); Mean Corpuscular Hemoglobin 29 pg (27-31); Mean Corpuscular Volume 90 fL (80-94); Mean Platelet Volume 7.8 fL (7.4-10.4); Platelet Count 187 10^3/uL (150-450); Red Blood Count 4.07 10^6 /uL (4.18-5.48); Red Cell Distribution Width 13 % (10-15); White Blood Count 9.3 10^3/uL (3.5-10.8)
[2020-06-04 19:47] LABS: ALT 20 U/L (7-52); Albumin 4.2 g/dL (3.2-5.2); Albumin/Globulin Ratio 1.7 (1-3); Alkaline Phosphatase 38 U/L (34-104); BUN/Creatinine Ratio 22.2 (8-20); Blood Urea Nitrogen 10 mg/dL (6-24); Calcium 9.1 mg/dL (8.6-10.3); Chloride 90 mmol/L (101-111); EGFR African American 227.3 (>60); EGFR Non-African American 187.9 (>60); Globulin 2.5 g/dL (2-4); Glucose 132 mg/dL (70-100); Sodium 136 mmol/L (135-145); Total Protein 6.7 g/dL (6.4-8.9)
[2020-06-04 19:58] LABS: Anion Gap 1 mmol/L (2-11); CO2 Carbon Dioxide 45 mmol/L (22-32)
[2020-06-04] MEDS ORDERED: Morphine ORAL CONCENTRATE 5 MG/0.25 ML ORAL.SYRIN PO PRN (20:08)
[2020-06-04] MEDS ORDERED: Albuterol/Ipratropium NEB.SOL (2.5/0.5 MG) 3 ML NEB.SOLN INH PRN (20:08)
[2020-06-04] MEDS ORDERED: Dextrose 50% Syringe 50 ml 25 GM/50 ML SYRINGE IV PUSH PRN (20:21)
[2020-06-04] MEDS ORDERED: Ondansetron 4 mg VIAL 2 MG/ML 2 ml VIAL IV PRN (20:22)
[2020-06-04 20:43] LABS: Potassium Redraw 4.6 mmol/L (3.5-5.0)
[2020-06-04] MEDS: Albuterol/Ipratropium NEB.SOL (2.5/0.5 MG) 3 ML NEB.SOLN INH SCH (20:46)
[2020-06-04] MEDS: Enoxaparin 40 MG/0.4 ML SYR SUBCUT SCH (23:40)
[2020-06-05 06:08] LABS: ABS Lymphocytes 0.4 10^3/ul (1.0-4.8); ABS Monocytes 0.1 10^3/ul (0-0.8); ABS Neutrophils 6.2 10^3/ul (1.5-7.7); Hematocrit 34 % (42-52); Hemoglobin 11.3 g/dL (14.0-18.0); Lymphocyte % 5.6 %; Mean Corpuscular HGB Conc 33 g/dL (31-36); Mean Corpuscular Hemoglobin 29 pg (27-31); Mean Corpuscular Volume 89 fL (80-94); Mean Platelet Volume 7.9 fL (7.4-10.4); Platelet Count 181 10^3/uL (150-450); Red Blood Count 3.84 10^6 /uL (4.18-5.48); Red Cell Distribution Width 13 % (10-15); White Blood Count 6.7 10^3/uL (3.5-10.8)
[2020-06-05 06:11] LABS: Calcium 7.8 mg/dL (8.6-10.3); Chloride 92 mmol/L (101-111); Potassium 4.7 mmol/L (3.5-5.0); Sodium 134 mmol/L (135-145)
[2020-06-05 06:17] LABS: BUN/Creatinine Ratio 23.9 (8-20); Blood Urea Nitrogen 11 mg/dL (6-24); EGFR African American 221.6 (>60); EGFR Non-African American 183.2 (>60); Glucose 172 mg/dL (70-100)
[2020-06-05 06:28] LABS: CO2 Carbon Dioxide 42 mmol/L (22-32)
[2020-06-05] MEDS ORDERED: methylPREDNISolone SOD 40 mg/ml 1 ml VIAL IV SCH (09:00)
[2020-06-05] MEDS: Enoxaparin 40 MG/0.4 ML SYR SUBCUT SCH (20:29)
[2020-06-06] MEDS ORDERED: Mometasone/Formoter 200/5 MDI INH SCH (09:00)
[2020-06-06 10:14] LABS: BUN/Creatinine Ratio 32.7 (8-20); EGFR African American 192.4 (>60); Potassium 4.2 mmol/L (3.5-5.0)
[2020-06-06 11:28] VITALS: BP 133/67
== END 2020-06-06 15:50 | disposition home health service (06) ==
LOC: ED 18:41 → ICU 20:17 → MED 06-05 13:32
PROVIDERS: ADMIT Internal Medicine; ATTEND Internal Medicine

== ENCOUNTER 2020-06-23 08:04 | Inpatient (IN) ==
[2020-06-23] MEDS ORDERED: methylPREDNISolone 125 mg 2 ML VIAL IV ONE (08:09)
[2020-06-23] MEDS ORDERED: Albuterol/Ipratropium NEB.SOL (2.5/0.5 MG) 3 ML NEB.SOLN INH ONE ×2 (08:09→11:55)
[2020-06-23 08:38] LABS: ABS Lymphocytes 0.8 10^3/ul (1.0-4.8); ABS Monocytes 0.5 10^3/ul (0-0.8); ABS Neutrophils 8.9 10^3/ul (1.5-7.7); Eosinophil % 0.2 %; Hematocrit 38 % (42-52); Hemoglobin 12.2 g/dL (14.0-18.0); Lymphocyte % 7.4 %; Mean Corpuscular HGB Conc 32 g/dL (31-36); Mean Corpuscular Hemoglobin 29 pg (27-31); Mean Corpuscular Volume 89 fL (80-94); Mean Platelet Volume 7.6 fL (7.4-10.4); Platelet Count 266 10^3/uL (150-450); Red Blood Count 4.23 10^6 /uL (4.18-5.48); Red Cell Distribution Width 13 % (10-15); White Blood Count 10.2 10^3/uL (3.5-10.8)
[2020-06-23 08:51] LABS: Activated Partial Thrombo Time 31.8 seconds (26.0-38.0); INR 1.02 (0.82-1.09)
[2020-06-23 08:55] LABS: Albumin 4.4 g/dL (3.2-5.2); Albumin/Globulin Ratio 1.7 (1-3); BUN/Creatinine Ratio 31.3 (8-20); C Reactive Protein 31.3 mg/L (<8.01); Calcium 9.8 mg/dL (8.6-10.3); EGFR African American 151.4 (>60); EGFR Non-African American 125.1 (>60); Globulin 2.6 g/dL (2-4); Potassium 4.9 mmol/L (3.5-5.0); Total Bilirubin 0.4 mg/dL (0.2-1.0)
[2020-06-23 08:57] LABS: Troponin I 0.01 ng/mL (<0.03)
[2020-06-23 08:59] LABS: CKMB ng/mL 7.1 ng/mL (0.6-6.3)
[2020-06-23] MEDS: Albuterol/Ipratropium NEB.SOL (2.5/0.5 MG) 3 ML NEB.SOLN INH SCH ×4 (10:44→22:55)
[2020-06-23] MEDS ORDERED: Albuterol/Ipratropium NEB.SOL (2.5/0.5 MG) 3 ML NEB.SOLN ONE (11:58)
[2020-06-23] MEDS ORDERED: Albuterol/Ipratropium NEB.SOL (2.5/0.5 MG) 3 ML NEB.SOLN INH SCH (12:00)
[2020-06-23] MEDS: Levofloxacin 750 MG IVPREMIX 750 MG/150 ML BAG IVPB SCH (15:18)
[2020-06-23] MEDS: Pantoprazole VIAL 40 MG VIAL IV SCH (15:18)
[2020-06-23] MEDS: methylPREDNISolone SOD 40 mg/ml 1 ml VIAL IV SCH (15:18)
[2020-06-23 17:36] LABS: Urine Appearance Clear; Urine Bilirubin Negative (Negative); Urine Blood Negative (Negative); Urine Color Yellow; Urine Glucose 3+(>=500 mg/dL) (Negative); Urine Ketones Trace (Negative); Urine Nitrite Negative (Negative); Urine Protein Negative (Negative); Urine Specific Gravity 1.026 (1.010-1.030); Urine Urobilinogen Negative (Negative)
[2020-06-23] MEDS ORDERED: Famotidine IV 10 MG/ML 2 ml VIAL (20 mg) IV SLOW PU ONE (21:00)
[2020-06-24] MEDS: methylPREDNISolone SOD 40 mg/ml 1 ml VIAL IV SCH ×3 (00:15→11:37)
[2020-06-24] MEDS ORDERED: Lorazepam PYXIS KEY PRN ×2 (00:54→01:03)
[2020-06-24] MEDS ORDERED: LORazepam 2 mg VIAL 1 ml IV PUSH ONE (00:54)
[2020-06-24] MEDS: Albuterol/Ipratropium NEB.SOL (2.5/0.5 MG) 3 ML NEB.SOLN INH SCH ×6 (03:00→23:13)
[2020-06-24 04:08] LABS: ABS Lymphocytes 0.5 10^3/ul (1.0-4.8); ABS Monocytes 0.2 10^3/ul (0-0.8); Hematocrit 35 % (42-52); Hemoglobin 11.6 g/dL (14.0-18.0); Lymphocyte % 8.1 %; Mean Corpuscular HGB Conc 33 g/dL (31-36); Mean Corpuscular Hemoglobin 29 pg (27-31); Mean Corpuscular Volume 88 fL (80-94); Mean Platelet Volume 7.5 fL (7.4-10.4); Nucleated Red Blood Cells % 0.1; Platelet Count 252 10^3/uL (150-450); Red Blood Count 4.02 10^6 /uL (4.18-5.48); Red Cell Distribution Width 13 % (10-15); White Blood Count 5.7 10^3/uL (3.5-10.8)
[2020-06-24 04:21] LABS: BUN/Creatinine Ratio 34.4 (8-20); Calcium 9.3 mg/dL (8.6-10.3); EGFR Non-African American 132.3 (>60)
[2020-06-24] MEDS: LORazepam 2 mg VIAL 1 ml IV PUSH PRN ×2 (09:24→16:58)
[2020-06-24] MEDS ORDERED: Dextrose 50% Syringe 50 ml 25 GM/50 ML SYRINGE IV PUSH PRN (11:42)
[2020-06-24] MEDS: Levofloxacin 750 MG IVPREMIX 750 MG/150 ML BAG IVPB SCH (14:55)
[2020-06-24] MEDS: Pantoprazole VIAL 40 MG VIAL IV SCH (14:55)
[2020-06-25] MEDS: methylPREDNISolone SOD 40 mg/ml 1 ml VIAL IV SCH (00:05)
[2020-06-25] MEDS: Albuterol/Ipratropium NEB.SOL (2.5/0.5 MG) 3 ML NEB.SOLN INH SCH ×3 (03:43→11:04)
[2020-06-25] MEDS ORDERED: Albuterol/Ipratropium NEB.SOL (2.5/0.5 MG) 3 ML NEB.SOLN INH PRN (11:05)
[2020-06-25 11:11] VITALS: BP 122/83
== END 2020-06-25 12:10 | disposition home or self-care (01) | DRG 189 ==
LOC: ED 08:04 → ICU 09:40
PROVIDERS: ADMIT Internal Medicine; ATTEND Surgery Surgical Critical Care

== ENCOUNTER 2020-07-19 07:16 | Inpatient (IN) ==
[2020-07-19] MEDS ORDERED: Albuterol 2.5mg/3 ml (0.083%) NEB.SOLN INH ONE (07:19)
[2020-07-19] MEDS ORDERED: Magnesium Sulfate 2 gm BAG 2 GM/50 ML BAG IVPB ONE (07:19)
[2020-07-19] MEDS ORDERED: Albuterol/Ipratropium NEB.SOL (2.5/0.5 MG) 3 ML NEB.SOLN INH ONE (07:19)
[2020-07-19 08:00] LABS: ALT 12 U/L (7-52); Albumin 4.1 g/dL (3.2-5.2); Albumin/Globulin Ratio 1.5 (1-3); Alkaline Phosphatase 46 U/L (34-104); BUN/Creatinine Ratio 23.1 (8-20); Blood Urea Nitrogen 12 mg/dL (6-24); Calcium 9.2 mg/dL (8.6-10.3); Chloride 95 mmol/L (101-111); EGFR African American 192.4 (>60); Globulin 2.7 g/dL (2-4); Glucose 97 mg/dL (70-100); Sodium 140 mmol/L (135-145); Total Protein 6.8 g/dL (6.4-8.9)
[2020-07-19 08:06] LABS: CO2 Carbon Dioxide 41 mmol/L (22-32)
[2020-07-19 08:17] LABS: Anion Gap 4 mmol/L (2-11)
[2020-07-19 08:17] LABS: ABS Eosinophils 0.1 10^3/ul (0-0.6); ABS Monocytes 0.9 10^3/ul (0-0.8); ABS Neutrophils 6.5 10^3/ul (1.5-7.7); Eosinophil % 1.2 %; Hematocrit 39 % (42-52); Hemoglobin 12.5 g/dL (14.0-18.0); Lymphocyte % 12.2 %; Mean Corpuscular HGB Conc 32 g/dL (31-36); Mean Corpuscular Hemoglobin 29 pg (27-31); Mean Corpuscular Volume 90 fL (80-94); Mean Platelet Volume 7.7 fL (7.4-10.4); Nucleated Red Blood Cells % 0.1; Platelet Count 219 10^3/uL (150-450); Red Blood Count 4.31 10^6 /uL (4.18-5.48); Red Cell Distribution Width 13 % (10-15); White Blood Count 8.6 10^3/uL (3.5-10.8)
[2020-07-19] MEDS ORDERED: methylPREDNISolone 125 mg 2 ML VIAL IV ONE (10:04)
[2020-07-19] MEDS: DOXYcycline 100 MG in NS 0.9% 250 ml 250 ML IVPB SCH ×2 (11:13→23:19)
[2020-07-19] MEDS: Albuterol/Ipratropium NEB.SOL (2.5/0.5 MG) 3 ML NEB.SOLN INH SCH ×4 (11:32→23:18)
[2020-07-19] MEDS: methylPREDNISolone SOD 40 mg/ml 1 ml VIAL IV SCH (17:50)
[2020-07-19] MEDS ORDERED: cefTRIAXone 1 gm/50 mL NS BAG 1 GM/50 ML BAG IVPB SCH (18:00)
[2020-07-19] MEDS ORDERED: Tobramycin 0.3% OPHTH.SOL 5 ML BOT (regular eye drops) OPHTHALMIC PRN (19:12)
[2020-07-19] MEDS ORDERED: Albuterol/Ipratropium NEB.SOL (2.5/0.5 MG) 3 ML NEB.SOLN INH PRN (19:12)
[2020-07-19] MEDS ORDERED: Albuterol HFA INHALER 8 gm MDI INH PRN (19:25)
[2020-07-19] MEDS ORDERED: Dextrose 50% Syringe 50 ml 25 GM/50 ML SYRINGE IV PUSH PRN (20:37)
[2020-07-19] MEDS: Mometasone/Formoter 200/5 MDI INH SCH (22:44)
[2020-07-20] MEDS: methylPREDNISolone SOD 40 mg/ml 1 ml VIAL IV SCH ×2 (02:09→09:38)
[2020-07-20] MEDS: Albuterol/Ipratropium NEB.SOL (2.5/0.5 MG) 3 ML NEB.SOLN INH SCH ×4 (06:39→15:20)
[2020-07-20 07:39] LABS: ABS Lymphocytes 0.6 10^3/ul (1.0-4.8); ABS Monocytes 0.4 10^3/ul (0-0.8); ABS Neutrophils 5.1 10^3/ul (1.5-7.7); Eosinophil % 0.2 %; Hematocrit 37 % (42-52); Lymphocyte % 10.1 %; Mean Corpuscular HGB Conc 33 g/dL (31-36); Mean Corpuscular Hemoglobin 29 pg (27-31); Mean Corpuscular Volume 88 fL (80-94); Mean Platelet Volume 7.6 fL (7.4-10.4); Platelet Count 258 10^3/uL (150-450); Red Cell Distribution Width 14 % (10-15); White Blood Count 6.1 10^3/uL (3.5-10.8)
[2020-07-20 07:57] LABS: Albumin 4.3 g/dL (3.2-5.2); Calcium 9.2 mg/dL (8.6-10.3); Potassium 4.6 mmol/L (3.5-5.0); Total Bilirubin 0.3 mg/dL (0.2-1.0)
[2020-07-20 08:03] LABS: Albumin/Globulin Ratio 1.5 (1-3); BUN/Creatinine Ratio 38.6 (8-20); EGFR African American 173.1 (>60); Globulin 2.9 g/dL (2-4); Phosphorus 2.6 mg/dL (2.5-5.0); Total Protein 7.2 g/dL (6.4-8.9)
[2020-07-20] MEDS ORDERED: NFT: DAPAGLIFLOZIN 10 MG TAB (NF) PO SCH (09:00)
[2020-07-20] MEDS ORDERED: FLUTICASONE/UMECLIDIN/VILANTER 1 PUFF MDI INH SCH (09:00)
[2020-07-20] MEDS: Mometasone/Formoter 200/5 MDI INH SCH ×2 (10:01→12:09)
[2020-07-20] MEDS: DOXYcycline 100 MG in NS 0.9% 250 ml 250 ML IVPB SCH (12:07)
[2020-07-20 15:40] VITALS: BP 129/78
== END 2020-07-20 16:15 | disposition home or self-care (01) | DRG 189 ==
LOC: ED 07:16 → ICU 09:24 → MED 07-20 06:53
PROVIDERS: ADMIT Internal Medicine; ATTEND Internal Medicine

== ENCOUNTER 2020-08-02 18:24 | Inpatient (IN) ==
[2020-08-02] MEDS: Albuterol/Ipratropium NEB.SOL (2.5/0.5 MG) 3 ML NEB.SOLN INH SCH ×3 (18:30→19:57)
[2020-08-02] MEDS ORDERED: Magnesium Sulfate 2 gm BAG 2 GM/50 ML BAG IVPB ONE (18:33)
[2020-08-02] MEDS ORDERED: Lactated Ringers 1000 ml BAG 1,000 ML IV ONE (18:33)
[2020-08-02] MEDS ORDERED: Albuterol/Ipratropium NEB.SOL (2.5/0.5 MG) 3 ML NEB.SOLN ONE (18:36)
[2020-08-02 19:04] LABS: ABS Lymphocytes 0.8 10^3/ul (1.0-4.8); ABS Monocytes 1.2 10^3/ul (0-0.8); ABS Neutrophils 10.1 10^3/ul (1.5-7.7); Eosinophil % 0.1 %; Hematocrit 38 % (42-52); Hemoglobin 12.1 g/dL (14.0-18.0); Lymphocyte % 6.8 %; Mean Corpuscular HGB Conc 32 g/dL (31-36); Mean Corpuscular Hemoglobin 29 pg (27-31); Mean Corpuscular Volume 90 fL (80-94); Platelet Count 277 10^3/uL (150-450); Red Cell Distribution Width 14 % (10-15); White Blood Count 12.2 10^3/uL (3.5-10.8)
[2020-08-02 19:15] LABS: Activated Partial Thrombo Time 31.9 seconds (26.0-38.0)
[2020-08-02 19:19] LABS: Albumin 4.2 g/dL (3.2-5.2); Albumin/Globulin Ratio 1.5 (1-3); BUN/Creatinine Ratio 22.6 (8-20); Calcium 9.6 mg/dL (8.6-10.3); EGFR Non-African American 129.8 (>60); Globulin 2.8 g/dL (2-4); Potassium 4.8 mmol/L (3.5-5.0); Total Bilirubin 0.4 mg/dL (0.2-1.0)
[2020-08-02] MEDS ORDERED: Albuterol/Ipratropium NEB.SOL (2.5/0.5 MG) 3 ML NEB.SOLN INH PRN (21:04)
[2020-08-02] MEDS ORDERED: Albuterol HFA INHALER 8 gm MDI INH PRN (21:17)
[2020-08-02] MEDS: methylPREDNISolone SOD 40 mg/ml 1 ml VIAL IV SCH (23:06)
[2020-08-02] MEDS: DOXYcycline 100 MG in NS 0.9% 250 ml 250 ML IVPB SCH (23:07)
[2020-08-02] MEDS: cefTRIAXone 1 gm/50 mL NS BAG 1 GM/50 ML BAG IVPB SCH (23:07)
[2020-08-02 23:12] LABS: Resp Syncytial Virus Molecular Negative (Negative)
[2020-08-03 05:27] LABS: ABS Lymphocytes 0.5 10^3/ul (1.0-4.8); ABS Monocytes 0.1 10^3/ul (0-0.8); ABS Neutrophils 7.4 10^3/ul (1.5-7.7); Hematocrit 38 % (42-52); Hemoglobin 11.9 g/dL (14.0-18.0); Lymphocyte % 6.1 %; Mean Corpuscular HGB Conc 32 g/dL (31-36); Mean Corpuscular Hemoglobin 28 pg (27-31); Mean Corpuscular Volume 89 fL (80-94); Platelet Count 274 10^3/uL (150-450); Red Blood Count 4.22 10^6 /uL (4.18-5.48); Red Cell Distribution Width 13 % (10-15)
[2020-08-03 05:44] LABS: BUN/Creatinine Ratio 31.1 (8-20); Calcium 8.9 mg/dL (8.6-10.3); EGFR African American 227.3 (>60); EGFR Non-African American 187.9 (>60); Potassium 4.9 mmol/L (3.5-5.0)
[2020-08-03] MEDS ORDERED: Nicotine GUM 2MG FRUIT FLAVOR PO PRN ×2 (06:25→06:26)
[2020-08-03] MEDS: Mometasone/Formoter 200/5 MDI INH SCH ×3 (07:37→19:29)
[2020-08-03] MEDS ORDERED: DAPAGLIFLOZIN 10 MG TAB (NF) PO SCH (09:00)
[2020-08-03] MEDS ORDERED: FLUTICASONE/UMECLIDIN/VILANTER 1 PUFF MDI INH SCH (09:00)
[2020-08-03 09:27] LABS: Magnesium 1.8 mg/dL (1.9-2.7)
[2020-08-03] MEDS: DOXYcycline 100 MG in NS 0.9% 250 ml 250 ML IVPB SCH ×2 (09:38→22:39)
[2020-08-03] MEDS: methylPREDNISolone SOD 40 mg/ml 1 ml VIAL IV SCH ×2 (09:40→22:39)
[2020-08-03] MEDS ORDERED: Magnesium Sulfate 2 gm BAG 2 GM/50 ML BAG IVPB ONE (10:08)
[2020-08-03] MEDS: Albuterol/Ipratropium NEB.SOL (2.5/0.5 MG) 3 ML NEB.SOLN INH SCH ×3 (15:36→23:18)
[2020-08-03] MEDS: cefTRIAXone 1 gm/50 mL NS BAG 1 GM/50 ML BAG IVPB SCH (21:53)
[2020-08-03] MEDS ORDERED: NS 0.9% 250 ml 250 ML ONE (22:30)
[2020-08-03 22:48] LABS: Influenza A Molecular Negative (Negative); Influenza B Molecular Negative (Negative)
[2020-08-03] MEDS ORDERED: Albuterol/Ipratropium NEB.SOL (2.5/0.5 MG) 3 ML NEB.SOLN ONE (23:10)
[2020-08-04] MEDS: Albuterol/Ipratropium NEB.SOL (2.5/0.5 MG) 3 ML NEB.SOLN INH SCH ×6 (03:01→22:38)
[2020-08-04] MEDS: Mometasone/Formoter 200/5 MDI INH SCH (07:38)
[2020-08-04 08:18] LABS: ABS Lymphocytes 0.7 10^3/ul (1.0-4.8); ABS Monocytes 0.7 10^3/ul (0-0.8); Hematocrit 39 % (42-52); Hemoglobin 12.1 g/dL (14.0-18.0); Lymphocyte % 7.4 %; Mean Corpuscular HGB Conc 31 g/dL (31-36); Mean Corpuscular Hemoglobin 29 pg (27-31); Mean Corpuscular Volume 93 fL (80-94); Mean Platelet Volume 7.7 fL (7.4-10.4); Nucleated Red Blood Cells % 0.2; Platelet Count 276 10^3/uL (150-450); Red Cell Distribution Width 14 % (10-15); White Blood Count 9.4 10^3/uL (3.5-10.8)
[2020-08-04] MEDS ORDERED: Albuterol/Ipratropium NEB.SOL (2.5/0.5 MG) 3 ML NEB.SOLN ONE ×2 (08:46→22:35)
[2020-08-04] MEDS ORDERED: Albuterol/Ipratropium NEB.SOL (2.5/0.5 MG) 3 ML NEB.SOLN INH ONE (08:52)
[2020-08-04] MEDS: methylPREDNISolone SOD 40 mg/ml 1 ml VIAL IV SCH ×2 (09:09→21:56)
[2020-08-04 09:31] LABS: Albumin 4.2 g/dL (3.2-5.2); Calcium 8.9 mg/dL (8.6-10.3); Magnesium 2.3 mg/dL (1.9-2.7); Total Bilirubin 0.3 mg/dL (0.2-1.0)
[2020-08-04 09:37] LABS: Albumin/Globulin Ratio 1.6 (1-3); BUN/Creatinine Ratio 45.3 (8-20); EGFR African American 188.2 (>60); EGFR Non-African American 155.5 (>60); Globulin 2.6 g/dL (2-4); Total Protein 6.8 g/dL (6.4-8.9)
[2020-08-04 09:57] LABS: Potassium 5.2 mmol/L (3.5-5.0)
[2020-08-04] MEDS: DOXYcycline 100 MG in NS 0.9% 250 ml 250 ML IVPB SCH ×2 (10:15→21:57)
[2020-08-04] MEDS: cefTRIAXone 1 gm/50 mL NS BAG 1 GM/50 ML BAG IVPB SCH (21:56)
[2020-08-05] MEDS: Albuterol/Ipratropium NEB.SOL (2.5/0.5 MG) 3 ML NEB.SOLN INH SCH ×6 (03:00→23:24)
[2020-08-05 08:05] LABS: ABS Lymphocytes 0.3 10^3/ul (1.0-4.8); ABS Monocytes 0.6 10^3/ul (0-0.8); ABS Neutrophils 9.3 10^3/ul (1.5-7.7); Hematocrit 40 % (42-52); Lymphocyte % 3.3 %; Mean Corpuscular HGB Conc 32 g/dL (31-36); Mean Corpuscular Hemoglobin 29 pg (27-31); Mean Corpuscular Volume 89 fL (80-94); Mean Platelet Volume 7.9 fL (7.4-10.4); Nucleated Red Blood Cells % 0.1; Platelet Count 298 10^3/uL (150-450); Red Blood Count 4.53 10^6 /uL (4.18-5.48); Red Cell Distribution Width 14 % (10-15); White Blood Count 10.2 10^3/uL (3.5-10.8)
[2020-08-05 08:16] LABS: ALT 19 U/L (7-52); Albumin 4.2 g/dL (3.2-5.2); Albumin/Globulin Ratio 1.4 (1-3); Alkaline Phosphatase 41 U/L (34-104); BUN/Creatinine Ratio 34.9 (8-20); Blood Urea Nitrogen 22 mg/dL (6-24); Chloride 95 mmol/L (101-111); EGFR African American 154.2 (>60); EGFR Non-African American 127.4 (>60); Globulin 2.9 g/dL (2-4); Glucose 193 mg/dL (70-100); Sodium 140 mmol/L (135-145); Total Protein 7.1 g/dL (6.4-8.9)
[2020-08-05 09:19] LABS: Potassium Redraw 4.6 mmol/L (3.5-5.0)
[2020-08-05 09:33] LABS: CO2 Carbon Dioxide 38 mmol/L (22-32)
[2020-08-05 09:36] LABS: Anion Gap 7 mmol/L (2-11)
[2020-08-05] MEDS: methylPREDNISolone SOD 40 mg/ml 1 ml VIAL IV SCH ×2 (10:26→21:55)
[2020-08-05] MEDS: DOXYcycline 100 MG in NS 0.9% 250 ml 250 ML IVPB SCH ×2 (10:26→23:36)
[2020-08-05 10:48] LABS: Digoxin 0.3 ng/ml (0.8-2.0)
[2020-08-05] MEDS ORDERED: Influenza VAC *QUAD* 2020-21* 0.5 ML SYRINGE IM ONE (11:00)
[2020-08-05] MEDS: cefTRIAXone 1 gm/50 mL NS BAG 1 GM/50 ML BAG IVPB SCH (22:05)
[2020-08-06] MEDS: Albuterol/Ipratropium NEB.SOL (2.5/0.5 MG) 3 ML NEB.SOLN INH SCH ×2 (03:50→08:21)
[2020-08-06 06:04] LABS: ABS Lymphocytes 0.4 10^3/ul (1.0-4.8); ABS Monocytes 0.6 10^3/ul (0-0.8); ABS Neutrophils 9.9 10^3/ul (1.5-7.7); Hematocrit 38 % (42-52); Hemoglobin 12.2 g/dL (14.0-18.0); Lymphocyte % 3.9 %; Mean Corpuscular HGB Conc 32 g/dL (31-36); Mean Corpuscular Hemoglobin 28 pg (27-31); Mean Corpuscular Volume 88 fL (80-94); Mean Platelet Volume 7.6 fL (7.4-10.4); Platelet Count 277 10^3/uL (150-450); Red Cell Distribution Width 14 % (10-15); White Blood Count 10.9 10^3/uL (3.5-10.8)
[2020-08-06 06:37] LABS: Albumin 4.1 g/dL (3.2-5.2); Albumin/Globulin Ratio 1.5 (1-3); BUN/Creatinine Ratio 37.7 (8-20); Calcium 9.1 mg/dL (8.6-10.3); EGFR African American 188.2 (>60); EGFR Non-African American 155.5 (>60); Globulin 2.8 g/dL (2-4); Potassium 4.4 mmol/L (3.5-5.0); Total Bilirubin 0.4 mg/dL (0.2-1.0); Total Protein 6.9 g/dL (6.4-8.9)
[2020-08-06] MEDS: methylPREDNISolone SOD 40 mg/ml 1 ml VIAL IV SCH (10:03)
[2020-08-06] MEDS: DOXYcycline 100 MG in NS 0.9% 250 ml 250 ML IVPB SCH (10:03)
[2020-08-06 11:14] VITALS: BP 151/70
[2020-08-06] MEDS ORDERED: Albuterol/Ipratropium NEB.SOL (2.5/0.5 MG) 3 ML NEB.SOLN INH SCH (13:00)
[2020-08-06] MEDS ORDERED: Perflutren Lipid Microsphere 3 ML VIAL ONE (13:59)
[2020-08-08 00:06] LABS: Cotinine 15 ng/mL (<5.0); Nicotine < 5.0 ng/mL (<5.0)
== END 2020-08-06 15:00 | disposition home health service (06) | DRG 189 ==
LOC: ED 18:24 → ICU 18:40 → MED 08-05 14:23
PROVIDERS: ADMIT Internal Medicine; ATTEND Internal Medicine

== ENCOUNTER 2021-02-07 10:51 | Inpatient (IN) ==
[2021-02-07] MEDS ORDERED: NS 0.9% 1000 ml BAG 1,000 ML IV ONE (10:54)
[2021-02-07] MEDS ORDERED: methylPREDNISolone 125 mg 2 ML VIAL IV ONE (10:54)
[2021-02-07] MEDS ORDERED: Magnesium Sulfate 2 gm BAG 2 GM/50 ML BAG IVPB ONE (10:57)
[2021-02-07] MEDS ORDERED: Albuterol 2.5mg/3 ml (0.083%) NEB.SOLN INH ONE (10:57)
[2021-02-07] MEDS ORDERED: Naloxone 0.4 mg VIAL 0.4 mg/ml 1 ml VIAL ONE ×2 (11:02→11:24)
[2021-02-07] MEDS ORDERED: Naloxone 0.4 mg VIAL 0.4 mg/ml 1 ml VIAL IV PUSH ONE (11:24)
[2021-02-07 11:32] LABS: ABS Eosinophils 0.1 10^3/ul (0-0.6); ABS Neutrophils 8.4 10^3/ul (1.5-7.7); Eosinophil % 1.1 %; Hematocrit 42 % (42-52); Lymphocyte % 9.6 %; Mean Corpuscular HGB Conc 31 g/dL (31-36); Mean Corpuscular Hemoglobin 27 pg (27-31); Mean Corpuscular Volume 88 fL (80-94); Platelet Count 222 10^3/uL (150-450); Red Blood Count 4.81 10^6 /uL (4.18-5.48); Red Cell Distribution Width 15 % (10-15); White Blood Count 10.6 10^3/uL (3.5-10.8)
[2021-02-07] MEDS ORDERED: Piperacillin/Tazobac ADVAN 3.375 GM in NS 0.9% 100 ml BAG 100 ML IVPB ONE (11:34)
[2021-02-07 11:37] LABS: Activated Partial Thrombo Time 30.5 seconds (26.0-38.0); INR 1.02 (0.82-1.09)
[2021-02-07] MEDS ORDERED: Piperacillin/Tazobac 3.375 GM BAG ONE (11:37)
[2021-02-07 11:39] LABS: ALT 20 U/L (7-52); AST 18 U/L (13-39); Albumin 4.2 g/dL (3.2-5.2); Albumin/Globulin Ratio 1.6 (1-3); Alkaline Phosphatase 50 U/L (34-104); Anion Gap 5 mmol/L (2-11); BUN/Creatinine Ratio 30.8 (8-20); Blood Urea Nitrogen 28 mg/dL (6-24); C Reactive Protein 76.29 mg/L (<8.01); CO2 Carbon Dioxide 38 mmol/L (22-32); Calcium 8.8 mg/dL (8.6-10.3); Chloride 93 mmol/L (101-111); EGFR African American 100.6 (>60); EGFR Non-African American 83.1 (>60); Globulin 2.7 g/dL (2-4); Glucose 178 mg/dL (70-100); Potassium 4.5 mmol/L (3.5-5.0); Sodium 136 mmol/L (135-145); Total Protein 6.9 g/dL (6.4-8.9)
[2021-02-07 11:40] LABS: Troponin I 0.01 ng/mL (<0.03)
[2021-02-07] MEDS ORDERED: Vancomycin 1,500 MG in NS 0.9% 250 ml 250 ML IVPB SCH (12:00)
[2021-02-07 12:49] LABS: Urine Appearance Cloudy; Urine Bacteria 1+ (Absent); Urine Bilirubin Negative (Negative); Urine Blood Negative (Negative); Urine Color Yellow; Urine Glucose 3+(>=500 mg/dL) (Negative); Urine Ketones Negative (Negative); Urine Nitrite Negative (Negative); Urine Protein 2+(100 mg/dL) (Negative); Urine Red Blood Cell 2+(6-10/hpf) (Absent); Urine Urobilinogen Negative (Negative); Urine White Blood Cell Trace(0-5/hpf) (Absent)
[2021-02-07 12:51] LABS: Urine Benzodiazepine Screen Presumptive Positive (None Detect); Urine Cannabinoids Screen None Detected (None Detect); Urine Opiates Screen Presumptive Positive (None Detect)
[2021-02-07] MEDS ORDERED: Furosemide 40 mg/4 ml IV VIAL IV SLOW PU ONE (12:54)
[2021-02-07 13:59] LABS: Alcohol, S < 10 mg/dL (<10); Digoxin < 0.3 ng/ml (0.8-2.0)
[2021-02-07] MEDS ORDERED: Albuterol/Ipratropium NEB.SOL (2.5/0.5 MG) 3 ML NEB.SOLN INH PRN (14:46)
[2021-02-07] MEDS ORDERED: Albuterol HFA INHALER 8 gm MDI INH PRN (14:46)
[2021-02-07] MEDS ORDERED: Dextrose 50% Syringe 50 ml 25 GM/50 ML SYRINGE IV PUSH PRN (15:06)
[2021-02-07] MEDS ORDERED: Lorazepam PYXIS KEY ONE (15:30)
[2021-02-07] MEDS: LORazepam 2 mg VIAL 1 ml ONE ×2 (15:33→16:45)
[2021-02-07] MEDS ORDERED: Diltiazem (ADVAN VIAL) 100 MG/100 ML ADDV.BAG IV SCH (16:00)
[2021-02-07] MEDS ORDERED: Metoprolol Tartrate 5 mg VIAL 5 ml VIAL (1 mg/ml) ONE (16:46)
[2021-02-07] MEDS ORDERED: LORazepam 2 mg VIAL 1 ml IV PUSH PRN (17:02)
[2021-02-07] MEDS ORDERED: Lorazepam PYXIS KEY PRN (17:02)
[2021-02-07] MEDS: Mometasone 220 MCG MDI INH SCH (17:42)
[2021-02-07] MEDS: Tiotropium Brom/Olodaterol MDI INH SCH (17:43)
[2021-02-08] MEDS ORDERED: methylPREDNISolone 125 mg 2 ML VIAL IV SCH (09:00)
[2021-02-08] MEDS ORDERED: DAPAGLIFLOZIN 10 MG TAB (NF) PO SCH (09:00)
[2021-02-08] MEDS: Mometasone 220 MCG MDI INH SCH (09:53)
[2021-02-08] MEDS: Tiotropium Brom/Olodaterol MDI INH SCH (09:54)
[2021-02-09] MEDS: Mometasone 220 MCG MDI INH SCH (08:14)
[2021-02-09] MEDS: Tiotropium Brom/Olodaterol MDI INH SCH (08:14)
[2021-02-09 11:09] LABS: ABS Lymphocytes 0.8 10^3/ul (1.0-4.8); ABS Monocytes 1.5 10^3/ul (0-0.8); ABS Neutrophils 13.7 10^3/ul (1.5-7.7); Eosinophil % 0.3 %; Hematocrit 43 % (42-52); Hemoglobin 13.4 g/dL (14.0-18.0); Lymphocyte % 4.9 %; Mean Corpuscular HGB Conc 31 g/dL (31-36); Mean Corpuscular Hemoglobin 27 pg (27-31); Mean Corpuscular Volume 86 fL (80-94); Mean Platelet Volume 7.8 fL (7.4-10.4); Nucleated Red Blood Cells % 0.1; Platelet Count 266 10^3/uL (150-450); Red Cell Distribution Width 15 % (10-15); White Blood Count 16.1 10^3/uL (3.5-10.8)
[2021-02-09 11:27] LABS: Albumin 4.2 g/dL (3.2-5.2); Albumin/Globulin Ratio 1.4 (1-3); BUN/Creatinine Ratio 36.2 (8-20); Calcium 9.3 mg/dL (8.6-10.3); EGFR African American 138.4 (>60); EGFR Non-African American 114.4 (>60); Globulin 2.9 g/dL (2-4); Potassium 4.5 mmol/L (3.5-5.0); Total Bilirubin 0.4 mg/dL (0.2-1.0); Total Protein 7.1 g/dL (6.4-8.9)
[2021-02-09 15:41] VITALS: BP 140/77
== END 2021-02-09 19:30 | disposition home or self-care (01) | DRG 189 ==
LOC: ED 10:51 → ICU 12:28 → MEDTELE 02-08 13:08
PROVIDERS: ADMIT Internal Medicine Critical Care Medicine; ATTEND Internal Medicine

== ENCOUNTER 2021-04-04 18:27 | Inpatient (IN) ==
[2021-04-04] MEDS ORDERED: NS 0.9% 1000 ml BAG 1,000 ML IV ONE (18:37)
[2021-04-04 19:11] LABS: ALT 17 U/L (7-52); Albumin 4.3 g/dL (3.2-5.2); Albumin/Globulin Ratio 1.6 (1-3); Alkaline Phosphatase 31 U/L (35-149); Blood Urea Nitrogen 20 mg/dL (6-24); Calcium 8.9 mg/dL (8.6-10.3); Chloride 92 mmol/L (101-111); EGFR African American 123.8 (>60); EGFR Non-African American 102.3 (>60); Globulin 2.7 g/dL (2-4); Glucose 131 mg/dL (70-100); Sodium 135 mmol/L (135-145)
[2021-04-04 19:21] LABS: Anion Gap 2 mmol/L (2-11); CO2 Carbon Dioxide 41 mmol/L (22-32)
[2021-04-04 20:57] LABS: ABS Lymphocytes 0.9 10^3/ul (1.0-4.8); ABS Monocytes 0.9 10^3/ul (0-0.8); ABS Neutrophils 7.1 10^3/ul (1.5-7.7); Eosinophil % 0.3 %; Hematocrit 40 % (42-52); Hemoglobin 12.6 g/dL (14.0-18.0); Lymphocyte % 9.6 %; Mean Corpuscular HGB Conc 32 g/dL (31-36); Mean Corpuscular Hemoglobin 28 pg (27-31); Mean Corpuscular Volume 87 fL (80-94); Mean Platelet Volume 8.1 fL (7.4-10.4); Platelet Count 165 10^3/uL (150-450); Red Blood Count 4.58 10^6 /uL (4.18-5.48); Red Cell Distribution Width 15 % (10-15); White Blood Count 8.9 10^3/uL (3.5-10.8)
[2021-04-04 21:09] LABS: AST Redraw 13 U/L (13-39); Potassium Redraw 4.8 mmol/L (3.5-5.0)
[2021-04-04] MEDS ORDERED: Piperacillin/Tazobac ADVAN 3.375 GM in NS 0.9% 100 ml BAG 100 ML IV ONE (21:16)
[2021-04-04] MEDS ORDERED: Dextrose 50% Syringe 50 ml 25 GM/50 ML SYRINGE IV PUSH PRN (21:27)
[2021-04-04 21:45] LABS: Influenza A Molecular Negative (Negative); Influenza B Molecular Negative (Negative)
[2021-04-04] MEDS ORDERED: Albuterol HFA INHALER 8 gm MDI INH PRN (21:55)
[2021-04-04 21:58] LABS: Urine Appearance Clear; Urine Bilirubin Negative (Negative); Urine Blood Negative (Negative); Urine Color Yellow; Urine Glucose 3+(>=500 mg/dL) (Negative); Urine Ketones Negative (Negative); Urine Nitrite Negative (Negative); Urine Protein Negative (Negative); Urine Specific Gravity 1.023 (1.002-1.030); Urine Urobilinogen Negative (Negative)
[2021-04-04] MEDS ORDERED: Zosyn per Pharmacy NOTE FOLLOW UP SCH (22:00)
[2021-04-04] MEDS ORDERED: Enoxaparin 40 MG/0.4 ML SYR SUBCUT SCH (22:00)
[2021-04-04 22:13] LABS: Urine Benzodiazepine Screen None Detected (None Detect); Urine Cannabinoids Screen None Detected (None Detect); Urine Opiates Screen Presumptive Positive (None Detect)
[2021-04-04] MEDS ORDERED: Etomidate 20 mg/10 ml 2 MG/ML 10 ml VIAL IV ONE (22:26)
[2021-04-04] MEDS ORDERED: Succinylcholine 200 mg VIAL 20 mg/ml 10 ml VIAL (200 mg) IV ONE (22:26)
[2021-04-04] MEDS ORDERED: Dexmedetomidine 1,000 MCG in NS 0.9% 250 ml 240 ML IV SCH (23:00)
[2021-04-04] MEDS ORDERED: fentaNYL 100 mcg/2 ml 50 MCG/ML VIAL IV SLOW PU PRN (23:13)
[2021-04-04] MEDS ORDERED: Midazolam 5 mg/5 ml VIAL 1 mg/ml 5 ml VIAL (5 mg) IV SLOW PU ONE (23:13)
[2021-04-04] MEDS ORDERED: Midazolam 5 mg/ml concentrated 5 mg/ml 1 ml VIAL ONE (23:17)
[2021-04-04] MEDS ORDERED: fentaNYL 100 mcg/2 ml 50 MCG/ML VIAL ONE (23:17)
[2021-04-04] MEDS ORDERED: fentaNYL INFUSION 50 MCG/ML 2,500 MCG/50 ML BAG IV SCH (23:45)
[2021-04-04] MEDS ORDERED: Midazolam 50 MG VIAL IV DRIP 50 ML IV SCH (23:45)
[2021-04-04 23:51] LABS: Alcohol, S 11 mg/dL (<10); Digoxin < 0.3 ng/ml (0.8-2.0)
[2021-04-05] MEDS ORDERED: Albuterol/Ipratropium NEB.SOL (2.5/0.5 MG) 3 ML NEB.SOLN INH PRN (00:47)
[2021-04-05] MEDS ORDERED: Lactated Ringers 500 ml BAG 500 ML IV ONE (00:53)
[2021-04-05] MEDS ORDERED: Midazolam 50 MG VIAL IV DRIP 50 ML IV SCH (01:00)
[2021-04-05] MEDS: methylPREDNISolone SOD 40 mg/ml 1 ml VIAL IV SCH ×4 (01:18→23:58)
[2021-04-05] MEDS: Pantoprazole VIAL 40 MG VIAL IV SCH ×2 (01:18→23:58)
[2021-04-05] MEDS: ZOSYN 3.375 GM Q8H per EXTENDED INFUSION IV SCH ×3 (02:04→16:02)
[2021-04-05 05:42] LABS: ABS Lymphocytes 0.6 10^3/ul (1.0-4.8); ABS Monocytes 0.3 10^3/ul (0-0.8); ABS Neutrophils 8.3 10^3/ul (1.5-7.7); Eosinophil % 0.2 %; Hematocrit 39 % (42-52); Hemoglobin 12.3 g/dL (14.0-18.0); Lymphocyte % 6.3 %; Mean Corpuscular HGB Conc 32 g/dL (31-36); Mean Corpuscular Hemoglobin 28 pg (27-31); Mean Corpuscular Volume 86 fL (80-94); Mean Platelet Volume 8.3 fL (7.4-10.4); Platelet Count 165 10^3/uL (150-450); Red Blood Count 4.47 10^6 /uL (4.18-5.48); Red Cell Distribution Width 15 % (10-15); White Blood Count 9.2 10^3/uL (3.5-10.8)
[2021-04-05] MEDS: Chlorhexidine MOUTHWASH 0.12% 15 ML UDC SWISH SPIT SCH ×3 (05:46→15:19)
[2021-04-05 06:01] LABS: Albumin/Globulin Ratio 1.5 (1-3); Calcium 8.8 mg/dL (8.6-10.3); EGFR African American 123.8 (>60); EGFR Non-African American 102.3 (>60); Globulin 2.6 g/dL (2-4); Potassium 4.4 mmol/L (3.5-5.0); Total Bilirubin 0.8 mg/dL (0.2-1.0); Total Protein 6.6 g/dL (6.4-8.9)
[2021-04-05] MEDS ORDERED: Nicotine PATCH 14 MG/24 HR PATCH TRANSDERM SCH (09:00)
[2021-04-05] MEDS ORDERED: Tiotropium Brom/Olodaterol MDI INH SCH (09:00)
[2021-04-05] MEDS ORDERED: Mometasone 220 MCG MDI INH SCH (18:00)
[2021-04-05] MEDS: Albuterol/Ipratropium NEB.SOL (2.5/0.5 MG) 3 ML NEB.SOLN INH SCH ×2 (21:20→23:29)
[2021-04-06] MEDS: Albuterol/Ipratropium NEB.SOL (2.5/0.5 MG) 3 ML NEB.SOLN INH SCH ×5 (02:18→19:19)
[2021-04-06] MEDS: ZOSYN 3.375 GM Q8H per EXTENDED INFUSION IV SCH ×3 (02:20→18:04)
[2021-04-06 04:42] LABS: ABS Lymphocytes 0.4 10^3/ul (1.0-4.8); ABS Monocytes 0.5 10^3/ul (0-0.8); ABS Neutrophils 10.6 10^3/ul (1.5-7.7); Hematocrit 41 % (42-52); Hemoglobin 12.8 g/dL (14.0-18.0); Lymphocyte % 3.6 %; Mean Corpuscular HGB Conc 31 g/dL (31-36); Mean Corpuscular Hemoglobin 27 pg (27-31); Mean Corpuscular Volume 86 fL (80-94); Mean Platelet Volume 8.3 fL (7.4-10.4); Platelet Count 195 10^3/uL (150-450); Red Blood Count 4.75 10^6 /uL (4.18-5.48); Red Cell Distribution Width 15 % (10-15); White Blood Count 11.6 10^3/uL (3.5-10.8)
[2021-04-06 04:57] LABS: Blood Urea Nitrogen 24 mg/dL (6-24); CO2 Carbon Dioxide 36 mmol/L (22-32); Calcium 8.8 mg/dL (8.6-10.3); Chloride 95 mmol/L (101-111); EGFR African American 133.9 (>60); EGFR Non-African American 110.7 (>60); Glucose 118 mg/dL (70-100); Sodium 136 mmol/L (135-145)
[2021-04-06 04:58] LABS: Anion Gap 5 mmol/L (2-11)
[2021-04-06] MEDS: methylPREDNISolone SOD 40 mg/ml 1 ml VIAL IV SCH ×2 (07:55→20:33)
[2021-04-06] MEDS ORDERED: Magnesium Hydroxide LIQ 30 ML UDC PO PRN (09:12)
[2021-04-06 09:31] LABS: Potassium Redraw 4.2 mmol/L (3.5-5.0)
[2021-04-07] MEDS: Albuterol/Ipratropium NEB.SOL (2.5/0.5 MG) 3 ML NEB.SOLN INH SCH ×5 (00:28→15:21)
[2021-04-07] MEDS: Pantoprazole VIAL 40 MG VIAL IV SCH (02:12)
[2021-04-07] MEDS: ZOSYN 3.375 GM Q8H per EXTENDED INFUSION IV SCH ×3 (02:12→17:42)
[2021-04-07] MEDS: methylPREDNISolone SOD 40 mg/ml 1 ml VIAL IV SCH (10:42)
[2021-04-07 16:14] VITALS: BP 143/78
== END 2021-04-07 18:55 | disposition home or self-care (01) ==
LOC: ED 18:27 → ICU 21:32 → MED 04-06 15:51
PROVIDERS: ADMIT Internal Medicine Interventional Cardiology; ATTEND Internal Medicine

== ENCOUNTER 2021-05-01 11:19 | Inpatient (IN) ==
[2021-05-01] MEDS ORDERED: methylPREDNISolone 125 mg 2 ML VIAL IV ONE (11:24)
[2021-05-01] MEDS ORDERED: Magnesium Sulfate 2 gm BAG 2 GM/50 ML BAG IVPB ONE (11:24)
[2021-05-01 11:56] LABS: ABS Eosinophils 0.1 10^3/ul (0-0.6); ABS Lymphocytes 0.7 10^3/ul (1.0-4.8); ABS Monocytes 0.9 10^3/ul (0-0.8); ABS Neutrophils 7.3 10^3/ul (1.5-7.7); Eosinophil % 0.7 %; Hematocrit 40 % (42-52); Hemoglobin 12.3 g/dL (14.0-18.0); Lymphocyte % 7.4 %; Mean Corpuscular HGB Conc 31 g/dL (31-36); Mean Corpuscular Hemoglobin 27 pg (27-31); Mean Corpuscular Volume 88 fL (80-94); Mean Platelet Volume 7.6 fL (7.4-10.4); Platelet Count 206 10^3/uL (150-450); Red Cell Distribution Width 15 % (10-15)
[2021-05-01 12:15] LABS: ALT 28 U/L (7-52); AST 23 U/L (13-39); Albumin 4.2 g/dL (3.2-5.2); Albumin/Globulin Ratio 1.4 (1-3); Alkaline Phosphatase 65 U/L (35-149); Anion Gap 4 mmol/L (2-11); Blood Urea Nitrogen 17 mg/dL (6-24); CO2 Carbon Dioxide 37 mmol/L (22-32); Chloride 100 mmol/L (101-111); EGFR African American 127.7 (>60); EGFR Non-African American 105.5 (>60); Glucose 179 mg/dL (70-100); Magnesium 1.9 mg/dL (1.9-2.7); Potassium 4.3 mmol/L (3.5-5.0); Sodium 141 mmol/L (135-145); Total Protein 7.2 g/dL (6.4-8.9)
[2021-05-01 12:42] LABS: Digoxin < 0.3 ng/ml (0.8-2.0)
[2021-05-01] MEDS ORDERED: Lorazepam PYXIS KEY PRN (16:57)
[2021-05-01 19:00] LABS: Albumin/Globulin Ratio 1.4 (1-3); Calcium 8.4 mg/dL (8.6-10.3); EGFR African American 153.7 (>60); Globulin 2.8 g/dL (2-4); Total Bilirubin 0.4 mg/dL (0.2-1.0); Total Protein 6.8 g/dL (6.4-8.9)
[2021-05-01] MEDS ORDERED: Albuterol/Ipratropium NEB.SOL (2.5/0.5 MG) 3 ML NEB.SOLN INH SCH (19:00)
[2021-05-01 19:02] LABS: Potassium 5.1 mmol/L (3.5-5.0)
[2021-05-01] MEDS: Azithromycin 500 mg/250 ml NS 500 MG/250 ML BAG IVPB SCH (21:04)
[2021-05-01] MEDS: cefTRIAXone 1 gm/50 mL NS BAG 1 GM/50 ML BAG IVPB SCH (21:04)
[2021-05-01] MEDS: methylPREDNISolone SOD 40 mg/ml 1 ml VIAL IV SCH (21:50)
[2021-05-02] MEDS: Albuterol/Ipratropium NEB.SOL (2.5/0.5 MG) 3 ML NEB.SOLN INH SCH ×4 (00:15→19:09)
[2021-05-02] MEDS: methylPREDNISolone SOD 40 mg/ml 1 ml VIAL IV SCH ×2 (06:02→14:00)
[2021-05-02 06:22] LABS: ABS Lymphocytes 0.6 10^3/ul (1.0-4.8); ABS Monocytes 0.3 10^3/ul (0-0.8); Hematocrit 38 % (42-52); Hemoglobin 11.8 g/dL (14.0-18.0); Lymphocyte % 10.1 %; Mean Corpuscular HGB Conc 31 g/dL (31-36); Mean Corpuscular Hemoglobin 27 pg (27-31); Mean Corpuscular Volume 88 fL (80-94); Mean Platelet Volume 7.8 fL (7.4-10.4); Nucleated Red Blood Cells % 0.1; Platelet Count 230 10^3/uL (150-450); Red Blood Count 4.33 10^6 /uL (4.18-5.48); Red Cell Distribution Width 15 % (10-15); White Blood Count 5.9 10^3/uL (3.5-10.8)
[2021-05-02 06:33] LABS: INR 1.21 (0.82-1.09)
[2021-05-02 06:43] LABS: Magnesium 2.3 mg/dL (1.9-2.7); Phosphorus 3.7 mg/dL (2.5-5.0)
[2021-05-02] MEDS: LORazepam 2 mg VIAL 1 ml IV PUSH PRN ×2 (10:06→18:06)
[2021-05-02] MEDS ORDERED: methylPREDNISolone SOD 40 mg/ml 1 ml VIAL IV SCH (17:00)
[2021-05-02] MEDS: cefTRIAXone 1 gm/50 mL NS BAG 1 GM/50 ML BAG IVPB SCH (21:06)
[2021-05-02] MEDS: Azithromycin 500 mg/250 ml NS 500 MG/250 ML BAG IVPB SCH (21:50)
[2021-05-03] MEDS: Albuterol/Ipratropium NEB.SOL (2.5/0.5 MG) 3 ML NEB.SOLN INH SCH ×5 (00:17→23:59)
[2021-05-03] MEDS: methylPREDNISolone SOD 40 mg/ml 1 ml VIAL IV SCH ×3 (00:40→22:59)
[2021-05-03 05:42] LABS: Calcium 8.6 mg/dL (8.6-10.3); EGFR African American 159.5 (>60); EGFR Non-African American 131.8 (>60); Magnesium 2.2 mg/dL (1.9-2.7); Phosphorus 2.2 mg/dL (2.5-5.0); Potassium 4.4 mmol/L (3.5-5.0)
[2021-05-03] MEDS: LORazepam 2 mg VIAL 1 ml IV PUSH PRN (08:19)
[2021-05-03] MEDS: cefTRIAXone 1 gm/50 mL NS BAG 1 GM/50 ML BAG IVPB SCH (20:58)
[2021-05-03] MEDS: Azithromycin 500 mg/250 ml NS 500 MG/250 ML BAG IVPB SCH (22:59)
[2021-05-04] MEDS: Albuterol/Ipratropium NEB.SOL (2.5/0.5 MG) 3 ML NEB.SOLN INH SCH (06:57)
[2021-05-04] MEDS: methylPREDNISolone SOD 40 mg/ml 1 ml VIAL IV SCH (11:23)
[2021-05-04 12:23] VITALS: BP 103/74
== END 2021-05-04 14:10 | disposition home or self-care (01) | DRG 189 ==
LOC: ED 11:19 → ICU 13:48 → MED 05-03 15:28
PROVIDERS: ADMIT Internal Medicine; ATTEND Internal Medicine

== ENCOUNTER 2021-05-15 17:46 | Inpatient (IN) ==
[2021-05-15] MEDS ORDERED: NS 0.9% 1000 ml BAG 1,000 ML IV ONE (18:05)
[2021-05-15 19:51] LABS: ABS Eosinophils 0.1 10^3/ul (0-0.6); ABS Lymphocytes 1.1 10^3/ul (1.0-4.8); ABS Monocytes 0.9 10^3/ul (0-0.8); ABS Neutrophils 7.1 10^3/ul (1.5-7.7); Eosinophil % 0.6 %; Hematocrit 35 % (42-52); Hemoglobin 10.6 g/dL (14.0-18.0); Lymphocyte % 12.1 %; Mean Corpuscular HGB Conc 30 g/dL (31-36); Mean Corpuscular Hemoglobin 27 pg (27-31); Mean Corpuscular Volume 90 fL (80-94); Mean Platelet Volume 7.7 fL (7.4-10.4); Nucleated Red Blood Cells % 0.1; Platelet Count 168 10^3/uL (150-450); Red Blood Count 3.87 10^6 /uL (4.18-5.48); Red Cell Distribution Width 15 % (10-15); White Blood Count 9.2 10^3/uL (3.5-10.8)
[2021-05-15 20:09] LABS: Troponin I 0.01 ng/mL (<0.03)
[2021-05-15 20:19] LABS: Alcohol, S < 10 mg/dL (<10)
[2021-05-15 20:22] LABS: ALT 17 U/L (7-52); AST 12 U/L (13-39); Albumin 3.3 g/dL (3.2-5.2); Albumin/Globulin Ratio 1.6 (1-3); Alkaline Phosphatase 38 U/L (35-149); Blood Urea Nitrogen 13 mg/dL (6-24); C Reactive Protein 1.85 mg/L (<8.01); Calcium 8.2 mg/dL (8.6-10.3); Chloride 92 mmol/L (101-111); EGFR African American 165.8 (>60); Globulin 2.1 g/dL (2-4); Glucose 278 mg/dL (70-100); Potassium 4.2 mmol/L (3.5-5.0); Sodium 137 mmol/L (135-145); Total Protein 5.4 g/dL (6.4-8.9)
[2021-05-15 20:25] LABS: CO2 Carbon Dioxide 45 mmol/L (22-32)
[2021-05-15 21:13] LABS: PO2 Arterial 135 mmHg (80-100)
[2021-05-15 21:35] LABS: PCO2 Arterial 107 mmHg (35-45)
[2021-05-15] MEDS ORDERED: Albuterol/Ipratropium NEB.SOL (2.5/0.5 MG) 3 ML NEB.SOLN INH PRN (22:21)
[2021-05-15] MEDS ORDERED: Dextrose 50% Syringe 50 ml 25 GM/50 ML SYRINGE IV PUSH PRN (22:24)
[2021-05-15] MEDS ORDERED: LORazepam 2 mg VIAL 1 ml IV PUSH ONE (22:32)
[2021-05-15] MEDS ORDERED: Lorazepam PYXIS KEY PRN (22:32)
[2021-05-15] MEDS ORDERED: Albuterol HFA INHALER 8 gm MDI INH PRN (22:34)
[2021-05-15] MEDS ORDERED: methylPREDNISolone 125 mg 2 ML VIAL IV ONE (22:40)
[2021-05-15 23:10] LABS: PCO2 Arterial 99 mmHg (35-45)
[2021-05-15 23:11] LABS: PO2 Arterial 51 mmHg (80-100)
[2021-05-15] MEDS: Albuterol/Ipratropium NEB.SOL (2.5/0.5 MG) 3 ML NEB.SOLN INH SCH (23:31)
[2021-05-16 00:29] LABS: PO2 Arterial 77 mmHg (80-100)
[2021-05-16 00:34] LABS: PCO2 Arterial 106 mmHg (35-45)
[2021-05-16 03:16] LABS: PO2 Arterial 80 mmHg (80-100)
[2021-05-16 03:25] LABS: PCO2 Arterial 98 mmHg (35-45)
[2021-05-16 03:43] LABS: Urine Appearance Clear; Urine Bilirubin Negative (Negative); Urine Blood Negative (Negative); Urine Color Yellow; Urine Glucose 3+(>=500 mg/dL) (Negative); Urine Ketones Negative (Negative); Urine Nitrite Negative (Negative); Urine Protein Negative (Negative); Urine Specific Gravity 1.013 (1.002-1.030); Urine Urobilinogen Negative (Negative)
[2021-05-16] MEDS: methylPREDNISolone SOD 40 mg/ml 1 ml VIAL IV SCH ×3 (06:09→21:06)
[2021-05-16 06:37] LABS: ABS Lymphocytes 0.5 10^3/ul (1.0-4.8); ABS Monocytes 0.1 10^3/ul (0-0.8); ABS Neutrophils 9.8 10^3/ul (1.5-7.7); Hematocrit 40 % (42-52); Hemoglobin 12.6 g/dL (14.0-18.0); Lymphocyte % 4.7 %; Mean Corpuscular HGB Conc 31 g/dL (31-36); Mean Corpuscular Hemoglobin 28 pg (27-31); Mean Corpuscular Volume 88 fL (80-94); Mean Platelet Volume 7.7 fL (7.4-10.4); Platelet Count 209 10^3/uL (150-450); Red Blood Count 4.54 10^6 /uL (4.18-5.48); Red Cell Distribution Width 15 % (10-15); White Blood Count 10.4 10^3/uL (3.5-10.8)
[2021-05-16 07:04] LABS: Blood Urea Nitrogen 14 mg/dL (6-24); Calcium 8.3 mg/dL (8.6-10.3); Chloride 92 mmol/L (101-111); EGFR African American 165.8 (>60); Glucose 174 mg/dL (70-100); Sodium 133 mmol/L (135-145)
[2021-05-16 07:11] LABS: CO2 Carbon Dioxide 42 mmol/L (22-32)
[2021-05-16] MEDS: Albuterol/Ipratropium NEB.SOL (2.5/0.5 MG) 3 ML NEB.SOLN INH SCH ×5 (07:11→19:19)
[2021-05-16 08:49] LABS: Magnesium 1.6 mg/dL (1.9-2.7)
[2021-05-16] MEDS ORDERED: FLUTICAS/UMECLI/VILANT 100-62.5-25 MDI (NF) INH SCH (09:00)
[2021-05-16 09:49] LABS: Potassium Redraw 4.1 mmol/L (3.5-5.0)
[2021-05-16] MEDS ORDERED: Magnesium Sulf 4 GM/100 ML IV 4,000 MG/100 ML BAG IVPB ONE (09:59)
[2021-05-17] MEDS: Albuterol/Ipratropium NEB.SOL (2.5/0.5 MG) 3 ML NEB.SOLN INH SCH ×4 (00:46→19:32)
[2021-05-17] MEDS: methylPREDNISolone SOD 40 mg/ml 1 ml VIAL IV SCH ×3 (05:23→21:21)
[2021-05-17 06:02] LABS: ABS Lymphocytes 0.4 10^3/ul (1.0-4.8); ABS Monocytes 0.3 10^3/ul (0-0.8); ABS Neutrophils 10.8 10^3/ul (1.5-7.7); Hematocrit 40 % (42-52); Hemoglobin 12.3 g/dL (14.0-18.0); Lymphocyte % 3.6 %; Mean Corpuscular HGB Conc 31 g/dL (31-36); Mean Corpuscular Hemoglobin 27 pg (27-31); Mean Corpuscular Volume 88 fL (80-94); Mean Platelet Volume 7.9 fL (7.4-10.4); Platelet Count 218 10^3/uL (150-450); Red Blood Count 4.52 10^6 /uL (4.18-5.48); Red Cell Distribution Width 15 % (10-15); White Blood Count 11.6 10^3/uL (3.5-10.8)
[2021-05-17 06:13] LABS: Calcium 8.6 mg/dL (8.6-10.3); EGFR African American 165.8 (>60); Magnesium 2.1 mg/dL (1.9-2.7); Phosphorus 2.5 mg/dL (2.5-5.0); Potassium 4.4 mmol/L (3.5-5.0)
[2021-05-17] MEDS: Bacitracin OINTMENT TUBE TOPICAL SCH ×2 (12:55→21:20)
[2021-05-18] MEDS: Albuterol/Ipratropium NEB.SOL (2.5/0.5 MG) 3 ML NEB.SOLN INH SCH ×4 (00:12→20:28)
[2021-05-18] MEDS: methylPREDNISolone SOD 40 mg/ml 1 ml VIAL IV SCH (06:26)
[2021-05-18] MEDS ORDERED: Nicotine GUM 4MG FRUIT FLAVOR PO PRN (08:48)
[2021-05-18] MEDS: Bacitracin OINTMENT TUBE TOPICAL SCH ×2 (09:00→22:09)
[2021-05-18] MEDS ORDERED: methylPREDNISolone SOD 40 mg/ml 1 ml VIAL IV SCH (18:00)
[2021-05-19] MEDS: Albuterol/Ipratropium NEB.SOL (2.5/0.5 MG) 3 ML NEB.SOLN INH SCH ×4 (00:07→20:30)
[2021-05-19] MEDS: Bacitracin OINTMENT TUBE TOPICAL SCH ×2 (10:50→20:53)
[2021-05-20] MEDS: Albuterol/Ipratropium NEB.SOL (2.5/0.5 MG) 3 ML NEB.SOLN INH SCH ×2 (00:42→08:51)
[2021-05-20] MEDS: Bacitracin OINTMENT TUBE TOPICAL SCH (09:36)
[2021-05-20 11:32] VITALS: BP 148/74
[2021-05-20] MEDS ORDERED: Albuterol/Ipratropium NEB.SOL (2.5/0.5 MG) 3 ML NEB.SOLN INH SCH (21:00)
== END 2021-05-20 17:15 | disposition home or self-care (01) | DRG 189 ==
LOC: ED 17:46 → ICU 23:22 → MED 05-17 12:44
PROVIDERS: ADMIT Internal Medicine; ATTEND Student in an Organized Health Care Education/Training Program

== ENCOUNTER 2021-05-22 04:25 | Inpatient (IN) ==
[2021-05-22] MEDS ORDERED: Albuterol/Ipratropium NEB.SOL (2.5/0.5 MG) 3 ML NEB.SOLN INH ONE (04:40)
[2021-05-22] MEDS ORDERED: methylPREDNISolone 125 mg 2 ML VIAL IV ONE (04:40)
[2021-05-22 05:08] LABS: PO2 Arterial 118 mmHg (80-100)
[2021-05-22 05:21] LABS: PCO2 Arterial 108 mmHg (35-45)
[2021-05-22] MEDS ORDERED: cefTRIAXone 1 gm/50 mL NS BAG 1 GM/50 ML BAG IV ONE (06:10)
[2021-05-22 07:00] LABS: ABS Lymphocytes 0.6 10^3/ul (1.0-4.8); ABS Monocytes 0.6 10^3/ul (0-0.8); ABS Neutrophils 7.4 10^3/ul (1.5-7.7); Hematocrit 39 % (42-52); Hemoglobin 12.1 g/dL (14.0-18.0); Lymphocyte % 7.2 %; Mean Corpuscular HGB Conc 31 g/dL (31-36); Mean Corpuscular Hemoglobin 28 pg (27-31); Mean Corpuscular Volume 89 fL (80-94); Mean Platelet Volume 8.4 fL (7.4-10.4); Platelet Count 145 10^3/uL (150-450); Red Blood Count 4.35 10^6 /uL (4.18-5.48); Red Cell Distribution Width 15 % (10-15); White Blood Count 8.6 10^3/uL (3.5-10.8)
[2021-05-22 07:16] LABS: ALT 22 U/L (7-52); AST 11 U/L (13-39); Albumin 3.9 g/dL (3.2-5.2); Albumin/Globulin Ratio 1.6 (1-3); Alkaline Phosphatase 38 U/L (35-149); Blood Urea Nitrogen 21 mg/dL (6-24); C Reactive Protein 3.32 mg/L (<8.01); Chloride 89 mmol/L (101-111); Creatine Kinase 21 U/L (10-223); EGFR African American 138.4 (>60); EGFR Non-African American 114.4 (>60); Globulin 2.4 g/dL (2-4); Glucose 244 mg/dL (70-100); Potassium 4.4 mmol/L (3.5-5.0); Sodium 137 mmol/L (135-145); Total Protein 6.3 g/dL (6.4-8.9)
[2021-05-22 07:18] LABS: Troponin I 0.01 ng/mL (<0.03)
[2021-05-22 07:20] LABS: Urine Appearance Clear; Urine Bilirubin Negative (Negative); Urine Blood Negative (Negative); Urine Color Yellow; Urine Glucose 3+(>=500 mg/dL) (Negative); Urine Ketones Negative (Negative); Urine Nitrite Negative (Negative); Urine Protein Negative (Negative); Urine Specific Gravity 1.026 (1.002-1.030); Urine Urobilinogen Negative (Negative)
[2021-05-22 07:33] LABS: CO2 Carbon Dioxide 52 mmol/L (22-32)
[2021-05-22 08:42] LABS: Venous Bicarbonate HCO3 42.1 mmol/L (24-28)
[2021-05-22 13:30] LABS: PO2 Arterial 77 mmHg (80-100)
[2021-05-22 13:38] LABS: PCO2 Arterial 79 mmHg (35-45)
[2021-05-22] MEDS: Albuterol/Ipratropium NEB.SOL (2.5/0.5 MG) 3 ML NEB.SOLN INH SCH ×2 (14:25→20:12)
[2021-05-22] MEDS ORDERED: Albuterol HFA INHALER 8 gm MDI INH PRN (17:33)
[2021-05-22] MEDS: Bacitracin OINTMENT TUBE TOPICAL SCH (20:57)
[2021-05-23] MEDS: Albuterol/Ipratropium NEB.SOL (2.5/0.5 MG) 3 ML NEB.SOLN INH SCH ×4 (01:38→19:51)
[2021-05-23] MEDS: Bacitracin OINTMENT TUBE TOPICAL SCH ×2 (10:11→20:28)
[2021-05-23] MEDS: NFT: DAPAGLIFLOZIN 10 MG TAB (NF) PO SCH (10:11)
[2021-05-23] MEDS ORDERED: Pramoxine/Zinc Oxide CREAM 30 GM TOPICAL PRN (10:40)
[2021-05-23] MEDS: [UNRECOGNIZED DRUG - OTHER] INH SCH (10:46)
[2021-05-23 12:54] LABS: Venous Bicarbonate HCO3 40.7 mmol/L (24-28)
[2021-05-23 13:09] LABS: Calcium 9.2 mg/dL (8.6-10.3); EGFR African American 215.5 (>60); EGFR Non-African American 178.1 (>60); Magnesium 1.7 mg/dL (1.9-2.7); Potassium 3.9 mmol/L (3.5-5.0)
[2021-05-23] MEDS ORDERED: Magnesium Sulfate 2 gm BAG 2 GM/50 ML BAG IVPB ONE (13:33)
[2021-05-24] MEDS: Albuterol/Ipratropium NEB.SOL (2.5/0.5 MG) 3 ML NEB.SOLN INH SCH ×2 (03:08→08:16)
[2021-05-24] MEDS: [UNRECOGNIZED DRUG - OTHER] INH SCH (08:17)
[2021-05-24 09:13] LABS: Venous Bicarbonate HCO3 36.3 mmol/L (24-28)
[2021-05-24] MEDS: Bacitracin OINTMENT TUBE TOPICAL SCH (09:17)
[2021-05-24] MEDS: NFT: DAPAGLIFLOZIN 10 MG TAB (NF) PO SCH (09:18)
[2021-05-24 10:19] LABS: Calcium 9.2 mg/dL (8.6-10.3); Magnesium 1.9 mg/dL (1.9-2.7)
[2021-05-24 10:25] LABS: EGFR African American 148.3 (>60); EGFR Non-African American 122.5 (>60)
[2021-05-24 12:06] VITALS: BP 120/63
== END 2021-05-24 14:45 | disposition home or self-care (01) | DRG 189 ==
LOC: ED 04:25 → ICU 10:48 → MED 22:48
PROVIDERS: ADMIT Internal Medicine; ATTEND Internal Medicine

== ENCOUNTER 2021-06-03 00:08 | Inpatient (IN) ==
[2021-06-03 00:53] LABS: ABS Lymphocytes 0.7 10^3/ul (1.0-4.8); ABS Monocytes 0.6 10^3/ul (0-0.8); ABS Neutrophils 7.6 10^3/ul (1.5-7.7); Eosinophil % 0.3 %; Hematocrit 37 % (42-52); Hemoglobin 11.5 g/dL (14.0-18.0); Lymphocyte % 7.7 %; Mean Corpuscular HGB Conc 31 g/dL (31-36); Mean Corpuscular Hemoglobin 28 pg (27-31); Mean Corpuscular Volume 89 fL (80-94); Mean Platelet Volume 7.5 fL (7.4-10.4); Platelet Count 171 10^3/uL (150-450); Red Blood Count 4.14 10^6 /uL (4.18-5.48); Red Cell Distribution Width 15 % (10-15); White Blood Count 8.9 10^3/uL (3.5-10.8)
[2021-06-03 01:08] LABS: ALT 17 U/L (7-52); AST 10 U/L (13-39); Albumin 3.8 g/dL (3.2-5.2); Albumin/Globulin Ratio 1.8 (1-3); Alkaline Phosphatase 35 U/L (35-149); Blood Urea Nitrogen 17 mg/dL (6-24); Calcium 8.8 mg/dL (8.6-10.3); Chloride 90 mmol/L (101-111); EGFR African American 153.7 (>60); Globulin 2.1 g/dL (2-4); Glucose 263 mg/dL (70-100); Potassium 4.6 mmol/L (3.5-5.0); Sodium 137 mmol/L (135-145); Total Protein 5.9 g/dL (6.4-8.9)
[2021-06-03 01:12] LABS: PO2 Arterial 166 mmHg (80-100)
[2021-06-03 01:17] LABS: PCO2 Arterial 108 mmHg (35-45)
[2021-06-03 01:25] LABS: CO2 Carbon Dioxide 49 mmol/L (22-32)
[2021-06-03] MEDS ORDERED: Vancomycin 1,000 MG in NS 0.9% 250 ml 250 ML IVPB ONE (01:48)
[2021-06-03] MEDS ORDERED: cefTRIAXone 1 gm/50 mL NS BAG 1 GM/50 ML BAG IV ONE (01:49)
[2021-06-03] MEDS ORDERED: Dextrose 50% Syringe 50 ml 25 GM/50 ML SYRINGE IV PUSH PRN (02:30)
[2021-06-03] MEDS ORDERED: Albuterol/Ipratropium NEB.SOL (2.5/0.5 MG) 3 ML NEB.SOLN INH SCH (03:00)
[2021-06-03] MEDS ORDERED: Albuterol/Ipratropium NEB.SOL (2.5/0.5 MG) 3 ML NEB.SOLN ONE (03:16)
[2021-06-03 03:27] LABS: PCO2 Arterial 94 mmHg (35-45); PO2 Arterial 57 mmHg (80-100)
[2021-06-03] MEDS ORDERED: Zosyn per Pharmacy NOTE FOLLOW UP SCH (04:00)
[2021-06-03] MEDS ORDERED: Vancomycin per Pharmacy 1 EA NOTE FOLLOW UP SCH (04:00)
[2021-06-03] MEDS ORDERED: ZOSYN 3.375 GM x ONE DOSE over 30 miuntes IV (04:00)
[2021-06-03] MEDS: methylPREDNISolone 125 mg 2 ML VIAL IV SCH ×3 (04:20→21:52)
[2021-06-03 04:28] LABS: ABS Eosinophils 0.1 10^3/ul (0-0.6); ABS Lymphocytes 1.2 10^3/ul (1.0-4.8); ABS Monocytes 0.7 10^3/ul (0-0.8); ABS Neutrophils 7.4 10^3/ul (1.5-7.7); Eosinophil % 0.9 %; Hematocrit 35 % (42-52); Hemoglobin 11.2 g/dL (14.0-18.0); Lymphocyte % 12.4 %; Mean Corpuscular HGB Conc 32 g/dL (31-36); Mean Corpuscular Hemoglobin 28 pg (27-31); Mean Corpuscular Volume 88 fL (80-94); Mean Platelet Volume 7.5 fL (7.4-10.4); Nucleated Red Blood Cells % 0.1; Platelet Count 176 10^3/uL (150-450); Red Blood Count 4.01 10^6 /uL (4.18-5.48); Red Cell Distribution Width 15 % (10-15); White Blood Count 9.4 10^3/uL (3.5-10.8)
[2021-06-03 04:44] LABS: Blood Urea Nitrogen 16 mg/dL (6-24); Calcium 8.5 mg/dL (8.6-10.3); Chloride 92 mmol/L (101-111); EGFR African American 169.1 (>60); EGFR Non-African American 139.7 (>60); Glucose 168 mg/dL (70-100); Magnesium 1.8 mg/dL (1.9-2.7); Phosphorus 2.2 mg/dL (2.5-5.0); Potassium 4.1 mmol/L (3.5-5.0); Sodium 138 mmol/L (135-145)
[2021-06-03] MEDS ORDERED: Buffered Lidocaine 1% SYRIN 1 ml INTRADERM ONE (04:49)
[2021-06-03] MEDS ORDERED: Magnesium Sulfate 2 gm BAG 2 GM/50 ML BAG IVPB ONE (04:52)
[2021-06-03 05:02] LABS: CO2 Carbon Dioxide 48 mmol/L (22-32)
[2021-06-03] MEDS: CMCS: FLUTICAS/UMECLI/VILANT 100-62.5-25 MDI (NF) INH SCH (08:43)
[2021-06-03] MEDS: Sodium Phosphate IV 15 MMOLE in NS 0.9% 250 ml 250 ML IVPB ONE ×2 (08:58→10:57)
[2021-06-03] MEDS: Vancomycin 1000 MG in NS 0.9% 250 ML IVPB SCH ×3 (10:57→23:57)
[2021-06-03] MEDS: ZOSYN 3.375 GM Q8H per EXTENDED INFUSION IV SCH ×3 (10:57→23:57)
[2021-06-03] MEDS: Saline FLUSH-CENTRAL 10 ML SYRINGE CENT\\PICC SCH (23:53)
[2021-06-04] MEDS: methylPREDNISolone 125 mg 2 ML VIAL IV SCH (05:28)
[2021-06-04 05:50] LABS: Hematocrit 34 % (42-52); Mean Corpuscular HGB Conc 33 g/dL (31-36); Mean Corpuscular Hemoglobin 28 pg (27-31); Mean Corpuscular Volume 87 fL (80-94); Mean Platelet Volume 7.4 fL (7.4-10.4); Platelet Count 178 10^3/uL (150-450); Red Blood Count 3.92 10^6 /uL (4.18-5.48); Red Cell Distribution Width 15 % (10-15); White Blood Count 9.9 10^3/uL (3.5-10.8)
[2021-06-04 06:13] LABS: Calcium 8.4 mg/dL (8.6-10.3); Chloride 97 mmol/L (101-111); Potassium 4.2 mmol/L (3.5-5.0); Sodium 139 mmol/L (135-145)
[2021-06-04 06:16] LABS: CO2 Carbon Dioxide 43 mmol/L (22-32)
[2021-06-04 06:19] LABS: Blood Urea Nitrogen 14 mg/dL (6-24); EGFR African American 172.5 (>60); EGFR Non-African American 142.6 (>60); Glucose 102 mg/dL (70-100); Phosphorus 2.7 mg/dL (2.5-5.0)
[2021-06-04] MEDS ORDERED: Vancomycin Trough Check NOTE FOLLOW UP ONE (07:30)
[2021-06-04] MEDS: CMCS: FLUTICAS/UMECLI/VILANT 100-62.5-25 MDI (NF) INH SCH (08:58)
[2021-06-04 09:43] LABS: Vancomycin Trough 9.4 mcg/mL
[2021-06-04] MEDS: ZOSYN 3.375 GM Q8H per EXTENDED INFUSION IV SCH (09:53)
[2021-06-04] MEDS: Vancomycin 1000 MG in NS 0.9% 250 ML IVPB SCH (09:53)
[2021-06-04 12:29] LABS: Glucose Confirmatory 410 mg/dL (70-100)
[2021-06-04] MEDS: Saline FLUSH-CENTRAL 10 ML SYRINGE CENT\\PICC SCH ×2 (12:48→22:00)
[2021-06-04] MEDS ORDERED: Albuterol HFA INHALER 8 gm MDI INH PRN (17:22)
[2021-06-04] MEDS ORDERED: PAIN RELIEVING RUB (MENTHOL/SALICYLATE) 1 APPLIC TUBE TOPICAL PRN (19:30)
[2021-06-04] MEDS ORDERED: Insulin GLARGINE 100 un/ml 10 ml VIAL SUBCUT SCH (21:00)
[2021-06-04] MEDS: PAIN RELIEVING RUB (MENTHOL/SALICYLATE) 1 APPLIC TUBE TOPICAL PRN (21:23)
[2021-06-05 06:35] LABS: Blood Urea Nitrogen 18 mg/dL (6-24); Calcium 8.8 mg/dL (8.6-10.3); Chloride 96 mmol/L (101-111); EGFR African American 140.7 (>60); EGFR Non-African American 116.3 (>60); Glucose 151 mg/dL (70-100); Potassium 4.1 mmol/L (3.5-5.0); Sodium 138 mmol/L (135-145)
[2021-06-05 06:38] LABS: CO2 Carbon Dioxide 45 mmol/L (22-32)
[2021-06-05] MEDS: CMCS: FLUTICAS/UMECLI/VILANT 100-62.5-25 MDI (NF) INH SCH (07:44)
[2021-06-06 07:12] LABS: Blood Urea Nitrogen 23 mg/dL (6-24); Calcium 8.9 mg/dL (8.6-10.3); Chloride 96 mmol/L (101-111); EGFR African American 136.1 (>60); EGFR Non-African American 112.5 (>60); Glucose 136 mg/dL (70-100); Sodium 139 mmol/L (135-145)
[2021-06-06 07:31] LABS: CO2 Carbon Dioxide 46 mmol/L (22-32)
[2021-06-06] MEDS: CMCS: FLUTICAS/UMECLI/VILANT 100-62.5-25 MDI (NF) INH SCH (08:04)
[2021-06-06] MEDS: PAIN RELIEVING RUB (MENTHOL/SALICYLATE) 1 APPLIC TUBE TOPICAL PRN (12:58)
[2021-06-07 05:18] LABS: ABS Lymphocytes 0.8 10^3/ul (1.0-4.8); ABS Monocytes 0.9 10^3/ul (0-0.8); ABS Neutrophils 8.5 10^3/ul (1.5-7.7); Eosinophil % 0.3 %; Hematocrit 35 % (42-52); Hemoglobin 10.9 g/dL (14.0-18.0); Lymphocyte % 7.6 %; Mean Corpuscular HGB Conc 32 g/dL (31-36); Mean Corpuscular Hemoglobin 28 pg (27-31); Mean Corpuscular Volume 88 fL (80-94); Mean Platelet Volume 7.4 fL (7.4-10.4); Platelet Count 172 10^3/uL (150-450); Red Blood Count 3.92 10^6 /uL (4.18-5.48); Red Cell Distribution Width 15 % (10-15); White Blood Count 10.2 10^3/uL (3.5-10.8)
[2021-06-07 05:34] LABS: Blood Urea Nitrogen 21 mg/dL (6-24); Calcium 9.3 mg/dL (8.6-10.3); Chloride 93 mmol/L (101-111); EGFR African American 143.2 (>60); EGFR Non-African American 118.3 (>60); Glucose 130 mg/dL (70-100); Potassium 4.4 mmol/L (3.5-5.0); Sodium 141 mmol/L (135-145)
[2021-06-07 05:53] LABS: CO2 Carbon Dioxide 49 mmol/L (22-32)
[2021-06-07] MEDS: CMCS: FLUTICAS/UMECLI/VILANT 100-62.5-25 MDI (NF) INH SCH (07:23)
[2021-06-07] MEDS ORDERED: Vancomycin Trough Check NOTE FOLLOW UP ONE (07:30)
[2021-06-07] MEDS: Albuterol/Ipratropium NEB.SOL (2.5/0.5 MG) 3 ML NEB.SOLN INH PRN (22:11)
[2021-06-08 05:23] LABS: ABS Lymphocytes 0.7 10^3/ul (1.0-4.8); ABS Monocytes 0.8 10^3/ul (0-0.8); ABS Neutrophils 10.1 10^3/ul (1.5-7.7); Eosinophil % 0.3 %; Hematocrit 37 % (42-52); Hemoglobin 11.6 g/dL (14.0-18.0); Lymphocyte % 6.3 %; Mean Corpuscular HGB Conc 32 g/dL (31-36); Mean Corpuscular Hemoglobin 28 pg (27-31); Mean Corpuscular Volume 87 fL (80-94); Mean Platelet Volume 8.1 fL (7.4-10.4); Platelet Count 204 10^3/uL (150-450); Red Blood Count 4.18 10^6 /uL (4.18-5.48); Red Cell Distribution Width 15 % (10-15); White Blood Count 11.7 10^3/uL (3.5-10.8)
[2021-06-08 05:39] LABS: Calcium 9.4 mg/dL (8.6-10.3); EGFR African American 148.3 (>60); EGFR Non-African American 122.5 (>60); Potassium 4.1 mmol/L (3.5-5.0)
[2021-06-08] MEDS: CMCS: FLUTICAS/UMECLI/VILANT 100-62.5-25 MDI (NF) INH SCH (07:30)
[2021-06-08] MEDS: Albuterol/Ipratropium NEB.SOL (2.5/0.5 MG) 3 ML NEB.SOLN INH PRN (19:52)
[2021-06-09] MEDS: CMCS: FLUTICAS/UMECLI/VILANT 100-62.5-25 MDI (NF) INH SCH (07:51)
[2021-06-09] MEDS: Albuterol/Ipratropium NEB.SOL (2.5/0.5 MG) 3 ML NEB.SOLN INH PRN (12:29)
[2021-06-10] MEDS: CMCS: FLUTICAS/UMECLI/VILANT 100-62.5-25 MDI (NF) INH SCH (08:17)
[2021-06-10 17:07] VITALS: BP 116/66
== END 2021-06-10 16:55 | disposition home or self-care (01) | DRG 189 ==
LOC: ED 00:08 → ICU 03:14 → MEDTELE 06-04 03:30 → MED 06-04 16:16
PROVIDERS: ADMIT Pediatrics; ATTEND Hospitalist

== ENCOUNTER 2021-06-12 00:49 | Inpatient (IN) ==
[~2021-06-12 00:49] MED LIST changes: -Acetaminophen TAB* 325 MG PO PRN; -Buffered Lidocaine 0.9% SYRIN* 5 ML/SYR SYRINGE INTRADERM ONE; +Succinylcholine 200 mg VIAL 20 mg/ml 10 ml VIAL (200 mg) ONE
[2021-06-12] MEDS ORDERED: Propofol 10 mg/ml 100 ML BTL 100 ML ONE (00:54)
[2021-06-12] MEDS ORDERED: Albuterol 0.5% CONC CONTINUOUS NEB.SOL 5 mg/ml 20 ml BOT INH ONE (00:57)
[2021-06-12] MEDS ORDERED: Succinylcholine 200 mg VIAL 20 mg/ml 10 ml VIAL (200 mg) IV ONE (00:57)
[2021-06-12] MEDS ORDERED: Etomidate 20 mg/10 ml 2 MG/ML 10 ml VIAL IV ONE (00:57)
[2021-06-12] MEDS ORDERED: methylPREDNISolone 125 mg 2 ML VIAL IV ONE (00:57)
[2021-06-12] MEDS ORDERED: Propofol 10 mg/ml 100 ML BTL 100 ML IV ONE (00:58)
[2021-06-12] MEDS ORDERED: Albuterol 2.5mg/3 ml (0.083%) NEB.SOLN INH PRN (01:10)
[2021-06-12] MEDS ORDERED: Ondansetron 4 mg VIAL 2 MG/ML 2 ml VIAL IV PRN (01:10)
[2021-06-12] MEDS ORDERED: Artificial Tear OPHTH.OINT 3.5 GM BOTH EYES PRN (01:18)
[2021-06-12] MEDS ORDERED: Midazolam 10 mg/10 ml VIAL 1 mg/ml 10 ml VIAL (10 mg) ONE (01:24)
[2021-06-12] MEDS ORDERED: Norepinephrine 16MCG/ML IVPRE 4,000 MCG/250 ML BAG IV ONE (01:47)
[2021-06-12] MEDS ORDERED: Norepinephrine 16MCG/ML IVPRE 4,000 MCG/250 ML BAG IV SCH ×4 (02:00→23:05)
[2021-06-12 02:01] LABS: PO2 Arterial 88 mmHg (80-100)
[2021-06-12 02:04] LABS: ABS Lymphocytes 0.2 10^3/ul (1.0-4.8); ABS Monocytes 0.4 10^3/ul (0-0.8); ABS Neutrophils 9.7 10^3/ul (1.5-7.7); Eosinophil % 0.2 %; Hematocrit 31 % (42-52); Hemoglobin 9.5 g/dL (14.0-18.0); Lymphocyte % 1.7 %; Mean Corpuscular HGB Conc 31 g/dL (31-36); Mean Corpuscular Hemoglobin 28 pg (27-31); Mean Corpuscular Volume 91 fL (80-94); Mean Platelet Volume 7.7 fL (7.4-10.4); Platelet Count 162 10^3/uL (150-450); Red Blood Count 3.39 10^6 /uL (4.18-5.48); Red Cell Distribution Width 15 % (10-15); White Blood Count 10.3 10^3/uL (3.5-10.8)
[2021-06-12 02:06] LABS: PCO2 Arterial 81 mmHg (35-45)
[2021-06-12 02:14] LABS: ALT 35 U/L (7-52); AST 24 U/L (13-39); Albumin 3.1 g/dL (3.2-5.2); Albumin/Globulin Ratio 1.9 (1-3); Alkaline Phosphatase 29 U/L (35-149); Blood Urea Nitrogen 16 mg/dL (6-24); Calcium 7.8 mg/dL (8.6-10.3); Chloride 91 mmol/L (101-111); EGFR African American 120.1 (>60); EGFR Non-African American 99.3 (>60); Globulin 1.6 g/dL (2-4); Glucose 394 mg/dL (70-100); Potassium 4.9 mmol/L (3.5-5.0); Sodium 136 mmol/L (135-145); Total Protein 4.7 g/dL (6.4-8.9)
[2021-06-12] MEDS ORDERED: fentaNYL 100 mcg/2 ml 50 MCG/ML VIAL IV SLOW PU PRN (02:15)
[2021-06-12 02:16] LABS: Troponin I 0.01 ng/mL (<0.03)
[2021-06-12] MEDS ORDERED: Dextrose 50% Syringe 50 ml 25 GM/50 ML SYRINGE IV PUSH PRN (02:22)
[2021-06-12] MEDS: Azithromycin 500 mg/250 ml NS 500 MG/250 ML BAG IVPB SCH (02:27)
[2021-06-12 02:30] LABS: CO2 Carbon Dioxide 47 mmol/L (22-32)
[2021-06-12 02:46] LABS: Magnesium 1.6 mg/dL (1.9-2.7)
[2021-06-12] MEDS: Albuterol/Ipratropium NEB.SOL (2.5/0.5 MG) 3 ML NEB.SOLN INH SCH ×6 (03:20→23:35)
[2021-06-12] MEDS: Pantoprazole VIAL 40 MG VIAL IV SCH (03:44)
[2021-06-12] MEDS: Enoxaparin 40 MG/0.4 ML SYR SUBCUT SCH (03:44)
[2021-06-12] MEDS: Chlorhexidine MOUTHWASH 0.12% 15 ML UDC TOPICAL SCH ×6 (03:44→22:09)
[2021-06-12 03:53] LABS: Blood Urea Nitrogen 16 mg/dL (6-24); Calcium 8.1 mg/dL (8.6-10.3); Chloride 90 mmol/L (101-111); EGFR African American 145.7 (>60); EGFR Non-African American 120.4 (>60); Glucose 395 mg/dL (70-100); Potassium 4.5 mmol/L (3.5-5.0); Sodium 136 mmol/L (135-145)
[2021-06-12 04:11] LABS: CO2 Carbon Dioxide 46 mmol/L (22-32)
[2021-06-12] MEDS ORDERED: Magnesium Sulfate 2 gm BAG 2 GM/50 ML BAG IVPB ONE (04:26)
[2021-06-12 06:18] LABS: ABS Lymphocytes 0.2 10^3/ul (1.0-4.8); ABS Monocytes 0.6 10^3/ul (0-0.8); ABS Neutrophils 10.2 10^3/ul (1.5-7.7); Hematocrit 34 % (42-52); Hemoglobin 10.9 g/dL (14.0-18.0); Lymphocyte % 1.5 %; Mean Corpuscular HGB Conc 32 g/dL (31-36); Mean Corpuscular Hemoglobin 28 pg (27-31); Mean Corpuscular Volume 89 fL (80-94); Mean Platelet Volume 7.7 fL (7.4-10.4); Platelet Count 170 10^3/uL (150-450); Red Blood Count 3.84 10^6 /uL (4.18-5.48); Red Cell Distribution Width 15 % (10-15)
[2021-06-12 06:36] LABS: Phosphorus 2.2 mg/dL (2.5-5.0)
[2021-06-12 06:41] LABS: Troponin I 0.03 ng/mL (<0.03)
[2021-06-12] MEDS ORDERED: Meperidine 50 mg/ml SYRINGE 1 ml IV ONE (07:08)
[2021-06-12] MEDS ORDERED: Propofol 10 mg/ml 100 ML BTL 100 ML IV SCH (07:11)
[2021-06-12] MEDS ORDERED: fentaNYL INFUSION BAG 50MCG/ML 2,500 MCG/50 ML BAG IV SCH (08:00)
[2021-06-12 09:01] LABS: PO2 Arterial 61 mmHg (80-100)
[2021-06-12 09:09] LABS: PCO2 Arterial 98 mmHg (35-45)
[2021-06-12] MEDS: methylPREDNISolone 125 mg 2 ML VIAL IV SCH ×2 (10:26→17:26)
[2021-06-12] MEDS ORDERED: Lorazepam PYXIS KEY PRN (10:35)
[2021-06-12] MEDS ORDERED: Lorazepam PYXIS KEY ONE (10:38)
[2021-06-12] MEDS ORDERED: LORazepam 2 mg VIAL 1 ml ONE (10:39)
[2021-06-12] MEDS: LORazepam 2 mg VIAL 1 ml IV PUSH PRN (10:40)
[2021-06-12 11:41] LABS: Albumin 3.5 g/dL (3.2-5.2); Albumin/Globulin Ratio 1.8 (1-3); Calcium 8.1 mg/dL (8.6-10.3); EGFR African American 191.8 (>60); EGFR Non-African American 158.5 (>60); Potassium 4.1 mmol/L (3.5-5.0); Total Bilirubin 0.6 mg/dL (0.2-1.0); Total Protein 5.5 g/dL (6.4-8.9)
[2021-06-12] MEDS: Propofol 10 mg/ml 100 ML BTL 100 ML IV SCH ×3 (15:17→22:42)
[2021-06-12 17:01] LABS: Troponin I 0.02 ng/mL (<0.03)
[2021-06-12] MEDS: Meperidine 50 mg/ml SYRINGE 1 ml IV PRN ×3 (17:20→21:03)
[2021-06-13] MEDS: Meperidine 50 mg/ml SYRINGE 1 ml IV PRN ×2 (00:09→02:44)
[2021-06-13] MEDS: Propofol 10 mg/ml 100 ML BTL 100 ML IV SCH ×3 (02:12→08:58)
[2021-06-13] MEDS: methylPREDNISolone 125 mg 2 ML VIAL IV SCH ×3 (02:20→17:13)
[2021-06-13] MEDS: Pantoprazole VIAL 40 MG VIAL IV SCH (02:20)
[2021-06-13] MEDS: Azithromycin 500 mg/250 ml NS 500 MG/250 ML BAG IVPB SCH (02:20)
[2021-06-13] MEDS: Chlorhexidine MOUTHWASH 0.12% 15 ML UDC TOPICAL SCH ×3 (02:20→08:57)
[2021-06-13] MEDS: Enoxaparin 40 MG/0.4 ML SYR SUBCUT SCH (02:20)
[2021-06-13 05:11] LABS: Hematocrit 32 % (42-52); Mean Corpuscular HGB Conc 32 g/dL (31-36); Mean Corpuscular Hemoglobin 28 pg (27-31); Mean Corpuscular Volume 88 fL (80-94); Mean Platelet Volume 8.2 fL (7.4-10.4); Platelet Count 191 10^3/uL (150-450); Red Cell Distribution Width 15 % (10-15); White Blood Count 14.1 10^3/uL (3.5-10.8)
[2021-06-13 05:28] LABS: Albumin 3.2 g/dL (3.2-5.2); Albumin/Globulin Ratio 1.5 (1-3); Calcium 8.1 mg/dL (8.6-10.3); EGFR African American 259.6 (>60); EGFR Non-African American 214.6 (>60); Globulin 2.1 g/dL (2-4); Phosphorus 1.5 mg/dL (2.5-5.0); Potassium 3.6 mmol/L (3.5-5.0); Total Bilirubin 0.8 mg/dL (0.2-1.0); Total Protein 5.3 g/dL (6.4-8.9)
[2021-06-13 06:35] LABS: ABS Lymphocytes 0.2 10^3/ul (1.0-4.8); ABS Monocytes 0.6 10^3/ul (0-0.8); ABS Neutrophils 13.3 10^3/ul (1.5-7.7); Lymphocyte % 1.7 %; Nucleated Red Blood Cells % 0.1
[2021-06-13] MEDS ORDERED: Potassium Phosphate IV 10 MMOLE in NS 0.9% 250 ml 250 ML IVPB ONE (06:45)
[2021-06-13] MEDS: Albuterol/Ipratropium NEB.SOL (2.5/0.5 MG) 3 ML NEB.SOLN INH SCH ×5 (07:15→19:23)
[2021-06-13] MEDS: LORazepam 2 mg VIAL 1 ml IV PUSH PRN ×4 (09:21→21:10)
[2021-06-13] MEDS ORDERED: LORazepam 2 mg VIAL 1 ml IV PUSH ONE (12:11)
[2021-06-13] MEDS ORDERED: LORazepam 2 mg VIAL 1 ml ONE (12:12)
[2021-06-13] MEDS ORDERED: Lorazepam PYXIS KEY ONE (12:12)
[2021-06-13] MEDS ORDERED: Furosemide 40 mg/4 ml IV VIAL IV ONE (12:21)
[2021-06-13] MEDS ORDERED: Metoprolol Tartrate 5 mg VIAL 5 ml VIAL (1 mg/ml) ONE (16:10)
[2021-06-13] MEDS ORDERED: Metoprolol Tartrate 5 mg VIAL 5 ml VIAL (1 mg/ml) IV PRN (16:10)
[2021-06-13] MEDS ORDERED: Acetaminophen IV 1 GM/100ML 100 ML IV PRN (17:52)
[2021-06-13] MEDS: Enoxaparin 100 MG/ML SYR SUBCUT SCH (18:20)
[2021-06-13] MEDS: Digoxin IV 0.5 MG/2 ML AMP (0.25 MG/ML) IV SLOW PU SCH (18:20)
[2021-06-14] MEDS: Albuterol/Ipratropium NEB.SOL (2.5/0.5 MG) 3 ML NEB.SOLN INH SCH ×7 (00:07→23:15)
[2021-06-14] MEDS: Azithromycin 500 mg/250 ml NS 500 MG/250 ML BAG IVPB SCH (02:11)
[2021-06-14] MEDS: Pantoprazole VIAL 40 MG VIAL IV SCH (02:12)
[2021-06-14] MEDS: methylPREDNISolone 125 mg 2 ML VIAL IV SCH ×2 (02:12→09:05)
[2021-06-14] MEDS: LORazepam 2 mg VIAL 1 ml IV PUSH PRN ×2 (03:26→12:43)
[2021-06-14 05:30] LABS: PO2 Arterial 72 mmHg (80-100)
[2021-06-14 05:31] LABS: PCO2 Arterial 97 mmHg (35-45)
[2021-06-14 06:11] LABS: Hematocrit 33 % (42-52); Mean Corpuscular HGB Conc 31 g/dL (31-36); Mean Corpuscular Hemoglobin 27 pg (27-31); Mean Corpuscular Volume 89 fL (80-94); Mean Platelet Volume 7.8 fL (7.4-10.4); Platelet Count 181 10^3/uL (150-450); Red Blood Count 3.64 10^6 /uL (4.18-5.48); Red Cell Distribution Width 15 % (10-15); White Blood Count 13.9 10^3/uL (3.5-10.8)
[2021-06-14 06:22] LABS: Albumin 3.4 g/dL (3.2-5.2); Albumin/Globulin Ratio 1.4 (1-3); Calcium 8.2 mg/dL (8.6-10.3); EGFR African American 200.7 (>60); EGFR Non-African American 165.9 (>60); Globulin 2.4 g/dL (2-4); Phosphorus 2.8 mg/dL (2.5-5.0); Potassium 4.1 mmol/L (3.5-5.0); Total Bilirubin 0.5 mg/dL (0.2-1.0); Total Protein 5.8 g/dL (6.4-8.9)
[2021-06-14] MEDS: Enoxaparin 100 MG/ML SYR SUBCUT SCH ×2 (06:29→17:34)
[2021-06-14 06:53] LABS: ABS Lymphocytes 0.2 10^3/ul (1.0-4.8); ABS Monocytes 0.6 10^3/ul (0-0.8); Lymphocyte % 1.5 %
[2021-06-14] MEDS: Digoxin IV 0.5 MG/2 ML AMP (0.25 MG/ML) IV SLOW PU SCH (09:02)
[2021-06-14] MEDS: methylPREDNISolone SOD 40 mg/ml 1 ml VIAL IV SCH (21:30)
[2021-06-15 00:40] LABS: Magnesium 2.4 mg/dL (1.9-2.7); Phosphorus 2.6 mg/dL (2.5-5.0)
[2021-06-15] MEDS: Pantoprazole VIAL 40 MG VIAL IV SCH (01:56)
[2021-06-15] MEDS: LORazepam 2 mg VIAL 1 ml IV PUSH PRN ×3 (03:05→17:54)
[2021-06-15] MEDS: Albuterol/Ipratropium NEB.SOL (2.5/0.5 MG) 3 ML NEB.SOLN INH SCH ×6 (03:09→23:47)
[2021-06-15 04:46] LABS: ABS Lymphocytes 0.2 10^3/ul (1.0-4.8); ABS Monocytes 0.6 10^3/ul (0-0.8); ABS Neutrophils 9.8 10^3/ul (1.5-7.7); Hematocrit 31 % (42-52); Hemoglobin 9.7 g/dL (14.0-18.0); Lymphocyte % 2.3 %; Mean Corpuscular HGB Conc 31 g/dL (31-36); Mean Corpuscular Hemoglobin 28 pg (27-31); Mean Corpuscular Volume 90 fL (80-94); Mean Platelet Volume 7.6 fL (7.4-10.4); Platelet Count 178 10^3/uL (150-450); Red Blood Count 3.47 10^6 /uL (4.18-5.48); Red Cell Distribution Width 15 % (10-15); White Blood Count 10.7 10^3/uL (3.5-10.8)
[2021-06-15 05:17] LABS: Albumin 3.3 g/dL (3.2-5.2); Albumin/Globulin Ratio 1.4 (1-3); Calcium 8.2 mg/dL (8.6-10.3); EGFR African American 238.8 (>60); EGFR Non-African American 197.4 (>60); Globulin 2.3 g/dL (2-4); Potassium 4.3 mmol/L (3.5-5.0); Total Bilirubin 0.5 mg/dL (0.2-1.0); Total Protein 5.6 g/dL (6.4-8.9)
[2021-06-15] MEDS: Enoxaparin 100 MG/ML SYR SUBCUT SCH ×2 (05:43→17:55)
[2021-06-15] MEDS: methylPREDNISolone SOD 40 mg/ml 1 ml VIAL IV SCH ×2 (09:07→21:26)
[2021-06-15] MEDS: Digoxin IV 0.5 MG/2 ML AMP (0.25 MG/ML) IV SLOW PU SCH (09:07)
[2021-06-15] MEDS ORDERED: acetaZOLAMIDE IV 250 MG in NS 0.9% 50 ML 50 ML IVPB ONE (22:00)
[2021-06-16] MEDS: Pantoprazole VIAL 40 MG VIAL IV SCH (02:41)
[2021-06-16] MEDS: Albuterol/Ipratropium NEB.SOL (2.5/0.5 MG) 3 ML NEB.SOLN INH SCH ×6 (03:04→23:00)
[2021-06-16 05:33] LABS: ABS Lymphocytes 0.2 10^3/ul (1.0-4.8); ABS Monocytes 0.5 10^3/ul (0-0.8); ABS Neutrophils 7.2 10^3/ul (1.5-7.7); Hematocrit 30 % (42-52); Hemoglobin 9.5 g/dL (14.0-18.0); Lymphocyte % 2.6 %; Mean Corpuscular HGB Conc 32 g/dL (31-36); Mean Corpuscular Hemoglobin 29 pg (27-31); Mean Corpuscular Volume 90 fL (80-94); Mean Platelet Volume 7.3 fL (7.4-10.4); Nucleated Red Blood Cells % 0.2; Platelet Count 166 10^3/uL (150-450); Red Blood Count 3.35 10^6 /uL (4.18-5.48); Red Cell Distribution Width 15 % (10-15); White Blood Count 7.9 10^3/uL (3.5-10.8)
[2021-06-16] MEDS: Enoxaparin 100 MG/ML SYR SUBCUT SCH ×2 (05:33→17:08)
[2021-06-16 05:47] LABS: ALT 28 U/L (7-52); AST 13 U/L (13-39); Albumin 3.1 g/dL (3.2-5.2); Albumin/Globulin Ratio 1.3 (1-3); Alkaline Phosphatase 33 U/L (35-149); Blood Urea Nitrogen 28 mg/dL (6-24); Calcium 8.2 mg/dL (8.6-10.3); Chloride 98 mmol/L (101-111); EGFR African American 259.6 (>60); EGFR Non-African American 214.6 (>60); Globulin 2.3 g/dL (2-4); Glucose 162 mg/dL (70-100); Magnesium 2.2 mg/dL (1.9-2.7); Phosphorus 2.1 mg/dL (2.5-5.0); Potassium 4.2 mmol/L (3.5-5.0); Sodium 142 mmol/L (135-145); Total Protein 5.4 g/dL (6.4-8.9)
[2021-06-16 06:23] LABS: CO2 Carbon Dioxide 46 mmol/L (22-32)
[2021-06-16] MEDS: Digoxin IV 0.5 MG/2 ML AMP (0.25 MG/ML) IV SLOW PU SCH (10:20)
[2021-06-16] MEDS: methylPREDNISolone SOD 40 mg/ml 1 ml VIAL IV SCH ×2 (10:24→20:48)
[2021-06-16] MEDS: LORazepam 2 mg VIAL 1 ml IV PUSH PRN ×3 (12:15→20:55)
[2021-06-16] MEDS ORDERED: Acetylcysteine INHALATION SOL 200 MG/ML NEB.SOLN 10 ML INH SCH (16:00)
[2021-06-16] MEDS: Acetylcysteine INH SOL (RT) 200 MG/ML 4 ML VIAL INH SCH ×2 (19:12→23:00)
[2021-06-17] MEDS: Acetylcysteine INH SOL (RT) 200 MG/ML 4 ML VIAL INH SCH ×6 (02:46→22:24)
[2021-06-17] MEDS: Pantoprazole VIAL 40 MG VIAL IV SCH (03:51)
[2021-06-17] MEDS: Enoxaparin 100 MG/ML SYR SUBCUT SCH ×2 (05:52→17:08)
[2021-06-17] MEDS: Albuterol/Ipratropium NEB.SOL (2.5/0.5 MG) 3 ML NEB.SOLN INH SCH ×6 (06:38→22:24)
[2021-06-17 08:51] LABS: Calcium 8.3 mg/dL (8.6-10.3); EGFR African American 252.3 (>60); EGFR Non-African American 208.5 (>60); Magnesium 2.1 mg/dL (1.9-2.7); Potassium 4.2 mmol/L (3.5-5.0)
[2021-06-17] MEDS: methylPREDNISolone SOD 40 mg/ml 1 ml VIAL IV SCH (09:05)
[2021-06-17] MEDS: Digoxin IV 0.5 MG/2 ML AMP (0.25 MG/ML) IV SLOW PU SCH (09:05)
[2021-06-17 10:35] LABS: PO2 Arterial 161 mmHg (80-100)
[2021-06-17] MEDS ORDERED: Buffered Lidocaine 1% SYRIN 1 ml INTRADERM ONE (10:35)
[2021-06-17 10:39] LABS: PCO2 Arterial 101 mmHg (35-45)
[2021-06-17] MEDS: LORazepam 2 mg VIAL 1 ml IV PUSH PRN ×3 (11:03→20:27)
[2021-06-17] MEDS ORDERED: Morphine 2 MG/ML SYRINGE ONE (17:29)
[2021-06-17] MEDS: Morphine 2 MG/ML SYRINGE IV ONE (17:30)
[2021-06-17] MEDS ORDERED: Morphine 2 MG/ML SYRINGE IV ONE (21:23)
[2021-06-18] MEDS: Pantoprazole VIAL 40 MG VIAL IV SCH (02:39)
[2021-06-18] MEDS: LORazepam 2 mg VIAL 1 ml IV PUSH PRN ×5 (03:14→21:39)
[2021-06-18] MEDS: Acetylcysteine INH SOL (RT) 200 MG/ML 4 ML VIAL INH SCH ×3 (03:15→13:50)
[2021-06-18] MEDS: Albuterol/Ipratropium NEB.SOL (2.5/0.5 MG) 3 ML NEB.SOLN INH SCH ×2 (03:15→08:02)
[2021-06-18 05:15] LABS: Hematocrit 30 % (42-52); Hemoglobin 9.6 g/dL (14.0-18.0); Mean Corpuscular HGB Conc 32 g/dL (31-36); Mean Corpuscular Hemoglobin 28 pg (27-31); Mean Corpuscular Volume 89 fL (80-94); Mean Platelet Volume 7.3 fL (7.4-10.4); Platelet Count 197 10^3/uL (150-450); Red Cell Distribution Width 15 % (10-15); White Blood Count 8.3 10^3/uL (3.5-10.8)
[2021-06-18 05:26] LABS: ALT 22 U/L (7-52); AST 11 U/L (13-39); Albumin 3.1 g/dL (3.2-5.2); Albumin/Globulin Ratio 1.3 (1-3); Alkaline Phosphatase 34 U/L (35-149); Anion Gap 3 mmol/L (2-11); Blood Urea Nitrogen 25 mg/dL (6-24); CO2 Carbon Dioxide 42 mmol/L (22-32); Calcium 8.2 mg/dL (8.6-10.3); Chloride 98 mmol/L (101-111); EGFR African American 284.1 (>60); EGFR Non-African American 234.8 (>60); Globulin 2.4 g/dL (2-4); Glucose 132 mg/dL (70-100); Magnesium 1.8 mg/dL (1.9-2.7); Potassium 3.6 mmol/L (3.5-5.0); Sodium 143 mmol/L (135-145); Total Protein 5.5 g/dL (6.4-8.9)
[2021-06-18 05:27] LABS: Phosphorus < 1.0 mg/dL (2.5-5.0)
[2021-06-18] MEDS ORDERED: Magnesium Sulfate 2 gm BAG 2 GM/50 ML BAG IVPB ONE (05:32)
[2021-06-18] MEDS: KCL 10 MEQ/50 ML IVPREMIX 10 MEQ/50 ML BAG IV SCH ×2 (06:04→07:33)
[2021-06-18] MEDS: Enoxaparin 100 MG/ML SYR SUBCUT SCH (06:10)
[2021-06-18 06:18] LABS: PCO2 Arterial 71 mmHg (35-45); PO2 Arterial 81 mmHg (80-100)
[2021-06-18] MEDS ORDERED: Potassium Phosphate IV 15 MMOLE in NS 0.9% 250 ml 250 ML IVPB ONE ×2 (06:30→08:47)
[2021-06-18 06:36] LABS: Basophilic Stippling 2+; RBC Morphology Normal (Normal)
[2021-06-18 06:37] LABS: ABS Lymphocytes 1.2 10^3/ul (1.0-4.8); ABS Monocytes 0.7 10^3/ul (0-0.8); ABS Neutrophils 6.4 10^3/ul (1.5-7.7); Eosinophil % 0.2 %; Lymphocyte % 13.9 %; Nucleated Red Blood Cells % 0.2
[2021-06-18] MEDS: Digoxin IV 0.5 MG/2 ML AMP (0.25 MG/ML) IV SLOW PU SCH (08:34)
[2021-06-18] MEDS ORDERED: methylPREDNISolone SOD 40 mg/ml 1 ml VIAL IV SCH ×2 (09:00→10:00)
[2021-06-18] MEDS: Potassium & Sodium Phos 250 mg = 1 PACKET PO SCH ×3 (09:33→22:25)
[2021-06-18] MEDS: Morphine 2 MG/ML SYRINGE IV PRN ×3 (11:37→23:55)
[2021-06-18] MEDS ORDERED: Morphine 2 MG/ML SYRINGE IV ONE (16:14)
[2021-06-18] MEDS ORDERED: Morphine 2 MG/ML SYRINGE ONE ×2 (16:15→19:41)
[2021-06-18 17:01] LABS: Phosphorus 2.5 mg/dL (2.5-5.0); Potassium 4.3 mmol/L (3.5-5.0)
[2021-06-18] MEDS: methylPREDNISolone SOD 40 mg/ml 1 ml VIAL IV SCH (20:11)
[2021-06-19] MEDS: Albuterol/Ipratropium NEB.SOL (2.5/0.5 MG) 3 ML NEB.SOLN INH SCH (01:09)
[2021-06-19] MEDS: Pantoprazole VIAL 40 MG VIAL IV SCH (02:43)
[2021-06-19] MEDS: LORazepam 2 mg VIAL 1 ml IV PUSH PRN ×2 (02:43→06:11)
[2021-06-19] MEDS: Morphine 2 MG/ML SYRINGE IV PRN ×3 (04:34→18:13)
[2021-06-19 04:49] LABS: Hematocrit 31 % (42-52); Hemoglobin 9.8 g/dL (14.0-18.0); Mean Corpuscular HGB Conc 32 g/dL (31-36); Mean Corpuscular Hemoglobin 28 pg (27-31); Mean Corpuscular Volume 88 fL (80-94); Mean Platelet Volume 7.4 fL (7.4-10.4); Platelet Count 204 10^3/uL (150-450); Red Blood Count 3.49 10^6 /uL (4.18-5.48); Red Cell Distribution Width 15 % (10-15); White Blood Count 9.8 10^3/uL (3.5-10.8)
[2021-06-19 05:11] LABS: ALT 22 U/L (7-52); AST 11 U/L (13-39); Albumin 3.2 g/dL (3.2-5.2); Albumin/Globulin Ratio 1.5 (1-3); Alkaline Phosphatase 33 U/L (35-149); Blood Urea Nitrogen 20 mg/dL (6-24); Chloride 101 mmol/L (101-111); EGFR African American 259.6 (>60); EGFR Non-African American 214.6 (>60); Globulin 2.2 g/dL (2-4); Glucose 188 mg/dL (70-100); Magnesium 1.9 mg/dL (1.9-2.7); Phosphorus 2.2 mg/dL (2.5-5.0); Potassium 4.5 mmol/L (3.5-5.0); Sodium 142 mmol/L (135-145); Total Protein 5.4 g/dL (6.4-8.9)
[2021-06-19 05:15] LABS: CO2 Carbon Dioxide 45 mmol/L (22-32)
[2021-06-19] MEDS ORDERED: Magnesium Sulfate IV 1GM/100ML 1 GM/100 ML BAG IV ONE (07:34)
[2021-06-19] MEDS: Potassium & Sodium Phos 250 mg = 1 PACKET PO SCH ×3 (08:05→21:13)
[2021-06-19] MEDS: Digoxin IV 0.5 MG/2 ML AMP (0.25 MG/ML) IV SLOW PU SCH (08:17)
[2021-06-19] MEDS: methylPREDNISolone SOD 40 mg/ml 1 ml VIAL IV SCH ×2 (08:17→21:13)
[2021-06-19 08:26] LABS: RBC Morphology Normal (Normal)
[2021-06-19 08:27] LABS: ABS Lymphocytes 0.6 10^3/ul (1.0-4.8); ABS Monocytes 0.5 10^3/ul (0-0.8); ABS Neutrophils 8.6 10^3/ul (1.5-7.7); Lymphocyte % 6.2 %; Nucleated Red Blood Cells % 0.1
[2021-06-19] MEDS: Morphine 2 MG/ML SYRINGE IV ONE (08:39)
[2021-06-19] MEDS ORDERED: LORazepam 2 mg VIAL 1 ml IV PUSH PRN ×2 (14:45→17:29)
[2021-06-19] MEDS ORDERED: Lorazepam PYXIS KEY PRN ×3 (14:45→18:18)
[2021-06-19] MEDS ORDERED: LORazepam 2 mg VIAL 1 ml ONE ×2 (14:47→17:31)
[2021-06-19] MEDS ORDERED: Lorazepam PYXIS KEY ONE (17:30)
[2021-06-19] MEDS ORDERED: Morphine 2 MG/ML SYRINGE IV ONE (18:10)
[2021-06-20] MEDS: Pantoprazole VIAL 40 MG VIAL IV SCH (01:05)
[2021-06-20] MEDS: LORazepam 2 mg VIAL 1 ml IV PUSH PRN ×3 (03:01→14:52)
[2021-06-20] MEDS: Morphine 2 MG/ML SYRINGE IV PRN ×5 (03:01→18:25)
[2021-06-20 06:49] LABS: Hematocrit 32 % (42-52); Hemoglobin 9.9 g/dL (14.0-18.0); Mean Corpuscular HGB Conc 31 g/dL (31-36); Mean Corpuscular Hemoglobin 28 pg (27-31); Mean Corpuscular Volume 89 fL (80-94); Mean Platelet Volume 7.4 fL (7.4-10.4); Platelet Count 226 10^3/uL (150-450); Red Cell Distribution Width 15 % (10-15); White Blood Count 11.5 10^3/uL (3.5-10.8)
[2021-06-20 07:06] LABS: Albumin 3.3 g/dL (3.2-5.2); Albumin/Globulin Ratio 1.3 (1-3); Calcium 8.1 mg/dL (8.6-10.3); EGFR African American 267.3 (>60); EGFR Non-African American 220.9 (>60); Globulin 2.5 g/dL (2-4); Potassium 4.2 mmol/L (3.5-5.0); Total Bilirubin 0.6 mg/dL (0.2-1.0); Total Protein 5.8 g/dL (6.4-8.9)
[2021-06-20] MEDS: Potassium & Sodium Phos 250 mg = 1 PACKET PO SCH ×3 (07:44→20:30)
[2021-06-20 07:55] LABS: RBC Morphology Normal (Normal)
[2021-06-20 07:56] LABS: ABS Basophils 0.1 10^3/ul (0-0.2); ABS Lymphocytes 0.5 10^3/ul (1.0-4.8); ABS Monocytes 0.6 10^3/ul (0-0.8); ABS Neutrophils 10.3 10^3/ul (1.5-7.7); Lymphocyte % 4.5 %; Nucleated Red Blood Cells % 0.1
[2021-06-20] MEDS: methylPREDNISolone SOD 40 mg/ml 1 ml VIAL IV SCH (08:28)
[2021-06-20] MEDS: Digoxin IV 0.5 MG/2 ML AMP (0.25 MG/ML) IV SLOW PU SCH (08:28)
[2021-06-20] MEDS ORDERED: Potassium Phosphate IV 10 MMOLE in NS 0.9% 250 ml 250 ML IVPB ONE (08:30)
[2021-06-20] MEDS ORDERED: Furosemide 40 mg/4 ml IV VIAL IV ONE (11:34)
[2021-06-20] MEDS ORDERED: Lorazepam PYXIS KEY ONE (18:03)
[2021-06-20] MEDS ORDERED: Lorazepam PYXIS KEY PRN ×2 (18:03→20:29)
[2021-06-20] MEDS ORDERED: LORazepam 2 mg VIAL 1 ml IV PUSH ONE (18:04)
[2021-06-20] MEDS ORDERED: LORazepam 2 mg VIAL 1 ml ONE (18:04)
[2021-06-20] MEDS: Morphine 2 MG/ML SYRINGE IV SCH (21:38)
[2021-06-21] MEDS: Pantoprazole VIAL 40 MG VIAL IV SCH (03:32)
[2021-06-21] MEDS: Morphine 2 MG/ML SYRINGE IV SCH ×4 (03:32→19:55)
[2021-06-21 05:00] LABS: Hematocrit 33 % (42-52); Hemoglobin 10.1 g/dL (14.0-18.0); Mean Corpuscular HGB Conc 31 g/dL (31-36); Mean Corpuscular Hemoglobin 28 pg (27-31); Mean Corpuscular Volume 89 fL (80-94); Mean Platelet Volume 6.7 fL (7.4-10.4); Platelet Count 202 10^3/uL (150-450); Red Blood Count 3.67 10^6 /uL (4.18-5.48); Red Cell Distribution Width 15 % (10-15); White Blood Count 10.4 10^3/uL (3.5-10.8)
[2021-06-21 05:19] LABS: ABS Lymphocytes 1.2 10^3/ul (1.0-4.8); ABS Monocytes 0.7 10^3/ul (0-0.8); ABS Neutrophils 8.4 10^3/ul (1.5-7.7); Eosinophil % 0.3 %; Lymphocyte % 11.5 %
[2021-06-21 05:40] LABS: Albumin 3.1 g/dL (3.2-5.2); Calcium 7.9 mg/dL (8.6-10.3); Chloride 101 mmol/L (101-111); Magnesium 1.7 mg/dL (1.9-2.7); Potassium 3.4 mmol/L (3.5-5.0)
[2021-06-21 05:45] LABS: Sodium 146 mmol/L (135-145)
[2021-06-21 05:46] LABS: ALT 23 U/L (7-52); AST 14 U/L (13-39); Albumin/Globulin Ratio 1.7 (1-3); Alkaline Phosphatase 38 U/L (35-149); Blood Urea Nitrogen 22 mg/dL (6-24); EGFR African American 284.1 (>60); EGFR Non-African American 234.8 (>60); Globulin 1.8 g/dL (2-4); Glucose 99 mg/dL (70-100); Phosphorus 3.3 mg/dL (2.5-5.0); Total Protein 4.9 g/dL (6.4-8.9)
[2021-06-21 05:55] LABS: CO2 Carbon Dioxide 49 mmol/L (22-32)
[2021-06-21] MEDS: LORazepam 2 mg VIAL 1 ml IV PUSH PRN ×4 (06:19→22:31)
[2021-06-21 08:34] LABS: RBC Morphology Normal (Normal)
[2021-06-21] MEDS: Digoxin IV 0.5 MG/2 ML AMP (0.25 MG/ML) IV SLOW PU SCH (08:41)
[2021-06-21] MEDS ORDERED: Magnesium Sulfate 2 gm BAG 2 GM/50 ML BAG IVPB ONE (08:57)
[2021-06-21] MEDS: KCL 20 MEQ/100 ML IVPREMIX 20 MEQ/100 ML BAG IV SCH ×2 (09:37→12:31)
[2021-06-21] MEDS: Potassium & Sodium Phos 250 mg = 1 PACKET PO SCH (09:37)
[2021-06-21] MEDS: Morphine 2 MG/ML SYRINGE IV PRN ×3 (11:15→22:40)
[2021-06-21] MEDS ORDERED: LORazepam 2 mg VIAL 1 ml IV PUSH PRN (13:07)
[2021-06-21] MEDS: Glycopyrrolate IV 0.2 MG/ML 1 ML VIAL IV SLOW PU SCH ×2 (14:56→20:11)
[2021-06-21] MEDS: Glycopyrrolate IV 0.2 MG/ML 1 ML VIAL IV SLOW PU PRN (23:37)
[2021-06-22] MEDS: LORazepam 2 mg VIAL 1 ml IV PUSH PRN ×7 (01:42→23:20)
[2021-06-22] MEDS: Morphine 2 MG/ML SYRINGE IV PRN ×4 (01:47→17:29)
[2021-06-22] MEDS ORDERED: Morphine 2 MG/ML SYRINGE IV ONE (02:16)
[2021-06-22] MEDS: Morphine 2 MG/ML SYRINGE IV SCH ×4 (02:35→21:21)
[2021-06-22] MEDS ORDERED: Lorazepam PYXIS KEY PRN (03:08)
[2021-06-22] MEDS ORDERED: LORazepam 2 mg VIAL 1 ml IV PUSH ONE (03:08)
[2021-06-22] MEDS: Digoxin IV 0.5 MG/2 ML AMP (0.25 MG/ML) IV SLOW PU SCH (09:34)
[2021-06-22] MEDS: Senna TAB 8.6 mg TAB PO SCH (09:35)
[2021-06-23] MEDS: Morphine 2 MG/ML SYRINGE IV PRN ×5 (00:08→17:03)
[2021-06-23] MEDS: Morphine 2 MG/ML SYRINGE IV SCH ×5 (02:20→22:12)
[2021-06-23] MEDS: LORazepam 2 mg VIAL 1 ml IV PUSH PRN ×6 (04:04→23:24)
[2021-06-23] MEDS: Glycopyrrolate IV 0.2 MG/ML 1 ML VIAL IV SLOW PU PRN ×3 (05:03→14:39)
[2021-06-23] MEDS: Digoxin IV 0.5 MG/2 ML AMP (0.25 MG/ML) IV SLOW PU SCH (09:53)
[2021-06-23] MEDS: Senna TAB 8.6 mg TAB PO SCH (12:11)
[2021-06-24] MEDS: Morphine 2 MG/ML SYRINGE IV SCH ×6 (01:26→21:32)
[2021-06-24] MEDS: Glycopyrrolate IV 0.2 MG/ML 1 ML VIAL IV SLOW PU PRN ×4 (02:05→23:30)
[2021-06-24] MEDS: LORazepam 2 mg VIAL 1 ml IV PUSH PRN ×9 (02:06→23:42)
[2021-06-24] MEDS: Morphine 2 MG/ML SYRINGE IV PRN ×6 (03:56→23:30)
[2021-06-24] MEDS: Senna TAB 8.6 mg TAB PO SCH (08:07)
[2021-06-24] MEDS: Digoxin IV 0.5 MG/2 ML AMP (0.25 MG/ML) IV SLOW PU SCH (08:59)
[2021-06-25] MEDS: Morphine 2 MG/ML SYRINGE IV SCH ×5 (00:08→19:09)
[2021-06-25] MEDS: Morphine 2 MG/ML SYRINGE IV PRN ×6 (01:38→21:52)
[2021-06-25] MEDS: LORazepam 2 mg VIAL 1 ml IV PUSH PRN ×5 (01:42→13:13)
[2021-06-25] MEDS: Senna TAB 8.6 mg TAB PO SCH (07:06)
[2021-06-25] MEDS: Digoxin IV 0.5 MG/2 ML AMP (0.25 MG/ML) IV SLOW PU SCH (07:28)
[2021-06-25] MEDS: Glycopyrrolate IV 0.2 MG/ML 1 ML VIAL IV SLOW PU PRN (07:42)
[2021-06-25] MEDS ORDERED: Lorazepam PYXIS KEY PRN (13:42)
[2021-06-25] MEDS ORDERED: Morphine 2 MG/ML SYRINGE IV SCH ×2 (13:45→13:56)
[2021-06-25] MEDS ORDERED: LORazepam 2 mg VIAL 1 ml IV PUSH SCH (14:00)
[2021-06-25] MEDS: Glycopyrrolate IV 0.2 MG/ML 1 ML VIAL IV SLOW PU SCH (17:11)
[2021-06-25] MEDS: LORazepam 2 mg VIAL 1 ml IV PUSH SCH ×2 (17:11→20:09)
[2021-06-26] MEDS: Morphine 2 MG/ML SYRINGE IV SCH ×5 (00:05→15:26)
[2021-06-26] MEDS: LORazepam 2 mg VIAL 1 ml IV PUSH SCH ×5 (00:06→17:53)
[2021-06-26] MEDS: Glycopyrrolate IV 0.2 MG/ML 1 ML VIAL IV SLOW PU SCH ×4 (00:26→17:52)
[2021-06-26] MEDS: Morphine 2 MG/ML SYRINGE IV PRN ×3 (02:47→17:58)
[2021-06-26] MEDS: Senna TAB 8.6 mg TAB PO SCH (09:12)
[2021-06-26] MEDS: Digoxin IV 0.5 MG/2 ML AMP (0.25 MG/ML) IV SLOW PU SCH (10:52)
[2021-06-26 15:57] VITALS: BP 56/24
== END 2021-06-26 19:00 | disposition expired | DRG 296 ==
LOC: ED 00:49 → ICU 01:10 → MED 06-21 19:41
PROVIDERS: ADMIT Internal Medicine; ATTEND Student in an Organized Health Care Education/Training Program